=== PATIENT | female | born 1950 | race Caucasian/White ===

== ENCOUNTER → 2016-05-08 | Outpatient (CLI) | payer OTHER ==
--- NOTE | 2016-05-08 14:06 | MA ---
Bilateral Diagnostic Digital Mammogram with iCAD Clinical Indications: Asymmetric densities upper-outer quadrants of both breasts on recent screening mammogram. Technique: Digital bilateral spot compression CC, spot mediolateral oblique and true lateral views. This examination was processed by the iCAD computer-aided detection system. Comparison: Recent mammogram. April 2016. Breast Density: 3, 50-75%. Findings: The upper-outer quadrants of both breasts demonstrate nodular dense parenchymal pattern wit h scattered benign-appearing microcalcifications. Given the nodular dense parenchymal pattern of the upper-outer quadrants of both breasts which persists, additional imaging with ultrasound is recommend ed since there are no old studies prior to April 2016 for comparison. Impression: ACR BI-RADS 0: Needs further imaging. Recommendation: Ultrasound upper-outer quadrants of both breast for dense nodular parenchymal pattern . Please see ultrasound report, which will be subsequently performed. Findings and recommendations have been discussed with the patient who agrees with the plan. The patient's information is entered into a reminder system with a target due date for her next mammo gram.
--- NOTE | 2016-05-08 14:44 | US ---
Ultrasound Bilateral Breasts History: Nodular parenchymal pattern upper-outer quadrant of both breasts. Comparison: Today's and April 2016 mammograms. Technique: Ultrasound imaging of the upper-outer quadrant of the bilateral breasts was performed by manjula gupta corn chip maker and myself. Findings: No ultrasound evidence of dominant solid or cystic lesion in the upper-outer quadrants of b oth breasts. There is a benign lymph node in the right breast 10 o'clock position 12 cm from the nipp le measuring 10 x 9 x 6 mm. Impression: 1. BI-RADS 3: Probably benign finding on mammography. 2. No ultrasound evidence of dominant solid or cystic lesion in the upper-outer quadrants of both suzan asts. Incidental right breast upper-outer quadrant intramedullary benign 10-mm lymph node. 3. Recommend short-term follow up with bilateral diagnostic mammograms in 6 months. Findings and recommendations have been discussed with the patient who agrees with the plan.
== END ==
LOC: CIMAGING 12:26
DX: R92.8 Other abnormal and inconclusive findings on diagnostic imaging of breast (principal)
CPT/HCPCS: 76641; G0204

== ENCOUNTER → 2016-08-02 | Outpatient (CLI) | payer OTHER | LOC: CIMAGING 11:59 | PROVIDERS: ATTEND Internal Medicine Critical Care Medicine | DX: J44.9 Chronic obstructive pulmonary disease, unspecified (principal) | CPT/HCPCS: 71020-PO ==

== ENCOUNTER 2016-10-29 13:13 | Inpatient (IN) | payer OTHER ==
[2016-10-29] MEDS ORDERED: ONDANSETRON 4 MG/2 ML VIAL IVP ONE (13:57)
[2016-10-29] MEDS ORDERED: NS 1,000 ML IV ONE (13:57)
--- NOTE | 2016-10-29 14:01 | EDPHY ---
H & P Stated Complaint: fatugue, cramping, restless, Source: Patient - Personal History Current Tetanus/Diphtheria Vaccine: Yes Current Tetanus Diphtheria and Acellular Pertussis (TDAP): Yes - Medical/Surgical History Hx Asthma: Yes Hx Chronic Respiratory Disease: Yes Hx Diabetes: Yes Hx Cardiac Disease: Yes Hx Renal Disease: Yes Hx Cirrhosis: No Hx Alcoholism: No Hx HIV/AIDS: No Hx Splenectomy or Spleen Trauma: No Other PMH: Diabetic, COPD, spine surgery, knee replacement, c-seation, carpal tunnelx2, kidney issue, appy, anemia - Family History Significant Family History: Hypertension - Social History Smoking Status: Former smoker Alcohol Use: Sober Drug Use: None Time Seen by Provider: 10/29/16 13:40 HPI/ROS: CHIEF COMPLAINT: Failure to thrive HISTORY OF PRESENT ILLNESS: The patient is a 66-year-old female with a history of severe COPD on home oxygen who is here with her complaining of fatigue, the restlessness, hypersomnia, abdominal cramping, mild nausea and weight loss over the last 2 months. She had been trying to lose weight but feels like it is coming off easier than expected. She lost 4 lb this week because she has been nauseous and has not felt like eating. Her states that she cannot walk from room to room and cannot care for herself. They have seen their primary physician who changed some of her medications around. She states that this is not helped. She did have a colonoscopy 1 month ago that she reports was negative. She denies history of cardiac disease. She denies any history of cancer. She has not had a fever. She has not had a headache. She denies shortness of breath currently. She does have a history of mild depression and takes citalopram. Also over the last few weeks she has noticed some lumps near umbilicus and appendectomy scar. REVIEW OF SYSTEMS: Constitutional: denies: chills, fever, recent illness, recent injury EENTM: denies: blurred vision, double vision, nose congestion Respiratory: denies: cough, shortness of breath Cardiac: denies: chest pain, irregular heart rate, lightheadedness, palpitations Gastrointestinal/Abdominal: See HPI Genitourinary: denies: dysuria, frequency, hematuria, pain Musculoskeletal: denies: joint pain, muscle pain Skin: denies: lesions, rash, jaundice, bruising Neurological: denies: headache, numbness, paresthesia, tingling, dizziness, weakness Hematologic/Lymphatic: denies: blood clots, easy bleeding, easy bruising Immunologic/allergic: denies: HIV/AIDS, transplant EXAM: GENERAL: Obese, fatigue HEAD: Atraumatic, normocephalic. EYES: Pupils equal round and reactive to light, extraocular movements intact, sclera anicteric, conjunctiva are normal. ENT: TMs normal, nares patent, oropharynx clear without exudates. Moist mucous membranes. NECK: Normal range of motion, supple without lymphadenopathy or JVD. LUNGS: Breath sounds clear to auscultation bilaterally and equal. No wheezes rales or rhonchi. HEART: Regular rate and rhythm without murmurs, rubs or gallops. ABDOMEN: Soft, nontender, normoactive bowel sounds. No guarding, no rebound. Small palpable hernia in the umbilicus and possibly below appendectomy scar. Nontender. BACK: No CVA tenderness, no spinal tenderness, step-offs or deformities EXTREMITIES: Normal range of motion, no pitting or edema. No clubbing or cyanosis. NEUROLOGICAL: Cranial nerves II through XII grossly intact. Normal speech, normal gait. 5/5 strength, normal movement in all extremities, normal sensation PSYCH: Normal mood, normal affect. SKIN: Warm, dry, normal turgor, no visible rashes or lesions. (Fuentes Wahl) Constitutional: Initial Vital Signs Temperature (C) 36.4 C 10/29/16 13:18 Heart Rate 111 H 10/29/16 13:18 Respiratory Rate 16 10/29/16 13:18 Blood Pressure 125/101 H 10/29/16 13:18 O2 Sat (%) 99 10/29/16 13:18 O2 Delivery Mode Nasal Cannula Allergies/Adverse Reactions: No Known Allergies Allergy (Verified 10/29/16 16:03) Home Medications: Medication Instructions Recorded Albuterol Sulfate [Proair Hfa] 1 - 2 gm IH Q4H PRN 10/29/16 Aspirin EC [Aspirin EC 81 mg (*)] 81 mg PO HS 10/29/16 Cholecalciferol Vit D3 [Vitamin D3 1,000 units PO DAILY 10/29/16 (*)] DULoxetine [Cymbalta 60 MG (*)] 60 mg PO DAILY 10/29/16 Furosemide [Lasix 80 MG (*)] 40 mg PO DAILY@18 PRN 10/29/16 Furosemide [Lasix 80 MG (*)] 80 mg PO BID@08,12 10/29/16 Ipratropium/Albuterol [Duoneb (*)] 3 ml IH QID PRN 10/29/16 Lisinopril [Zestril 2.5 mg (*)] 2.5 mg PO DAILY 10/29/16 Multivitamins [Multivitamin (*)] 1 each PO DAILY 10/29/16 Oxycodone HCl [Dazidox] 10 - 20 mg PO BID PRN 10/29/16 Potassium Cl [Klor-Con 20 meq (*)] 20 meq PO HS 10/29/16 glipiZIDE [Glucotrol] 10 mg PO DAILY@12 10/29/16 metFORMIN HCL [Metformin HCl] 1,000 mg PO BID 10/29/16 traMADol [Ultram 50 mg (*)] 50 mg PO Q4 PRN 10/29/16 Medical Decision Making ED Course/Re-evaluation: 1455: Care of this patient was transferred to sc by Dr. Wahl at change of shift. I consulted with Dr. Zaidi, hospitalist, who will accept admission. ( Rodney Pinzon) 2:55 p.m. care transferred to Dr. Rodney Pinzon. Lab work pending as well as CT scan. (Fuentes Wahl) Differential Diagnosis: Partial list of the Differential diagnosis considered include but were not limited to; failure to thrive, abdominal hernia, cancer and although unlikely based on the history and physical exam, I also considered obstruction, ischemia , the radiculitis. (Fuentes Wahl) Other Provider: Patient signed out to sc by Dr. Wahl at 3pm pending CTAP with plan for medicine admit if negative. Per Dr. Moore, CTAP shows no acute process. Per plan, patient admitted to Dr. Zaidi. (Rodney Pinzon) - Data Points Laboratory Results: Laboratory Results 10/29/16 14:20 10/29/16 14:20 Medications Given: Discontinued Medications Sodium Chloride (Ns) 1,000 mls @ 0 mls/hr IV ONCE ONE; Wide Open PRN Reason: Protocol Stop: 10/29/16 13:58 Last Admin: 10/29/16 14:39 Dose: 1,000 mls Ondansetron HCl (Zofran) 4 mg IVP EDNOW ONE Stop: 10/29/16 13:58 Last Admin: 10/29/16 14:42 Dose: 4 mg Departure - Departure Disposition: [facility] Inpatient Acute Clinical Impression: Failure to thrive Qualifiers: Failure to thrive age range: in adult Qualified Code(s): R62.7 - Adult failure to thrive Condition: Fair
[2016-10-29 14:09] LABS: COLOR PALE YELLOW; LEUKOCYTE ESTERASE,URINE NEGATIVE (NEGATIVE); NITRITE,URINE NEGATIVE (NEGATIVE)
[2016-10-29 14:15] LABS: MUCUS TRACE /lpf (NONE-1+)
[2016-10-29 14:31] LABS: % IMMATURE GRANULYOCYTES 0.5 % (0.0-1.1); ABSOLUTE IMMATURE GRANULOCYTES 0.05 10^3/uL (0.00-0.10); ADD DIFF? NO; ADD MORPH? NO; ADD SCAN? NO; ATYPICAL LYMPHOCYTE FLAG 0 (0-99); FRAGMENT RBC FLAG 0 (0-99); HEMATOCRIT 40.5 % (38.0-47.0); HEMOGLOBIN 13.7 g/dL (12.6-16.3); LEFT SHIFT FLG 0 (0-99); LIPEMIA HEMOLYSIS FLAG 90 (0-99); MEAN CELL HEMOGLOBIN 31.5 pg (27.9-34.1); MEAN CELL HEMOGLOBIN CONCENTR. 33.8 g/dL (32.4-36.7); MEAN CELL VOLUME 93.1 fL (81.5-99.8); MEAN PLATELET VOLUME 11.6 fL (8.7-11.7); PLATELET CLUMPS FLAG 20 (0-99); PLATELET COUNT 260 10^3/uL (150-400); RED BLOOD CELL COUNT 4.35 10^6/uL (4.18-5.33); RED CELL DISTRIBUTION WIDTH 14.1 % (11.5-15.2)
[2016-10-29 14:42] LABS: INR 0.98 (0.83-1.16); PROTIME(PATIENT) 12.9 SEC (12.0-15.0)
[2016-10-29 14:43] LABS: APTT 24.4 SEC (23.0-38.0)
[2016-10-29 14:58] LABS: ALANINE AMINOTRANSFERASE 44 IU/L (9-52); ALBUMIN 4.2 g/dL (3.5-5.0); ALKALINE PHOSPHATASE 109 IU/L (38-126); ANION GAP 16 mEq/L (8-16); ASPARTATE AMINOTRANSFERASE 25 IU/L (14-46); BILIRUBIN,TOTAL 0.5 mg/dL (0.1-1.4); BILIRUBIN-CONJUGATED 0.4 mg/dL (0.0-0.5); BILIRUBIN-UNCONJUGATED 0.1 mg/dL (0.0-1.1); CALCIUM 9.9 mg/dL (8.5-10.4); CARBON DIOXIDE 25 mEq/l (22-31); CHLORIDE 98 mEq/L (97-110); CREATININE 1.1 mg/dL (0.6-1.0); GLOMERULAR FILTRATION RATE 50; GLUCOSE 172 mg/dL (70-100); POTASSIUM 4.4 mEq/L (3.5-5.2); SODIUM 139 mEq/L (134-144); TOTAL PROTEIN 6.7 g/dL (6.3-8.2)
[2016-10-29] MEDS ORDERED: IOPAMIDOL (ISOVUE-300) 100 ML BTL ONE (15:02)
[2016-10-29] MEDS ORDERED: ONDANSETRON 4 MG/2 ML VIAL IVP PRN (16:31)
[2016-10-29] MEDS ORDERED: ACETAMINOPHEN 325 MG TAB PO PRN (16:31)
[2016-10-29] MEDS ORDERED: oxyCODONE IR 5 MG TAB PO PRN (16:31)
[2016-10-29] MEDS ORDERED: IPRATROPIUM/ALBUTEROL 3 ML DEYVIAL IH PRN (16:33)
[2016-10-29] MEDS ORDERED: traMADol 50 MG TAB PO PRN (16:33)
[2016-10-29] MEDS ORDERED: ALBUTEROL INH PREPACK MDI TAKEHOME PRN (16:33)
[2016-10-29] MEDS ORDERED: D50W 25 GM/50 ML SYR IVP PRN (16:34)
[2016-10-29 16:45] LABS: MAGNESIUM 1.7 mg/dL (1.6-2.3)
--- NOTE | 2016-10-29 16:57 | CPEKG ---
Heart Rate: 104 RR Interval: 577 P-R Interval: 168 QRSD Interval: 92 QT Interval: 356 QTC Interval: 469 P [place]: 4 QRS [place]: -52 T Wave [place]: 43 EKG Severity - ABNORMAL ECG - EKG Impression: SINUS TACHYCARDIA EKG Impression: LEFT ANTERIOR FASCICULAR BLOCK Electronically Signed By: Wiliam Solis 29-Oct-2016 20:46:08
[2016-10-29 16:58] LABS: TROPONIN I < 0.012 ng/mL (0-0.034)
--- NOTE | 2016-10-29 17:02 | GHP ---
[f rep st] HISTORY AND PHYSICAL DATE OF ADMISSION: 10/29/2016 CHIEF COMPLAINT: Weakness. HISTORY OF PRESENT ILLNESS: This is a 66-year-old female, brought in by her for weakness. Symptoms started about 3 weeks ago. It seems as though temporally related to a screening colonoscop y which she had. She reports that the colonoscopy was totally negative. After that, she was "very sick" with abdominal pain and some nausea. These symptoms have continued, waxed and waned a little bit for the last 3 weeks. She has had a few episodes of emesis. She has had some diarrhea, though none today. She has some mildly worsening abdominal distention, as well as abdominal pain. Her hus band and she report that she has been falling asleep, feels very restless as well. This is all quit e different for her. She increased her metformin last week, but this had no effect on her symptoms. PAST MEDICAL/SURGICAL HISTORY: 1. Obesity. 2. Diabetes mellitus type 2. 3. Osteoarthritis. 4. COPD/chronic respiratory failure. 5. Hypertension. 6. Lumbar fusion. 7. History of anemia requiring 3 transfusions at [place] for unclear reasons. MEDICATIONS: Please see medication reconciliation. ALLERGIES: No known drug allergies. FAMILY HISTORY: Noncontributory. SOCIAL HISTORY: She is accompanied by her . She does not drink or smoke. REVIEW OF SYSTEMS: A 10-point review of systems is conducted and is negative, except per HPI. This includes no chest pain or worsening shortness of breath. PHYSICAL EXAM: VITAL SIGNS: Blood pressure 125/101, heart rate 111, respiratory rate 16, saturatin g 99% on 2 L nasal cannula, temperature is 36.4. GENERAL: Ms. Spencer is a pleasant female who appear s comfortable, in no acute distress. HEENT: Shows mucous membranes to be moist. CARDIOVASCULAR: Shows regular rate and rhythm. No murmurs, rubs, or gallops. PULMONARY: Lungs clear to auscultati on bilaterally. ABDOMEN: Obese. She is mildly tender to palpation mostly in the right lower quadr ant. SKIN: Shows no rash. : Shows no Lind[place]. NEUROLOGIC: Shows her to be alert and oriented x3 . She is moving all extremities. PSYCHIATRIC: Shows normal mood and affect. LABS: White count is 10.3 with a normal distribution, INR 0.98, creatinine is 1.1. Basic metabolic panel is normal. LFTs are normal. Lipase negative. Urinalysis is normal. DATA: 1. I discussed this with Dr. Pinzon in the ED, will admit to med/surg. 2. I reviewed her CT scan. It shows fat containing periumbilical abdominal wall hernia. No acute findings. IMPRESSION AND PLAN: A 66-year-old female, who presents with nonspecific fatigue/weakness. 1. Fatigue/weakness: Labs are normal. CT scan is normal (associated with some nausea, diarrhea). We will perform basic cardiac workup, including EKG, single troponin. We will round out her metabo lic workout with checking all electrolytes, A1c. We will check a TSH, cortisol. We will check a ch est x-ray given her history of COPD. We will check orthostatic vitals. She is on Lasix. She did r eceive 1 L of fluid in the ED. I note that she was slightly tachycardic on her presentation. She i s not currently tachycardic. We will order PT and OT evals as well. 2. Diabetes: We will hold her glipizide and metformin, standard sliding scale, check A1c. 3. Hypertension: Continue medications. 4. Chronic obstructive pulmonary disease: Continue her inhalers and oxygen support. 5. Code status is full. 6. Venous thromboembolism risk is moderate, though she is admitted to Obs. We will not start any p rophylaxis at this point. /[id number]/MODL
[2016-10-29 17:36] LABS: HEMOGLOBIN A1C 8.2 % (4.0-6.0)
[2016-10-29 17:48] LABS: INR 0.97 (0.83-1.16); PROTIME(PATIENT) 12.8 SEC (12.0-15.0)
[2016-10-29] MEDS ORDERED: FUROSEMIDE 80 MG TAB PO PRN (18:00)
[2016-10-29] MEDS ORDERED: ALBUTEROL 60 PUFFS/8 GM MDI IH PRN (18:02)
[2016-10-29] MEDS ORDERED: ALBUTEROL 200 PUFFS/18 GM MDI IH PRN (18:05)
[2016-10-29] MEDS: INSULIN LISPRO 100 UNIT/ML SC SCH (18:47)
[2016-10-29] MEDS: ONDANSETRON DISINTEGRATING 4 MG TAB PO PRN (19:59)
[2016-10-29] MEDS: ASPIRIN EC 81 MG TAB PO SCH (21:31)
[2016-10-29] MEDS: POTASSIUM CL 20 MEQ TAB PO SCH (21:31)
[2016-10-30 05:08] LABS: % IMMATURE GRANULYOCYTES 0.4 % (0.0-1.1); ABSOLUTE IMMATURE GRANULOCYTES 0.03 10^3/uL (0.00-0.10); ADD DIFF? NO; ADD MORPH? NO; ADD SCAN? NO; ATYPICAL LYMPHOCYTE FLAG 10 (0-99); FRAGMENT RBC FLAG 0 (0-99); HEMATOCRIT 34.2 % (38.0-47.0); HEMOGLOBIN 11.3 g/dL (12.6-16.3); LEFT SHIFT FLG 0 (0-99); LIPEMIA HEMOLYSIS FLAG 80 (0-99); MEAN CELL HEMOGLOBIN 30.7 pg (27.9-34.1); MEAN CELL VOLUME 92.9 fL (81.5-99.8); PLATELET CLUMPS FLAG 0 (0-99); PLATELET COUNT 200 10^3/uL (150-400); RED BLOOD CELL COUNT 3.68 10^6/uL (4.18-5.33); RED CELL DISTRIBUTION WIDTH 14.1 % (11.5-15.2)
[2016-10-30] MEDS: INSULIN LISPRO 100 UNIT/ML SC SCH ×3 (08:42→18:12)
[2016-10-30] MEDS: DULoxetine 60 MG CAP PO SCH (08:42)
[2016-10-30] MEDS: FUROSEMIDE 80 MG TAB PO SCH ×2 (08:42→13:08)
[2016-10-30] MEDS: LISINOPRIL 2.5 MG TAB PO SCH (08:43)
[2016-10-30] MEDS: ONDANSETRON DISINTEGRATING 4 MG TAB PO PRN ×2 (10:21→14:23)
--- NOTE | 2016-10-30 15:17 | HOSPPROG ---
Hospitalist Progress Note Assessment/Plan: 66 yo female with Fatigue, N/V, intermittent diarrhea, and malaise for several week.. W/u has been unremarkable. Morning cortisol low in setting of hyperglycemia. #Dehydration: resolving: I will decrease Lasix #DMII, with elevated A1C and hyperglycemia: start Lantus nightly. Hold Metformin and oral meds #Nausea/Vomiting: unclear etiology. Possibly due to DMII, possibly other. ?IBS. Schedule Zofran #Generalized weakness and deconditioning #Obesity #COPD and chronic resp failure at baseline #Fatigue: unclear chronicity Plan: the etiology remains unclear. I am unclear what to make of the low cortisol level in the setting of uncontrolled DM and signs of dehydration on admission. No signs of Hypotension, has a hx of HTN. Will decrease Lasix. No further IVF. Start long acting insulin. PPI. Avoid centrally acting meds. Schedule antiemetics. Subjective: Still with Nause. No emesis. Hyperglycemia. Objective: Vital Signs Temp Pulse Resp BP Pulse Ox 36.8 C 96 18 107/78 98 10/30/16 11:38 10/30/16 11:38 10/30/16 11:38 10/30/16 11:38 10/30/16 11:38 Laboratory Results 10/30/16 04:01 10/29/16 10/30/16 10/31/16 05:59 05:59 05:59 Intake Total 1350 Balance 1350 PT 12.8 SEC (12.0-15.0) 10/29/16 Unknown INR 0.97 (0.83-1.16) 10/29/16 Unknown - Physical Exam Constitutional: no apparent distress, appears nourished, not in pain Eyes: PERRL, EOMI Ears, Nose, Mouth, Throat: moist mucous membranes Cardiovascular: regular rate and rhythym, No JVD Respiratory: no respiratory distress, reduced air movement Gastrointestinal: normoactive bowel sounds, soft, non-tender abdomen Skin: warm Neurologic: AAOx3 Psychiatric: interacting appropriately, not anxious, not encephalopathic ICD10 Worksheet Patient Problems: Problems Problem Status Onset Failure to thrive Acute Arthritis of right knee Acute
[2016-10-30] MEDS: ONDANSETRON DISINTEGRATING 4 MG TAB PO SCH ×2 (18:12→21:36)
[2016-10-30] MEDS ORDERED: INSULIN GLARGINE 100 UNITS/ML SYRINGE SC SCH (21:00)
[2016-10-30] MEDS: ASPIRIN EC 81 MG TAB PO SCH (21:35)
[2016-10-30] MEDS: POTASSIUM CL 20 MEQ TAB PO SCH (21:36)
[2016-10-31] MEDS: ONDANSETRON DISINTEGRATING 4 MG TAB PO SCH ×6 (01:30→22:14)
[2016-10-31 05:10] LABS: % IMMATURE GRANULYOCYTES 0.4 % (0.0-1.1); ABSOLUTE IMMATURE GRANULOCYTES 0.03 10^3/uL (0.00-0.10); ADD DIFF? NO; ADD MORPH? NO; ADD SCAN? NO; ATYPICAL LYMPHOCYTE FLAG 0 (0-99); FRAGMENT RBC FLAG 0 (0-99); HEMATOCRIT 35.3 % (38.0-47.0); HEMOGLOBIN 11.4 g/dL (12.6-16.3); LEFT SHIFT FLG 0 (0-99); LIPEMIA HEMOLYSIS FLAG 80 (0-99); MEAN CELL HEMOGLOBIN 30.2 pg (27.9-34.1); MEAN CELL HEMOGLOBIN CONCENTR. 32.3 g/dL (32.4-36.7); MEAN CELL VOLUME 93.6 fL (81.5-99.8); MEAN PLATELET VOLUME 11.6 fL (8.7-11.7); PLATELET CLUMPS FLAG 0 (0-99); PLATELET COUNT 188 10^3/uL (150-400); RED BLOOD CELL COUNT 3.77 10^6/uL (4.18-5.33); RED CELL DISTRIBUTION WIDTH 13.7 % (11.5-15.2)
[2016-10-31 05:26] LABS: ANION GAP 9 mEq/L (8-16); CARBON DIOXIDE 28 mEq/l (22-31); CHLORIDE 97 mEq/L (97-110); CREATININE 1.1 mg/dL (0.6-1.0); GLOMERULAR FILTRATION RATE 50; GLUCOSE 167 mg/dL (70-100); POTASSIUM 4.5 mEq/L (3.5-5.2); SODIUM 134 mEq/L (134-144)
[2016-10-31] MEDS: FUROSEMIDE 40 MG TAB PO SCH ×2 (08:29→12:53)
[2016-10-31] MEDS: INSULIN LISPRO 100 UNIT/ML SC SCH ×3 (08:29→17:47)
[2016-10-31] MEDS: LISINOPRIL 2.5 MG TAB PO SCH (08:30)
[2016-10-31] MEDS: DULoxetine 60 MG CAP PO SCH (08:30)
--- NOTE | 2016-10-31 14:03 | HOSPPROG ---
Hospitalist Progress Note Assessment/Plan: 66 yo female with Fatigue, N/V, intermittent diarrhea, and malaise for several weeks #Dehydration: resolving: I will decrease Lasix again today to 40 mg BID #borderline low BP: she is on Lisinopril 2.5 mg. This will be stopped. #DMII, with elevated A1C and hyperglycemia: Lantus started 10/31. Hold Metformin and oral meds #Nausea/Vomiting: unclear etiology. Possibly due to DMII, possibly other. ?IBS. Schedule Zofran #Generalized weakness and deconditioning #Obesity #COPD and chronic resp failure at baseline, no complaints #Fatigue: unclear chronicity Plan: The patient has multiple complaints. Her malaise and fatigue are likely multifactorial including her comorbidities, acute dehydration, borderline bp, and poor nutrition. Today, she will have further decrease of Lasix and stop VALORIE- I. I would expect some improvement with resolution of the dehydration and increase to BP. Her DMII is poorly controlled and she has been started on Insulin. She was previously on it before and had to stop due to it being too expensive. She likely needs additional insulin and our CM is looking to see what insulins are available to her. Metformin was increase w/i the last 2 weeks and this likely also contributed to her nausea. Would avoid Metformin and other oral meds going forward in favor of insulin. She is having good BM's and likely at this point she does not have gastroparesis. She had low cortisol level in the am. While she may have some underlying chronic adrenal insufficiency, we are making several other changes that may be the culprit. would repeat this test if these changes are not successful. Subjective: Still with some nausea, some improvement Objective: Vital Signs Temp Pulse Resp BP Pulse Ox 36.7 C 89 19 102/68 99 10/31/16 11:41 10/31/16 11:41 10/31/16 07:58 10/31/16 11:41 10/31/16 11:41 Laboratory Results 10/31/16 04:13 10/31/16 04:13 10/30/16 10/31/16 11/01/16 05:59 05:59 05:59 Intake Total 1350 1320 Output Total 600 Balance 1350 720 PT 12.8 SEC (12.0-15.0) 10/29/16 Unknown INR 0.97 (0.83-1.16) 10/29/16 Unknown - Time Spent With Patient Time Spent with Patient: greater than 35 minutes Time Spent with Patient: Greater than 35 minutes spent on this patients care, greater than 50% of time spent counseling, educating, and coordinating care regarding the above mentioned plan. - Physical Exam Constitutional: chronically ill appearing Eyes: PERRL, EOMI Ears, Nose, Mouth, Throat: dry mucous membranes Cardiovascular: regular rate and rhythym, No JVD Respiratory: reduced air movement Gastrointestinal: soft, non-tender abdomen Skin: warm Neurologic: AAOx3, sensation intact bilaterally Psychiatric: interacting appropriately, not anxious, not encephalopathic ICD10 Worksheet Patient Problems: Problems Problem Status Onset Failure to thrive Acute Arthritis of right knee Acute
[2016-10-31] MEDS: INSULIN NPH HUMAN 100 UNITS/ML SYRINGE SC SCH (17:47)
[2016-10-31] MEDS: ENOXAPARIN 40 MG/0.4 ML SYR SC SCH (17:48)
[2016-10-31] MEDS: POTASSIUM CL 20 MEQ TAB PO SCH (20:20)
[2016-10-31] MEDS: ASPIRIN EC 81 MG TAB PO SCH (20:20)
[2016-11-01] MEDS: ONDANSETRON DISINTEGRATING 4 MG TAB PO SCH ×4 (04:10→15:54)
[2016-11-01 05:01] LABS: ANION GAP 9 mEq/L (8-16); CALCIUM 8.8 mg/dL (8.5-10.4); CARBON DIOXIDE 29 mEq/l (22-31); CHLORIDE 97 mEq/L (97-110); CREATININE 1.2 mg/dL (0.6-1.0); GLOMERULAR FILTRATION RATE 45; GLUCOSE 139 mg/dL (70-100); POTASSIUM 4.8 mEq/L (3.5-5.2); SODIUM 135 mEq/L (134-144)
[2016-11-01] MEDS: DULoxetine 60 MG CAP PO SCH (08:55)
[2016-11-01] MEDS: FUROSEMIDE 40 MG TAB PO SCH ×2 (08:55→12:13)
[2016-11-01] MEDS: INSULIN LISPRO 100 UNIT/ML SC SCH ×2 (08:56→12:39)
[2016-11-01] MEDS: ENOXAPARIN 40 MG/0.4 ML SYR SC SCH (08:57)
[2016-11-01] MEDS: INSULIN NPH HUMAN 100 UNITS/ML SYRINGE SC SCH (09:00)
[2016-11-01 12:24] VITALS: O2SAT 98
[2016-11-01 16:29] VITALS: BP 116/67; PULSE 79; RESP 18; TEMP 97.8
--- NOTE | 2016-11-01 17:31 | PDDCSUM ---
Discharge Summary Discharge Summary: DISCHARGE DIAGNOSES: -diffuse abdominal pain, uncertain etiology with some right upper quadrant component -nausea vomiting uncertain etiology -cholelithiasis -diabetes mellitus type 2 with mild elevation of sugars and hemoglobin A1c -renal insufficiency PROCEDURES: CT scan of abdomen and pelvis showing evidence of cholelithiasis without other biliary or gallbladder abnormalities HOSPITAL COURSE SUMMARY: This patient came into the hospital complaining of diffuse diffuse abdominal pain on off for 3 weeks with occasional right upper quadrant discomfort. She also had intermittent nausea and vomiting and intermittent diarrhea at home. There were no fevers and no signs of bleeding. She had just completed a colonoscopy which was normal screening test prior to the onset of these symptoms. Her examination was unremarkable. Blood tests did not show any abnormalities to suggest a particular etiology. Stool samples were sent for pathogen panel and there were no infectious agents identified. The patient was treated here with hydration and with scheduled doses Zofran. This controlled her nausea well enough to the point where she could eat regular meals though she still is having some nausea and pain. She is comfortable dealing with the pain without analgesics. As there were no other signs of complications and the patient is now eating and hydrating well it was felt she was stable for discharge to home. However as there are gallstones present and we have no other specific etiology for her pains identified we did arrange for an outpatient HIDA scan. This will be done next week with results to go to Dr. Melissa Hudson her primary care physician. In addition to the above the patient is noted to have mildly to moderately elevated blood sugars and hemoglobin A1c of 8. She is taking 2 oral medications. At this point is recommended that she keep close track of pre meal and bedtime blood sugars and take a list of 2 weeks with sugars to see Dr. Hudson the plan on the best approach for getting her back to better sugar control. In addition the patient did have a mildly elevated creatinine at 1.1 and 1.2 here. It is felt that since this was stable here during her hospital stay she continue her Lasix and Abner inhibitors long his her creatinine is staying stable and her blood pressures remained in good range. Arrange for her to see Dr. Hudson in the next week or 2 to recheck her creatinine and she will check blood sugars at home. PENDING TEST RESULTS: HIDA scan will be done as an outpatient with results to Dr. Melissa Hudson MEDICATION CHANGES: Zofran is ordered for 4 mg every 4 hours as needed FOLLOW-UP PLAN: She has an appointment for follow-up with Dr. Melissa Hudson in addition. Greater than 35 minutes bedside and care coordination time today
== END 2016-11-01 17:50 | disposition home or self-care (01) | DRG 392 ==
LOC: F2W 17:43 → OBSVTOIN 10-31 14:04
PROVIDERS: ADMIT Student in an Organized Health Care Education/Training Program; ATTEND Student in an Organized Health Care Education/Training Program
DX: R10.11 Right upper quadrant pain (principal); R11.2 Nausea with vomiting, unspecified; E11.65 Type 2 diabetes mellitus with hyperglycemia; E86.0 Dehydration; J44.9 Chronic obstructive pulmonary disease, unspecified; J96.10 Chronic respiratory failure, unspecified whether with hypoxia or hypercapnia; K80.20 Calculus of gallbladder without cholecystitis without obstruction; I10 Essential (primary) hypertension; E66.9 Obesity, unspecified; Z68.41 Body mass index [BMI] 40.0-44.9, adult; Z96.659 Presence of unspecified artificial knee joint; Z87.891 Personal history of nicotine dependence; Z99.81 Dependence on supplemental oxygen; Z98.1 Arthrodesis status; Z79.4 Long term (current) use of insulin
CPT/HCPCS: 96374; 97116-GP; 97161-GP; 97165-GO; 97530-GP; G0378; G8978-GP-CJ; G8979-GP-CI; G8980-GP-CI; G8987-GO-CI; G8988-GO-CI; G8989-GO-CI; J1650; J1815; J2405; Q9967

== ENCOUNTER → 2017-03-21 | Outpatient (CLI) | payer OTHER | LOC: BRMIMAGING 08:34 | PROVIDERS: ATTEND Family Medicine | DX: R92.8 Other abnormal and inconclusive findings on diagnostic imaging of breast (principal) | CPT/HCPCS: G0204 ==

== ENCOUNTER 2017-03-30 15:21 | Emergency (ER) | payer OTHER ==
[2017-03-30 15:31] VITALS: RESP 14
[2017-03-30] MEDS ORDERED: OXYCODONE/APAP 5/325 TAB PO ONE (15:51)
--- NOTE | 2017-03-30 16:00 | EDPHY ---
H & P Stated Complaint: Foot Pain Time Seen by Provider: 03/30/17 15:42 HPI/ROS: CHIEF COMPLAINT: Left foot pain HISTORY OF PRESENT ILLNESS: Ms. Spencer is a 67 year old female with history of type 2 diabetes, COPD with oxygen dependence, adrenal insufficiency presents with atraumatic with foot pain. She awoke with this pain this morning. She has taken tramadol 150 mg and 1 diclofenac without relief. The pain is located along the lateral aspect of her foot. She believes that there is a bump that she can feel in this area. She describes this area as exquisitely tender palpation. It is painful, in this area, for her to move her ankle or foot. Weight bearing is painful. She has not been aware of warmth or redness. She denies fever. She usually ambulates independently, sometimes uses a cane or walker when she is on an uneven surface. REVIEW OF SYSTEMS: A ten point review of systems was performed and is negative with the exception of the items mentioned in the HPI. Past medical history: 1. Type 2 diabetes 2. COPD 3. Renal insufficiency 4. Sepsis secondary to urinary tract infection Past surgical history: 1. Right knee arthroplasty 2. Carpal tunnel x2 3. Appendectomy 4. section 5. Lumbar surgery Social history: She lives with her . She quit smoking 7 years ago. General Appearance: Alert. Vital signs reviewed. Blood pressure 95/70. Neck: No lymphadenopathy, supple. Respiratory: Lungs are distant and clear to auscultation; no wheezes, rales, or rhonchi. Cardiovascular: Regular rate and rhythm; no murmur, rub, or gallop. Gastrointestinal: Abdomen is obese, soft and nontender, no masses or organomegaly, bowel sounds normal. Skin: Warm and dry, no rashes on exposed skin, normal color. Bruising at base of right toes 3 and 4. Pulses: 1+ bilateral dorsalis pedis pulses. Extremities: Tenderness along the lateral aspect of her left foot in the region where the cuboid intersects with the 5th metatarsal proximally. This area might be minimally swollen. No other tenderness with palpation of the foot and the left lower leg. No lower extremity edema, no calf tenderness or swelling. Neurological: Alert and oriented. Moving all four extremities easily and equally. Sensation intact to light touch over both lower extremities. Sensation is intact to light touch over both lower extremities. Psychiatric: Normal affect. - Personal History Current Tetanus Diphtheria and Acellular Pertussis (TDAP): Unsure - Medical/Surgical History Hx Asthma: Yes Hx Chronic Respiratory Disease: Yes Hx Diabetes: Yes Hx Cardiac Disease: Yes Hx Renal Disease: Yes Hx Cirrhosis: No Hx Alcoholism: No Hx HIV/AIDS: No Hx Splenectomy or Spleen Trauma: No Other PMH: Diabetic, COPD, spine surgery, knee replacement, c-seation, carpal tunnelx2, kidney issue, appy, anemia - Social History Smoking Status: Former smoker Constitutional: Initial Vital Signs Temperature (C) 36.6 C 03/30/17 15:27 Heart Rate 93 03/30/17 15:27 Respiratory Rate 14 03/30/17 15:27 Blood Pressure 95/70 L 03/30/17 15:27 O2 Sat (%) 98 03/30/17 15:27 Allergies/Adverse Reactions: No Known Allergies Allergy (Verified 10/29/16 16:03) Home Medications: Medication Instructions Recorded Albuterol Sulfate [Proair Hfa] 1 - 2 gm IH Q4H PRN 10/29/16 Aspirin EC [Aspirin EC 81 mg (*)] 81 mg PO HS 10/29/16 Cholecalciferol Vit D3 [Vitamin D3 1,000 units PO DAILY 10/29/16 (*)] DULoxetine [Cymbalta 60 MG (*)] 60 mg PO DAILY 10/29/16 Furosemide [Lasix 80 MG (*)] 80 mg PO BID@08,12 10/29/16 Ipratropium/Albuterol [Duoneb (*)] 3 ml IH QID PRN 10/29/16 Lisinopril [Zestril 2.5 mg (*)] 2.5 mg PO DAILY 10/29/16 Multivitamins [Multivitamin (*)] 1 each PO DAILY 10/29/16 Oxycodone HCl [Dazidox] 10 - 20 mg PO BID PRN 10/29/16 Potassium Cl [Klor-Con 20 meq (*)] 20 meq PO HS 10/29/16 glipiZIDE [Glucotrol] 10 mg PO DAILY@12 10/29/16 metFORMIN HCL [Metformin HCl] 1,000 mg PO BID 10/29/16 traMADol [Ultram 50 mg (*)] 50 mg PO Q4 PRN 10/29/16 Ondansetron Odt [Zofran Odt 4 mg 4 mg SL Q4HRS PRN #60 tab 11/01/16 (*)] Lidocaine 5% [Lidoderm 5% Patch 1 ea TD DAILY #4 patch 03/30/17 (*)] oxyCODONE/APAP 5/325 [Percocet 1 - 2 tab PO Q4H PRN #10 tab 03/30/17 5/325 (RX)] Medical Decision Making - Diagnostics Imaging Results: Imaging Impressions Foot X-Ray 03/30/17 15:51 Impression: Negative except for osteoarthritis. ED Course/Re-evaluation: I reviewed the patient's x-ray. No fracture or dislocation. No bony abnormality aside from osteoarthritis. Nothing to suggest infection. Neurovascularly intact. There is no redness or warmth on exam. There is an area that is exquisitely tender to palpation on the lateral aspect of her foot along the cuboid and proximal fifth metatarsal. The nature of her pain is suggestive of gout but this would be an unusual location, although not impossible. She has a history of renal insufficiency and should not take anti-inflammatory medication. I note that she last had her creatinine checked in November, at which time it was normal at 1.0. Will try some measures for pain relief such as lidocaine patch. She had her foot wrapped when she arrived in so that the support made feels somewhat better so we will reapply an Abner wrap. Post op shoe placed. Will try crutch walking, as weight-bearing is difficult for her. I am going to prescribe a small quantity of Percocet for her to use for pain. I reviewed the use of tramadol with her. I am referring her to a enginehouse brakeman for further evaluation as needed. - Data Points Medications Given: Discontinued Medications Lidocaine (Lidoderm 5%) 1 ea TD EDNOW ONE Stop: 03/30/17 16:47 Last Admin: 03/30/17 16:48 Dose: 1 ea Oxycodone/Acetaminophen (Percocet 5/325) 1 tab PO EDNOW ONE Stop: 03/30/17 15:52 Last Admin: 03/30/17 15:55 Dose: 1 tab Departure - Departure Disposition: Home, Routine, Self-Care Clinical Impression: Foot pain, left Condition: Good Instructions: Arthralgia (ED) Additional Instructions: You can take Tramadol 50-100 mg every 6 hours. Do not take more than 400 mg in a 24 hour time period. Because of your kidney function you should avoid anti-inflammatory medications, such as Motrin, Advil, Aleve, Diclofenac. Use the Percocet, which contains tylenol, as prescribed. This medication will make you drowsy. It can also suppress your drive to breathe. Be very careful taking it. It contains oxycodone, which is an opiate pain medication and can be addictive. I am referring you to Dr. Meléndez, enginehouse brakeman, for further evaluation of your pain. As you know, it is not clear what is causing this pain. Referrals: Melissa Hudson MD [Primary Care Provider] - As per Instructions Kenya Meléndez DPM [Doctor of Podiatric Medicine] - As per Instructions Prescriptions: Lidocaine 5% [Lidoderm 5% Patch (*)] 1 ea TD DAILY #4 patch oxyCODONE/APAP 5/325 [Percocet 5/325 (RX)] 1 - 2 tab PO Q4H PRN #10 tab PRN Reason: Pain, Severe
[2017-03-30] MEDS ORDERED: LIDOCAINE 5% 1 EA PATCH TD ONE ×2 (16:46→16:47)
[2017-03-30 17:11] VITALS: BP 100/72; PULSE 88; TEMP 97.5; O2SAT 93
[2017-03-30] MEDS ORDERED: PATCH REMOVAL 1 EA PATCH TD SCH (21:00)
== END 2017-03-30 17:10 | disposition home or self-care (01) ==
LOC: CED 15:21
DX: M79.672 Pain in left foot (principal); E11.9 Type 2 diabetes mellitus without complications; J44.9 Chronic obstructive pulmonary disease, unspecified; Z87.891 Personal history of nicotine dependence; Z79.82 Long term (current) use of aspirin; Z79.84 Long term (current) use of oral hypoglycemic drugs
CPT/HCPCS: 73630-PO

== ENCOUNTER 2017-05-13 07:15 | Observation (INO) | payer OTHER ==
--- NOTE | 2017-05-02 08:01 | GHP ---
[f rep st] HISTORY AND PHYSICAL Amended report MITALI COMPLAINT: Left knee pain. HISTORY OF PRESENT ILLNESS: The patient is a 67-year-old female with a long history of left knee pain worsening with use and with time despite multiple conservative measures. X-ray exam has revealed [id number] osteoarthritic changes. She wishes to have surgery in order to resolve the problem. ALLERGIES: She lists no drug allergies. CURRENT MEDICATIONS: Include Advair, amitriptyline, citalopram, clobetasol, duloxetine, furosemide, glipizide, ipratropium, Lantus, lisinopril, metformin, _ , ProAir. PAST MEDICAL HISTORY: Prior medical problems include arthritis, asthma, diabetes, heart murmur, kidney disease, COPD. PAST SURGICAL HISTORY: Prior surgeries include a right total knee arthroplasty , carpal tunnel x2, spinal fusion, section, and a hernia repair. SOCIAL HISTORY: She is a former smoker and a social drinker. PHYSICAL EXAM: EXTREMITIES: Patient has mild varus deformity through the left knee. She has crepitus noted to the medial compartment as well as spurring. HEENT: Her pupils are equal, round, and reactive to light. CHEST: Clear to auscultation. HEART: Regular rate and rhythm. ABDOMEN: Soft and nontender. X-ray exam reveals [id number] osteoarthritic changes, particularly medial compartment of the left knee. PLAN: The plan is to take her to the operating room where she is to undergo a left total knee arthroplasty. /[id number]/MODL Add acc#, 05/02/17, moy SINGH
[~2017-05-13 07:15] MED LIST: ACETAMINOPHEN 500 MG TAB PO ONE; PREGABALIN 150 MG CAP PO ONE; ROPIVACAINE 0.2% 80 MG, EPINEPHrine 0.2 MG, KETOROLAC TROMETHAMINE 30 MG, morphINE 10 M... IU ONE; TRANEXAMIC ACID 3,000 MG in NS 50 ML IRR ONE; ceFAZolin 2 GM/SWFI 2 GM/20 ML SYR IVP ONE
[2017-05-13] MEDS ORDERED: LIDOCAINE 1% 2 ML INJ ID PRN (08:22)
[2017-05-13] MEDS ORDERED: LR 1,000 ML IV ONE (08:22)
[2017-05-13] MEDS ORDERED: THROMBIN (BOVINE) 5,000 UNIT VIAL TP ONE (09:11)
[2017-05-13] MEDS ORDERED: BUPIVACAINE 0.25% 30 ML SDV ONE (09:11)
[2017-05-13] MEDS ORDERED: CALCIUM CHLORIDE 1 GM/10 ML INJ ONE (09:11)
[2017-05-13] MEDS ORDERED: POLYMYXIN B SULFATE 500,000 UNIT/10 ML SYR IRR ONE (09:12)
[2017-05-13] MEDS ORDERED: BACITRACIN 50,000 UNITS/10 ML SYR IRR ONE (09:12)
[2017-05-13] MEDS ORDERED: TRANEXAMIC ACID 3,000 MG/50 ML BAG IRR ONE (09:16)
[2017-05-13] MEDS ORDERED: ACETAMINOPHEN 500 MG TAB ONE (09:23)
[2017-05-13] MEDS ORDERED: PREGABALIN 150 MG CAP ONE (09:23)
[2017-05-13] MEDS ORDERED: ceFAZolin 2 GM/SWFI 20 ML SYR IVP ONE (09:23)
--- NOTE | 2017-05-13 09:43 | PDHPUP ---
History & Physical Update H&P update statement: This history and physical update is based on an assessment of the patient which was completed after admission or registration (within 24 hours), but prior to the surgery/procedure. H&P update: H&P reviewed & patient examined, no change in patient's condition since H&P completed
[2017-05-13] MEDS ORDERED: MIDAZOLAM 2 MG/2 ML VIAL IVP ONE (10:01)
--- NOTE | 2017-05-13 10:06 | PDANEPAE ---
ANE History of Present Illness left knee oa ANE Past Medical History - Cardiovascular History Hx Hypertension: No Hx Arrhythmias: No Hx Chest Pain: No Hx Coronary Artery / Peripheral Vascular Disease: No Hx CHF / Valvular Disease: Yes Hx Palpitations: No Cardiovascular History Comment: on lisinopril for kidneys; on Lasix for ankle swelling;. anemia-3 transfusions. - Pulmonary History Hx COPD: Yes Hx Asthma/Reactive Airway Disease: Yes Hx Recent Upper Respiratory Infection: No Hx Oxygen in Use at Home: Yes O2 in Use at Home (L/minute): 3L NC Hx Sleep Apnea: No Sleep Apnea Screening Result - Last Documented: Negative Pulmonary History Comment: COPD,asthma; pneumonia 2013; on 2-4L O2 w/NC. Summer: in pool/shopping without O2. Winter: uses 3L NC. - Neurologic History Hx Cerebrovascular Accident: No Hx Seizures: No Hx Dementia: No - Endocrine History Hx Diabetes: Yes Endocrine History Comment: IDDM. On Levimir x 6 mos. - Renal History Hx Renal Disorders: Yes Renal History Comment: insufficiency-on Lisinopril - Liver History Hx Hepatic Disorders: Yes Hepatic History Comment: liver problems - Neurological & Psychiatric Hx Hx Neurological and Psychiatric Disorders: Yes Neurological / Psychiatric History Comment: back pain;radiates down sciatic nerve and moreso R leg/less down L leg at night. - Cancer History Hx Cancer: No - Congenital Disorder History Hx Congenital Disorders: No - GI History Hx Gastrointestinal Disorders: No Gastrointestinal History Comment: cholelithiasis/N andV 6-17;. abd hernia. - Other Health History Other Health History: bruises easily. L bilat knee pain - Chronic Pain History Chronic Pain: Yes (L knee, back pain) - Surgical History Prior Surgeries: R total knee 9-16. 2 major back sugeries, R knee scope, bilat carpal tunnels, C section. ANE Review of Systems Review of Systems: - Exercise capacity METS (RN): 3 METS ANE Patient History - Allergies Allergies/Adverse Reactions: No Known Allergies Allergy (Verified 04/22/17 10:24) - Home Medications Home Medications: Albuterol Sulfate [Proair Hfa] 1 - 2 gm IH Q4H PRN 10/29/16 [Last Taken 05/13/17 ] Aspirin EC [Aspirin EC 81 mg (*)] 81 mg PO HS 10/29/16 [Last Taken 05/06/17] Cholecalciferol Vit D3 [Vitamin D3 (*)] 1,000 units PO DAILY 10/29/16 [Last Taken 05/06/17] DULoxetine [Cymbalta 60 MG (*)] 60 mg PO DAILY 10/29/16 [Last Taken 05/13/17 06: 30] Furosemide [Lasix 80 MG (*)] 80 mg PO BID@08,12 10/29/16 [Last Taken 05/12/17] Ipratropium/Albuterol [Duoneb (*)] 3 ml IH QID PRN 10/29/16 [Last Taken 05/09/17 ] Lisinopril [Zestril 2.5 mg (*)] 2.5 mg PO DAILY 10/29/16 [Last Taken 05/13/17 06 :30] Multivitamins [Multivitamin (*)] 1 each PO DAILY 10/29/16 [Last Taken 05/06/17] Oxycodone HCl [Dazidox] 10 - 20 mg PO BID PRN 10/29/16 [Last Taken 2 Weeks Ago ~ 04/29/17] Potassium Cl [Klor-Con 20 meq (*)] 20 meq PO HS 10/29/16 [Last Taken 05/12/17] glipiZIDE [Glucotrol] 10 mg PO DAILY@12 10/29/16 [Last Taken 05/12/17] metFORMIN HCL [Metformin HCl] 1,000 mg PO BID 10/29/16 [Last Taken 05/12/17] Melatonin 05/13/17 [Last Taken 05/11/17] traMADol [Ultram 50 mg (*)] 100 mg PRN 05/13/17 [Last Taken 05/12/17] - NPO status NPO Status: no food or drink >8 hours NPO Since - Liquids (Date): 05/13/17 NPO Since - Liquids (Time): 06:30 NPO Since - Solids (Date): 05/12/17 NPO Since - Solids (Time): 19:00 - Smoking Hx Smoking Status: Former smoker ANE Labs/Vital Signs - Vital Signs Vital Signs: reviewed preoperatively; see RN documention for details Blood Pressure: 139/80 Heart Rate: 100 Respiratory Rate: 16 O2 Sat (%): 100 Height: 147.32 cm Weight: 87.997 kg ANE Physical Exam - Airway Neck exam: FROM Mallampati Score: Class 3 Mouth exam: normal dental/mouth exam - Pulmonary Pulmonary: no respiratory distress - Cardiovascular Cardiovascular: regular rate and rhythym - ASA Status ASA Status: III ANE Anesthesia Plan Anesthesia Plan: general endotracheal anesthesia, spinal Regional Anesthesia: adductor canal FNB
[2017-05-13] MEDS ORDERED: MIDAZOLAM 2 MG/2 ML VIAL ONE (10:08)
[2017-05-13] MEDS ORDERED: PROPOFOL/EMULSION 500 MG/50 ML BOTTLE IV ONE (10:14)
[2017-05-13] MEDS ORDERED: fentaNYL 100 MCG/2 ML INJ ONE (10:14)
[2017-05-13] MEDS ORDERED: DEXAMETHASONE 4 MG/ML VIAL ONE (11:12)
[2017-05-13] MEDS ORDERED: PHENYLEPHRINE HCL 100 MCG/ML SYR ONE (11:12)
[2017-05-13] MEDS ORDERED: ONDANSETRON 4 MG/2 ML VIAL ONE (11:12)
[2017-05-13] MEDS ORDERED: ROPIVACAINE HCL 150 MG/30 ML INJ ONE (11:12)
[2017-05-13] MEDS ORDERED: NALOXONE HCL 0.4 MG/ML INJ IVP PRN (11:25)
[2017-05-13] MEDS ORDERED: PROMETHAZINE HCL 25 MG/ML INJ IVP PRN ×2 (11:25→12:20)
[2017-05-13] MEDS ORDERED: PHENYLEPHRINE HCL 100 MCG/ML SYR IVP PRN (11:25)
[2017-05-13] MEDS ORDERED: OXYCODONE/APAP 5/325 TAB PO PRN (11:25)
[2017-05-13] MEDS ORDERED: fentaNYL 100 MCG/2 ML INJ IVP PRN (11:25)
[2017-05-13] MEDS ORDERED: HYDROmorphONE/DILAUDID 1 MG/ML INJ IVP PRN (11:25)
[2017-05-13] MEDS ORDERED: ONDANSETRON 4 MG/2 ML VIAL IVP PRN ×2 (11:25→12:20)
[2017-05-13] MEDS ORDERED: diphenhydrAMINE 25 MG CAP PO PRN (12:20)
[2017-05-13] MEDS ORDERED: TAPENTADOL HCL 50 MG TAB PO PRN (12:20)
[2017-05-13] MEDS ORDERED: MAGNESIUM HYDROXIDE 30 ML UDCUP PO PRN (12:20)
[2017-05-13] MEDS ORDERED: ONDANSETRON DISINTEGRATING 4 MG TAB PO PRN (12:20)
[2017-05-13] MEDS ORDERED: TEMAZEPAM 15 MG CAP PO PRN (12:20)
[2017-05-13] MEDS ORDERED: BISACODYL 10 MG SUPP PR PRN (12:20)
[2017-05-13] MEDS ORDERED: PROMETHAZINE HCL 25 MG SUPPR PR PRN (12:20)
[2017-05-13] MEDS ORDERED: CYCLOBENZAPRINE 10 MG TAB PO PRN (12:20)
[2017-05-13] MEDS ORDERED: DIPHENOXYLATE/ATROPINE LOMOTIL 1 TAB PO PRN (12:20)
[2017-05-13] MEDS ORDERED: METOCLOPRAMIDE 10 MG/2 ML VIAL IVP PRN (12:20)
[2017-05-13] MEDS ORDERED: LACTULOSE 20 GM/30 ML UDCUP PO PRN (12:20)
[2017-05-13] MEDS ORDERED: POLYETHYLENE GLYCOL 3350 17 GM PKT PO PRN (12:20)
--- NOTE | 2017-05-13 12:20 | POSTOPPROG ---
Post Op Note Date of Operation: 05/13/17 Surgeon: Becca Mclaughlin Machine Tool Electrician: coltrain Anesthesia: Epidural Pre-op Diagnosis: l knee oa Procedure: l tkr Inf/Abcess present in the surg proc area at time of surgery?: No Depth: Deep Incisional (Fascial) EBL: 100-500
[2017-05-13] MEDS ORDERED: LR 1,000 ML IV SCH (12:30)
--- NOTE | 2017-05-13 12:30 | POSTANESTH ---
Post Anesthetic Evaluation Cardiovascular Status: Normal, Stable Respiratory Status: Normal, Stable Level of Consciousness/Mental Status: Can Participate in Eval Pain Control: Adequate, Prn Tx Ordered Nausea/Vomiting Control: Adequate, Prn Tx Ordered Complications Possibly Related to Anesthesia: None Noted
--- NOTE | 2017-05-13 13:56 | GOP ---
[f rep st] OPERATIVE REPORT DATE OF OPERATION: 05/13/2017 SURGEON: Becca Mclaughlin MD FLAT POLISHER: Loen Batista, Certified SA, whose presence was medically necessary. ANESTHESIA: By epidural nerve block with adductor nerve block per surgeon's request. PREOPERATIVE DIAGNOSIS: Left knee osteoarthritis. POSTOPERATIVE DIAGNOSIS: Left knee osteoarthritis. PROCEDURE PERFORMED: Left total knee arthroplasty. FINDINGS: INDICATIONS: This is a 67-year-old female, who had previously undergone a right total knee arthropla sty and had developed increasing pain into her left knee. X-ray exam reveals [id number] osteoarthr itic changes. She has tried multiple conservative measures, without effect. She wishes to have the surgery in order to resolve the problem. DESCRIPTION OF PROCEDURE: The patient was brought to the operating room after the left side had been identified as the correct side by the patient, nurse, and physician. Once in the operating room, doretha willis was given an epidural nerve block and then placed supine on the operating room table with a tourniq uet placed around the upper portion of the left thigh. The left lower extremity was then sterilely p repped and draped in the usual fashion using GSI solution. Once prepped and draped, limb was exsangu inated and tourniquet inflated to 250 mmHg. Incision was made on the anterior portion of the knee 1 handbreadth above and below the patella, with sharp dissection carried down through the subcutaneous layers, with bleeding controlled using electrocautery. A medial parapatellar incision was made throu gh the extensor mechanism, with the patella brought to the side but not everted. She was noted to dye ve [id number] osteoarthritic changes to the medial compartment, and grade 3 chondral changes to the patellofemoral and lateral compartments. The ACL as well as the medial and lateral meniscus were re moved. Osteophytes were removed from the femur. A drill hole was made 1 cm anterior to the intercon dylar notch, with an intramedullary guide placed within the femur. A cutting guide was set at 5 degr ees of valgus and set to remove 10 mm of bone. It was pinned into place. An oscillating saw was use d to remove the distal portion of the femur. Once completed, the cutting block was removed as well a s its pins. The knee was brought to maximal flexion. Any remaining cartilage was removed from the p osterior condyles of the femur. A sizing guide was pinned into place on the cut surface of the femur , and noted a size 4 seemed to fit best. Therefore, guide pins were removed as well as the guide, an d a size 4, 4-in-1 cutting block was put into place. An oscillating saw was used to cut the anterior , posterior, and chamfer cuts. A size 4 trial was put into place and noted to fit securely. Lug hol es were drilled for the size 4 component. The leg was able to achieve full extension with the femora l component in place. The trial was removed and the knee brought to maximal flexion. Tibia was subl uxed anteriorly, and an external tibial guide was set into place. It had a slight posterior slope as well as neutral varus/valgus. Once pinned into place, it was set to remove 2 mm of bone from the lo w side of the tibia, which was the medial side. Once pinned into place, a drop markell was used to ensur e proper positioning of the cutting guide. Oscillating saw was used to the proximal porti on of the tibia. A femoral trial and tibial trial with a trial liner were placed in the knee, and th e knee was able to achieve full extension, suggesting an adequate amount of bone had been removed fro m the tibia. All trials were then removed, the knee brought back to maximal flexion, and tibia sublu xed anteriorly. Multiple sizes were placed on the cut surface of the tibia, noting a size 3 seemed t o fit best. It was therefore placed on the tibia, set in slight external rotation, and pinned into p lace. Guide was locked into the trial, keel punch passed through the guide, removed, as well as the trial, and then a press-fit guide put into place and drill holes made for the press-fit component. O nce finished, the knee was brought to full extension. The patella was then everted. Soft tissue was dissected from around the patella itself. It was measured to be 20 mm in thickness. Oscillating sa w was used to remove the posterior portion of the patella, leaving 14 mm of bone. Multiple sizes wer e trialed on the cut surface, noting a 29 mm button seemed to fit best. Therefore, lug holes were dr renita for a 29 mm button. Once completed, the wound was irrigated with an antibiotic solution, at wh ich point a Triathlon cruciate-retaining size 4 left component from [employer] was put into place and no kristyn to fit securely. A size 3 Triathlon Trit[employer] tibial component was put into place and noted to f it securely. Trial liner was placed in the tibial tray and knee brought to full extension in order t o pressurize the press-fit components, and a 29 mm asymmetric Tritanium Triathlon press-fit patella f rom Waldo put into place. Once in proper position, the joint cocktail was injected into the delinquency prevention social worker ior capsule as well as the medial and lateral gutters along the periosteum of the femur and tibia. M ultiple sizes were trialed into the tibial tray, and noted a 13 mm liner gave full extension and good stability. Therefore, a 13 mm size 3 polyethylene insert was put into place and noted to fit secure ly. Tranexamic acid was placed within the knee, and the tourniquet was deflated at 40 minutes. The wound was then closed in layers to include 0 Vicryl suture in a szggkw-lp-jkeeu type stitch for the e xtensor mechanism, with plasma gel placed intra-articularly. 0 Vicryl and 2-0 Vicryl suture were use d to close the subcutaneous layers, with plasma gel placed external to the extensor mechanism, and th en a 3-0 V-Loc suture in a running subcuticular stitch was used to close the skin. 30 cc of Marcaine was infused around the actual incision itself. The wound was then dressed with Steri-Strips, Xerofo rm, 4 x 4's, and wrapped in Kerlix. Leg was completely undraped in the operating room, tourniquet re moved from the thigh, and an Abner wrap placed around the knee. The patient was then transferred onto a stretcher, and sent to recovery room in good condition. Once in the recovery room, she received an adductor nerve block. TOURNIQUET TIME: 40 minutes. /[id number]/MODL
[2017-05-13] MEDS ORDERED: ceFAZolin 2 GM/DEXTROSE 100 ML IV SCH (14:00)
[2017-05-13] MEDS: traMADol 50 MG TAB PO SCH ×2 (17:13→23:56)
[2017-05-13] MEDS: ACETAMINOPHEN 325 MG TAB PO SCH ×2 (17:13→23:55)
[2017-05-13] MEDS: KETOROLAC 30 MG/1 ML SDV IVP SCH ×2 (17:14→23:56)
[2017-05-13] MEDS: ceFAZolin 2 GM/DEXTROSE 100 ML IV SCH (17:14)
[2017-05-13] MEDS: SENNOSIDES/DOCUSATE SODIUM TAB PO SCH (20:41)
[2017-05-13] MEDS: oxyCODONE IR 5 MG TAB PO PRN (20:41)
[2017-05-13] MEDS: FAMOTIDINE 20 MG TAB PO SCH (20:41)
[2017-05-14] MEDS ORDERED: INSULIN LISPRO 100 UNIT/ML SC ONE (00:29)
[2017-05-14] MEDS ORDERED: D50W 25 GM/50 ML SYR IVP PRN (00:43)
[2017-05-14] MEDS ORDERED: D50W 25 GM/50 ML VIAL IVP PRN (01:00)
[2017-05-14] MEDS: INSULIN GLARGINE 100 UNITS/ML SYRINGE SC SCH ×2 (01:10→21:03)
[2017-05-14] MEDS: oxyCODONE IR 5 MG TAB PO PRN ×4 (01:14→21:05)
[2017-05-14] MEDS: ceFAZolin 2 GM/DEXTROSE 100 ML IV SCH (01:20)
--- NOTE | 2017-05-14 02:39 | PDHOSCONS ---
Hospitalist Consult Hospitalist Consult: Reason for consult: Hyperglycemia HPI: Patient is a 67 yo F w/ IDDM, COPD, CKD, and morbid obesity who was admitted by the orthopedic service for L TKA on 05/13/16. Throughout the day the patient's blood glucose van steadily until this evening when testing revealed a value >400. She usually manages her DM with insulin detemir 30 units qHS in addition to metformin 500 mg PO BID and glipizide 10 mg qD. She has not received her oral medications today and she took a reduced dose of basal insulin (22 units) on the night prior to admission. At the time of my evaluation patient is alert, fully oriented, and asymptomatic aside from discomfort at the site of her recent surgery. She is concerned about her elevated blood glucose. Medical Hx: - IDDM, last A1c 6.5% - CKD, Cr baseline 1.0-1.2 - COPD - Uses 2 L/min chronically - Morbid obesity - BMI 41 Surgical Hx: - Carpal tunnel release - Spinal surgery - R TKA - - Hernia repair Home Medications: Albuterol Sulfate [Proair Hfa] 1 - 2 gm IH Q4H PRN 10/29/16 [Last Taken 05/13/17 ] Aspirin EC [Aspirin EC 81 mg (*)] 81 mg PO HS 10/29/16 [Last Taken 05/06/17] Cholecalciferol Vit D3 [Vitamin D3 (*)] 1,000 units PO DAILY 10/29/16 [Last Taken 05/06/17] DULoxetine [Cymbalta 60 MG (*)] 60 mg PO DAILY 10/29/16 [Last Taken 05/13/17 06: 30] Furosemide [Lasix 80 MG (*)] 80 mg PO BID@,12 10/29/16 [Last Taken 05/12/17] Ipratropium/Albuterol [Duoneb (*)] 3 ml IH QID PRN 10/29/16 [Last Taken 05/09/17 ] Lisinopril [Zestril 2.5 mg (*)] 2.5 mg PO DAILY 10/29/16 [Last Taken 05/13/17 06 :30] Multivitamins [Multivitamin (*)] 1 each PO DAILY 10/29/16 [Last Taken 05/06/17] Oxycodone HCl [Dazidox] 10 - 20 mg PO BID PRN 10/29/16 [Last Taken 2 Weeks Ago ~ 04/29/17] Potassium Cl [Klor-Con 20 meq (*)] 20 meq PO HS 10/29/16 [Last Taken 05/12/17] glipiZIDE [Glucotrol] 10 mg PO DAILY@12 10/29/16 [Last Taken 05/12/17] metFORMIN HCL [Metformin HCl] 500 mg PO BID 10/29/16 [Last Taken 05/12/17] Insulin Detemir [Levemir Flextouch] 30 - 32 unit SQ HS 05/13/17 [Last Taken 12/20 22 UNITS] Melatonin [Melatonin 3 MG (*)] 3 mg PO HS PRN 05/13/17 [Last Taken 05/10/17] traMADol [Ultram 50 mg (*)] 100 mg PO DAILY PRN 05/13/17 [Last Taken 05/12/17] Temp Pulse Resp BP Pulse Ox 36.8 C 97 16 113/65 93 05/13/17 23:01 05/13/17 23:01 05/13/17 23:01 05/13/17 23:01 05/13/17 23:01 O2 (L/minute) 2 PE: GEN: NAD, obese HEENT: PERRLA, EOMI CV: RRR, no m/r/g RESP: CTAB, no w/r/r ABD: NTND, BS WNL MSK: L knee s/p surgery w/ bandage c/d/i NEURO: A&Ox3, CN II-XII intact PSYCH: Normal mood and affect Laboratory Results 05/13/17 22:00 05/13/17 05/13/17 05/13/17 22:00 21:10 21:04 Glucose 478 mg/dL H mg/dL (70-100) POC Glucose > 350 mg/dL H mg/dL > 350 mg/dL H mg/dL (70-100) (70-100) 05/13/17 16:11 Glucose POC Glucose 204 mg/dL H mg/dL (70-100) A/P: Patient is a 67 yo F w/ IDDM, COPD, CKD, and morbid obesity who was admitted by the orthopedic service for L TKA on 05/13/16 now with severe hyperglycemia. 1. IDDM c/b post-operative hyperglycemia - BG elevated as a result of holding medications and physiologic stress after surgery. She usually manages her DM with insulin detemir 30 units qHS in addition to metformin 500 mg PO BID and glipizide 10 mg qD. She has not received her oral medications today and she took a reduced dose of basal insulin (22 units) on the night prior to admission. Her last A1c in April was 6.5%, denoting good control. - Continue to hold oral medications in setting of recent surgery and known CKD; will add BMP to AM labs - Insulin lispro 10 u as well as insulin glargine 30 units now; continue this qHS - Insulin lispro TID sliding scale ordered, standard protocol - All orders placed 2. CKD - Creatinine baseline 1-1.2, will add BMP to AM labs. Would hold metformin for 48 hours after surgery and assure stable renal function prior to restarting. 3. COPD, CHRF - Uses 2 L/min O2 chronically as well as Duonebs PRN. No signs of exacerbation currently. 4. Morbid obesity - BMI 41 Thank you for this consult, the hospital medicine service will follow along with you.
[2017-05-14] MEDS: ACETAMINOPHEN 325 MG TAB PO SCH ×4 (05:18→23:12)
[2017-05-14] MEDS: traMADol 50 MG TAB PO SCH ×4 (05:18→23:11)
[2017-05-14] MEDS: KETOROLAC 30 MG/1 ML SDV IVP SCH ×2 (05:18→11:36)
[2017-05-14] MEDS ORDERED: INSULIN LISPRO 100 UNIT/ML SC SCH (08:00)
[2017-05-14] MEDS: FAMOTIDINE 20 MG TAB PO SCH (08:06)
[2017-05-14] MEDS: FERROUS SULFATE 140 MG TAB.ER PO SCH (08:06)
[2017-05-14] MEDS: SENNOSIDES/DOCUSATE SODIUM TAB PO SCH ×2 (08:06→21:04)
[2017-05-14] MEDS: RIVAROXABAN 10 MG TAB PO SCH (08:06)
[2017-05-14] MEDS ORDERED: MELATONIN 3 MG TAB PO PRN (08:43)
[2017-05-14] MEDS ORDERED: IPRATROPIUM/ALBUTEROL 3 ML DEYVIAL IH PRN (08:43)
[2017-05-14] MEDS: DULoxetine 60 MG CAP PO SCH (10:46)
[2017-05-14] MEDS: CHOLECALCIFEROL VIT D3 1,000 UNITS TAB PO SCH (10:46)
[2017-05-14] MEDS: LISINOPRIL 2.5 MG TAB PO SCH (10:46)
--- NOTE | 2017-05-14 11:36 | SOAPPROG ---
XIANG Progress Note Assessment/Plan: Assessment: Plan: Possibly discharge tomorrow w/ home PT 05/14/17 11:35 Subjective: Doing well, no issues Objective: Vital Signs Temp Pulse Resp BP Pulse Ox 36.8 C 85 14 124/64 H 99 05/14/17 07:55 05/14/17 07:55 05/14/17 07:55 05/14/17 10:46 05/14/17 07:55 Laboratory Results 05/14/17 05:00 05/14/17 05:00 05/13/17 05/14/17 05/15/17 05:59 05:59 05:59 Intake Total 2462 Output Total 1050 Balance 1412 Dressing CDI, calf NT, NVI - Time Spent With Patient Time Spent With Patient: 15 - Pending Discharge Pending Discharge Within 24 Hours: No Pending Discharge Within 48 Hours: Yes Pending Discharge Date: 05/16/17 Pending Discharge Time: 11:00 ICD10 Worksheet Patient Problems: Problems Problem Status Onset Arthritis of right knee Acute Failure to thrive Acute
[2017-05-14] MEDS ORDERED: FUROSEMIDE 80 MG TAB PO SCH ×2 (11:45→12:00)
[2017-05-14] MEDS ORDERED: FUROSEMIDE 40 MG TAB PO SCH (11:45)
[2017-05-14] MEDS ORDERED: glipiZIDE 10 MG TAB PO SCH (12:00)
[2017-05-14] MEDS: INSULIN LISPRO 100 UNIT/ML SC SCH ×2 (12:55→18:32)
[2017-05-14] MEDS ORDERED: FUROSEMIDE 80 MG TAB PO ONE (15:37)
--- NOTE | 2017-05-14 15:40 | ASMTCMCOM ---
CM Note CM Note Notes: OT rec home vs HHC, PT rec HHC. Pt agreeable to HHC, chooses [facility] who can accept pt. Likely d/c tomorrow Date Signed: 05/14/2017 03:39 PM Electronically Signed By:LOBITO Wilkins
[2017-05-14] MEDS ORDERED: ASPIRIN EC 81 MG TAB PO SCH (21:00)
[2017-05-15] MEDS: oxyCODONE IR 5 MG TAB PO PRN ×4 (00:14→15:17)
[2017-05-15] MEDS: ACETAMINOPHEN 325 MG TAB PO SCH ×2 (05:00→12:10)
[2017-05-15] MEDS: traMADol 50 MG TAB PO SCH ×2 (05:03→12:10)
[2017-05-15 07:44] VITALS: PULSE 92; RESP 14; TEMP 97.8; O2SAT 100
[2017-05-15] MEDS ORDERED: FAMOTIDINE 20 MG TAB PO SCH (09:00)
[2017-05-15] MEDS ORDERED: FUROSEMIDE 80 MG TAB PO SCH (09:00)
[2017-05-15] MEDS: DULoxetine 60 MG CAP PO SCH (09:51)
[2017-05-15] MEDS: SENNOSIDES/DOCUSATE SODIUM TAB PO SCH (09:51)
[2017-05-15] MEDS: INSULIN LISPRO 100 UNIT/ML SC SCH ×2 (09:52→12:25)
[2017-05-15] MEDS: FERROUS SULFATE 140 MG TAB.ER PO SCH (09:52)
[2017-05-15] MEDS: RIVAROXABAN 10 MG TAB PO SCH (09:52)
[2017-05-15] MEDS: CHOLECALCIFEROL VIT D3 1,000 UNITS TAB PO SCH (09:52)
[2017-05-15] MEDS: LISINOPRIL 2.5 MG TAB PO SCH (09:54)
[2017-05-15 09:55] VITALS: BP 123/66
--- NOTE | 2017-05-15 12:32 | SOAPPROG ---
XIANG Progress Note Assessment/Plan: Assessment: Plan: d/c home 05/14/17 11:35 05/15/17 12:32 Subjective: ready to go home Objective: Vital Signs Temp Pulse Resp BP Pulse Ox 36.6 C 92 14 123/66 H 100 05/15/17 07:42 05/15/17 07:42 05/15/17 07:42 05/15/17 09:54 05/15/17 07:42 Laboratory Results 05/15/17 05:24 05/14/17 16:35 05/14/17 05/15/17 05/16/17 05:59 05:59 05:59 Intake Total 2462 Output Total 1050 Balance 1412 cdi, nvi, neg hommans - Time Spent With Patient Time Spent With Patient: 15 - Pending Discharge Pending Discharge Within 24 Hours: Yes Pending Discharge Within 48 Hours: No Pending Discharge Date: 05/16/17 Pending Discharge Time: 11:00 ICD10 Worksheet Patient Problems: Problems Problem Status Onset Arthritis of right knee Acute Failure to thrive Acute
--- NOTE | 2017-05-15 12:36 | PDIAF ---
- Diagnosis Code Status: Full Code - Medication Management Discharge Medications: Medications to Continue on Transfer Albuterol Sulfate [Proair Hfa] 1 - 2 gm IH Q4H PRN 10/29/16 [Last Taken 05/13/17 ] Aspirin EC [Aspirin EC 81 mg (*)] 81 mg PO HS 10/29/16 [Last Taken 05/06/17] Cholecalciferol Vit D3 [Vitamin D3 (*)] 1,000 units PO DAILY 10/29/16 [Last Taken 05/06/17] DULoxetine [Cymbalta 60 MG (*)] 60 mg PO DAILY 10/29/16 [Last Taken 05/13/17 06: 30] Furosemide [Lasix 80 MG (*)] 80 mg PO BID@10/29/16 [Last Taken 05/12/17] Ipratropium/Albuterol [Duoneb (*)] 3 ml IH QID PRN 10/29/16 [Last Taken 05/09/17 ] Lisinopril [Zestril 2.5 mg (*)] 2.5 mg PO DAILY 10/29/16 [Last Taken 05/13/17 06 :30] Multivitamins [Multivitamin (*)] 1 each PO DAILY 10/29/16 [Last Taken 05/06/17] Oxycodone HCl [Dazidox] 10 - 20 mg PO BID PRN 10/29/16 [Last Taken 2 Weeks Ago ~ 04/29/17] Potassium Cl [Klor-Con 20 meq (*)] 20 meq PO HS 10/29/16 [Last Taken 05/12/17] glipiZIDE [Glucotrol] 10 mg PO DAILY@10/29/16 [Last Taken 05/12/17] metFORMIN HCL [Metformin HCl] 500 mg PO BID 10/29/16 [Last Taken 05/12/17] Insulin Detemir [Levemir Flextouch] 30 - 32 unit SQ HS 05/13/17 [Last Taken 12/20 22 UNITS] Melatonin [Melatonin 3 MG (*)] 3 mg PO HS PRN 05/13/17 [Last Taken 05/10/17] traMADol [Ultram 50 mg (*)] 100 mg PO DAILY PRN 05/13/17 [Last Taken 05/12/17] Acetaminophen [Tylenol 325mg (*)] 650 mg PO Q6HRS tab 05/15/17 [Last Taken Unknown] Furosemide [Lasix 80 MG (*)] 80 mg PO BID@0900,1500 tab 05/15/17 [Last Taken Unknown] Rivaroxaban [Xarelto 10mg (*)] 10 mg PO DAILY tab 05/15/17 [Last Taken Unknown] oxyCODONE IR [Oxycodone Ir (*)] 5 - 10 mg PO Q3HRS PRN tab 05/15/17 [Last Taken Unknown] traMADol [Ultram 50 mg (*)] 50 mg PO Q6HRS tab 05/15/17 [Last Taken Unknown] Discharge Medications: Refer to the Discharge Home Medication list for PRN reason. PICC Care - Routine: N/A - Orders Services needed: Physical Therapy, Occupational Therapy Diet Recommendation: no restrictions on diet Diet Texture: Regular Texture Diet Lindquist: Not applicable Wound Care Instructions: keep dressing on, may shower over dressing, will remove in office. Follow up as scheduled with Dr. Mclaughlin Sutures/Luigi Site: l knee - Follow Up Care Current Providers and Referrals: Melissa Hudson MD [Primary Care Provider] - Becca Mclaughlin MD [Medical Doctor] -
--- NOTE | 2017-05-15 14:37 | ASMTCMCOM ---
CM Note CM Note Notes: Pt medically stable for d/c with [facility] PT/OT and family support. Orders sent in [employer]. Date Signed: 05/15/2017 02:36 PM Electronically Signed By:LOBITO Wilkins
--- NOTE | 2017-05-15 16:46 | ASDISCHSUM ---
Discharge Information Plan Status:Home with Home Health Medically Cleared to Leave: Discharge Date:05/15/2017 03:22 PM CM D/C Disposition:Home Health Service ADT D/C Disposition:Home, Routine, Self-Care Projected Discharge Date:05/15/2017 11:00 AM Transportation at D/C:Family Discharge Delay Reason: Follow-Up Date:05/15/2017 11:00 AM Discharge Slot: Final Diagnosis: Placement Information Referral Type:*Home Health Care Services Referral ID:[id number] Provider Name:[facility] ([facility]) Address 1:[address] [address] Address 2: City:[place] Selection Factors: State:[place] Patient Contact Information Contact Name:PITO Relationship: Address:[address] City:[facility] Alternate Phone: State/Zip Code:[place] [address] Email: Financial Information Financial Class:Medicare [employer] Primary Plan Desc:[facility] [place] Primary Plan Number:[id number] Secondary Plan Desc: Secondary Plan Number: Assessment Information [facility] CM Progress Note CM Note CM Note Notes: OT rec home vs [facility], PT rec [facility]. Pt agreeable to [facility], chooses [facility] who can accept pt. Likely d/c tomorrow Date Signed: 05/14/2017 03:39 PM Electronically Signed By:LOBITO Wilkins [facility] CM Progress Note CM Note CM Note Notes: Pt medically stable for d/c with [facility] PT/OT and family support. Orders sent in [employer]. Date Signed: 05/15/2017 02:36 PM Electronically Signed By:LOBITO Wilkins Intervention Information Intervention Type:*Incorrect Registration Date of Service:05/13/2017 12:49 PM Patient Type:Inpatient Staff Member:CONNER Boyce, Carlene Hours: Discipline: Severity: Comment:
== END 2017-05-15 15:22 | disposition home or self-care (01) ==
LOC: INTOOBSV 07:52 → F3N 07:52
PROVIDERS: ADMIT Orthopaedic Surgery; ATTEND Orthopaedic Surgery
PROC: 0SRD0JZ Replacement of Left Knee Joint with Synthetic Substitute, Open Approach (ICD-10-PCS; principal; 2017-05-13 09:45)
DX: M17.12 Unilateral primary osteoarthritis, left knee (principal); R73.9 Hyperglycemia, unspecified; E66.01 Morbid (severe) obesity due to excess calories; Z68.41 Body mass index [BMI] 40.0-44.9, adult
CPT/HCPCS: 27447; 73560; 88311; 97110; 97116; 97161; 97165; 97530; C1776; G0378; G8978; G8979; G8980; G8987; G8988; G8989; J0171; J0690; J1100; J1815; J1885; J2250; J2370; J2405; J2704; J2795; J3010; 82947-QW

== ENCOUNTER 2017-05-16 15:54 | Inpatient (IN) | payer OTHER ==
[2017-05-16 16:44] LABS: PLATELET COUNT 144 10^3/uL (150-400)
[2017-05-16] MEDS ORDERED: NS 1,000 ML IV ONE (16:46)
[2017-05-16] MEDS ORDERED: ONDANSETRON 4 MG/2 ML VIAL IVP ONE (16:46)
--- NOTE | 2017-05-16 16:48 | EDPHY ---
H & P Time Seen by Provider: 05/16/17 16:11 HPI/ROS: Chief complaint. Vomiting HPI. Patient is a 67-year-old female with left knee replacement on May 14. She was discharged yesterday. About 1 hr after she got home she being began vomiting. Emesis is dark. No diarrhea. Mild periumbilical discomfort. Some left knee pain. Slight shortness of breath. No chest discomfort. No fever. Decreased oral intake. She is diabetic and checked her blood sugar today and it is 147. ROS Constitutional. no fever/chills, no weakness Eyes. no problems with vision ENT. no sore throat, no nasal drainage Cardiovascular. no chest pain Respiratory. Slight shortness of breath Abdominal. Mild abdominal pain with vomiting . no problems urinating MS. Left knee pain post surgery Skin. no rash Lymph. no swollen glands Neuro. no headache, no dizziness, no difficulty walking or with speech Past Medical/Surgical History: Past medical history is significant for diabetes, COPD, spine surgery, knee replacement, appendectomy Social History: , nonsmoker, no alcohol Smoking Status: Former smoker Physical Exam: General Appearance: Alert well-developed female moderate distress vital signs significant for heart rate 100 Eyes: Pupils equal and round no pallor or injection. ENT, Mouth: Mucous membranes are moist. Respiratory: There are no retractions, lungs are clear to auscultation. Cardiovascular: Regular rate and rhythm. Gastrointestinal: Abdomen is soft and nontender, no masses, bowel sounds normal. Neurological: Awake and alert, sensory and motor exams grossly normal. Skin: Warm and dry, no rashes. Musculoskeletal: Neck is supple nontender. Extremities symmetrical, full range of motion. Psychiatric: Patient is oriented X 3, there is no agitation. Constitutional: Initial Vital Signs Temperature (C) 37.0 C 05/16/17 15:59 Heart Rate 100 05/16/17 15:59 Respiratory Rate 18 05/16/17 15:59 Blood Pressure 100/52 L 05/16/17 15:59 O2 Sat (%) 96 05/16/17 15:59 O2 Delivery Mode Nasal Cannula O2 (L/minute) 2 Allergies/Adverse Reactions: No Known Allergies Allergy (Verified 04/22/17 10:24) Home Medications: Medication Instructions Recorded Albuterol Sulfate [Proair Hfa] 1 - 2 gm IH Q4H PRN 10/29/16 Aspirin EC [Aspirin EC 81 mg (*)] 81 mg PO HS 10/29/16 Cholecalciferol Vit D3 [Vitamin D3 1,000 units PO DAILY 10/29/16 (*)] DULoxetine [Cymbalta 60 MG (*)] 60 mg PO DAILY 10/29/16 Furosemide [Lasix 80 MG (*)] 80 mg PO BID@08,12 10/29/16 Ipratropium/Albuterol [Duoneb (*)] 3 ml IH QID PRN 10/29/16 Lisinopril [Zestril 2.5 mg (*)] 2.5 mg PO DAILY 10/29/16 Multivitamins [Multivitamin (*)] 1 each PO DAILY 10/29/16 Oxycodone HCl [Dazidox] 10 - 20 mg PO BID PRN 10/29/16 Potassium Cl [Klor-Con 20 meq (*)] 20 meq PO HS 10/29/16 glipiZIDE [Glucotrol] 10 mg PO DAILY@12 10/29/16 metFORMIN HCL [Metformin HCl] 500 mg PO BID 10/29/16 Insulin Detemir [Levemir Flextouch] 30 - 32 unit SQ HS 05/13/17 Melatonin [Melatonin 3 MG (*)] 3 mg PO HS PRN 05/13/17 traMADol [Ultram 50 mg (*)] 100 mg PO DAILY PRN 05/13/17 Acetaminophen [Tylenol 325mg (*)] 650 mg PO Q6HRS tab 05/15/17 Furosemide [Lasix 80 MG (*)] 80 mg PO BID@0900,1500 tab 05/15/17 Rivaroxaban [Xarelto 10mg (*)] 10 mg PO DAILY tab 05/15/17 oxyCODONE IR [Oxycodone Ir (*)] 5 - 10 mg PO Q3HRS PRN tab 05/15/17 traMADol [Ultram 50 mg (*)] 50 mg PO Q6HRS tab 05/15/17 Medical Decision Making - Diagnostics Imaging Results: Imaging Impressions Chest X-Ray 05/16/17 16:47 Impression: Bronchitis. No pneumonia or effusion. Chest x-ray reviewed by me consistent with bronchitis but no pneumonia Procedures: IV normal saline. IV Protonix ED Course/Re-evaluation: Her vomitus is positive for blood. Her hematocrit has dropped. Patient and I discussed treatment plan including recommendation for admission. They expressed understanding and agreement I consulted and discussed the case with Dr. qi ritchie who agrees to the admission Differential Diagnosis: I considered GI bleed, pneumonia. - Data Points Laboratory Results: Laboratory Results 05/16/17 16:39 05/16/17 16:39 05/16/17 05/16/17 05/16/17 16:40 16:39 16:39 WBC 10.26 10^3/uL H 10^3/uL (3.80-9.50) RBC 2.72 10^6/uL L 10^6/uL (4.18-5.33) Hgb 8.7 g/dL L g/dL (12.6-16.3) Hct 25.8 % L % (38.0-47.0) MCV 94.9 fL fL (81.5-99.8) MCH 32.0 pg pg (27.9-34.1) MCHC 33.7 g/dL g/dL (32.4-36.7) RDW 13.4 % % (11.5-15.2) Plt Count 144 10^3/uL L 10^3/uL (150-400) MPV 11.0 fL fL (8.7-11.7) Neut % (Auto) 73.0 % % (39.3-74.2) Lymph % (Auto) 15.3 % % (15.0-45.0) Gates % (Auto) 7.8 % % (4.5-13.0) Eos % (Auto) 2.9 % % (0.6-7.6) Baso % (Auto) 0.4 % % (0.3-1.7) Nucleat RBC Rel Count 0.0 % % (0.0-0.2) Absolute Neuts (auto) 7.49 10^3/uL H 10^3/uL (1.70-6.50) Absolute Lymphs (auto) 1.57 10^3/uL 10^3/uL (1.00-3.00) Absolute Monos (auto) 0.80 10^3/uL 10^3/uL (0.30-0.80) Absolute Eos (auto) 0.30 10^3/uL 10^3/uL (0.03-0.40) Absolute Basos (auto) 0.04 10^3/uL 10^3/uL (0.02-0.10) Absolute Nucleated RBC 0.00 10^3/uL 10^3/uL (0-0.01) Immature Gran % 0.6 % % (0.0-1.1) Immature Gran # 0.06 10^3/uL 10^3/uL (0.00-0.10) Sodium 137 mEq/L mEq/L (135-145) Potassium 4.3 mEq/L mEq/L (3.5-5.2) Chloride 97 mEq/L mEq/L (97-110) Carbon Dioxide 34 mEq/l H mEq/l (22-31) Anion Gap 6 mEq/L L mEq/L (8-16) BUN 33 mg/dL H mg/dL (7-23) Creatinine 1.2 mg/dL H mg/dL (0.6-1.0) Estimated GFR 45 Glucose 161 mg/dL H mg/dL (70-100) Calcium 8.7 mg/dL mg/dL (8.5-10.4) Total Bilirubin 0.3 mg/dL mg/dL (0.1-1.4) AST 21 IU/L IU/L (14-46) ALT 26 IU/L IU/L (9-52) Alkaline Phosphatase 63 IU/L IU/L (38-126) Total Protein 5.0 g/dL L g/dL (6.3-8.2) Albumin 3.1 g/dL L g/dL (3.5-5.0) Lipase Stool Occult Bld Scrn POSITIVE H (NEGATIVE) 05/16/17 16:34 WBC RBC Hgb Hct MCV MCH MCHC RDW Plt Count MPV Neut % (Auto) Lymph % (Auto) Gates % (Auto) Eos % (Auto) Baso % (Auto) Nucleat RBC Rel Count Absolute Neuts (auto) Absolute Lymphs (auto) Absolute Monos (auto) Absolute Eos (auto) Absolute Basos (auto) Absolute Nucleated RBC Immature Gran % Immature Gran # Sodium Potassium Chloride Carbon Dioxide Anion Gap BUN Creatinine Estimated GFR Glucose Calcium Total Bilirubin AST ALT Alkaline Phosphatase Total Protein Albumin Lipase 116 IU/L IU/L (23-300) Stool Occult Bld Scrn Medications Given: Discontinued Medications Sodium Chloride (Ns) 1,000 mls @ 0 mls/hr IV EDNOW ONE; Wide Open PRN Reason: Protocol Stop: 05/16/17 16:47 Last Admin: 05/16/17 16:55 Dose: 1,000 mls Ondansetron HCl (Zofran) 4 mg IVP EDNOW ONE Stop: 05/16/17 16:47 Last Admin: 05/16/17 16:55 Dose: 4 mg Departure - Departure Disposition: [facility] Inpatient Acute Clinical Impression: Upper GI bleeding Condition: Fair Referrals: Marion Juarez [Primary Care Provider] - As per Instructions
[2017-05-16] MEDS ORDERED: PANTOPRAZOLE SODIUM 80 MG in NS 100 ML IV ONE (18:04)
[2017-05-16] MEDS ORDERED: PANTOPRAZOLE SODIUM 40 MG VIAL ONE (18:18)
[2017-05-16] MEDS ORDERED: MELATONIN 3 MG TAB PO PRN (19:09)
[2017-05-16] MEDS ORDERED: D50W 25 GM/50 ML SYR IVP PRN (19:14)
[2017-05-16] MEDS ORDERED: ONDANSETRON 4 MG/2 ML VIAL IVP PRN (19:46)
[2017-05-16] MEDS ORDERED: ACETAMINOPHEN 325 MG TAB PO PRN (19:46)
--- NOTE | 2017-05-16 19:57 | PDGENHP ---
History and Physical - Chief Complaint weakness, dark emesis - History of Present Illness This is a 67 yo female with recent left knee replacement who was discharged yesterday. She was started on Xarelto post operatively. She started feeling nauseous yesterday and began having emesis which has turned dark. Upon testing, there is blood in it. She feels weak. Her BP is in the 90's and they report she typically runs around 120 systolic. She is not tachycardic. She is not on a BB. She does have mild abd pain. She denies melena. She denies diarrhea. She has no hx of GI bleed. She denies CP. She does have a hx of asthma and copd and feels her lungs are tight. She is on 2 LO2 which is her baseline. She does not have increased resp rate. she has been afebrile. She has not been taking her home aspirin as it was stopped preoperatively She has a hx of diuretic dependance and has been taking them as ordered. She denies hx of CHF but becomes swollen if she does not take the diuretics. She was started on IV protonix in the E.D. as well as given IVF. GI consultation has not been obtained. PMHx: DM, COPD, IDDM, pedal edema, diuretic dependence PSHx: left knee replacement, spinal surgery SocHx: , denies ETOH, denies Tobacco FmHx: NC all: NKDA meds: see med rec History Information - Allergies/Home Medication List Allergies/Adverse Reactions: No Known Allergies Allergy (Verified 04/22/17 10:24) Home Medications: Albuterol Sulfate [Proair Hfa] 1 - 2 gm IH Q4H PRN 10/29/16 [Last Taken 05/13/17 ] Aspirin EC [Aspirin EC 81 mg (*)] 81 mg PO HS 10/29/16 [Last Taken 05/06/17] Cholecalciferol Vit D3 [Vitamin D3 (*)] 1,000 units PO DAILY 10/29/16 [Last Taken 05/06/17] DULoxetine [Cymbalta 60 MG (*)] 60 mg PO DAILY 10/29/16 [Last Taken 05/13/17 06: 30] Ipratropium/Albuterol [Duoneb (*)] 3 ml IH QID PRN 10/29/16 [Last Taken 05/09/17 ] Lisinopril [Zestril 2.5 mg (*)] 2.5 mg PO DAILY 10/29/16 [Last Taken 05/13/17 06 :30] Multivitamins [Multivitamin (*)] 1 each PO DAILY 10/29/16 [Last Taken 05/06/17] Oxycodone HCl [Dazidox] 10 - 20 mg PO BID PRN 10/29/16 [Last Taken 2 Weeks Ago ~ 04/29/17] Potassium Cl [Klor-Con 20 meq (*)] 20 meq PO HS 10/29/16 [Last Taken 05/12/17] glipiZIDE [Glucotrol] 10 mg PO DAILY@12 10/29/16 [Last Taken 05/12/17] metFORMIN HCL [Metformin HCl] 500 mg PO BID 10/29/16 [Last Taken 05/12/17] Insulin Detemir [Levemir Flextouch] 30 - 32 unit SQ HS 05/13/17 [Last Taken 12/20 22 UNITS] Melatonin [Melatonin 3 MG (*)] 3 mg PO HS PRN 05/13/17 [Last Taken 05/10/17] I have personally reviewed and updated: medical history, social history - Social History Smoking Status: Former smoker Review of Systems Review of Systems: ROS: 10pt was reviewed & negative except for what was stated in HPI & below Physical Exam Physical Exam: Temp Pulse Resp BP Pulse Ox 37.0 C 80 14 110/60 98 05/16/17 15:59 05/16/17 19:34 05/16/17 19:34 05/16/17 19:34 05/16/17 19:34 O2 (L/minute) 2 Constitutional: no apparent distress, other (pale) Eyes: PERRL, EOMI Ears, Nose, Mouth, Throat: moist mucous membranes, hearing normal Cardiovascular: regular rate and rhythym (2+ LE edema), edema Respiratory: no respiratory distress, expiratory wheeze Gastrointestinal: normoactive bowel sounds, soft, non-tender abdomen, No rebound , No distension Genitourinary: no bladder fullness Skin: warm Neurologic: AAOx3 Psychiatric: interacting appropriately, not anxious, not encephalopathic, thought process linear Lymph, Heme, Immunologic: No petechiae Lab Data & Imaging Review 05/16/17 20:15 05/16/17 16:39 WBC 10.26 10^3/uL (3.80-9.50) H 05/16/17 16:39 RBC 2.72 10^6/uL (4.18-5.33) L 05/16/17 16:39 Hgb 8.7 g/dL (12.6-16.3) L 05/16/17 16:39 Hct 25.8 % (38.0-47.0) L 05/16/17 16:39 MCV 94.9 fL (81.5-99.8) 05/16/17 16:39 MCH 32.0 pg (27.9-34.1) 05/16/17 16:39 MCHC 33.7 g/dL (32.4-36.7) 05/16/17 16:39 RDW 13.4 % (11.5-15.2) 05/16/17 16:39 Plt Count 144 10^3/uL (150-400) L 05/16/17 16:39 MPV 11.0 fL (8.7-11.7) 05/16/17 16:39 Neut % (Auto) 73.0 % (39.3-74.2) 05/16/17 16:39 Lymph % (Auto) 15.3 % (15.0-45.0) 05/16/17 16:39 Villalba % (Auto) 7.8 % (4.5-13.0) 05/16/17 16:39 Eos % (Auto) 2.9 % (0.6-7.6) 05/16/17 16:39 Baso % (Auto) 0.4 % (0.3-1.7) 05/16/17 16:39 Nucleat RBC Rel Count 0.0 % (0.0-0.2) 05/16/17 16:39 Absolute Neuts (auto) 7.49 10^3/uL (1.70-6.50) H 05/16/17 16:39 Absolute Lymphs (auto) 1.57 10^3/uL (1.00-3.00) 05/16/17 16:39 Absolute Monos (auto) 0.80 10^3/uL (0.30-0.80) 05/16/17 16:39 Absolute Eos (auto) 0.30 10^3/uL (0.03-0.40) 05/16/17 16:39 Absolute Basos (auto) 0.04 10^3/uL (0.02-0.10) 05/16/17 16:39 Absolute Nucleated RBC 0.00 10^3/uL (0-0.01) 05/16/17 16:39 Immature Gran % 0.6 % (0.0-1.1) 05/16/17 16:39 Immature Gran # 0.06 10^3/uL (0.00-0.10) 05/16/17 16:39 Sodium 137 mEq/L (135-145) 05/16/17 16:39 Potassium 4.3 mEq/L (3.5-5.2) 05/16/17 16:39 Chloride 97 mEq/L (97-110) 05/16/17 16:39 Carbon Dioxide 34 mEq/l (22-31) H 05/16/17 16:39 Anion Gap 6 mEq/L (8-16) L 05/16/17 16:39 BUN 33 mg/dL (7-23) H 05/16/17 16:39 Creatinine 1.2 mg/dL (0.6-1.0) H 05/16/17 16:39 Estimated GFR 45 05/16/17 16:39 Glucose 161 mg/dL (70-100) H 05/16/17 16:39 Calcium 8.7 mg/dL (8.5-10.4) 05/16/17 16:39 Total Bilirubin 0.3 mg/dL (0.1-1.4) 05/16/17 16:39 AST 21 IU/L (14-46) 05/16/17 16:39 ALT 26 IU/L (9-52) 05/16/17 16:39 Alkaline Phosphatase 63 IU/L (38-126) 05/16/17 16:39 Total Protein 5.0 g/dL (6.3-8.2) L 05/16/17 16:39 Albumin 3.1 g/dL (3.5-5.0) L 05/16/17 16:39 Lipase 116 IU/L (23-300) 05/16/17 16:34 Stool Occult Bld Scrn POSITIVE (NEGATIVE) H 05/16/17 16:40 Assessment & Plan Assessment: #Acute UGIB #Acute blood loss Anemia #Hypotension #Pedal Edema #Recent left knee surgical repair #COPD #IDDM #chronic renal insufficiency, at baseline Plan: -I recheck H/H and it has dropped, will transfuse one unit stat. May need additional units pending clinical course -pending H/H or if BP does not improve will transfuse 1 unit -Cont IVF, will need to run gently as may become fluid overload -consult GI, they will plan for endoscopy in a.m. -Protonix drip -antiemetics -NPO -hold xarelto -Ortho will need to be notified tomorrow -Inhalers/Nebs. currently at baseline, but she feels tight -Insulin, will decrease daily dose given NPO -Hold aspirin, hold home diuretics -PT -SCD's -Full code total critical care time is 80 minutes
[2017-05-16] MEDS: D5W NS 1,000 ML IV SCH (20:34)
[2017-05-16] MEDS: PANTOPRAZOLE SODIUM 80 MG in NS 100 ML IV SCH (20:34)
[2017-05-16 20:44] LABS: INR 1.14 (0.83-1.16); PROTIME(PATIENT) 14.8 SEC (12.0-15.0)
[2017-05-16] MEDS: INSULIN GLARGINE 100 UNITS/ML UNIT SC SCH (20:45)
[2017-05-16] MEDS: IPRATROPIUM/ALBUTEROL 3 ML DEYVIAL IH PRN (21:08)
[2017-05-17] MEDS: ACETAMINOPHEN 325 MG TAB PO SCH ×4 (00:47→18:15)
[2017-05-17] MEDS: traMADol 50 MG TAB PO SCH ×4 (00:47→18:14)
[2017-05-17] MEDS: IPRATROPIUM/ALBUTEROL 3 ML DEYVIAL IH PRN (03:08)
[2017-05-17] MEDS: PANTOPRAZOLE SODIUM 80 MG in NS 100 ML IV SCH ×3 (05:53→22:32)
[2017-05-17] MEDS ORDERED: PROPOFOL/EMULSION 500 MG/50 ML BOTTLE IV ONE (09:17)
--- NOTE | 2017-05-17 09:25 | PDANEPAE ---
ANE History of Present Illness 67 year old female w/ COPD and DM, recent orthopaedic surgery presents with acute GI bleed. ANE Past Medical History - Cardiovascular History Hx Hypertension: No Hx Arrhythmias: No Hx Chest Pain: No Hx Coronary Artery / Peripheral Vascular Disease: No Hx CHF / Valvular Disease: Yes Hx Palpitations: No Cardiovascular History Comment: on lisinopril for kidneys; on Lasix for ankle swelling;. '14 anemia-3 transfusions. - Pulmonary History Hx COPD: Yes Hx Asthma/Reactive Airway Disease: Yes Hx Recent Upper Respiratory Infection: No Hx Oxygen in Use at Home: Yes O2 in Use at Home (L/minute): 2 Hx Sleep Apnea: No Sleep Apnea Screening Result - Last Documented: Negative Pulmonary History Comment: COPD,asthma; pneumonia 2013; on 2-4L O2 w/NC. Summer: in pool/shopping without O2. Winter: uses 3L NC. - Neurologic History Hx Cerebrovascular Accident: No Hx Seizures: No Hx Dementia: No - Endocrine History Hx Diabetes: Yes Endocrine History Comment: IDDM. On Levimir x 6 mos. - Renal History Hx Renal Disorders: Yes Renal History Comment: insufficiency-on Lisinopril - Liver History Hx Hepatic Disorders: Yes Hepatic History Comment: liver problems - Neurological & Psychiatric Hx Hx Neurological and Psychiatric Disorders: Yes Neurological / Psychiatric History Comment: back pain;radiates down sciatic nerve and moreso R leg/less down L leg at night. - Cancer History Hx Cancer: No - Congenital Disorder History Hx Congenital Disorders: No - GI History Hx Gastrointestinal Disorders: No Gastrointestinal History Comment: cholelithiasis/N andV 6-17;. abd hernia. - Other Health History Other Health History: bruises easily. L bilat knee pain - Chronic Pain History Chronic Pain: Yes (L knee, back pain) - Surgical History Prior Surgeries: R total knee 9-16. 2 major back sugeries, R knee scope, bilat carpal tunnels, C section. ANE Review of Systems Review of Systems: - Exercise capacity Exercise capacity: <4 METS ANE Patient History - Allergies Allergies/Adverse Reactions: No Known Allergies Allergy (Verified 04/22/17 10:24) - Home Medications Home Medications: Albuterol Sulfate [Proair Hfa] 1 - 2 gm IH Q4H PRN 10/29/16 [Last Taken 05/13/17 ] Aspirin EC [Aspirin EC 81 mg (*)] 81 mg PO HS 10/29/16 [Last Taken 05/06/17] Cholecalciferol Vit D3 [Vitamin D3 (*)] 1,000 units PO DAILY 10/29/16 [Last Taken 05/06/17] DULoxetine [Cymbalta 60 MG (*)] 60 mg PO DAILY 10/29/16 [Last Taken 05/13/17 06: 30] Ipratropium/Albuterol [Duoneb (*)] 3 ml IH QID PRN 10/29/16 [Last Taken 05/09/17 ] Lisinopril [Zestril 2.5 mg (*)] 2.5 mg PO DAILY 10/29/16 [Last Taken 05/13/17 06 :30] Multivitamins [Multivitamin (*)] 1 each PO DAILY 10/29/16 [Last Taken 05/06/17] Oxycodone HCl [Dazidox] 10 - 20 mg PO BID PRN 10/29/16 [Last Taken 2 Weeks Ago ~ 04/29/17] Potassium Cl [Klor-Con 20 meq (*)] 20 meq PO HS 10/29/16 [Last Taken 05/12/17] glipiZIDE [Glucotrol] 10 mg PO DAILY@12 10/29/16 [Last Taken 05/12/17] metFORMIN HCL [Metformin HCl] 500 mg PO BID 10/29/16 [Last Taken 05/12/17] Insulin Detemir [Levemir Flextouch] 30 - 32 unit SQ HS 05/13/17 [Last Taken 12/20 22 UNITS] Melatonin [Melatonin 3 MG (*)] 3 mg PO HS PRN 05/13/17 [Last Taken 05/10/17] - NPO status NPO Status: no food or drink >8 hours NPO Since - Liquids (Date): 05/16/17 NPO Since - Liquids (Time): 20:00 NPO Since - Solids (Date): 05/16/17 NPO Since - Solids (Time): 20:00 - Smoking Hx Smoking Status: Former smoker ANE Labs/Vital Signs - Labs Result Diagrams: 05/17/17 07:09 05/16/17 16:39 - Vital Signs Blood Pressure: 98/60 Heart Rate: 87 Respiratory Rate: 16 O2 Sat (%): 95 Height: 162.56 cm Weight: 90.718 kg ANE Physical Exam - Airway Neck exam: FROM Mallampati Score: Class 2 Mouth exam: normal dental/mouth exam - Pulmonary Pulmonary: no respiratory distress - Cardiovascular Cardiovascular: regular rate and rhythym - ASA Status ASA Status: III ANE Anesthesia Plan Anesthesia Plan: GA with mask Total IV Anesthesia: Yes
[2017-05-17] MEDS ORDERED: LR 500 ML IV PRN (09:33)
[2017-05-17] MEDS ORDERED: NALOXONE HCL 0.4 MG/ML INJ IVP PRN (09:33)
[2017-05-17] MEDS ORDERED: fentaNYL 100 MCG/2 ML INJ IVP PRN (09:33)
[2017-05-17] MEDS ORDERED: PHENYLEPHRINE HCL 100 MCG/ML SYR IVP PRN (09:33)
[2017-05-17] MEDS ORDERED: ONDANSETRON 4 MG/2 ML VIAL IVP PRN (09:33)
--- NOTE | 2017-05-17 09:49 | GIREPORT ---
Formerly [facility] Surgical Services - Endoscopy Department Patient Name: Rosalio Spencer Procedure Date: 05/17/2017 9:16 AM Patient Type: Inpatient Attending MD/ ER Physician: Monica Lyn MD Procedure: Upper GI endoscopy Indications: Coffee-ground emesis Providers: Monica Lyn MD Medicines: Monitored Anesthesia Care Complications: No immediate complications. Description of Procedure: After obtaining informed consent, the endoscope was passed under direct vision. Throughout the procedure, the patient's blood pressure, pulse, and oxygen saturations were monitored continuously. The Endoscope was intro duced through the mouth, and advanced to the second part of duodenum. The [facility] er GI endoscopy was accomplished without difficulty. The patient tolerated th e procedure well. Findings: The esophagus was normal. One non-bleeding linear gastric ulcer with pigmented material was found in the gastric antrum. The lesion was 15 mm in largest dimension. Biopsies were taken with a cold forceps for Helicobacter pylori testing using CLOtest . Estimated blood loss was minimal. The examined duodenum was normal. Estimated Blood Loss: Estimated blood loss was minimal. Post Op Diagnosis: - Normal esophagus. - Non-bleeding gastric ulcer with pigmented material. Biopsied. No acti ve bleeding no visible vessels seen or discrete lesion to treat endoscopic ally. - Normal examined duodenum. Recommendation: - Await pathology results. - Clear liquid diet. - Continue PPI IV today. - Monitor H+H today. - If no e/o rebleeding then change to PO PPI BID tomorrow. - Restart anticoagulation if needed if no e/o rebleeding next 24 hours. Suggest no NSAIDS and hold ASA if no h/o CAD. - Repeat upper endoscopy in 3 months to check healing. - [facility]. - Thank you for allowing me to participate in the care of your patient. Attending Participation: I personally performed the entire procedure. Monica Lyn MD Monica Lyn MD 05/17/2017 9:49:12 AM This report has been signed electronicallyMonica yLn MD Number of Addenda: 0 Note Initiated On: 05/17/2017 9:16 AM [email or web address]
--- NOTE | 2017-05-17 09:59 | POSTANESTH ---
Post Anesthetic Evaluation Cardiovascular Status: Normal, Stable, Similar to Pre-Op Cond Respiratory Status: Normal, Stable, Similar to Pre-op Cond. Level of Consciousness/Mental Status: Can Participate in Eval, Alert and Oriented Pain Control: Adequate, Prn Tx Ordered Nausea/Vomiting Control: Adequate, Prn Tx Ordered Complications Possibly Related to Anesthesia: None Noted
--- NOTE | 2017-05-17 10:12 | GCON ---
[f rep st] CONSULTATION DATE OF CONSULTATION: 05/17/2017 CHIEF COMPLAINT: Hematemesis. HPI: I was asked to see the patient in consultation by Dr. Thornton for chief complaint of hematemesis. She is a pleasant 67-year-old, who underwent a left knee replacement this week, was placed on Xarelto, and then had an episode of dark hematemesis. Present to the emergency room, was found to have decreased hematocrit. She felt some weakness. She has had no further vomiting since yesterday. No prior history of GI bleeding. She gets occasional GERD symptoms. No dysphagia. There has been no diarrhea. Some constipation. No clear melena, but states her stools have been darker. No significant abdominal pain. ALLERGIES: The patient reports no drug allergies. CURRENT MEDICATIONS: Include insulin, oxycodone, she takes a baby aspirin daily , albuterol, glipizide, lisinopril, tramadol, metformin, and was recently placed on Xarelto. PAST MEDICAL HISTORY: Recent knee replacement, diabetes, COPD. SOCIAL HISTORY: She denies alcohol use. FAMILY HISTORY: No family history for peptic ulcer disease. REVIEW OF SYSTEMS: I performed a complete review of systems, which is negative except for the pertinent negatives and positives noted above in HPI. PHYSICAL EXAM: GENERAL: She is alert and oriented. VITAL SIGNS: Afebrile, BP is 87/60, heart rate is 87. EYES: No scleral icterus. HEENT: No oral lesions. CARDIOVASCULAR: Regular rate and rhythm. CHEST: Clear to auscultation. ABDOMEN: Positive bowel sounds, soft. NEUROLOGIC: Grossly nonfocal. SKIN: No rashes. She has had a recent left knee surgery. LABORATORY DATA: Hematocrit on presentation was 25.8, it dropped to a hemoglobin of 7.5 and 23.8, and after transfusion now hemoglobin 9.4 with hematocrit 28.8. Coags, pro-time was normal on admission of 14.8 with an INR 1.14. Chemistry is notable for high glucose at 161, BUN elevated at 33 with a creatinine of 1.2, albumin low at 3.1. ASSESSMENT: Hematemesis with decline in hematocrit in a patient anticoagulated with Xarelto, which now has been held. No further hematemesis. Differential diagnosis would include Sharon-Castrejon tear, esophagitis, gastric ulcer, gastritis, arteriovenous malformation, etc. I do recommend upper endoscopy for evaluation to identify the cause of bleeding, as the patient will likely require anticoagulation. The patient overall would be high risk for endoscopy given her anticoagulation and multiple medical problems, including COPD and diabetes, and recent surgery, and therefore will proceed with the assistance of Anesthesia. PLAN: Upper endoscopy with anesthesia for evaluation of upper GI bleeding. Agree with proton pump inhibitor and monitor H and H. Further recommendations to follow. Thanks for the consult. /[id number]/MODL MTDD
[2017-05-17] MEDS: CHOLECALCIFEROL VIT D3 1,000 UNITS TAB PO SCH (10:37)
[2017-05-17] MEDS: DULoxetine 60 MG CAP PO SCH (10:38)
[2017-05-17] MEDS: INSULIN LISPRO 100 UNIT/ML SC SCH ×3 (10:43→18:14)
--- NOTE | 2017-05-17 12:45 | HOSPPROG ---
Hospitalist Progress Note Assessment/Plan: 67 yo female admitted with GI bleeding, found to have a duodenal ulcer by endoscopy, required PRBCx1, Hgb now seems stable. She has some nausea without hematemesis on PPI meds. recent Left knee replacement on Xarelto, now stopped. Patient new to me today -acute GI bleeding: duodenal ulcer, stable now on PPI meds -Asthma: stable, no wheezing -DM on glipizide, glucose ok -perpheral edema by history requires Lasix 80mg tid; no h/o CHF per patient. Revuew if [place] records shows no h/o CHF yet on lasix Plan: continue IVF, check orthostatic bp and pulse, recheck Hgb in AM, stop Xarelto,use SCD's ambulation, PT/OT for left knee Subjective: Reports pain in left knee. no ch/o chest pain, sob: + abdominal pain without vomiting or BRBPR Objective: Vital Signs Temp Pulse Resp BP Pulse Ox 37.3 C 90 18 116/63 98 05/17/17 11:42 05/17/17 11:42 05/17/17 11:42 05/17/17 11:42 05/17/17 11:42 Laboratory Results 05/17/17 07:09 05/16/17 05/17/17 05/18/17 05:59 05:59 05:59 Intake Total 1285 200 Balance 1285 200 PT 14.8 SEC (12.0-15.0) 05/16/17 20:15 INR 1.14 (0.83-1.16) 05/16/17 20:15 Laboratory Tests 04/30/17 05/14/17 05/16/17 11:06 05:00 16:39 Hgb 10.8 L 9.0 L 8.7 L POC Glucose 05/16/17 05/16/17 05/17/17 20:15 20:50 07:09 Hgb 7.5 L 9.4 L POC Glucose 168 H 05/17/17 05/17/17 07:15 11:30 Hgb POC Glucose 180 H 183 H Laboratory Tests 05/16/17 05/16/17 05/17/17 16:39 20:15 07:09 Hgb 8.7 L 7.5 L 9.4 L - Time Spent With Patient Time Spent with Patient: greater than 35 minutes Time Spent with Patient: Greater than 35 minutes spent on this patients care, greater than 50% of time spent counseling, educating, and coordinating care regarding the above mentioned plan. - Pending Discharge Pending Discharge Within 24 Hours: No Pending Discharge Within 48 Hours: Yes Pending Discharge Date: 05/19/17 Pending Discharge Time: 11:00 - Physical Exam Constitutional: no apparent distress Eyes: PERRL, anicteric sclera Ears, Nose, Mouth, Throat: moist mucous membranes, hearing normal Cardiovascular: regular rate and rhythym, no murmur, rub, or gallop Respiratory: no respiratory distress, no rales or rhonchi, clear to auscultation Gastrointestinal: normoactive bowel sounds, no palpable masses, tenderness, distension Genitourinary: no bladder fullness Skin: warm Musculoskeletal: full muscle strength, other (left knee tender with signs of DVT ) Neurologic: AAOx3, CN II-XII Intact Psychiatric: interacting appropriately ICD10 Worksheet Patient Problems: Problems Problem Status Onset Upper GI bleeding Acute Arthritis of right knee Acute Failure to thrive Acute
[2017-05-17] MEDS: D5W NS 1,000 ML IV SCH (16:11)
[2017-05-17] MEDS: oxyCODONE IR 5 MG TAB PO PRN ×2 (16:17→21:12)
--- NOTE | 2017-05-17 17:07 | PDMN ---
Medical Necessity Medical necessity: C/M review: Pateint meets INPT criteria mat DAIGLE M-180 Gastrointestinal Bleeding, Upper: Acute upper GI bleed, Hgb 8.7, 7.5, Hct 25.8 , 23.8, post transfusion of 1 unit PRBCs - Hgb 9.4, Hct 28.8 requiring 2017 EGD which showed duodenal ulcer, stop Xarelto, ongoing IV Pantoprazole infusion, IV fluids, acute inpt PT/OT, comorbid asthma, diabetes, peripheral edema, history of left total knee replacement on Xarelto, now stopped. anticipates > 2 MN LOS for ongoing med nec for eval and TX of above. Patient is Medicare advantage which follows guidelines CMS puts forth.
--- NOTE | 2017-05-17 17:59 | ASMTCMCOM ---
CM Note CM Note Notes: Pt admitted with acute GI bleed r/t duodenal ulcer. Pt was discharged from [facility] on 05/[facility]/16 with [facility] PT/OT s/p L TKA. PT ordered; eval pending. OT recommending home no needs. CM will follow. Date Signed: 05/17/2017 05:58 PM Electronically Signed By:Sharla Fink RN
[2017-05-17] MEDS: INSULIN GLARGINE 100 UNITS/ML UNIT SC SCH (21:12)
[2017-05-18] MEDS: traMADol 50 MG TAB PO SCH ×4 (00:13→17:58)
[2017-05-18] MEDS: ACETAMINOPHEN 325 MG TAB PO SCH ×4 (00:14→17:59)
[2017-05-18] MEDS: PANTOPRAZOLE SODIUM 80 MG in NS 100 ML IV SCH (01:44)
[2017-05-18 05:04] LABS: PLATELET COUNT 130 10^3/uL (150-400)
[2017-05-18] MEDS: D5W NS 1,000 ML IV SCH (05:33)
[2017-05-18] MEDS: INSULIN LISPRO 100 UNIT/ML SC SCH ×3 (07:50→17:58)
[2017-05-18] MEDS: oxyCODONE IR 5 MG TAB PO PRN ×2 (07:57→17:03)
[2017-05-18] MEDS: CHOLECALCIFEROL VIT D3 1,000 UNITS TAB PO SCH (07:58)
[2017-05-18] MEDS: DULoxetine 60 MG CAP PO SCH (07:58)
[2017-05-18] MEDS ORDERED: PANTOPRAZOLE SODIUM 80 MG in NS 100 ML IV SCH (08:00)
--- NOTE | 2017-05-18 10:59 | HOSPPROG ---
Hospitalist Progress Note Assessment/Plan: 67 yo female admitted with GI bleeding, found to have a duodenal ulcer by endoscopy, required PRBCx1, Hgb now seems stable, today at 8.8. She has some nausea without hematemesis on PPI meds. s/p left knee arthroplasty 05/13; Xarelto post and subsequent GI bleeding. Now off anticoag therapy. She has h/ o LE edema of unclear etiology and normally on Lasix 80mg TID; no h/o CHF. today feeling slightly better, no melena, hematemesis, +sl nausea but eating. -New problem: left leg redness on inner thigh: obtain ultrasound, r/ DVT -acute GI bleeding: duodenal ulcer, stable now on PPI meds; Difficult to obtain blood draws as no veins. do H/H with finger stick. -Asthma: stable, no wheezing -DM on glipizide, glucose ok; HgbA1c pending -perpheral edema by history requires Lasix 80mg tid; no h/o CHF per patient. Review of [facility] records does not show reason for the use of Lasix and there is no history of CHF. Plan: -ultrasound rule out DVT -draw a hemoglobin and hematocrit by fingerstick: Informed lab to obtain fingerstick -call Dr. Mclaughlin in a.m. and discuss anticoagulation with possibly using Lovenox at DVT doses. There may be a problem here with pharmaceutical reimbursement by the patient. They have a planned appointment with Dr. Mclaughlin on May 23. He may want to see sooner and recheck the left leg for a DVT by ultrasound. -disposition: Probable discharge on May 19. Time: 50 min; patient was seen and examined 3 different times during the course of the day. Findings and problems were all discussed with the patient and her and all questions were answered Subjective: Reports a slight feeling of nausea without vomiting. She did have Abner dark stool. No abdominal pain or hematemesis. Objective: Vital Signs Temp Pulse Resp BP Pulse Ox 36.4 C 86 16 108/75 96 05/18/17 07:47 05/18/17 07:47 05/18/17 07:47 05/18/17 07:47 05/18/17 07:47 Laboratory Results 05/18/17 04:50 05/18/17 04:50 05/17/17 05/18/17 05/19/17 05:59 05:59 05:59 Intake Total 735 1010 Output Total 450 200 Balance 285 810 PT 14.8 SEC (12.0-15.0) 05/16/17 20:15 INR 1.14 (0.83-1.16) 05/16/17 20:15 Laboratory Tests 05/16/17 05/16/17 05/16/17 16:39 16:40 20:15 WBC 10.26 H Hgb 8.7 L 7.5 L Plt Count 144 L Stool Occult Bld Scrn POSITIVE H 05/17/17 05/18/17 07:09 04:50 WBC 7.55 Hgb 9.4 L 8.8 L Plt Count 130 L Stool Occult Bld Scrn - Time Spent With Patient Time Spent with Patient: greater than 35 minutes Time Spent with Patient: Greater than 35 minutes spent on this patients care, greater than 50% of time spent counseling, educating, and coordinating care regarding the above mentioned plan. - Pending Discharge Pending Discharge Within 24 Hours: Yes Pending Discharge Date: 05/19/17 Pending Discharge Time: 11:00 - Physical Exam Constitutional: no apparent distress Eyes: PERRL, anicteric sclera Ears, Nose, Mouth, Throat: moist mucous membranes, hearing normal Cardiovascular: regular rate and rhythym, no murmur, rub, or gallop Respiratory: no respiratory distress, no rales or rhonchi, clear to auscultation Gastrointestinal: normoactive bowel sounds, soft, non-tender abdomen, no palpable masses, other Genitourinary: no bladder fullness Skin: warm Musculoskeletal: other (An area of redness is noted on the left inner thigh with a slight feeling of erythema without a palpable cord or tenderness. The left knee show signs of a recent surgical scar consistent with a left knee arthroplasty. There is 1+ peripheral edema noted.) Neurologic: AAOx3, CN II-XII Intact Psychiatric: interacting appropriately ICD10 Worksheet Patient Problems: Problems Problem Status Onset Arthritis of right knee Acute Failure to thrive Acute Upper GI bleeding Acute
--- NOTE | 2017-05-18 12:09 | SOAPPROG ---
SOAP Progress Note Assessment/Plan: Assessment: UGIB from no active bleeding on EGD. No e/o rebleeding. Plan:OK to change to PO PPI Advance diet as tolerate Avoid NSAIDS Await path OK to d/c hmoe from GI standpoint once H+H stable Repeat EGD in 3 months to check healing Will sign off for now 05/18/17 12:07 Subjective: CC UGIB Last bm last night firm black stool n n/v Objective: Vital Signs Temp Pulse Resp BP Pulse Ox 36.4 C 86 16 108/75 96 05/18/17 07:47 05/18/17 07:47 05/18/17 07:47 05/18/17 07:47 05/18/17 07:47 Laboratory Results 05/18/17 04:50 05/18/17 04:50 05/17/17 05/18/17 05/19/17 05:59 05:59 05:59 Intake Total 735 1010 Output Total 450 200 Balance 285 810 PT 14.8 SEC (12.0-15.0) 05/16/17 20:15 INR 1.14 (0.83-1.16) 05/16/17 20:15 Physical Exam - Physical Exam General Appearance: alert Respiratory: lungs clear Cardiac/Chest: regular rate, rhythm Abdomen: non-tender ICD10 Worksheet Patient Problems: Problems Problem Status Onset Arthritis of right knee Acute Failure to thrive Acute Upper GI bleeding Acute
[2017-05-18] MEDS: POTASSIUM CL 20 MEQ TAB PO SCH ×2 (12:26→21:32)
[2017-05-18] MEDS: ENOXAPARIN 40 MG/0.4 ML SYR SC SCH (12:26)
[2017-05-18] MEDS: PANTOPRAZOLE SODIUM 40 MG TAB PO SCH (12:30)
--- NOTE | 2017-05-18 15:55 | ASMTCMCOM ---
CM Note CM Note Notes: Patient may discharge Friday. Will need HC: PT, RN. [facility] contracts with her insurance and was lined up for her last admit. Date Signed: 05/18/2017 03:55 PM Electronically Signed By:Yamini Choe LCSW
[2017-05-18] MEDS: FUROSEMIDE 80 MG TAB PO SCH ×2 (17:03→21:43)
[2017-05-18] MEDS: INSULIN GLARGINE 100 UNITS/ML UNIT SC SCH (21:32)
[2017-05-18] MEDS: IPRATROPIUM/ALBUTEROL 3 ML DEYVIAL IH PRN (22:41)
[2017-05-19] MEDS: ACETAMINOPHEN 325 MG TAB PO SCH ×5 (01:39→23:42)
[2017-05-19] MEDS: traMADol 50 MG TAB PO SCH ×5 (01:39→23:43)
[2017-05-19] MEDS: oxyCODONE IR 5 MG TAB PO PRN ×3 (04:05→16:08)
[2017-05-19] MEDS: POTASSIUM CL 20 MEQ TAB PO SCH ×2 (08:51→21:52)
[2017-05-19] MEDS: CHOLECALCIFEROL VIT D3 1,000 UNITS TAB PO SCH (08:51)
[2017-05-19] MEDS: ENOXAPARIN 40 MG/0.4 ML SYR SC SCH (08:51)
[2017-05-19] MEDS: PANTOPRAZOLE SODIUM 40 MG TAB PO SCH (08:51)
[2017-05-19] MEDS: FUROSEMIDE 80 MG TAB PO SCH ×3 (08:51→21:52)
[2017-05-19] MEDS: DULoxetine 60 MG CAP PO SCH (08:51)
[2017-05-19] MEDS: INSULIN LISPRO 100 UNIT/ML SC SCH ×3 (09:26→18:28)
[2017-05-19] MEDS: IPRATROPIUM/ALBUTEROL 3 ML DEYVIAL IH PRN (12:31)
[2017-05-19] MEDS: glipiZIDE 10 MG TAB PO SCH (12:31)
--- NOTE | 2017-05-19 16:18 | ASMTCMCOM ---
CM Note CM Note Notes: Today pt indicated she may want to consider SNF, requests referral to [facility] (referral sent in [employer]). Unknown if [facility] will need [employer] authorization and/or if SNF would be authorized since therapy notes rec C at this time. If pt d/c home, she will require 7 days of Lovenox, the [facility] ran pt insurance and the cost to her would be $42, updated pt. D/c plan of care: Home w [facility] vs [facility] Date Signed: 05/19/2017 04:17 PM Electronically Signed By:LOBITO Wilkins
[2017-05-19] MEDS: ONDANSETRON DISINTEGRATING 4 MG TAB PO PRN (17:22)
--- NOTE | 2017-05-19 18:48 | HOSPPROG ---
Hospitalist Progress Note Assessment/Plan: * UGIB due to -PPI -H pylori negative -DC Xarelto -repeat EGD 3 months * Acute blood loss anemia -s/p transfusion * Recent TKA -change DVT prophylaxis to SQ lovenox 40mg * Chronic edema - now uncontrolled s/p IVF and holding of diuretics -resume PO lasix 80mg TID * DM II - lantus, metformin * Obesity BMI 34 Subjective: Feeling weak and not ready for discharge. Not walking well. Very swollen, all the way up to her abd wall Objective: Vital Signs Temp Pulse Resp BP Pulse Ox 37.1 C 90 17 105/58 L 97 05/19/17 17:24 05/19/17 17:24 05/19/17 17:24 05/19/17 17:24 05/19/17 17:24 Laboratory Results 05/19/17 07:10 05/18/17 04:50 05/18/17 05/19/17 05/20/17 05:59 05:59 05:59 Intake Total 735 1430 500 Output Total 450 1625 1100 Balance 285 -195 -600 PT 14.8 SEC (12.0-15.0) 05/16/17 20:15 INR 1.14 (0.83-1.16) 05/16/17 20:15 US negative for DVT CXR viewed, my personal interpretation is - negative - Physical Exam Constitutional: no apparent distress, appears nourished, not in pain Cardiovascular: regular rate and rhythym, no murmur, rub, or gallop Respiratory: no respiratory distress, no rales or rhonchi, clear to auscultation Gastrointestinal: normoactive bowel sounds, soft, non-tender abdomen, no palpable masses Skin: no rashes or abrasions, no fluctuance, no induration Neurologic: AAOx3, sensation intact bilaterally Psychiatric: interacting appropriately, not anxious, not encephalopathic, thought process linear ICD10 Worksheet Patient Problems: Problems Problem Status Onset Upper GI bleeding Acute Arthritis of right knee Acute Failure to thrive Acute
[2017-05-19] MEDS: INSULIN GLARGINE 100 UNITS/ML UNIT SC SCH (21:52)
[2017-05-19] MEDS: metFORMIN HCL 500 MG TAB PO SCH (21:53)
[2017-05-20] MEDS: oxyCODONE IR 5 MG TAB PO PRN ×3 (03:10→15:19)
[2017-05-20] MEDS: traMADol 50 MG TAB PO SCH ×4 (05:44→23:55)
[2017-05-20] MEDS: ACETAMINOPHEN 325 MG TAB PO SCH ×4 (05:44→23:54)
[2017-05-20 08:35] LABS: PLATELET COUNT 150 10^3/uL (150-400)
[2017-05-20] MEDS ORDERED: LISINOPRIL 2.5 MG TAB PO SCH (09:00)
[2017-05-20] MEDS: metFORMIN HCL 500 MG TAB PO SCH ×2 (09:29→20:32)
[2017-05-20] MEDS: DULoxetine 60 MG CAP PO SCH (09:29)
[2017-05-20] MEDS: CHOLECALCIFEROL VIT D3 1,000 UNITS TAB PO SCH (09:30)
[2017-05-20] MEDS: PANTOPRAZOLE SODIUM 40 MG TAB PO SCH (09:31)
[2017-05-20] MEDS: FUROSEMIDE 40 MG TAB PO SCH (09:31)
[2017-05-20] MEDS: ENOXAPARIN 40 MG/0.4 ML SYR SC SCH (09:36)
[2017-05-20] MEDS: INSULIN LISPRO 100 UNIT/ML SC SCH ×3 (09:44→18:38)
[2017-05-20] MEDS: LISINOPRIL 5 MG TAB PO SCH (10:39)
[2017-05-20] MEDS: FUROSEMIDE 80 MG TAB PO SCH (12:04)
[2017-05-20] MEDS: glipiZIDE 10 MG TAB PO SCH (12:30)
[2017-05-20] MEDS ORDERED: FUROSEMIDE 100 MG/10 ML VIAL IVP SCH (15:00)
[2017-05-20] MEDS: FUROSEMIDE 40 MG/4 ML VIAL IVP SCH (15:06)
--- NOTE | 2017-05-20 15:39 | ASMTCMCOM ---
CM Note CM Note Notes: Chart reviewed. Discussed with MD. Patient is currently fluid overloaded and will be diuresed Spent about 30 minutes talking with her and her . They have re-thought SNF and the plan will be to return home with [facility] services. She has her daughter, twin 7 year old grandsons and her as support at home. Will send referral to current [facility] service. CM to follow. Date Signed: 05/20/2017 03:38 PM Electronically Signed By:Moriah Mancini RN
[2017-05-20] MEDS ORDERED: FUROSEMIDE 80 MG TAB PO SCH (16:00)
[2017-05-20] MEDS: IPRATROPIUM/ALBUTEROL 3 ML DEYVIAL IH PRN (16:31)
--- NOTE | 2017-05-20 16:59 | HOSPPROG ---
Hospitalist Progress Note Assessment/Plan: * UGIB due to -PPI -H pylori negative -DC Xarelto -repeat EGD 3 months * Acute blood loss anemia -s/p transfusion * Recent TKA -change DVT prophylaxis to SQ lovenox 40mg * Chronic edema - now uncontrolled s/p IVF and holding of diuretics -very volume overloaded - IV Lasix * DM II - lantus, metformin * Obesity BMI 34 Subjective: Very swollen. feels like she would come right back to ER if discharged Objective: Vital Signs Temp Pulse Resp BP Pulse Ox 36.5 C 80 18 110/52 L 94 05/20/17 16:00 05/20/17 16:30 05/20/17 16:30 05/20/17 16:00 05/20/17 16:30 Laboratory Results 05/20/17 08:30 05/20/17 05:34 05/19/17 05/20/17 05/21/17 05:59 05:59 05:59 Intake Total 1430 750 Output Total 1625 1550 Balance -195 -800 PT 14.8 SEC (12.0-15.0) 05/16/17 20:15 INR 1.14 (0.83-1.16) 05/16/17 20:15 - Physical Exam Constitutional: no apparent distress, appears nourished, not in pain Cardiovascular: regular rate and rhythym, no murmur, rub, or gallop, edema (3+) Respiratory: no respiratory distress, no rales or rhonchi, clear to auscultation Gastrointestinal: normoactive bowel sounds, soft, non-tender abdomen, no palpable masses Skin: no rashes or abrasions, no fluctuance, no induration Neurologic: AAOx3, sensation intact bilaterally Psychiatric: interacting appropriately, not anxious, not encephalopathic, thought process linear ICD10 Worksheet Patient Problems: Problems Problem Status Onset Upper GI bleeding Acute Arthritis of right knee Acute Failure to thrive Acute
[2017-05-20] MEDS: ONDANSETRON DISINTEGRATING 4 MG TAB PO PRN (19:16)
[2017-05-20] MEDS: POTASSIUM CL 20 MEQ TAB PO SCH (20:32)
[2017-05-20] MEDS: INSULIN GLARGINE 100 UNITS/ML UNIT SC SCH (20:32)
[2017-05-21] MEDS: ACETAMINOPHEN 325 MG TAB PO SCH ×4 (05:40→23:29)
[2017-05-21] MEDS: traMADol 50 MG TAB PO SCH ×4 (05:41→23:29)
--- NOTE | 2017-05-21 09:01 | SOAPPROG ---
SOTOÑITO Progress Note Assessment/Plan: Assessment: Plan: - can d/c from ortho perspective 05/21/17 09:00 Subjective: Improved overall, pain mild, feels better movement today Objective: Vital Signs Temp Pulse Resp BP Pulse Ox 36.8 C 96 18 114/82 H 100 05/21/17 07:15 05/21/17 07:15 05/21/17 07:15 05/21/17 07:15 05/21/17 07:15 Laboratory Results 05/20/17 08:30 05/21/17 06:00 05/20/17 05/21/17 05/22/17 05:59 05:59 05:59 Intake Total 750 1000 Output Total 1550 2250 Balance -800 -1250 PT 14.8 SEC (12.0-15.0) 05/16/17 20:15 INR 1.14 (0.83-1.16) 05/16/17 20:15 Dressing cdi, calf nt, compartments soft, nvi - Time Spent With Patient Time Spent With Patient: 15 - Pending Discharge Pending Discharge Within 24 Hours: Yes Pending Discharge Within 48 Hours: No Pending Discharge Date: 05/22/17 Pending Discharge Time: 11:00 ICD10 Worksheet Patient Problems: Problems Problem Status Onset Upper GI bleeding Acute Arthritis of right knee Acute Failure to thrive Acute
[2017-05-21] MEDS: LISINOPRIL 5 MG TAB PO SCH (10:13)
[2017-05-21] MEDS: metFORMIN HCL 500 MG TAB PO SCH ×2 (10:14→20:40)
[2017-05-21] MEDS: CHOLECALCIFEROL VIT D3 1,000 UNITS TAB PO SCH (10:14)
[2017-05-21] MEDS: DULoxetine 60 MG CAP PO SCH (10:14)
[2017-05-21] MEDS: PANTOPRAZOLE SODIUM 40 MG TAB PO SCH (10:15)
[2017-05-21] MEDS: FUROSEMIDE 40 MG/4 ML VIAL IVP SCH ×2 (10:16→17:13)
[2017-05-21] MEDS: ENOXAPARIN 40 MG/0.4 ML SYR SC SCH (10:22)
[2017-05-21] MEDS: INSULIN LISPRO 100 UNIT/ML SC SCH ×3 (10:25→18:02)
[2017-05-21] MEDS: glipiZIDE 10 MG TAB PO SCH (12:07)
--- NOTE | 2017-05-21 19:47 | HOSPPROG ---
Hospitalist Progress Note Assessment/Plan: * UGIB due to -PPI -H pylori negative -DC Xarelto -repeat EGD 3 months * Acute blood loss anemia -s/p transfusion * Recent TKA -change DVT prophylaxis to SQ lovenox 40mg * Chronic edema - now uncontrolled s/p IVF and holding of diuretics -very volume overloaded - IV Lasix * DM II - lantus, metformin * Obesity BMI 34 Subjective: Still vomitted multiple times in last 24 hours. No blood. She thinks its from abominal swelling. Legs still very swollen Objective: Vital Signs Temp Pulse Resp BP Pulse Ox 36.6 C 70 20 97/60 L 94 05/21/17 15:18 05/21/17 15:18 05/21/17 15:18 05/21/17 15:18 05/21/17 15:18 Laboratory Results 05/20/17 08:30 05/21/17 06:00 05/20/17 05/21/17 05/22/17 05:59 05:59 05:59 Intake Total 750 1000 800 Output Total 1550 2250 1525 Balance -800 -1250 -725 PT 14.8 SEC (12.0-15.0) 05/16/17 20:15 INR 1.14 (0.83-1.16) 05/16/17 20:15 ICD10 Worksheet Patient Problems: Problems Problem Status Onset Upper GI bleeding Acute Arthritis of right knee Acute Failure to thrive Acute
[2017-05-21] MEDS: oxyCODONE IR 5 MG TAB PO PRN (20:41)
[2017-05-21] MEDS: INSULIN GLARGINE 100 UNITS/ML UNIT SC SCH (20:41)
[2017-05-21] MEDS: POTASSIUM CL 20 MEQ TAB PO SCH (20:41)
[2017-05-22] MEDS: traMADol 50 MG TAB PO SCH ×4 (05:14→23:56)
[2017-05-22] MEDS: ACETAMINOPHEN 325 MG TAB PO SCH ×4 (05:14→23:55)
[2017-05-22] MEDS: INSULIN LISPRO 100 UNIT/ML SC SCH ×3 (07:42→18:05)
[2017-05-22] MEDS: ENOXAPARIN 40 MG/0.4 ML SYR SC SCH (09:13)
[2017-05-22] MEDS: PANTOPRAZOLE SODIUM 40 MG TAB PO SCH (09:14)
[2017-05-22] MEDS: DULoxetine 60 MG CAP PO SCH (09:14)
[2017-05-22] MEDS: metFORMIN HCL 500 MG TAB PO SCH (09:14)
[2017-05-22] MEDS: CHOLECALCIFEROL VIT D3 1,000 UNITS TAB PO SCH (09:15)
[2017-05-22] MEDS ORDERED: acetaZOLAMIDE 250 MG in SYRINGE 0 ML IVP ONE (09:17)
[2017-05-22] MEDS: FUROSEMIDE 40 MG/4 ML VIAL IVP SCH (09:42)
[2017-05-22] MEDS: LISINOPRIL 5 MG TAB PO SCH (10:18)
[2017-05-22] MEDS: glipiZIDE 10 MG TAB PO SCH (12:00)
[2017-05-22] MEDS: ALBUMIN 25% 100 ML IV SCH ×4 (12:01→23:55)
--- NOTE | 2017-05-22 15:44 | ASMTCMCOM ---
CM Note CM Note Notes: Dc date unclear, pt will dc home w/homecare, pt is current with [facility]. DC Plan: Home Care/ RN/ PT Date Signed: 05/22/2017 03:43 PM Electronically Signed By:Sharla Fink RN
--- NOTE | 2017-05-22 15:47 | ECHO ---
[email or web address] [address] Main: [phone] Fax: Transthoracic Echocardiogram Name: YOLA CHRISTIAN MR#: [id number] Study Date: 05/22/2017 Study Time: 11:23 AM Date of : 1950 Age: 67 year(s) Height: 147.3 cm (58 in.) Weight: 96.16 kg (212 lb.) BSA: 1.87 m2 Gender: Female Examination: Echo Indication: Edema Image Quality: Contrast: Requested by: Verenice Gonzalez BP: 118 mmHg/58 mmHg Heart Rate: Rhythm: Indication: Edema Procedure Staff Software Test Manager: Sandy Gaitan Reading Physician: Kunal Guerra Requesting Provider: Conclusions: Normal global systolic LV function. The ejection fraction is estimated to be 60-65 %. The mitral valve is normal in appearance. Aortic valve is not well visualized. Technically difficult study.. Measurements: Chambers Valvular Assessment AV/MV Valvular Assessment TV/PV Normal Normal Normal Name Value Range Name Value Range Name Value Range Ao Greta (2D): 2.9 cm (1.4 cm-2.6 AV meanP mmHg ( - ) cm) MV E Vmax: 0.86 m/s ( - ) LVDd (2D): 4.7 cm (3.9 cm-5.3 MV A Vmax: 0.72 m/s ( - ) cm) MV E/A: 1.19 ( - ) EF Range: 60-65 % Continued Measurements: Valvular Assessment AV/MV Name Value MV E' Septal: 0.10 m/s MV E/E' Septal: 8.40 MV E/E' Lateral: 10.80 Findings: Left Ventricle: Normal size left ventricle. Normal global systolic LV function. The ejection fraction is estimated to be 60-65 %. Patient: YOLA CHRISTIAN Study Date: 05/22/2017 Page 1 of 2 11:23 AM Right Ventricle: Normal size right ventricle. Left Atrium: The left atrium is normal in size. Right Atrium: The right atrium is normal in size. Mitral Valve: The mitral valve is normal in appearance. Aortic Valve: Aortic valve is not well visualized. Tricuspid Valve: Tricuspid valve not well visualized. Pulmonic Valve: Pulmonary valve not well visualized. Pericardium: There is pericardial fat. Exam Comments: Technically difficult study.. (No Signature Object) Patient: YOLA CHRISTIAN Study Date: 05/22/2017 Page 2 of 2 11:23 AM [id number]
[2017-05-22] MEDS: oxyCODONE IR 5 MG TAB PO PRN ×3 (16:14→23:57)
[2017-05-22] MEDS: IPRATROPIUM/ALBUTEROL 3 ML DEYVIAL IH PRN (16:27)
--- NOTE | 2017-05-22 17:27 | HOSPPROG ---
Hospitalist Progress Note Assessment/Plan: * UGIB due to -PPI -H pylori negative -DC Xarelto -repeat EGD 3 months * Acute blood loss anemia -s/p transfusion * Recent TKA -change DVT prophylaxis to SQ lovenox 40mg * Acute on Chronic edema -very volume overloaded - not really responding to IV lasix -now creatinine rising and contraction alkalosis -IV diamox, hold IV lasix -IV albumin -compression and elevation * DM II - lantus, metformin * Obesity BMI 34 Subjective: Still very swollen, weight went up, frustrated that fluid not coming off. Objective: Vital Signs Temp Pulse Resp BP Pulse Ox 36.6 C 78 18 119/72 100 05/22/17 16:00 05/22/17 16:27 05/22/17 16:00 05/22/17 16:00 05/22/17 16:27 Laboratory Results 05/20/17 08:30 05/22/17 05:32 05/21/17 05/22/17 05/23/17 05:59 05:59 05:59 Intake Total 1000 1200 Output Total 2250 2400 Balance -1250 -1200 PT 14.8 SEC (12.0-15.0) 05/16/17 20:15 INR 1.14 (0.83-1.16) 05/16/17 20:15 - Physical Exam Constitutional: no apparent distress, appears nourished, not in pain Cardiovascular: regular rate and rhythym, no murmur, rub, or gallop, edema (3+) Respiratory: no respiratory distress, no rales or rhonchi, clear to auscultation Gastrointestinal: normoactive bowel sounds, soft, non-tender abdomen, no palpable masses Skin: no rashes or abrasions, no fluctuance, no induration Neurologic: AAOx3, sensation intact bilaterally Psychiatric: interacting appropriately, not anxious, not encephalopathic, thought process linear ICD10 Worksheet Patient Problems: Problems Problem Status Onset Upper GI bleeding Acute Arthritis of right knee Acute Failure to thrive Acute
[2017-05-22] MEDS: POTASSIUM CL 20 MEQ TAB PO SCH (21:05)
[2017-05-22] MEDS: INSULIN GLARGINE 100 UNITS/ML UNIT SC SCH (21:06)
[2017-05-22] MEDS: FUROSEMIDE 40 MG TAB PO SCH (21:07)
[2017-05-23 05:03] VITALS: O2SAT 96
[2017-05-23 05:32] LABS: PLATELET COUNT 201 10^3/uL (150-400)
[2017-05-23] MEDS: ACETAMINOPHEN 325 MG TAB PO SCH (05:44)
[2017-05-23] MEDS: traMADol 50 MG TAB PO SCH (05:44)
[2017-05-23] MEDS: ALBUMIN 25% 100 ML IV SCH (05:45)
[2017-05-23 07:19] VITALS: BP 100/60; TEMP 97.5
[2017-05-23] MEDS: INSULIN LISPRO 100 UNIT/ML SC SCH (07:31)
[2017-05-23] MEDS: oxyCODONE IR 5 MG TAB PO PRN ×2 (07:31→12:25)
[2017-05-23] MEDS: FUROSEMIDE 40 MG TAB PO SCH (08:35)
[2017-05-23] MEDS: CHOLECALCIFEROL VIT D3 1,000 UNITS TAB PO SCH (08:35)
[2017-05-23] MEDS: ENOXAPARIN 40 MG/0.4 ML SYR SC SCH (08:35)
[2017-05-23] MEDS: DULoxetine 60 MG CAP PO SCH (08:35)
[2017-05-23] MEDS: PANTOPRAZOLE SODIUM 40 MG TAB PO SCH (08:35)
[2017-05-23] MEDS: IPRATROPIUM/ALBUTEROL 3 ML DEYVIAL IH PRN (10:30)
[2017-05-23 10:47] VITALS: PULSE 97; RESP 15
--- NOTE | 2017-05-23 11:26 | PDIAF ---
- Diagnosis Diagnosis: UGIB, CHF exacerbation Code Status: Full Code - Medication Management Discharge Medications: Medications to Continue on Transfer Albuterol Sulfate [Proair Hfa] 1 - 2 gm IH Q4H PRN 10/29/16 [Last Taken 05/13/17 ] Cholecalciferol Vit D3 [Vitamin D3 (*)] 1,000 units PO DAILY 10/29/16 [Last Taken 05/06/17] DULoxetine [Cymbalta 60 MG (*)] 60 mg PO DAILY 10/29/16 [Last Taken 05/13/17 06: 30] Ipratropium/Albuterol [Duoneb (*)] 3 ml IH QID PRN 10/29/16 [Last Taken 05/09/17 ] Lisinopril [Zestril 2.5 mg (*)] 2.5 mg PO DAILY 10/29/16 [Last Taken 05/13/17 06 :30] Multivitamins [Multivitamin (*)] 1 each PO DAILY 10/29/16 [Last Taken 05/06/17] Oxycodone HCl [Dazidox] 10 - 20 mg PO BID PRN 10/29/16 [Last Taken 2 Weeks Ago ~ 04/29/17] Potassium Cl [Klor-Con 20 meq (*)] 20 meq PO HS 10/29/16 [Last Taken 05/12/17] glipiZIDE [Glucotrol] 10 mg PO DAILY@12 10/29/16 [Last Taken 05/12/17] metFORMIN HCL [Metformin HCl] 500 mg PO BID 10/29/16 [Last Taken 05/12/17] Insulin Detemir [Levemir Flextouch] 30 - 32 unit SQ HS 05/13/17 [Last Taken 12/20 22 UNITS] Melatonin [Melatonin 3 MG (*)] 3 mg PO HS PRN 05/13/17 [Last Taken 05/10/17] Acetaminophen [Tylenol 325mg (*)] 650 mg PO Q6HRS tab 05/15/17 [Last Taken Unknown] oxyCODONE IR [Oxycodone Ir (*)] 5 - 10 mg PO Q3HRS PRN tab 05/15/17 [Last Taken Unknown] traMADol [Ultram 50 mg (*)] 50 mg PO Q6HRS tab 05/15/17 [Last Taken Unknown] Furosemide [Lasix 80 MG (*)] 80 mg PO TID 05/18/17 [Last Taken Unknown] Enoxaparin [Lovenox 40 MG (*)] 40 mg SC DAILY #4 syr 05/23/17 [Last Taken Unknown] Pantoprazole Sodium [Protonix 40mg (*)] 40 mg PO DAILY #30 tab 05/23/17 [Last Taken Unknown] Discharge Medications: Refer to the Discharge Home Medication list for PRN reason. - Orders Services needed: Registered Nurse, Physical Therapy, Occupational Therapy Diet Recommendation: sodium restricted Weigh Patient: daily Additional: Hold lisinopril and metformin until BMP Friday 05/26 reviewed - Labs/Radiology BMP Date: 05/26/17 - Follow Up Care Current Providers and Referrals: Monica Lyn MD [Medical Doctor] - (Repeat EGD 3 months) Marion Juarez [Primary Care Provider] - As per Instructions
--- NOTE | 2017-05-23 11:51 | ASMTCMCOM ---
CM Note CM Note Notes: Patient medically cleared for discharge. Final orders via allscripts to [facility] services for resumption of care. CM available should other needs arise. Date Signed: 05/23/2017 11:50 AM Electronically Signed By:Moriah Mancini RN
--- NOTE | 2017-05-23 17:33 | GDS ---
[f rep st] DISCHARGE SUMMARY DISCHARGE DIAGNOSIS: 1. Upper gastrointestinal bleed due to gastric ulcer. 2. Acute blood loss anemia. 3. Recent total knee arthroplasty. 4. Ogooc-rf-irjujge diastolic congestive heart failure. 5. Diabetes type 2. 6. Obesity. Body mass index 34. HISTORY: The patient is a 67-year-old female who recently had a total knee arthroplasty and was plac ed on Xarelto postoperatively for DVT prophylaxis. She subsequently developed an upper GI bleed and underwent EGD was found to have a gastric ulcer. Her H pylori antibody was negative. Xarelto was di scontinued. She will discharge on a proton pump inhibitor and needs a repeat EGD in 3 months. She was volume resuscitated with her GI bleed and subsequently became massively volume overloaded. S he has chronic diastolic congestive heart failure and takes Lasix 80 mg p.o. t.i.d. She was very dif ficult to diurese and was quite resistant to IV Lasix which prolonged her hospitalization. Eventuall y, on the day of discharge the Lasix is effective and she is urinating nicely and having decreasing w eights. I think at this point, is okay to go home on her usual Lasix regimen to slowly resolve back to her baseline weight. Her DVT prophylaxis was changed from Xarelto to subcu Lovenox 40 mg p.o. daily and she is tolerating this without difficulties. DISCHARGE MEDICATIONS: Please see computerized record for full detailed list. New medications: 1. Lovenox 40 mg subcu daily for 4 more doses. 2. Protonix 40 mg p.o. daily. ADDITIONAL DISCHARGE INSTRUCTIONS: 1. Repeat EGD in 3 months to ensure gastric ulcer healing. 2. Repeat basic metabolic panel via home health on Friday, May 26, as she did have some creati nine elevation. 3. Hold lisinopril and metformin until after blood work is reviewed on that date. Greater than 30 minutes time was spent arranging this discharge. Patient was seen and examined by me on the day of discharge. /[id number]/MODL
== END 2017-05-23 12:34 | disposition home health service (06) | DRG 377 ==
LOC: INTOOBSV 18:11 → F3N 19:46 → OBSVTOIN 05-17 16:51 → F3E 05-19 16:56
PROVIDERS: ADMIT Family Medicine; ATTEND Internal Medicine
PROC: 30233N1 Transfusion of Nonautologous Red Blood Cells into Peripheral Vein, Percutaneous Approach (ICD-10-PCS; 2017-05-16)
PROC: 0DB78ZX Excision of Stomach, Pylorus, Via Natural or Artificial Opening Endoscopic, Diagnostic (ICD-10-PCS; principal; 2017-05-17 09:15)
DX: K25.4 Chronic or unspecified gastric ulcer with hemorrhage (principal); I50.33 Acute on chronic diastolic (congestive) heart failure; D62 Acute posthemorrhagic anemia; E11.9 Type 2 diabetes mellitus without complications; J44.9 Chronic obstructive pulmonary disease, unspecified; N18.9 Chronic kidney disease, unspecified; R60.9 Edema, unspecified; E66.9 Obesity, unspecified; Z68.34 Body mass index [BMI] 34.0-34.9, adult; Z79.51 Long term (current) use of inhaled steroids; Z79.01 Long term (current) use of anticoagulants; Z79.4 Long term (current) use of insulin; Z87.891 Personal history of nicotine dependence; Z96.652 Presence of left artificial knee joint
CPT/HCPCS: 96365; 97116-GP; 97161-GP; 97165-GO; 97530-GO; 97530-GP; 97535-GO; G0378; G8978-GP-CJ; G8979-GP-CI; G8980-GP-CI; G8987-GO-CK; G8988-GO-CI; G8989-GO-CI; J0171; J1120; J1650; J1815; J1940; J2370; J2405; J2704; P9016; P9047

== ENCOUNTER 2017-05-26 14:51 | Inpatient (IN) | payer OTHER ==
[2017-05-26] MEDS ORDERED: HYDROmorphONE/DILAUDID 1 MG/ML INJ IVP ONE (15:36)
--- NOTE | 2017-05-26 15:36 | EDPHY ---
H & P Stated Complaint: L FOOT PAIN RECENT L KNEE REPLACEMENT Time Seen by Provider: 05/26/17 15:20 HPI/ROS: CHIEF COMPLAINT: Left foot pain and swelling HISTORY OF PRESENT ILLNESS: The patient is a 67-year-old female who had her left knee replaced by Dr. Becca Mclaughlin 11 days ago. She has a history of COPD on 3 L at baseline as well as diabetes but denies heart disease. She did need to be readmitted after surgery for a GI bleed and is currently on Lovenox once daily. Over the last 36 hr she has developed some swelling in her left ankle and foot and severe pain as well as very mild erythema at the bridge of her foot and anterior vega. She had to call the fire department to help her get into the SUV to come to Dr. Mclaughlin is office today. She was seen by the PA who was concerned for DVT versus cellulitis and recommended she come to the ER and likely for admission. Her daughter states that she had a fever of 100 degrees at home. The patient denies cough shortness of breath. She denies chest pain. She does admit to having significant edema during her hospitalization and being up 17 lb. They started her on Lasix 250 mg a day in the hospital and performed an echo that did not reveal any signs of congestive heart failure. She is still taking Lasix now. REVIEW OF SYSTEMS: Constitutional: denies: chills, fever, recent illness, recent injury EENTM: denies: blurred vision, double vision, nose congestion Respiratory: denies: cough, shortness of breath Cardiac: denies: chest pain, irregular heart rate, lightheadedness, palpitations Gastrointestinal/Abdominal: denies: abdominal pain, diarrhea, nausea, vomiting, blood streaked stools Genitourinary: denies: dysuria, frequency, hematuria, pain Musculoskeletal: See HPI Skin: denies: lesions, rash, jaundice, bruising Neurological: denies: headache, numbness, paresthesia, tingling, dizziness, weakness Hematologic/Lymphatic: denies: blood clots, easy bleeding, easy bruising Immunologic/allergic: denies: HIV/AIDS, transplant EXAM: GENERAL: Well-appearing, well-nourished and in no acute distress. HEAD: Atraumatic, normocephalic. EYES: Pupils equal round and reactive to light, extraocular movements intact, sclera anicteric, conjunctiva are normal. ENT: TMs normal, nares patent, oropharynx clear without exudates. Moist mucous membranes. NECK: Normal range of motion, supple without lymphadenopathy or JVD. LUNGS: Breath sounds clear to auscultation bilaterally and equal. No wheezes rales or rhonchi. HEART: Regular rate and rhythm without murmurs, rubs or gallops. ABDOMEN: Soft, nontender, normoactive bowel sounds. No guarding, no rebound. No masses appreciated. BACK: No CVA tenderness, no spinal tenderness, step-offs or deformities EXTREMITIES: Left leg pain from the mid should down. 2+ pitting edema, very slight erythema to the bridge of the foot and anterior vega. Slightly warm to palpation. NEUROLOGICAL: Cranial nerves II through XII grossly intact. Normal speech, normal gait. 5/5 strength, normal movement in all extremities, normal sensation PSYCH: Normal mood, normal affect. SKIN: Warm, dry, normal turgor, no visible rashes or lesions. Source: Patient Exam Limitations: No limitations - Personal History Current Tetanus Diphtheria and Acellular Pertussis (TDAP): Yes - Medical/Surgical History Hx Asthma: Yes Hx Chronic Respiratory Disease: Yes Hx Diabetes: Yes Hx Cardiac Disease: Yes Hx Renal Disease: Yes Hx Cirrhosis: No Hx Alcoholism: No Hx HIV/AIDS: No Hx Splenectomy or Spleen Trauma: No Other PMH: Diabetic, COPD, spine surgery, knee replacement KRYSTAL, c-seation, carpal tunnelx2, kidney issue, appy, UMBILICAL HERNIA, MULTIPLE BLOOD TRANSFUSION, SEPSIS, SPINAL FUSION. - Family History Significant Family History: No pertinent family hx - Social History Smoking Status: Former smoker Alcohol Use: Sober Drug Use: None Constitutional: Initial Vital Signs Heart Rate 109 H 05/26/17 15:25 Respiratory Rate 22 H 05/26/17 15:25 Blood Pressure 99/77 L 05/26/17 15:25 O2 Sat (%) 90 L 05/26/17 15:25 O2 Delivery Mode Nasal Cannula O2 (L/minute) 3 Allergies/Adverse Reactions: No Known Allergies Allergy (Verified 04/22/17 10:24) Home Medications: Medication Instructions Recorded Albuterol Sulfate [Proair Hfa] 1 - 2 gm IH Q4H PRN 10/29/16 Cholecalciferol Vit D3 [Vitamin D3 1,000 units PO DAILY 10/29/16 (*)] DULoxetine [Cymbalta 60 MG (*)] 60 mg PO DAILY 10/29/16 Ipratropium/Albuterol [Duoneb (*)] 3 ml IH QID PRN 10/29/16 Lisinopril [Zestril 2.5 mg (*)] 2.5 mg PO DAILY 10/29/16 Multivitamins [Multivitamin (*)] 1 each PO DAILY 10/29/16 Oxycodone HCl [Dazidox] 10 - 20 mg PO BID PRN 10/29/16 Potassium Cl [Klor-Con 20 meq (*)] 20 meq PO HS 10/29/16 glipiZIDE [Glucotrol] 10 mg PO DAILY@12 10/29/16 metFORMIN HCL [Metformin HCl] 500 mg PO BID 10/29/16 Insulin Detemir [Levemir Flextouch] 30 - 32 unit SQ HS 05/13/17 Melatonin [Melatonin 3 MG (*)] 3 mg PO HS PRN 05/13/17 Acetaminophen [Tylenol 325mg (*)] 650 mg PO Q6HRS tab 05/15/17 oxyCODONE IR [Oxycodone Ir (*)] 5 - 10 mg PO Q3HRS PRN tab 05/15/17 traMADol [Ultram 50 mg (*)] 50 mg PO Q6HRS tab 05/15/17 Furosemide [Lasix 80 MG (*)] 80 mg PO TID 05/18/17 Enoxaparin [Lovenox 40 MG (*)] 40 mg SC DAILY #4 syr 05/23/17 Pantoprazole Sodium [Protonix 40mg 40 mg PO DAILY #30 tab 05/23/17 (*)] Medical Decision Making - Diagnostics Imaging Results: Imaging Impressions Extremity Venous Study 05/26/17 15:32 Impression: No evidence of deep vein thrombosis. Findings discussed with LANDEN RAY 05/26/2017 at 16:26. Imaging: Discussed imaging studies w/ housecalls nurse Radiologist ED Course/Re-evaluation: I spoke with him the PA from Dr. Mclaughlin is office. He states that the anticoagulants were held for few days when she was readmitted for her upper GI bleed. They did not find anything when they scoped her. They then restarted the Lovenox. He is concerned that maybe DVT developed in that time. She has been back on Lovenox for about 5 or 6 days. She will require admission based on her pain level and immobility. 5:00 p.m. I discussed the case with Dr. Zaidi who agrees with admission and plan. They will obtain type and screen when she arrives there. The patient's initial readings were hypotensive however after taking her sweater off and placed the cuff over her biceps instead of her forearm her systolic is 120. Differential Diagnosis: Partial list of the Differential diagnosis considered include but were not limited to; cellulitis, DVT, sepsis and although unlikely based on the history and physical exam, I also considered fasciitis, osteomyelitis, CHF, renal disease. Critical Care Time: I spent a total of 45 minutes of critical care time in obtaining history, performing a physical exam, bedside monitoring of interventions, collecting and interpreting tests and discussion with consultants but not including time spent performing procedures. - Data Points Laboratory Results: Laboratory Results 05/26/17 16:20 05/26/17 16:20 05/26/17 05/26/17 05/26/17 16:55 16:20 16:20 WBC RBC Hgb Hct MCV MCH MCHC RDW Plt Count MPV Neut % (Auto) Lymph % (Auto) Irwin % (Auto) Eos % (Auto) Baso % (Auto) Nucleat RBC Rel Count Absolute Neuts (auto) Absolute Lymphs (auto) Absolute Monos (auto) Absolute Eos (auto) Absolute Basos (auto) Absolute Nucleated RBC Immature Gran % Immature Gran # PT 15.4 SEC H SEC (12.0-15.0) INR 1.24 H (0.83-1.16) APTT 41.6 SEC H SEC (23.0-38.0) VBG Lactic Acid 2.2 mmol/L H mmol/L (0.7-2.1) Sodium Potassium Chloride Carbon Dioxide Anion Gap BUN Creatinine Estimated GFR Glucose Calcium Total Bilirubin Patient ABO/Rh B POSITIVE Antibody Screen NEGATIVE 05/26/17 05/26/17 16:20 16:20 WBC 11.00 10^3/uL H 10^3/uL (3.80-9.50) RBC 2.77 10^6/uL L 10^6/uL (4.18-5.33) Hgb 8.3 g/dL L g/dL (12.6-16.3) Hct 25.7 % L % (38.0-47.0) MCV 92.8 fL fL (81.5-99.8) MCH 30.0 pg pg (27.9-34.1) MCHC 32.3 g/dL L g/dL (32.4-36.7) RDW 13.3 % % (11.5-15.2) Plt Count 273 10^3/uL 10^3/uL (150-400) MPV 9.7 fL fL (8.7-11.7) Neut % (Auto) 78.8 % H % (39.3-74.2) Lymph % (Auto) 9.6 % L % (15.0-45.0) Irwin % (Auto) 10.2 % % (4.5-13.0) Eos % (Auto) 0.8 % % (0.6-7.6) Baso % (Auto) 0.2 % L % (0.3-1.7) Nucleat RBC Rel Count 0.0 % % (0.0-0.2) Absolute Neuts (auto) 8.67 10^3/uL H 10^3/uL (1.70-6.50) Absolute Lymphs (auto) 1.06 10^3/uL 10^3/uL (1.00-3.00) Absolute Monos (auto) 1.12 10^3/uL H 10^3/uL (0.30-0.80) Absolute Eos (auto) 0.09 10^3/uL 10^3/uL (0.03-0.40) Absolute Basos (auto) 0.02 10^3/uL 10^3/uL (0.02-0.10) Absolute Nucleated RBC 0.00 10^3/uL 10^3/uL (0-0.01) Immature Gran % 0.4 % % (0.0-1.1) Immature Gran # 0.04 10^3/uL 10^3/uL (0.00-0.10) PT INR APTT VBG Lactic Acid Sodium 138 mEq/L mEq/L (135-145) Potassium 3.8 mEq/L mEq/L (3.5-5.2) Chloride 91 mEq/L L mEq/L (97-110) Carbon Dioxide 31 mEq/l mEq/l (22-31) Anion Gap 16 mEq/L mEq/L (8-16) BUN 22 mg/dL mg/dL (7-23) Creatinine 1.3 mg/dL H mg/dL (0.6-1.0) Estimated GFR 41 Glucose 211 mg/dL H mg/dL (70-100) Calcium 8.9 mg/dL mg/dL (8.5-10.4) Total Bilirubin 0.4 mg/dL mg/dL (0.1-1.4) Patient ABO/Rh Antibody Screen Medications Given: Discontinued Medications Acetaminophen (Tylenol) 1,000 mg PO EDNOW ONE Stop: 05/26/17 16:58 Last Admin: 05/26/17 16:58 Dose: 1,000 mg Hydromorphone HCl (Dilaudid) 0.5 mg IVP EDNOW ONE Stop: 05/26/17 15:37 Last Admin: 05/26/17 16:34 Dose: 0.5 mg Ceftriaxone Sodium 1 gm/ (Sterile Water) 10 mls @ 150 mls/hr IV EDNOW ONE PRN Reason: Protocol Stop: 05/26/17 16:43 Last Admin: 05/26/17 16:56 Dose: 10 mls Sodium Chloride (Ns) 2,900 mls @ 5,800 mls/hr 30 ml/kg infuse over 30 min ( 2900 ml) IV EDNOW ONE PRN Reason: Protocol Stop: 05/26/17 17:09 Last Admin: 05/26/17 16:56 Dose: 2,900 mls Vancomycin HCl 1 gm/ Sodium (Chloride) 250 mls @ 250 mls/hr IV EDNOW ONE PRN Reason: Protocol Stop: 05/26/17 17:40 Last Admin: 05/26/17 17:19 Dose: 250 mls Departure - Departure Disposition: [facility] Inpatient Acute Clinical Impression: Cellulitis of left leg Sepsis Qualifiers: Sepsis type: sepsis due to unspecified organism Qualified Code(s): A41.9 - Sepsis, unspecified organism Anemia Qualifiers: Anemia type: unspecified type Qualified Code(s): D64.9 - Anemia, unspecified Condition: Critical
[2017-05-26 16:36] LABS: PLATELET COUNT 273 10^3/uL (150-400)
[2017-05-26] MEDS ORDERED: cefTRIAXone 1 GM in STERILE WATER INJ 10 ML IV ONE (16:40)
[2017-05-26] MEDS ORDERED: NS 2,900 ML IV ONE (16:40)
[2017-05-26] MEDS ORDERED: VANCOMYCIN 1 GM in NS 250 ML IV ONE (16:41)
[2017-05-26] MEDS ORDERED: ACETAMINOPHEN 500 MG TAB ONE (16:45)
[2017-05-26] MEDS ORDERED: cefTRIAXone 1 GM VIAL ONE (16:45)
[2017-05-26 16:46] LABS: INR 1.24 (0.83-1.16); PROTIME(PATIENT) 15.4 SEC (12.0-15.0)
[2017-05-26] MEDS ORDERED: ACETAMINOPHEN 500 MG TAB PO ONE (16:57)
[2017-05-26] MEDS ORDERED: ONDANSETRON DISINTEGRATING 4 MG TAB PO PRN (21:25)
[2017-05-26] MEDS ORDERED: ONDANSETRON 4 MG/2 ML VIAL IVP PRN (21:25)
[2017-05-26] MEDS ORDERED: D50W 25 GM/50 ML SYR IVP PRN (21:35)
[2017-05-26] MEDS: oxyCODONE IR 5 MG TAB PO PRN (22:04)
--- NOTE | 2017-05-26 22:04 | GHP ---
[f rep st] HISTORY AND PHYSICAL DATE OF ADMISSION: 05/26/2017 CHIEF COMPLAINT: Left foot pain. HISTORY OF PRESENT ILLNESS: This is a 67-year-old female with COPD and diabetes, whose recent histor y is notable for a left TKA performed on May 13, discharged May 15. She was readmitted 2 days later with an upper GI bleed due to a gastric ulcer. On that hospitalization, she was started on Pr otonix. She had been placed on Lovenox for additional 4 doses for DVT prophylaxis in the setting of her recent TKA. She had previously been on Xarelto. She re-presented today with severe pain in the left foot. She saw Dr. Mclaughlin' PA who was concerned about a DVT and sent to the emergency department f or further work. She said the pain started suddenly over the last day or so. She is currently unabl e to walk on her foot. It is severe. Her foot is swollen and warm. PAST MEDICAL/SURGICAL HISTORY: 1. Diabetes. 2. Chronic obstructive pulmonary disease on 3 L. 3. Left-sided TKA by Dr. Mclaughlin. 4. Recent upper GI bleed. 5. Edema on diuretics. MEDICATIONS: Please see medication reconciliation. ALLERGIES: No known drug allergies. SOCIAL HISTORY: She is . She does not drink or smoke. FAMILY HISTORY: Reviewed and noncontributory. REVIEW OF SYSTEMS: A 10-point review of systems is conducted and is negative except per HPI. PHYSICAL EXAM: VITAL SIGNS: Blood pressure 105/59, heart rate 108, respiration rate 17, saturating 90% on room air. T-max has been 38.8. GENERAL: The patient is a pleasant female who is resting com fortably, in no acute distress. EXTREMITIES: Shows her left lower extremity to have recent surgical incisions. Gauze is clean dry and intact. Well below this, not close to the surgical incisions is an area of erythema on her vega with significant erythema on her foot. I feel an area of fluctuance on the dorsum of her foot. It is all very tender to palpation, red and warm. HEENT: Shows to be no rmocephalic, atraumatic. CARDIOVASCULAR: Regular rate and rhythm. No murmurs, rubs, or gallops. P ULMONARY: Lungs clear to auscultation bilaterally. ABDOMEN: Soft, nontender, nondistended. SKIN: No rash. : No Lindquist. NEUROLOGIC: Shows her to be alert and oriented x3. PSYCHIATRIC: Shows n ormal mood and affect. LABS: White count is 11, hemoglobin is 8.3, INR is 1.2. Initial lactate was 2.2, down to 0.9. Crea tinine is 1.3. DATA: 1. I discussed this with Dr. Wahl. 2. I reviewed her extremity venous study. This was negative for DVT. 3. I reviewed her chart. IMPRESSION/PLAN: 1. Sepsis: Likely due to lower extremity cellulitis. She was initially mildly hypotensive which re solved with fluids. There was some question that her cuff had been positioned incorrectly giving pot entially falsely low readings. Currently normotensive and mildly tachycardic. She has gotten broad- spectrum antibiotics, appropriate fluid bolus. Her elevated lactate resolved with IV fluids. We jarohco l watch her very closely. She is mentating well. 2. Cellulitis: This seems to be from the mid vega down to the dorsum of her foot. I am concerned t hat I feel an area of fluctuance on the dorsum of her foot. I have ordered an ultrasound to further evaluate. She has a borderline creatinine with diabetes, I am concerned about IV contrast in the CT scan. She is very scared of MRIs and would prefer not to do this. Based on findings of the ultrasou nd may need more advanced imaging. For now, I think Rocephin and vancomycin are appropriate choices given her diabetes and recent hospitalization. I have marked the area of erythema. 3. Diabetes mellitus: We will hold her metformin for now. We will continue her home insulin when t his is reconciled. I will write for her to get a sliding scale and follow her glucoses for now. 4. Recent total knee arthroplasty: She was sent in by Dr. Mclaughlin' PA. He should be aware of her hosp italization. 5. Recent upper gastrointestinal bleed: Hemoglobin is stable. We will recheck this again tomorrow. 6. Code status is full. 7. Venous thromboembolism risk is moderate, I have placed her on Lovenox low dose which she has been tolerating at home. /[id number]/MODL
[2017-05-26] MEDS: HYDROmorphONE/DILAUDID 1 MG/ML INJ IVP PRN (22:36)
[2017-05-26] MEDS ORDERED: MELATONIN 3 MG TAB PO PRN (22:55)
[2017-05-26] MEDS ORDERED: IPRATROPIUM/ALBUTEROL 3 ML DEYVIAL IH PRN (22:55)
[2017-05-27] MEDS ORDERED: INSULIN LISPRO 100 UNIT/ML SC ONE (00:33)
[2017-05-27] MEDS: traMADol 50 MG TAB PO SCH ×4 (00:53→17:48)
[2017-05-27] MEDS: INSULIN GLARGINE 100 UNITS/ML UNIT SC SCH ×2 (00:55→22:07)
[2017-05-27] MEDS: ALBUTEROL 60 PUFFS/8 GM MDI IH PRN (02:12)
[2017-05-27] MEDS: ACETAMINOPHEN 325 MG TAB PO PRN ×2 (05:15→19:56)
[2017-05-27 06:11] LABS: PLATELET COUNT 244 10^3/uL (150-400)
--- NOTE | 2017-05-27 06:24 | PDMN ---
Medical Necessity Medical necessity: Pt meets INPT criteria per MD and [facility] M-70 Cellulitis ( sepsis with hypotension, tachycardia, fever, elevated lactate; LLE cellulitis, recent L TKA, recent UGI bleed, DM, COPD).
[2017-05-27] MEDS ORDERED: PANTOPRAZOLE SODIUM 40 MG TAB PO SCH (09:00)
[2017-05-27] MEDS: INSULIN LISPRO 100 UNIT/ML SC SCH ×3 (09:15→17:57)
[2017-05-27] MEDS: DULoxetine 60 MG CAP PO SCH (10:20)
[2017-05-27] MEDS: ENOXAPARIN 40 MG/0.4 ML SYR SC SCH (10:20)
[2017-05-27] MEDS: cefTRIAXone 1 GM in STERILE WATER INJ 10 ML IV SCH (10:20)
[2017-05-27] MEDS: oxyCODONE IR 5 MG TAB PO PRN ×4 (10:23→22:08)
--- NOTE | 2017-05-27 12:53 | ASMTCASEMG ---
Living Arrangements What is your living Answers: With Spouse arrangement? Who do you live with? Type Of Residence What kind of residence do Answers: House you live in? Discharge Plan Comments Coordination Status Comments Notes: Patient is a 67yo female with COPD and diabetes who was admitted for sepsis, cellulitis, recent total knee arthroplasty and recent upper gastrointestinal bleed. She lives with her in [place], [place]. PT/OT/Cardiac rehab have been ordered. Awaiting therapies to determine d/c plan. CM will follow. Date Signed: 05/27/2017 12:52 PM Electronically Signed By:Shirlene Duckworth LCSW
--- NOTE | 2017-05-27 16:10 | HOSPPROG ---
Hospitalist Progress Note Assessment/Plan: Sepsis 2/2 cellulitis - (tachycardia, tachypnea, LE cellulitis). Sepsis physiology resolved. U/S neg for DVT, no e/o abscess. Xray without e/o osteo., -cont Ceftriaxone, Vanc -BCx's pending -MRI in am to r/o osteo -ID consult requested for am H/O recent UGIB 2/2 gastric ulcer seen on EGD 05/17 - pt describes ongoing melena , but RN witnessed BM today and described as brown, normal -hgb dropped to 7.2, could be diluted from fluid boluses on admission -repeat h&h now. -difficult stick, lab unable to draw, PICC ordered -requested an istat to recheck h&h but not clinically bleeding so unlikely to need transfusion DM type 2 - outpt basal / bolus insulin S/P TKA 05/13 - not bearing weight, need to clarify this with ortho, unclear why she is NWB COPD - on home / baseline O2 3 LPM. No e/o exacerbation. -cont nebs, O2, home meds Full code Dispo - cont inpt Subjective: Pt reports ongoing melanotic stools, today and a couple days ago. She can't stand on her left leg and is reportedly non-weightbearing, unclear why. Subjective fevers, she considers 98 a fever since she is usually 97. No CP or SOB. Wheezing and coughing a bit more than normal, but no sputum production. She uses 3 LPM O2 at home for her COPD. Objective: Vital Signs Temp Pulse Resp BP Pulse Ox 37.2 C 93 20 139/84 H 98 05/27/17 15:55 05/27/17 15:55 05/27/17 15:55 05/27/17 15:55 05/27/17 15:55 Laboratory Results 05/27/17 05:58 05/27/17 05:58 05/26/17 05/27/17 05/28/17 05:59 05:59 05:59 Intake Total 2825 Balance 2825 PT 15.4 SEC (12.0-15.0) H 05/26/17 16:20 INR 1.24 (0.83-1.16) H 05/26/17 16:20 - Physical Exam Constitutional: no apparent distress Eyes: PERRL Ears, Nose, Mouth, Throat: moist mucous membranes Cardiovascular: regular rate and rhythym Respiratory: no respiratory distress, reduced air movement Gastrointestinal: normoactive bowel sounds, soft, non-tender abdomen Skin: warm Musculoskeletal: other (LLE knee dressing c/d/i, foot and anterior tibial erythema has receded from prior outline) Neurologic: AAOx3 Psychiatric: interacting appropriately ICD10 Worksheet Patient Problems: Problems Problem Status Onset Anemia Acute Cellulitis of left leg Acute Sepsis Acute Arthritis of right knee Acute Failure to thrive Acute Upper GI bleeding Acute
[2017-05-27] MEDS ORDERED: VANCOMYCIN 1.5 GM in D5W 250 ML IV SCH (17:00)
[2017-05-27] MEDS ORDERED: VANCOMYCIN HCL/NORMAL SALINE 250 ML IV SCH (17:00)
[2017-05-27] MEDS ORDERED: ALTEPLASE 2 MG VIAL IVP PRN (18:16)
[2017-05-27] MEDS: IPRATROPIUM/ALBUTEROL 3 ML DEYVIAL IH SCH (20:33)
[2017-05-27] MEDS ORDERED: INSULIN GLARGINE 100 UNITS/ML UNIT SC SCH (21:00)
[2017-05-27] MEDS: POTASSIUM CL 20 MEQ TAB PO SCH (22:06)
[2017-05-27] MEDS: FUROSEMIDE 80 MG TAB PO SCH (22:07)
[2017-05-27] MEDS: PANTOPRAZOLE SODIUM 40 MG TAB PO SCH (22:07)
[2017-05-28] MEDS: ALBUTEROL 60 PUFFS/8 GM MDI IH PRN (00:05)
[2017-05-28] MEDS: NS 1,000 ML IV SCH ×2 (00:51→21:13)
[2017-05-28] MEDS: traMADol 50 MG TAB PO SCH ×4 (02:35→17:26)
[2017-05-28 05:59] LABS: PLATELET COUNT 243 10^3/uL (150-400)
[2017-05-28] MEDS: IPRATROPIUM/ALBUTEROL 3 ML DEYVIAL IH SCH ×4 (06:04→21:43)
[2017-05-28] MEDS: LISINOPRIL 2.5 MG TAB PO SCH (09:51)
[2017-05-28] MEDS: DULoxetine 60 MG CAP PO SCH (09:51)
[2017-05-28] MEDS: INSULIN LISPRO 100 UNIT/ML SC SCH ×3 (09:52→17:26)
[2017-05-28] MEDS: PANTOPRAZOLE SODIUM 40 MG TAB PO SCH ×2 (09:52→21:14)
[2017-05-28] MEDS: cefTRIAXone 1 GM in STERILE WATER INJ 10 ML IV SCH (09:52)
[2017-05-28] MEDS: ENOXAPARIN 40 MG/0.4 ML SYR SC SCH (09:52)
[2017-05-28] MEDS: FUROSEMIDE 80 MG TAB PO SCH ×3 (09:52→21:14)
[2017-05-28] MEDS: oxyCODONE IR 5 MG TAB PO PRN ×2 (14:11→21:14)
[2017-05-28] MEDS: LORazepam 2 MG/ML INJ IVP PRN ×2 (14:29→14:48)
--- NOTE | 2017-05-28 16:42 | HOSPPROG ---
Hospitalist Progress Note Assessment/Plan: The patient is a a 67-year-old female with PMH obesity, left total knee arthroplasty about 2 weeks ago who was admitted for cellulitis and pain in left foot. ASSESSMENT/PLAN: Left foot infection-cellulitis improving Sepsis-resolved -ID consulted, recs appreciated. Continue on vancomycin. -patient was unable to tolerate MRI today to evaluate for osteomyelitis. Discussed case with Infectious Disease. Patient not likely tab osteomyelitis, as she does not have any wounds on her feet. -U.S. foot rules out abscess. X-ray foot crush no osteo. -prelim blood cultures negative. Left total knee arthroplasty, recent -patient has too much pain and foot to bear weight. -ortho recs appreciated-patient being followed by her surgeon Dr. Mclaughlin Morbid obesity DM type 2 -insulin Peripheral edema -U.S. Venous-negative for DVT COPD, on 3 L home O2 Chronic respiratory failure -continue oxygen, nebulizers, other home meds Recent upper GI bleed secondary to gastric ulcer Chronic anemia -hemoglobin was low initially this a.m., but recheck was 7.1 -continue to monitor and transfuse if HGB less than 7 -difficult to draw blood, PICC line to help VTE prophylaxis: Lovenox Code Status: Full code Status: Inpatient for greater than 2 midnight stay. Disposition: Med surg This patient is new to me. Reviewed patient's chart/records for this visit. I have discussed the case with the patient, her , RN, and infectious disease specialist. ____ SUBJECTIVE: Today patient complains of pain in her left foot. She feels unable to stand on it. She also complains of pain in her left knee OBJECTIVE: Physical Exam: General: The patient is a morbidly obese female who is alert and in no acute distress. HEENT: normocephalic, extraocular movements intact, conjunctivae clear. Mucous membranes moist. Neck: trachea midline, no visible masses. CV: +S1/S2, RRR, no MRG. Resp: unlabored, CTAB no RRW. Abd: soft and nondistended. Bowel sounds present. Musculoskeletal: Normal muscle tone/bulk. + vertical incision noted over left knee with Steri-Strips, healing. left knee with reduced passive ROM Neuro: cranial nerves II XII grossly intact. Intact gross motor and sensory function. Psych: Appropriate mood and appropriate affect. Skin: +mild pallor. No petechiae. +mild erythema (not clearly demarcated) L foot/ankle. No fluctuance noted. Heme/lymph: +2 peripheral edema at LLE. Labs/Imaging/Other Tests: Personally reviewed/interpreted. Objective: Vital Signs Temp Pulse Resp BP Pulse Ox 36.9 C 106 H 17 98/62 L 93 05/28/17 15:35 05/28/17 15:35 05/28/17 15:35 05/28/17 15:35 05/28/17 15:35 Laboratory Results 05/28/17 09:50 05/28/17 05:45 05/27/17 05/28/17 05/29/17 05:59 05:59 05:59 Intake Total 2825 1950 Output Total 500 400 Balance 2825 1450 -400 PT 15.4 SEC (12.0-15.0) H 05/26/17 16:20 INR 1.24 (0.83-1.16) H 05/26/17 16:20 ICD10 Worksheet Patient Problems: Problems Problem Status Onset Anemia Acute Cellulitis of left leg Acute Sepsis Acute Arthritis of right knee Acute Failure to thrive Acute Upper GI bleeding Acute
--- NOTE | 2017-05-28 16:50 | ASMTCMCOM ---
CM Note CM Note Notes: Spoke w/pt and briefly regarding PT/OT recommendation of SNF. asked CM to come back in an hour as pt was still feeling effects medications. CM returned and pt was sleeping but able to speak with , he feels SNF may be a good idea but thinks his will refuse. CM will check in tomorrow, if still refuses SNF, pt would likely go home with home care. states they have used [facility]. DC Plan: SNF vs HC Date Signed: 05/28/2017 04:49 PM Electronically Signed By:Sharla Fink RN
[2017-05-28] MEDS: POTASSIUM CL 20 MEQ TAB PO SCH (21:14)
[2017-05-28] MEDS ORDERED: ceFAZolin 2 GM/DEXTROSE 100 ML IV SCH (22:00)
--- NOTE | 2017-05-28 22:45 | GCON ---
[f rep st] CONSULTATION DATE OF CONSULTATION: 05/28/2017 REFERRING PHYSICIAN: Reina Beth MD REASON FOR CONSULTATION: Left foot cellulitis. HISTORY OF PRESENT ILLNESS: A 67-year-old woman with COPD and diabetes, whose recent medical problem s are pertinent for a left total knee arthroplasty 05/13/2017, course complicated by a GI bleed on due to a gastric ulcer. Subsequently, patient developed severe left foot pain on May 24 , and was unable to walk due to the foot pain. Patient was seen in urgent care and subsequently francis sferred to the hospital for admission after she was found to have left foot cellulitis. Ultrasound o f the foot was performed that showed no abscess and no DVT. PICC line was placed due to difficulty w ith access. Patient was noted to have a mild leukocytosis and was febrile and hypotensive and tachyc ardic on admission, consistent with sepsis. Patient was empirically started on ceftriaxone and IV va ncomycin. There has been small incremental improvement in her left foot today, but has still been sl ow to resolve. Therefore, ID was consulted for further management. PAST MEDICAL/SURGICAL HISTORY: 1. Diabetes. 2. Chronic obstructive pulmonary disease on chronic 3 L. 3. She has had bilateral total knee arthroplasty, most recent her left side on 05/13/2017, by Dr. Ravin merrill. 4. Gastric ulcer with GI bleed, while on postoperative anticoagulation. 5. Chronic lower extremity edema, on diuretics. 6. Carpal tunnel, , spinal surgery, umbilical hernia surgery, multiple blood transfusions, sepsis in the past, and spinal fusion. 7. Renal insufficiency. FAMILY HISTORY: Positive for connective tissue disease, type 2 diabetes, and heart disease. VACCINATION HISTORY: She received a Prevnar in 01/2016 and Pneumovax in 01/2015. SOCIAL HISTORY: Former alcohol. Every day caffeine. No illicit substances. No marijuana. She is . She has smoked previously. ALLERGIES: NKDA. MEDICATIONS: Ceftriaxone 1 g IV daily, vancomycin 1.5 g IV q.24, Protonix 40 mg twice daily, oxycodo ne as needed, Zofran for nausea, melatonin 3 mg q.h.s. p.r.n., Ativan 1-2 IV p.r.n., Humalog lispro, , Dilaudid, Lasix 80 mg 3 times daily, Lovenox 40 subcu daily, Cymbalta 60 mg daily, and al buterol nebulizers, and Tylenol as needed. REVIEW OF SYSTEMS: Patient with confusion at the time of my exam. History obtained from her . Point by point 10-point review of systems with his assistance was negative. PHYSICAL EXAMINATION: VITAL SIGNS: Admission vital signs: BP 81/52, heart rate 105, respiratory ra te 20, temperature 38.8. Current vital signs: Blood pressure is 125/67, heart rate 98, respiratory rate 15, saturation 100% on 2 L, temperature 36.9. GENERAL: This is a confused, obese woman, sittin g in a chair, no distress. HEENT: Dry mucous membranes. No oral ulcerations or exudate. NECK: Torres pple. CARDIOVASCULAR: Borderline tachycardia. Regular rate. CHEST: Clear to auscultation bilater ally. ABDOMEN: Soft. EXTREMITIES: She had an incision over her left anterior knee that was healin g well without erythema. Steri-Strips were in place, some partially falling off. Her left foot had erythema and mild warmth on the dorsum and lateral aspects of her foot and the anterior ankle. No fl uctuance was present. Also associated swelling. Mild tenderness was also present. Pulses were diff icult to palpate, but patient had normal capillary refill. LABORATORY DATA: White count on admission was 11, today, 7.2. Hematocrit 20, platelets of 243. Cre atinine is 1.0, on admission 1.1. ALT 35, AST 11, albumin 3.1. Blood cultures from 05/26/2017, are no growth to date. IMAGING: As per HPI. ASSESSMENT AND PLAN: This is a 67-year-old woman who recently underwent a left total knee arthroplas ty on 05/13/2017, whose surgical site appears to be healing well. Distal to this wound she developed a cellulitis of her foot. Exam today shows no ankle involvement, no crepitus, and fairly faint eryt altaf, with mild tenderness to palpation. No drainage is noted, therefore, consistent with non-purule nt cellulitis. Would recommend, adjust antibiotics with a discontinuation of vancomycin and ceftriaxone. No clear c oncern for underlying abscess at this time. I would start patient on high-dose Ancef due to her weig ht at 2 g IV q.8. Aggressively, would continue elevation of this foot. If continued slow resolution , could consider MRI, but at this time I do not have concern for osteomyelitis, necrotizing fasciitis , or abscess. Thank you for this consultation. We will continue to follow on a daily basis. /[id number]/MODL
[2017-05-28] MEDS: INSULIN GLARGINE 100 UNITS/ML UNIT SC SCH (23:18)
[2017-05-28] MEDS: HYDROmorphONE/DILAUDID 1 MG/ML INJ IVP PRN (23:33)
[2017-05-28] MEDS: ceFAZolin 2 GM/SWFI 2 GM/20 ML SYR IVP SCH (23:33)
[2017-05-29] MEDS: traMADol 50 MG TAB PO SCH ×3 (00:10→05:32)
[2017-05-29] MEDS: oxyCODONE IR 5 MG TAB PO PRN ×6 (01:25→22:31)
[2017-05-29] MEDS: IPRATROPIUM/ALBUTEROL 3 ML DEYVIAL IH SCH ×4 (05:22→20:45)
[2017-05-29] MEDS: ceFAZolin 2 GM/SWFI 2 GM/20 ML SYR IVP SCH ×3 (05:32→22:01)
[2017-05-29 06:30] LABS: PLATELET COUNT 336 10^3/uL (150-400)
[2017-05-29] MEDS: ENOXAPARIN 40 MG/0.4 ML SYR SC SCH (08:21)
[2017-05-29] MEDS: LISINOPRIL 2.5 MG TAB PO SCH (08:21)
[2017-05-29] MEDS: FUROSEMIDE 80 MG TAB PO SCH (08:22)
[2017-05-29] MEDS: PANTOPRAZOLE SODIUM 40 MG TAB PO SCH ×2 (08:22→22:00)
[2017-05-29] MEDS: DULoxetine 60 MG CAP PO SCH (08:22)
[2017-05-29] MEDS: INSULIN LISPRO 100 UNIT/ML SC SCH ×3 (08:38→18:24)
--- NOTE | 2017-05-29 09:54 | SOAPPROG ---
SOAP Progress Note Assessment/Plan: Assessment: Plan: - she can be WBAT, but with the foot swelling I doubt she can place much pressure on that leg - u/s for DVT was negative - sepsis vs cellulitis vs osteomyelitis of L foot - I had a long discussion w her today about the importance of obtaining an MRI. She says that she will allow the test to be done to help us r/o osteo. - ortho will continue to monitor, Dr. Mclaughlin has been made aware 05/29/17 09:52 Subjective: This a note from yesterday 05-28-17 when pt was evaluated. Josette continues to have severe foot swelling and pain. She reports no improvement in her sx since admission. Objective: Vital Signs Temp Pulse Resp BP Pulse Ox 36.6 C 93 16 105/68 93 05/29/17 07:26 05/29/17 07:26 05/29/17 07:26 05/29/17 07:26 05/29/17 07:26 Laboratory Results 05/29/17 05:20 05/29/17 05:20 05/28/17 05/29/17 05/30/17 05:59 05:59 05:59 Intake Total 1950 3718 Output Total 500 1200 Balance 1450 2518 PT 15.4 SEC (12.0-15.0) H 05/26/17 16:20 INR 1.24 (0.83-1.16) H 05/26/17 16:20 Severe swelling and erythema of L foot no apparent puncture wound. Swelling extends to ankle but does not extend any more proximally. There does not appear to be involvement near the knee. Knee incision is healing well, she has 10 extension to 90 flexion. Calf is non-tender. - Time Spent With Patient Time Spent With Patient: 30 min - Pending Discharge Pending Discharge Within 24 Hours: No Pending Discharge Within 48 Hours: No ICD10 Worksheet Patient Problems: Problems Problem Status Onset Anemia Acute Cellulitis of left leg Acute Sepsis Acute Arthritis of right knee Acute Failure to thrive Acute Upper GI bleeding Acute
[2017-05-29] MEDS ORDERED: MAGNESIUM HYDROXIDE 30 ML UDCUP PO PRN (11:33)
[2017-05-29] MEDS ORDERED: LACTULOSE 20 GM/30 ML UDCUP PO PRN (11:33)
[2017-05-29] MEDS ORDERED: BISACODYL 10 MG SUPP PR PRN (11:33)
[2017-05-29] MEDS ORDERED: POLYETHYLENE GLYCOL 3350 17 GM PKT PO PRN (11:33)
[2017-05-29] MEDS ORDERED: FUROSEMIDE 100 MG/10 ML VIAL IVP SCH (14:00)
[2017-05-29] MEDS: FUROSEMIDE 40 MG/4 ML VIAL IVP SCH ×2 (14:16→22:01)
--- NOTE | 2017-05-29 16:49 | PCMIDPN ---
Assessment/Plan: Assessment: Left foot cellulitis-clinically this looks improved. The intensity of the redness is not very great. She does have some swelling although this may be in part attributed to recent left total knee arthroplasty. The plan apparently is for imaging of the left lower extremity to rule out deep site infection. I do not think that this is present given that there is no chronic wound or ulceration. Meanwhile continue on cefazolin. Plan: 1. Continue cefazolin IV push. 2. Follow up on imaging. 05/29/17 17:53 05/29/17 17:54 Subjective: Patient is resting in her hospital bed. She states it is still painful to put her foot on the floor. She is unable to do physical rehab for her knee has a result. She has no fevers or chills. Objective: Cefazolin # 3 Vital Signs Temp Pulse Resp BP Pulse Ox 36.9 C 92 12 92/53 L 100 05/29/17 15:38 05/29/17 15:38 05/29/17 15:45 05/29/17 15:38 05/29/17 15:45 Laboratory Results 05/29/17 05:20 05/29/17 05:20 05/28/17 05/29/17 05/30/17 05:59 05:59 05:59 Intake Total 1950 3718 Output Total 500 1200 Balance 1450 2518 - Physical Exam General Appearance: WD/WN, alert, obese, non-toxic Respiratory: lungs clear, normal breath sounds, No respiratory distress Cardiac/Chest: regular rate, rhythm, No tachycardia Extremities: No non-tender, No normal inspection (Left lower extremity with below the knee edema. Mild erythema foot and ankle.) ICD10 Worksheet Patient Problems: Problems Problem Status Onset Anemia Acute Cellulitis of left leg Acute Sepsis Acute Arthritis of right knee Acute Failure to thrive Acute Upper GI bleeding Acute
--- NOTE | 2017-05-29 17:58 | HOSPPROG ---
Hospitalist Progress Note Assessment/Plan: Assessment: 67 yo F p/w sepsis and cellulitis Plan: # Sepsis POA in setting of cellulitis, evidenced by autonomic dysregulation in setting of infxn w/ clinical markers including tachycardia, tachypnea, LE cellulitis, meeting all ICDS-2 criteria - resolved # Cellulitis POA. LLE, improving on IV Ancef + elevation - counseled patient and that the erythema has receded from the margins, faded, is clinically improving, and does not warrant advanced imaging - cont IV ancef - LE edema is pre-disposing factor, US neg for DVT, will get more aggressive w/ diuresis today and increase lasix to 80mg tid IV, gauge effect # Recent UGIB 2/2 gastric ulcer seen on EGD 05/17, with acute blood loss anemia. No ongoing melena, Hgb continues to drift downward - monitor Hgb closely - hold on transfusion today at 6.9, but will repeat in AM and transfuse if remains < 7 # DM type 2. Cont outpt basal / bolus insulin # COPD w/ chronic hypoxic respiratory failure. Cont home supp o2, no e/o exacerbation # Morbid obesity. BMI 44+, increases risk of worsening mobility, morbidity Diet. Regular PPx. High risk, holding pharm given recent GIB, SCDs Code. Full Dispo. ADD uncertain, pending stabilization of infxn above. Subjective: ongoing discomfort w/ weight bearing in LLE Objective: Vital Signs Temp Pulse Resp BP Pulse Ox 36.9 C 92 12 92/53 L 100 05/29/17 15:38 05/29/17 15:38 05/29/17 15:45 05/29/17 15:38 05/29/17 15:45 Laboratory Results 05/29/17 05:20 05/29/17 05:20 05/28/17 05/29/17 05/30/17 05:59 05:59 05:59 Intake Total 1950 3718 Output Total 500 1200 Balance 1450 2518 PT 15.4 SEC (12.0-15.0) H 05/26/17 16:20 INR 1.24 (0.83-1.16) H 05/26/17 16:20 - Physical Exam Constitutional: no apparent distress, obese, uncomfortable Cardiovascular: regular rate and rhythym, no murmur, rub, or gallop, edema (1+ LLE), No irregularly irregular Respiratory: no respiratory distress, no rales or rhonchi, clear to auscultation Gastrointestinal: normoactive bowel sounds, No tenderness, No distension Skin: other (no erythema, soft tissue edema) Musculoskeletal: other (limited ROM L ankle) Neurologic: AAOx3, sensation intact bilaterally Psychiatric: not encephalopathic, thought process linear, anxious, No agitated ICD10 Worksheet Patient Problems: Problems Problem Status Onset Arthritis of right knee Acute Failure to thrive Acute Upper GI bleeding Acute Cellulitis of left leg Acute Sepsis Acute Anemia Acute
[2017-05-29] MEDS: HYDROmorphONE/DILAUDID 1 MG/ML INJ IVP PRN (20:36)
[2017-05-29] MEDS: INSULIN GLARGINE 100 UNITS/ML UNIT SC SCH (21:59)
[2017-05-29] MEDS: SENNOSIDES/DOCUSATE SODIUM TAB PO SCH (22:00)
[2017-05-29] MEDS: POTASSIUM CL 20 MEQ TAB PO SCH (22:01)
[2017-05-29] MEDS: diphenhydrAMINE 25 MG CAP PO PRN ×2 (22:31→23:50)
[2017-05-30] MEDS: IPRATROPIUM/ALBUTEROL 3 ML DEYVIAL IH SCH ×5 (01:02→23:56)
[2017-05-30] MEDS ORDERED: ALBUTEROL 3 ML DEYVIAL IH PRN (01:06)
[2017-05-30 05:44] LABS: PLATELET COUNT 340 10^3/uL (150-400)
[2017-05-30] MEDS: ceFAZolin 2 GM/SWFI 2 GM/20 ML SYR IVP SCH ×2 (06:26→18:26)
[2017-05-30] MEDS: FUROSEMIDE 40 MG/4 ML VIAL IVP SCH (06:28)
[2017-05-30] MEDS: INSULIN LISPRO 100 UNIT/ML SC SCH ×3 (08:40→18:54)
[2017-05-30] MEDS: DULoxetine 60 MG CAP PO SCH (09:02)
[2017-05-30] MEDS: SENNOSIDES/DOCUSATE SODIUM TAB PO SCH ×2 (09:02→22:19)
[2017-05-30] MEDS: diphenhydrAMINE 25 MG CAP PO PRN (09:03)
[2017-05-30] MEDS: oxyCODONE IR 5 MG TAB PO PRN (09:04)
[2017-05-30] MEDS: PANTOPRAZOLE SODIUM 40 MG TAB PO SCH ×2 (09:04→22:20)
--- NOTE | 2017-05-30 09:30 | SOAPPROG ---
SOAP Progress Note Assessment/Plan: Assessment: Plan: - will continue to monitor, likely will need to stay over the weekend for IV abx and monitoring, - infection seems to be improving 05/29/17 09:52 05/30/17 09:29 Subjective: This note is from 05/29 visit Pt reports improvement in foot pain. Was able to walk a few steps today. Objective: Vital Signs Temp Pulse Resp BP Pulse Ox 37.1 C 97 18 113/53 L 94 05/30/17 07:27 05/30/17 07:27 05/30/17 07:27 05/30/17 07:27 05/30/17 07:27 Laboratory Results 05/30/17 05:33 05/30/17 05:33 05/29/17 05/30/17 05/31/17 05:59 05:59 05:59 Intake Total 3718 1200 Output Total 1200 370 250 Balance 2518 830 -250 PT 15.4 SEC (12.0-15.0) H 05/26/17 16:20 INR 1.24 (0.83-1.16) H 05/26/17 16:20 Erythema of foot improved, swelling improved, no evidence of DVT. Knee incision is healing well, no drainage no erythema near knee. - Time Spent With Patient Time Spent With Patient: 15 - Pending Discharge Pending Discharge Within 24 Hours: No Pending Discharge Within 48 Hours: No ICD10 Worksheet Patient Problems: Problems Problem Status Onset Anemia Acute Cellulitis of left leg Acute Sepsis Acute Arthritis of right knee Acute Failure to thrive Acute Upper GI bleeding Acute
--- NOTE | 2017-05-30 12:30 | PCMIDPN ---
Assessment/Plan: # Left foot and anterior vega cellulitis, 50% improvement compared to my exam a day and a half ago. Less pain as well. Still significant edema but suspect this is related to left TKA. Based on appearance suspect mediated by streptococcus. --continue cefazolin and elevation # ARF on CRI: CrCl no 45 --decreased dose of cefazolin to 2gm IV q12h # L TKA: incision healing well without significant abn. med, Abx #4 cefazolin 2gm IV q8h#2 micro 05/26 blood cx (2) neg Subjective: patient feels like her foot is better still has doubts about improvement of foot no diarrhea getting blood transfusion Objective: Vital Signs Temp Pulse Resp BP Pulse Ox 37.1 C 97 18 113/53 L 94 05/30/17 07:27 05/30/17 07:27 05/30/17 07:27 05/30/17 07:27 05/30/17 07:27 Laboratory Results 05/30/17 05:33 05/30/17 05:33 05/29/17 05/30/17 05/31/17 05:59 05:59 05:59 Intake Total 3718 1200 Output Total 1200 370 250 Balance 2518 830 -250 - Physical Exam General Appearance: alert, no apparent distress, obese EENT: No thrush Respiratory: wheezing (right side), No accessory muscle use Neck: supple Cardiac/Chest: regular rate, rhythm Extremities: swelling (LLE to mid thigh, non pitting), erythema (faint erythema along edges of foot, bit more prominent medial side. mild warmth, mild faint erythema over anterior ankle), other (L knee incision without drainage or erythema) Abdomen: non-tender, soft Skin: No rash Neuro/Psych: alert, normal mood/affect, oriented x 3 - Line/s RUE PICC Lines: No drainage, No erythema - Time Spent With Patient Time Spent with Patient: greater than 25 minutes Time Spent with Patient: Greater than 25 minutes spent on this patients care, greater than 50% of time spent counseling, educating, and coordinating care regarding the above mentioned plan. ICD10 Worksheet Patient Problems: Problems Problem Status Onset Anemia Acute Cellulitis of left leg Acute Sepsis Acute Arthritis of right knee Acute Failure to thrive Acute Upper GI bleeding Acute
[2017-05-30] MEDS ORDERED: FUROSEMIDE 100 MG/10 ML VIAL IVP ONE (14:00)
[2017-05-30] MEDS: HEPARIN 5,000 UNIT/0.5 ML SYR SC SCH ×2 (15:02→22:21)
[2017-05-30] MEDS ORDERED: ALBUTEROL 60 PUFFS/8 GM MDI IH PRN (15:41)
--- NOTE | 2017-05-30 16:50 | SOAPPROG ---
XIANG Progress Note Assessment/Plan: Assessment: Plan: - will continue to monitor 05/29/17 09:52 05/30/17 09:29 05/30/17 16:50 Subjective: Pt feeling overall improved. Objective: Vital Signs Temp Pulse Resp BP Pulse Ox 37.1 C 91 18 94/56 L 92 05/30/17 07:27 05/30/17 15:29 05/30/17 15:29 05/30/17 15:29 05/30/17 15:29 Laboratory Results 05/30/17 05:33 05/30/17 05:33 05/29/17 05/30/17 05/31/17 05:59 05:59 05:59 Intake Total 3718 1200 Output Total 0605 708 7379 Balance 2518 830 -1000 PT 15.4 SEC (12.0-15.0) H 05/26/17 16:20 INR 1.24 (0.83-1.16) H 05/26/17 16:20 Erythema improved from yesterday, still swelling but improved, NVI, L knee incision healing well. - Time Spent With Patient Time Spent With Patient: 10 - Pending Discharge Pending Discharge Within 24 Hours: No Pending Discharge Within 48 Hours: No ICD10 Worksheet Patient Problems: Problems Problem Status Onset Anemia Acute Cellulitis of left leg Acute Sepsis Acute Arthritis of right knee Acute Failure to thrive Acute Upper GI bleeding Acute
--- NOTE | 2017-05-30 19:39 | HOSPPROG ---
Hospitalist Progress Note Assessment/Plan: Assessment: 67 yo F p/w sepsis and cellulitis Plan: # Sepsis POA in setting of cellulitis, evidenced by autonomic dysregulation in setting of infxn w/ clinical markers including tachycardia, tachypnea, LE cellulitis, meeting all ICDS-2 criteria - resolved # Cellulitis POA. LLE, improving on IV Ancef + elevation - d/w Dr. Bradley, we both agree that it's improving and does not warrant advanced imaging - cont IV ancef renally dosed - LE edema is pre-disposing factor, US neg for DVT, counseled patient / that she remains at risk for recurrence w/ her edema # Recent UGIB 2/2 gastric ulcer seen on EGD 05/17, with acute blood loss anemia. No ongoing melena, Hgb continues to drift downward - monitor Hgb closely - transfuse 1u PRBC today w/ lasix to follow, repeat Hgb in AM # DM type 2. Cont outpt basal / bolus insulin # COPD w/ chronic hypoxic respiratory failure. Cont home supp o2, no e/o exacerbation # Morbid obesity. BMI 44+, increases risk of worsening mobility, morbidity # JENNA on CKD stage III. 2/2 overdiuresis and renal hypoperfusion, remains total body hypervolemic but likely intravascularly dry - giving blood 1 u, followed by lasix - hold scheduled lasix, stop ACEi - monitor I/O/weights - repeat Cr in AM - reviewed outside records, baseline Cr 1.1-1.4 - counseled patient and extensively regarding the above assessment/ strategy Diet. Regular PPx. High risk, hep SC Code. Full Dispo. ADD uncertain, pending stabilization of infxn above. Subjective: patient w/ ongoing pain in L ankle w/ ambulation Objective: Vital Signs Temp Pulse Resp BP Pulse Ox 37.1 C 91 18 94/56 L 92 05/30/17 07:27 05/30/17 15:29 05/30/17 15:29 05/30/17 15:29 05/30/17 15:29 Laboratory Results 05/30/17 05:33 05/30/17 05:33 05/29/17 05/30/17 05/31/17 05:59 05:59 05:59 Intake Total 3718 1200 Output Total 3517 936 8163 Balance 2518 830 -1600 PT 15.4 SEC (12.0-15.0) H 05/26/17 16:20 INR 1.24 (0.83-1.16) H 05/26/17 16:20 - Time Spent With Patient Time Spent with Patient: greater than 35 minutes Time Spent with Patient: Greater than 35 minutes spent on this patients care, greater than 50% of time spent counseling, educating, and coordinating care regarding the above mentioned plan. - Physical Exam Constitutional: no apparent distress, not in pain, chronically ill appearing, obese, uncomfortable Cardiovascular: regular rate and rhythym, no murmur, rub, or gallop, edema (1+ bilat LE, L>R) Respiratory: no respiratory distress, no rales or rhonchi, clear to auscultation Gastrointestinal: normoactive bowel sounds, soft, non-tender abdomen, no palpable masses Skin: other (no erythema over L dorsal foot, edematous) Musculoskeletal: other (painful dorsiflexion) Neurologic: AAOx3, sensation intact bilaterally Psychiatric: interacting appropriately, not anxious, not encephalopathic, thought process linear ICD10 Worksheet Patient Problems: Problems Problem Status Onset Arthritis of right knee Acute Failure to thrive Acute Upper GI bleeding Acute Cellulitis of left leg Acute Sepsis Acute Anemia Acute
[2017-05-30] MEDS: INSULIN GLARGINE 100 UNITS/ML UNIT SC SCH (22:20)
[2017-05-30] MEDS: POTASSIUM CL 20 MEQ TAB PO SCH (22:20)
[2017-05-31] MEDS: traMADol 50 MG TAB PO PRN ×4 (01:18→21:59)
[2017-05-31] MEDS: HYDROmorphONE/DILAUDID 1 MG/ML INJ IVP PRN ×3 (01:19→18:27)
[2017-05-31] MEDS: ceFAZolin 2 GM/SWFI 2 GM/20 ML SYR IVP SCH ×2 (05:28→18:17)
[2017-05-31] MEDS: HEPARIN 5,000 UNIT/0.5 ML SYR SC SCH ×3 (05:28→21:58)
[2017-05-31] MEDS: IPRATROPIUM/ALBUTEROL 3 ML DEYVIAL IH SCH ×4 (05:34→21:50)
[2017-05-31 05:42] LABS: PLATELET COUNT 367 10^3/uL (150-400)
[2017-05-31] MEDS: DULoxetine 60 MG CAP PO SCH (09:35)
[2017-05-31] MEDS: PANTOPRAZOLE SODIUM 40 MG TAB PO SCH ×2 (09:35→22:00)
[2017-05-31] MEDS: SENNOSIDES/DOCUSATE SODIUM TAB PO SCH ×2 (09:35→21:59)
[2017-05-31] MEDS: INSULIN LISPRO 100 UNIT/ML SC SCH ×3 (09:55→18:42)
[2017-05-31] MEDS ORDERED: FUROSEMIDE 100 MG/10 ML VIAL IVP ONE (14:00)
--- NOTE | 2017-05-31 16:19 | ASMTCMCOM ---
CM Note CM Note Notes: PT cleared pt to DC home with HC when ready. Pt current with [facility]. Faxed referral. CM will continue to follow. Date Signed: 05/31/2017 04:19 PM Electronically Signed By:Rafaela Wynne LCSW
--- NOTE | 2017-05-31 16:33 | HOSPPROG ---
Hospitalist Progress Note Assessment/Plan: Assessment: 67 yo F p/w sepsis and cellulitis Plan: # Sepsis POA in setting of cellulitis, evidenced by autonomic dysregulation in setting of infxn w/ clinical markers including tachycardia, tachypnea, LE cellulitis, meeting all ICDS-2 criteria - resolved # Cellulitis POA. LLE, improving on IV Ancef + elevation - d/w Dr. Phillips, we both agree that it's improving and does not warrant advanced imaging - cont IV ancef renally dosed today, adjust to PO keflex tomorrow AM and gauge response for 24hrs prior to discharge # Recent UGIB 2/2 gastric ulcer seen on EGD 05/17, with acute blood loss anemia. No ongoing melena, Hgb continues to drift downward - monitor Hgb closely - transfuse 2nd u PRBC today w/ lasix to follow, repeat Hgb in AM # DM type 2. Cont outpt basal / bolus insulin, restart glipized, holding metformin given fluctuating Cr # COPD w/ chronic hypoxic respiratory failure. Cont home supp o2, no e/o exacerbation # Morbid obesity. BMI 44+, increases risk of worsening mobility, morbidity # JENNA on CKD stage III. 2/2 overdiuresis and renal hypoperfusion, remains total body hypervolemic, US w/o DVT - giving blood 1 u, followed by lasix - hold scheduled lasix, stopped ACEi - monitor I/O/weights - repeat Cr in AM - reviewed outside records, baseline Cr 1.1-1.4 Diet. Regular PPx. High risk, hep SC Code. Full Dispo. ADD uncertain, pending stabilization of renal fxn above. High level of medical complexity, high risk of worsening morbidity (renal fxn) given issues above. Subjective: patient /w less pain L ankle, ongoing edema Objective: Vital Signs Temp Pulse Resp BP Pulse Ox 36.6 C 104 H 18 137/63 H 97 05/31/17 11:56 05/31/17 11:56 05/31/17 11:56 05/31/17 11:56 05/31/17 11:56 Laboratory Results 05/31/17 05:30 05/31/17 05:30 05/30/17 05/31/17 06/01/17 05:59 05:59 05:59 Intake Total 1200 Output Total 370 0 350 Balance 830 -2050 -350 PT 15.4 SEC (12.0-15.0) H 05/26/17 16:20 INR 1.24 (0.83-1.16) H 05/26/17 16:20 - Physical Exam Constitutional: no apparent distress, not in pain, chronically ill appearing, obese, No uncomfortable Cardiovascular: regular rate and rhythym, no murmur, rub, or gallop, edema (1+ LLE, trace RLE), No irregularly irregular, No tachycardia Respiratory: reduced air movement (bilat bases), No expiratory wheeze, No inspiratory crackles, No bronchial breath sounds Gastrointestinal: normoactive bowel sounds, soft, non-tender abdomen, no palpable masses, No distension Skin: other (no erythema, warmth in LLE, no induration, soft tissue edema) Musculoskeletal: other (ROM limited on dorsiflexion LLE 2/2 edema, mild tenderness bilat malleoli LLE, flexion in L knee w/ pain) Neurologic: AAOx3, sensation intact bilaterally, No weakness Psychiatric: interacting appropriately, not anxious, not encephalopathic, thought process linear ICD10 Worksheet Patient Problems: Problems Problem Status Onset Arthritis of right knee Acute Failure to thrive Acute Upper GI bleeding Acute Cellulitis of left leg Acute Sepsis Acute Anemia Acute
--- NOTE | 2017-05-31 17:06 | PCMIDPN ---
Assessment/Plan: Assessment: Left foot cellulitis-clinically this looks resolved. The intensity of the redness is not very great. I think the significant portion of her symptoms is secondary to postoperative swelling of the distal left lower extremity. We will continue the IV cefazolin through today. Switch over to oral Keflex tomorrow. Plan to discharge after cover creaser to oral meds. Plan: 1. Continue cefazolin IV push. 2. Follow up on imaging. Subjective: Patient is doing somewhat better. Still complains of swelling of the left lower extremity. Still is very focused on her ability to place weight on the left foot without significant discomfort. No fevers or chills. Objective: Cefazolin # 5 Vital Signs Temp Pulse Resp BP Pulse Ox 36.6 C 102 H 18 137/63 H 95 05/31/17 11:56 05/31/17 17:00 05/31/17 17:00 05/31/17 11:56 05/31/17 17:00 Laboratory Results 05/31/17 05:30 05/31/17 05:30 05/30/17 05/31/17 06/01/17 05:59 05:59 05:59 Intake Total 1200 Output Total 370 0 350 Balance 830 -2050 -350 - Physical Exam General Appearance: WD/WN, alert, no apparent distress, non-toxic Cardiac/Chest: regular rate, rhythm, No tachycardia Extremities: No non-tender, No normal inspection (Edema left lower extremity) ICD10 Worksheet Patient Problems: Problems Problem Status Onset Anemia Acute Cellulitis of left leg Acute Sepsis Acute Arthritis of right knee Acute Failure to thrive Acute Upper GI bleeding Acute
[2017-05-31] MEDS: POTASSIUM CL 20 MEQ TAB PO SCH (21:59)
[2017-05-31] MEDS: PREGABALIN 50 MG CAP PO SCH (21:59)
[2017-05-31] MEDS: INSULIN GLARGINE 100 UNITS/ML UNIT SC SCH (22:28)
[2017-06-01 04:00] LABS: PLATELET COUNT 382 10^3/uL (150-400)
[2017-06-01] MEDS: traMADol 50 MG TAB PO PRN ×3 (04:19→16:38)
[2017-06-01] MEDS: ceFAZolin 2 GM/SWFI 2 GM/20 ML SYR IVP SCH (05:33)
[2017-06-01] MEDS: IPRATROPIUM/ALBUTEROL 3 ML DEYVIAL IH SCH ×4 (05:37→20:31)
[2017-06-01] MEDS: ENOXAPARIN 40 MG/0.4 ML SYR SC SCH (10:39)
[2017-06-01] MEDS: DULoxetine 60 MG CAP PO SCH (10:39)
[2017-06-01] MEDS: FUROSEMIDE 80 MG TAB PO SCH ×4 (10:39→20:20)
[2017-06-01] MEDS: PANTOPRAZOLE SODIUM 40 MG TAB PO SCH ×2 (10:39→20:20)
[2017-06-01] MEDS: INSULIN LISPRO 100 UNIT/ML SC SCH ×3 (11:20→20:22)
[2017-06-01] MEDS: SENNOSIDES/DOCUSATE SODIUM TAB PO SCH ×2 (11:21→20:31)
[2017-06-01] MEDS: glipiZIDE 10 MG TAB PO SCH (13:11)
[2017-06-01] MEDS: CEPHALEXIN 500 MG CAP PO SCH ×2 (13:11→20:30)
--- NOTE | 2017-06-01 15:06 | ASMTCMCOM ---
CM Note CM Note Notes: Met with pt to discuss DC plans. Pt had previously refused SNF but is reconsidering. She would consider [facility]. If not She would like a referral to Cait[facility]ccoll[facility] LM for Center and also faxed referral. CM to follow. Date Signed: 06/01/2017 03:06 PM Electronically Signed By:Rafaela Wynne LCSW
--- NOTE | 2017-06-01 19:06 | HOSPPROG ---
Hospitalist Progress Note Assessment/Plan: Assessment: 67 yo F p/w sepsis and cellulitis Plan: # Sepsis POA in setting of cellulitis, resolved # Cellulitis POA. LLE, improved on IV Ancef + elevation, transitioned to Keflex 06/01, monitoring for additional 24hrs on PO Abx to ensure stability prior to DC - appreciate ongoing ID consultation, rec discussing in AM duration of therapy # Lower extremity edema. Likely 2/2 recent L TKR + morbid obesity + immobility + CKD, US w/o DVT - restarted home lasix 80 tid today, monitor Cr (had JENNA when placed on IV diuretics) - rec ongoing diuretic titration w/ outpt nephrology consultation - suspect that the majority of her LLE pain is 2/2 edema and NOT cellulitis, as it has been ongoing despite resolution of the cellulitis - given that this is likely a neuropathic component, started lyrica 50 HS (per pt request), and continued tramadol (stopped oxy IR) # Recent UGIB 2/2 gastric ulcer seen on EGD 05/17, with acute blood loss anemia, s/p 2u PRBC - repeat Hgb in AM # DM type 2. Cont outpt basal / bolus insulin, restarted glipized 06/01, restarting metformin 06/02 # COPD w/ chronic hypoxic respiratory failure. Cont home supp o2, no e/o exacerbation # Morbid obesity. BMI 44+, increases risk of worsening mobility, morbidity for edema # JENNA on CKD stage III. 2/2 overdiuresis and renal hypoperfusion, remains total body hypervolemic - restarted home dose lasix - monitor I/O/weights - repeat Cr in AM - reviewed outside records, baseline Cr 1.1-1.4 - does not have outpt bss solution architect, her edema and CKD mgmt are an ongoing complication risk and recommend outpt nephrology f/u Diet. Regular PPx. High risk, lovenox 40 Code. Full Dispo. ADD 06/02 to SNF, pending stabilization of renal fxn above. Subjective: mild pain on dorsiflexion L ankle, increased pain when leg was down Objective: Vital Signs Temp Pulse Resp BP Pulse Ox 36.6 C 92 16 112/71 97 06/01/17 17:12 06/01/17 17:12 06/01/17 17:12 06/01/17 17:12 06/01/17 17:12 Laboratory Results 06/01/17 03:45 06/01/17 03:45 05/31/17 06/01/17 06/02/17 05:59 05:59 05:59 Intake Total 2099 Output Total 2049 850 Balance -2049 1250 PT 15.4 SEC (12.0-15.0) H 05/26/17 16:20 INR 1.24 (0.83-1.16) H 05/26/17 16:20 - Physical Exam Constitutional: no apparent distress, not in pain, chronically ill appearing, obese, No uncomfortable Cardiovascular: regular rate and rhythym, no murmur, rub, or gallop, edema (1+ LLE, trace RLE) Respiratory: no respiratory distress, no rales or rhonchi, clear to auscultation Gastrointestinal: normoactive bowel sounds, soft, non-tender abdomen, no palpable masses, No distension Skin: normal color, No abrasion, No erythema, No induration, No rash Musculoskeletal: other (pain w/ dorsiflexion LLE, mild bimalleolar tenderness L) Neurologic: AAOx3, sensation intact bilaterally Psychiatric: interacting appropriately, not anxious, not encephalopathic, thought process linear ICD10 Worksheet Patient Problems: Problems Problem Status Onset Arthritis of right knee Acute Failure to thrive Acute Upper GI bleeding Acute Cellulitis of left leg Acute Sepsis Acute Anemia Acute
[2017-06-01] MEDS: POTASSIUM CL 20 MEQ TAB PO SCH (20:18)
[2017-06-01] MEDS: INSULIN GLARGINE 100 UNITS/ML UNIT SC SCH (20:18)
[2017-06-01] MEDS: PREGABALIN 50 MG CAP PO SCH (20:19)
[2017-06-01] MEDS: ACETAMINOPHEN 325 MG TAB PO PRN (20:21)
[2017-06-02] MEDS: CEPHALEXIN 500 MG CAP PO SCH ×5 (00:08→23:28)
[2017-06-02] MEDS: traMADol 50 MG TAB PO PRN ×4 (00:09→20:11)
[2017-06-02] MEDS: IPRATROPIUM/ALBUTEROL 3 ML DEYVIAL IH SCH ×4 (05:53→20:38)
[2017-06-02 06:18] LABS: PLATELET COUNT 376 10^3/uL (150-400)
[2017-06-02] MEDS: DULoxetine 60 MG CAP PO SCH (09:13)
[2017-06-02] MEDS: FUROSEMIDE 80 MG TAB PO SCH (09:13)
[2017-06-02] MEDS: CHOLECALCIFEROL VIT D3 1,000 UNITS TAB PO SCH (09:13)
[2017-06-02] MEDS: MULTIVITAMINS 1 EACH TAB PO SCH (09:13)
[2017-06-02] MEDS: metFORMIN HCL 500 MG TAB PO SCH ×2 (09:13→17:32)
[2017-06-02] MEDS: ENOXAPARIN 40 MG/0.4 ML SYR SC SCH (09:14)
[2017-06-02] MEDS: PANTOPRAZOLE SODIUM 40 MG TAB PO SCH ×2 (09:14→20:09)
[2017-06-02] MEDS: SENNOSIDES/DOCUSATE SODIUM TAB PO SCH ×2 (09:18→20:12)
[2017-06-02] MEDS: INSULIN LISPRO 100 UNIT/ML SC SCH ×3 (09:19→18:49)
[2017-06-02] MEDS: glipiZIDE 10 MG TAB PO SCH (12:28)
[2017-06-02] MEDS ORDERED: FUROSEMIDE 100 MG/10 ML VIAL IVP SCH (14:00)
--- NOTE | 2017-06-02 14:08 | HOSPPROG ---
Hospitalist Progress Note Assessment/Plan: 67 yo F p/w sepsis and cellulitis Plan: Sepsis POA in setting of cellulitis, resolved # Cellulitis POA. LLE, improved on IV Ancef + elevation, transitioned to Keflex 06/01, 14 day course given recent TKA Lower extremity edema. Likely 2/2 recent L TKR + morbid obesity + immobility + CKD, US w/o DVT still w sig edema 24-48 hours of IV diuretics to try and reduce LLE edema echo in 05/22 w normal R sided pressures Recent UGIB 2/2 gastric ulcer seen on EGD 05/17, with acute blood loss anemia, s/ p 2u PRBC repeat Hgb in AM this is a contraindication to NSAIDS DM type 2. Cont outpt basal / bolus insulin, restarted glipized 06/01, restarting metformin 06/02 COPD w/ chronic hypoxic respiratory failure. Cont home supp o2, no e/o exacerbation Morbid obesity. BMI 44+, increases risk of worsening mobility, morbidity for edema JENNA on CKD stage III. cr 0.9 diuresis as above proph: LMWH Subjective: 35 minutes spent at bedside discussing plan of care Objective: Vital Signs Temp Pulse Resp BP Pulse Ox 36.3 C 99 19 151/75 H 97 06/02/17 11:19 06/02/17 11:19 06/02/17 11:19 06/02/17 11:19 06/02/17 11:19 Laboratory Results 06/02/17 06:00 06/02/17 06:00 06/01/17 06/02/17 06/03/17 05:59 05:59 05:59 Intake Total 2100 500 Output Total 850 1700 800 Balance 1250 -1200 -800 PT 15.4 SEC (12.0-15.0) H 05/26/17 16:20 INR 1.24 (0.83-1.16) H 05/26/17 16:20 - Physical Exam Constitutional: no apparent distress, appears nourished Eyes: PERRL, anicteric sclera Ears, Nose, Mouth, Throat: moist mucous membranes, hearing normal Cardiovascular: regular rate and rhythym, no murmur, rub, or gallop Respiratory: no respiratory distress, no rales or rhonchi Gastrointestinal: normoactive bowel sounds, soft, non-tender abdomen Genitourinary: no bladder fullness, No valdez in urethra Skin: warm, normal color Musculoskeletal: other (2+ RLE and 4+ LLE edema. L w pinkness but not hot) Neurologic: AAOx3 Psychiatric: interacting appropriately, not anxious ICD10 Worksheet Patient Problems: Problems Problem Status Onset Anemia Acute Cellulitis of left leg Acute Sepsis Acute Arthritis of right knee Acute Failure to thrive Acute Upper GI bleeding Acute
--- NOTE | 2017-06-02 14:25 | ASMTCMCOM ---
CM Note CM Note Notes: Spoke with MD; anticipate dc within the next couple of days if pt is medically stable. Met with pt & her to discuss dc poc; pt agreeable to discharging to [facility]. Spoke with Marcelina, at [facility]; willing to accept pt. Alerted Marcelina pt is current with [facility] & would like to resume services once discharged from SNF; Marcelina to alert [facility] SW. CM will continue to follow. DC plan-SNF Date Signed: 06/02/2017 02:24 PM Electronically Signed By:Ebony Mclain RN
[2017-06-02] MEDS: HYDROmorphONE/DILAUDID 4 MG TAB PO PRN ×2 (15:16→22:42)
[2017-06-02] MEDS: FUROSEMIDE 40 MG/4 ML VIAL IVP SCH ×2 (15:38→22:26)
[2017-06-02] MEDS: POTASSIUM CL 20 MEQ TAB PO SCH (20:10)
[2017-06-02] MEDS: PREGABALIN 50 MG CAP PO SCH (20:12)
[2017-06-02] MEDS: INSULIN GLARGINE 100 UNITS/ML UNIT SC SCH (20:13)
[2017-06-03] MEDS: FUROSEMIDE 40 MG/4 ML VIAL IVP SCH ×2 (05:19→14:47)
[2017-06-03] MEDS: traMADol 50 MG TAB PO PRN ×2 (05:22→11:25)
[2017-06-03] MEDS: CEPHALEXIN 500 MG CAP PO SCH ×2 (05:23→11:26)
[2017-06-03] MEDS: IPRATROPIUM/ALBUTEROL 3 ML DEYVIAL IH SCH ×2 (05:59→10:54)
[2017-06-03] MEDS: HYDROmorphONE/DILAUDID 4 MG TAB PO PRN ×2 (07:50→14:43)
[2017-06-03] MEDS: ENOXAPARIN 40 MG/0.4 ML SYR SC SCH (08:29)
[2017-06-03] MEDS: PANTOPRAZOLE SODIUM 40 MG TAB PO SCH (08:30)
[2017-06-03] MEDS: MULTIVITAMINS 1 EACH TAB PO SCH (08:30)
[2017-06-03] MEDS: CHOLECALCIFEROL VIT D3 1,000 UNITS TAB PO SCH (08:30)
[2017-06-03] MEDS: DULoxetine 60 MG CAP PO SCH (08:31)
[2017-06-03] MEDS: metFORMIN HCL 500 MG TAB PO SCH (08:31)
[2017-06-03] MEDS: SENNOSIDES/DOCUSATE SODIUM TAB PO SCH (08:32)
[2017-06-03] MEDS: INSULIN LISPRO 100 UNIT/ML SC SCH ×2 (09:05→12:21)
[2017-06-03 09:43] VITALS: RESP 18
--- NOTE | 2017-06-03 11:28 | HOSPPROG ---
Hospitalist Progress Note Assessment/Plan: 67 yo F p/w sepsis and cellulitis Plan: Sepsis POA in setting of cellulitis, resolved # Cellulitis POA. LLE, improved on IV Ancef + elevation, transitioned to Keflex 06/01, 14 day course given recent TKA Lower extremity edema. Likely 2/2 recent L TKR + morbid obesity + immobility + CKD, US w/o DVT still w sig edema 24-48 hours of IV diuretics to try and reduce LLE edema echo in 05/22 w normal R sided pressures Recent UGIB 2/2 gastric ulcer seen on EGD 05/17, with acute blood loss anemia, s/ p 2u PRBC repeat Hgb in AM this is a contraindication to NSAIDS DM type 2. Cont outpt basal / bolus insulin, restarted glipized 06/01, restarting metformin 06/02 COPD w/ chronic hypoxic respiratory failure. Cont home supp o2, no e/o exacerbation Morbid obesity. BMI 44+, increases risk of worsening mobility, morbidity for edema JENNA on CKD stage III. cr 0.9 diuresis as above proph: LMWH to snf today >30 minutes on dc Subjective: diuresed well. amenable to dc Objective: Vital Signs Temp Pulse Resp BP Pulse Ox 36.8 C 85 18 123/64 H 97 06/03/17 08:30 06/03/17 08:30 06/03/17 08:30 06/03/17 08:30 06/03/17 08:30 Laboratory Results 06/03/17 05:16 06/03/17 05:16 06/02/17 06/03/17 06/04/17 05:59 05:59 05:59 Intake Total 500 450 350 Output Total 1700 1450 800 Balance -1200 -1000 -450 PT 15.4 SEC (12.0-15.0) H 05/26/17 16:20 INR 1.24 (0.83-1.16) H 05/26/17 16:20 ICD10 Worksheet Patient Problems: Problems Problem Status Onset Anemia Acute Cellulitis of left leg Acute Sepsis Acute Arthritis of right knee Acute Failure to thrive Acute Upper GI bleeding Acute
--- NOTE | 2017-06-03 11:32 | PDIAF ---
- Diagnosis Diagnosis: cellulitis Code Status: Full Code - Medication Management Discharge Medications: Medications to Continue on Transfer Albuterol Sulfate [Proair Hfa] 1 - 2 gm IH Q4H PRN 10/29/16 [Last Taken 05/13/17 ] Cholecalciferol Vit D3 [Vitamin D3 (*)] 1,000 units PO DAILY 10/29/16 [Last Taken 05/26/17] DULoxetine [Cymbalta 60 MG (*)] 60 mg PO DAILY 10/29/16 [Last Taken 05/26/17] Ipratropium/Albuterol [Duoneb (*)] 3 ml IH QID PRN 10/29/16 [Last Taken 05/09/17 ] Lisinopril [Zestril 2.5 mg (*)] 2.5 mg PO DAILY 10/29/16 [Last Taken 05/26/17] Multivitamins [Multivitamin (*)] 1 each PO DAILY 10/29/16 [Last Taken 05/26/17] Potassium Cl [Klor-Con 20 meq (*)] 20 meq PO HS 10/29/16 [Last Taken 05/25/17] glipiZIDE [Glucotrol] 10 mg PO DAILY@12 10/29/16 [Last Taken 05/26/17] metFORMIN HCL [Metformin HCl] 500 mg PO BIDMEAL 10/29/16 [Last Taken 05/26/17] Insulin Detemir [Levemir Flextouch] 30 - 32 unit SQ HS 05/13/17 [Last Taken ] Melatonin [Melatonin 3 MG (*)] 3 mg PO HS PRN 05/13/17 [Last Taken 05/26/17] oxyCODONE IR [Oxycodone Ir (*)] 5 - 10 mg PO Q3HRS PRN tab 05/15/17 [Last Taken 05/26/17 13:00 10MG] traMADol [Ultram 50 mg (*)] 50 mg PO Q6HRS tab 05/15/17 [Last Taken 05/26/17 15 :00] Furosemide [Lasix 80 MG (*)] 80 mg PO TID 05/18/17 [Last Taken 05/26/17 14:00] Pantoprazole Sodium [Protonix 40mg (*)] 40 mg PO DAILY #30 tab 05/23/17 [Last Taken 05/26/17] Acetaminophen [Tylenol ES 500 mg (*)] 500 - 1,000 mg PO Q6 PRN MDD TAKES WITH TRAMADOL AND OXY 05/26/17 [Last Taken 05/26/17 13:00 500MG] Cephalexin [Keflex (*)] 500 mg PO Q6HRS cap 06/03/17 [Last Taken Unknown] Enoxaparin [Lovenox 40 MG (*)] 40 mg SC DAILY #4 syr 06/03/17 [Last Taken ] HYDROmorphone HCL [Dilaudid 4 mg (*)] 4 mg PO Q4HRS PRN tab 06/03/17 [Last Taken Unknown] Polyethylene Glycol 3350 [Miralax 17 gm (*)] 17 gm PO DAILY PRN pkt 06/03/17 [ Last Taken Unknown] Discharge Medications: Refer to the Discharge Home Medication list for PRN reason. - Orders Services needed: Registered Nurse, Certified Supervisor Blasting, Physical Therapy, Occupational Therapy - Follow Up Care Current Providers and Referrals: Melissa Hudson MD [Primary Care Provider] - As per Instructions
[2017-06-03] MEDS: glipiZIDE 10 MG TAB PO SCH (12:20)
[2017-06-03 14:44] VITALS: BP 115/67; PULSE 95; TEMP 97.9; O2SAT 92
[2017-06-03] MEDS ORDERED: FUROSEMIDE 80 MG TAB PO SCH (15:00)
--- NOTE | 2017-06-03 15:48 | ASDISCHSUM ---
Discharge Information Plan Status:SNF Medically Cleared to Leave: Discharge Date:06/03/2017 03:18 PM CM D/C Disposition:[facility] Facility ADT D/C Disposition:Senior Care Facility Projected Discharge Date:06/02/2017 11:00 AM Transportation at D/C:Wheelchair Van Discharge Delay Reason: Follow-Up Date:06/02/2017 11:00 AM Discharge Slot: Final Diagnosis: Placement Information Referral Type:*Home Health Care Services [facility] ID:[id number] Provider Name: Address 1: Phone Number: Address 2: Fax Number: City: Selection Factors: State: Referral Type:*Custodial/SNF Referral ID:[id number] Provider Name:[facility] Address 1:[address] [facility] Address 2: City:[place] Selection Factors: State:[place] Patient Contact Information Contact Name:PITO Relationship: Address:[address] City:[facility] Alternate Phone: State/Zip Code:[place] [address] Email: Financial Information Financial Class:Medicare Advantage Plans Primary Plan Desc:Dine perfect [facility] Money Mover Primary Plan Number:[id number] Secondary Plan Desc: Secondary Plan Number: Assessment Information [facility] Initial CM Assessment Living Arrangements What is your living Answers: With Spouse arrangement? Who do you live with? Type Of Residence What kind of residence do Answers: House you live in? Discharge Plan Comments Coordination Status Comments Notes: Patient is a 67yo female with COPD and diabetes who was admitted for sepsis, cellulitis, recent total knee arthroplasty and recent upper gastrointestinal bleed. She lives with her in [place], [place]. PT/OT/Cardiac rehab have been ordered. Awaiting therapies to determine d/c plan. CM will follow. Date Signed: 05/27/2017 12:52 PM Electronically Signed By:Shirlene Duckworth LCSW [facility] CM Progress Note CM Note CM Note Notes: Spoke w/pt and briefly regarding PT/OT recommendation of SNF. asked CM to come back in an hour as pt was still feeling effects medications. CM returned and pt was sleeping but able to speak with , he feels SNF may be a good idea but thinks his will refuse. CM will check in tomorrow, if still refuses SNF, pt would likely go home with home care. states they have used [facility] . DC Plan: SNF vs HC Date Signed: 05/28/2017 04:49 PM Electronically Signed By:Sharla Fink RN [facility] CM Progress Note CM Note CM Note Notes: PT cleared pt to DC home with HC when ready. Pt current with [facility]. Faxed referral. CM will continue to follow. Date Signed: 05/31/2017 04:19 PM Electronically Signed By:Rafaela Wynne LCSW [facility] CM Progress Note CM Note CM Note Notes: Met with pt to discuss DC plans. Pt had previously refused SNF but is reconsidering. She would consider [facility]. If not She would like a referral to Caitlin Mccoll[facility] LM for Center and also faxed referral. CM to follow. Date Signed: 06/01/2017 03:06 PM Electronically Signed By:Rafaela Wynne LCSW [facility] Progress Note CM Note CM Note Notes: Spoke with MD; anticipate dc within the next couple of days if pt is medically stable. Met with pt & her to discuss dc poc; pt agreeable to discharging to [facility]. Spoke with Marcelina, at [facility]; willing to accept pt. Alerted Marcelina pt is current with [facility] & would like to resume services once discharged from SNF; Marcelina to alert [facility] SW. CM will continue to follow. DC plan-SNF Date Signed: 06/02/2017 02:24 PM Electronically Signed By:Ebony Mclain RN Case Management Discharge Plan Note Case Management Discharge Discharge Order Complete? Answers: Yes Patient to Obtain Answers: Other Notes: SNF Medications Transportation Arranged Answers: Other Notes: by [facility] Transport will Pick (Date 06/03/2017 03:00 PM & Time) Faxed Final Orders Answers: Yes Family Notified Answers: Yes Discharge Comments Notes: Patient discharged to [facility]. Transport arranged by Anu at facility. Paperwork faxed; CONNER Abad to call report. Date Signed: 06/03/2017 11:42 AM Electronically Signed By:Tracey Rocha RN Intervention Information Intervention Type:*IM-Signed Date of Service:06/03/2017 01:36 PM Patient Type:Inpatient Staff Member:Christen Oglesby Hours: Discipline: Severity: Comment:
== END 2017-06-03 15:18 | DRG 872 ==
LOC: CED 14:51 → CEDHOLD 16:59 → F1N 19:22
PROVIDERS: ADMIT Student in an Organized Health Care Education/Training Program; ATTEND Student in an Organized Health Care Education/Training Program
PROC: 02HV33Z Insertion of Infusion Device into Superior Vena Cava, Percutaneous Approach (ICD-10-PCS; principal; 2017-05-27)
PROC: 30233N1 Transfusion of Nonautologous Red Blood Cells into Peripheral Vein, Percutaneous Approach (ICD-10-PCS; 2017-05-30)
DX: A41.9 Sepsis, unspecified organism (principal); L03.116 Cellulitis of left lower limb; J96.11 Chronic respiratory failure with hypoxia; Z68.41 Body mass index [BMI] 40.0-44.9, adult; N17.9 Acute kidney failure, unspecified; E11.9 Type 2 diabetes mellitus without complications; J44.9 Chronic obstructive pulmonary disease, unspecified; E66.01 Morbid (severe) obesity due to excess calories; D53.9 Nutritional anemia, unspecified; N18.3 Chronic kidney disease, stage 3 (moderate); Z79.4 Long term (current) use of insulin; Z96.652 Presence of left artificial knee joint
CPT/HCPCS: 80048-PO; 82247-PO; 83605-PO; 85025-PO; 85610-PO; 85730-PO; 93971-PO; 96365; 97110-GP; 97116-GP; 97162-GP; 97165-GO; 97530-GP; 97535-GO; C1751; G8987-GO-CK; G8988-GO-CI; J0690; J0696; J1170; J1650; J1815; J1940; J2060; J3370; J7613; P9016

== ENCOUNTER 2017-11-01 15:17 | Inpatient (IN) | payer OTHER ==
--- NOTE | 2017-11-01 15:24 | EDPHY ---
H & P Stated Complaint: right ankle pain yesterday, worse today Time Seen by Provider: 11/01/17 15:24 - Medical/Surgical History Hx Asthma: Yes Hx Chronic Respiratory Disease: Yes Hx Diabetes: Yes Hx Cardiac Disease: Yes Hx Renal Disease: Yes Hx Cirrhosis: No Hx Alcoholism: No Hx HIV/AIDS: No Hx Splenectomy or Spleen Trauma: No Other PMH: Diabetic, COPD, spine surgery, knee replacement KRYSTAL, c-seation, carpal tunnelx2, kidney issue, appy, UMBILICAL HERNIA, MULTIPLE BLOOD TRANSFUSION, SEPSIS, SPINAL FUSION. - Social History Smoking Status: Former smoker Constitutional: Initial Vital Signs Temperature (C) 36.7 C 11/01/17 15:20 Heart Rate 92 11/01/17 15:20 Respiratory Rate 20 11/01/17 15:20 Blood Pressure 126/72 H 11/01/17 15:20 O2 Sat (%) 96 11/01/17 15:20 O2 Delivery Mode Nasal Cannula O2 (L/minute) 3 Allergies/Adverse Reactions: No Known Allergies Allergy (Verified 11/01/17 15:19) Home Medications: Medication Instructions Recorded Albuterol Sulfate [Proair Hfa] 1 - 2 gm IH Q4H PRN 10/29/16 Cholecalciferol Vit D3 [Vitamin D3 1,000 units PO DAILY 10/29/16 (*)] DULoxetine [Cymbalta 60 MG (*)] 60 mg PO DAILY 10/29/16 Ipratropium/Albuterol [Duoneb (*)] 3 ml IH QID PRN 10/29/16 Lisinopril [Zestril 2.5 mg (*)] 2.5 mg PO DAILY 10/29/16 Multivitamins [Multivitamin (*)] 1 each PO DAILY 10/29/16 Potassium Cl [Klor-Con 20 meq (*)] 20 meq PO HS 10/29/16 glipiZIDE [Glucotrol] 10 mg PO DAILY@12 10/29/16 metFORMIN HCL [Metformin HCl] 500 mg PO BIDMEAL 10/29/16 Insulin Detemir [Levemir Flextouch] 30 - 32 unit SQ HS 05/13/17 Melatonin [Melatonin 3 MG (*)] 3 mg PO HS PRN 05/13/17 oxyCODONE IR [Oxycodone Ir (*)] 5 - 10 mg PO Q3HRS PRN tab 05/15/17 traMADol [Ultram 50 mg (*)] 50 mg PO Q6HRS tab 05/15/17 Furosemide [Lasix 80 MG (*)] 80 mg PO TID 05/18/17 Pantoprazole Sodium [Protonix 40mg 40 mg PO DAILY #30 tab 05/23/17 (*)] Acetaminophen [Tylenol ES 500 mg 500 - 1,000 mg PO Q6 PRN MDD TAKES 05/26/17 (*)] WITH TRAMADOL AND OXY Cephalexin [Keflex (*)] 500 mg PO Q6HRS cap 06/03/17 Enoxaparin [Lovenox 40 MG (*)] 40 mg SC DAILY #4 syr 06/03/17 HYDROmorphone HCL [Dilaudid 4 mg 4 mg PO Q4HRS PRN tab 06/03/17 (*)] Polyethylene Glycol 3350 [Miralax 17 gm PO DAILY PRN pkt 06/03/17 17 gm (*)] Medical Decision Making ED Course/Re-evaluation: CHIEF COMPLAINT: Right ankle pain and swelling HISTORY OF PRESENT ILLNESS: The patient is a diabetic 67 y/o female with a history of sepsis, bilateral knee replacement, and COPD complaining of right ankle pain and swelling, onset yesterday. She denies injury or trauma precipitating the pain. She went to Dr. Mclaughlin, orthopedist, yesterday and had x- rays. Dr. Mclaughlin denies fracture or other bone abnormality. Today, the pain was worse, prompting her visit. She is unable to weight bear. She reports associated fever last night. She denies any other associated symptoms. She reports that in May, after a surgery, she had the same pain, swelling, and redness in the left ankle, for which she was admitted to the hospital for IV antibiotics. She denies any fluid from the left ankle being tested at that time and refused an MRI. Diagnosis for left ankle pain was never confirmed. REVIEW OF SYSTEMS: A 10 point review of systems was performed and is negative with the exception of the elements mentioned in the history of present illness. PHYSICAL EXAM: HR, BP, O2 Sat, RR. Temp noted General Appearance: Alert, well hydrated, appropriate. Appears in pain. Using at home oxygen. Head: Atraumatic without scalp tenderness or obvious injury Eyes: Pupils equal, round, reactive to light and accommodation, EOMI, no trauma , no injection. Nose: Atraumatic, no rhinorrhea, clear. Respiratory: No retractions, no distress, no wheezes, and no accessory muscle use. Cardiovascular: Regular rate and rhythm, no murmurs, rubs, or gallops. Bilateral carotid, radial, dorsalis pedis, and posterior tibial pulses intact. Good capillary refill all extremities. Musculoskeletal: Normal active ROM of all extremities, atraumatic. Neurological: Alert, appropriate, and interactive. Skin: No rashes, good turgor, no nodules on palpation. Extremities: Erythema, edema, and tenderness to palpation over the entire lateral aspect of the right ankle. Some edema and erythema to the rest of the ankle. The ankle is warm to the touch. Unable to test range of motion of right ankle secondary to pain. Other extremities normal to appearance with normal range of motion. Past medical history: Diabetes, COPD, multiple blood transfusions, cellulitis, sepsis, renal disease, bleeding ulcer Past surgical history: Bilateral knee replacement, bilateral carpal tunnel, appendectomy, spinal fusion Family history: Non-contributory Social history: at bedside, retired, lives in [place] DIAGNOSTICS/PROCEDURES/CRITICAL CARE TIME: Bedside ultrasound Procedure: A bedside ultrasound of the right ankle with intention to perform an arthrocentesis The indication for the study was pain, swelling, and redness of the right ankle , possible septic joint or gout. On the examination I found that there was not a discrete fluid pocket in the joint. Arthrocentesis was not performed. Significant edema of surrounding tissues was identified. Results of the exam: No discrete fluid pocket. DIFFERENTIAL DIAGNOSIS: The differential diagnosis for this patient's right ankle pain included but was not limited to septic joint, gout, arthritic inflammation, infectious process, and musculoskeletal injury. MEDICAL DECISION MAKING: The patient presents with pain and swelling of the right ankle. The pain is primarily over the lateral aspect. The edema and erythema extends from the lateral aspect around the posterior to the medial aspect. The entire ankle is warm to the touch. X-ray's were performed and interpreted by Dr. Mclaughlin yesterday and were not indicative of a fracture. Her presentation is concerning for a septic joint (complicated by other joint replacements) or gout. She reports that this has happened previously to her left ankle and required admission. Plan for arthrocentesis with evaluation of synovial fluid for infection or gout. The arthrocentesis was not performed as bedside ultrasound could not identify a discrete fluid pocket. Despite a low blood pressure, she does not meet any other sepsis criteria as of 4:30 PM. She will be admitted to Dr. Llanos for further care. Symptoms are likely due to a recurrence of cellulitis. She will be started on IV antibiotics in the ED. - Data Points Laboratory Results: Laboratory Results 11/01/17 15:45 11/01/17 15:45 11/01/1718 11/01/17 15:45 15:45 15:45 WBC 12.73 10^3/uL H 10^3/uL (3.80-9.50) RBC 3.06 10^6/uL L 10^6/uL (4.18-5.33) Hgb 9.6 g/dL L g/dL (12.6-16.3) Hct 29.4 % L % (38.0-47.0) MCV 96.1 fL fL (81.5-99.8) MCH 31.4 pg pg (27.9-34.1) MCHC 32.7 g/dL g/dL (32.4-36.7) RDW 12.5 % % (11.5-15.2) Plt Count 190 10^3/uL 10^3/uL (150-400) MPV 11.1 fL fL (8.7-11.7) Neut % (Auto) 73.8 % % (39.3-74.2) Lymph % (Auto) 14.7 % L % (15.0-45.0) [place] % (Auto) 10.3 % % (4.5-13.0) Eos % (Auto) 0.6 % % (0.6-7.6) Baso % (Auto) 0.3 % % (0.3-1.7) Nucleat RBC Rel Count 0.0 % % (0.0-0.2) Absolute Neuts (auto) 9.39 10^3/uL H 10^3/uL (1.70-6.50) Absolute Lymphs (auto) 1.87 10^3/uL 10^3/uL (1.00-3.00) Absolute Monos (auto) 1.31 10^3/uL H 10^3/uL (0.30-0.80) Absolute Eos (auto) 0.08 10^3/uL 10^3/uL (0.03-0.40) Absolute Basos (auto) 0.04 10^3/uL 10^3/uL (0.02-0.10) Absolute Nucleated RBC 0.00 10^3/uL 10^3/uL (0-0.01) Immature Gran % 0.3 % % (0.0-1.1) Immature Gran # 0.04 10^3/uL 10^3/uL (0.00-0.10) PT 15.0 SEC SEC (12.0-15.0) INR 1.16 (0.83-1.16) APTT 31.7 SEC SEC (23.0-38.0) VBG Lactic Acid Sodium 131 mEq/L L mEq/L (135-145) Potassium 4.0 mEq/L mEq/L (3.3-5.0) Chloride 94 mEq/L L mEq/L (97-110) Carbon Dioxide 28 mEq/l mEq/l (22-31) Anion Gap 9 mEq/L mEq/L (8-16) BUN 25 mg/dL H mg/dL (7-23) Creatinine 1.2 mg/dL H mg/dL (0.6-1.0) Estimated GFR 45 Glucose 124 mg/dL H mg/dL (70-100) Calcium 9.0 mg/dL mg/dL (8.5-10.4) Total Bilirubin 0.5 mg/dL mg/dL (0.1-1.4) 11/01/17 15:45 WBC RBC Hgb Hct MCV MCH MCHC RDW Plt Count MPV Neut % (Auto) Lymph % (Auto) [place] % (Auto) Eos % (Auto) Baso % (Auto) Nucleat RBC Rel Count Absolute Neuts (auto) Absolute Lymphs (auto) Absolute Monos (auto) Absolute Eos (auto) Absolute Basos (auto) Absolute Nucleated RBC Immature Gran % Immature Gran # PT INR APTT VBG Lactic Acid 2.1 mmol/L mmol/L (0.7-2.1) Sodium Potassium Chloride Carbon Dioxide Anion Gap BUN Creatinine Estimated GFR Glucose Calcium Total Bilirubin Medications Given: Discontinued Medications Hydromorphone HCl (Dilaudid) 1 mg IVP EDNOW ONE Stop: 11/01/17 15:56 Last Admin: 11/01/17 15:59 Dose: 1 mg Vancomycin/Sodium Chloride (Vancomycin 1 Gm (Premix)) 250 mls @ 250 mls/hr IV EDNOW ONE PRN Reason: Protocol Stop: 11/01/17 17:04 Last Admin: 11/01/17 16:20 Dose: 250 mls Departure - Departure Disposition: [facility] In[facility] Acute Clinical Impression: Cellulitis Qualifiers: Site of cellulitis: extremity Site of cellulitis of extremity: lower extremity Laterality: right Qualified Code(s): L03.115 - Cellulitis of right lower limb Condition: Fair Report Scribed for: Wiliam Solis Report Scribed by: Idalia eRid Date of Report: 11/01/17 Time of Report: 17:24
[2017-11-01] MEDS ORDERED: HYDROmorphONE/DILAUDID 2 MG/ML INJ IVP ONE (15:55)
[2017-11-01 15:56] LABS: PLATELET COUNT 190 10^3/uL (150-400)
[2017-11-01] MEDS ORDERED: HYDROmorphONE/DILAUDID 1 MG/ML INJ ONE (15:56)
[2017-11-01 16:04] LABS: INR 1.16 (0.83-1.16)
[2017-11-01] MEDS ORDERED: VANCOMYCIN HCL/NORMAL SALINE 250 ML IV ONE (16:05)
[2017-11-01] MEDS ORDERED: ACETAMINOPHEN 325 MG TAB PO PRN (16:51)
[2017-11-01] MEDS ORDERED: HYDROmorphONE/DILAUDID 1 MG/ML INJ IVP PRN (16:51)
[2017-11-01] MEDS ORDERED: ONDANSETRON DISINTEGRATING 4 MG TAB PO PRN (16:51)
[2017-11-01] MEDS ORDERED: ONDANSETRON 4 MG/2 ML VIAL IVP PRN (16:51)
[2017-11-01] MEDS ORDERED: NS 1,000 ML IV SCH (17:00)
[2017-11-01] MEDS ORDERED: predniSONE 20 MG TAB PO ONE (17:23)
--- NOTE | 2017-11-01 17:29 | PDGENHP ---
History and Physical - Chief Complaint Acute joint pain - History of Present Illness Primary care provider: Dr. Lynch Primary manager retail: Dr. Martini Primary orthopedist: Dr. Becca Mclaughlin HPI: 67-year-old female presents with acute joint pain located in her right ankle, lateral aspect, with associated swelling, subjective fever with onset of symptoms approximately 36 hr prior, and duration persistent thereafter the patient was walking around at approximately 3:00 a.m. On 10/31, looking for her bichon, and she did not experience any trauma. After she went back to bed, she began experiencing some pain located in the affected area, and the pain progressively worsened thereafter. She went to see Dr. Becca Mclaughlin on 10/31 during the day, and x-rays were taken, she was told that the area was a possible tendon strain. The pain continued to escalate, she continued to attempt to medicate with oxycodone at home, and on the day of this presentation , the pain is so severe that she is unable to ambulate. It is severely exacerbated by any movement in her right ankle as well as even light palpation. It is not particularly erythematous. Dr. Solis attempted to aspirate in the emergency department, but he was unable to appreciate a drainable fluid collection with ultrasound at bedside. History Information - Allergies/Home Medication List Allergies/Adverse Reactions: No Known Allergies Allergy (Verified 11/01/17 15:19) Home Medications: Albuterol Sulfate [Proair Hfa] 1 - 2 gm IH Q4H PRN 10/29/16 [Last Taken 05/13/17 ] Cholecalciferol Vit D3 [Vitamin D3 (*)] 1,000 units PO DAILY 10/29/16 [Last Taken 05/26/17] DULoxetine [Cymbalta 60 MG (*)] 60 mg PO DAILY 10/29/16 [Last Taken 05/26/17] Ipratropium/Albuterol [Duoneb (*)] 3 ml IH QID PRN 10/29/16 [Last Taken 05/09/17 ] Lisinopril [Zestril 2.5 mg (*)] 2.5 mg PO DAILY 10/29/16 [Last Taken 05/26/17] Multivitamins [Multivitamin (*)] 1 each PO DAILY 10/29/16 [Last Taken 05/26/17] Potassium Cl [Klor-Con 20 meq (*)] 20 meq PO HS 10/29/16 [Last Taken 05/25/17] glipiZIDE [Glucotrol] 10 mg PO DAILY@12 10/29/16 [Last Taken 05/26/17] metFORMIN HCL [Metformin HCl] 500 mg PO BIDMEAL 10/29/16 [Last Taken 05/26/17] Insulin Detemir [Levemir Flextouch] 30 - 32 unit SQ HS 05/13/17 [Last Taken ] Melatonin [Melatonin 3 MG (*)] 3 mg PO HS PRN 05/13/17 [Last Taken 05/26/17] Furosemide [Lasix 80 MG (*)] 80 mg PO TID 05/18/17 [Last Taken 05/26/17 14:00] Acetaminophen [Tylenol ES 500 mg (*)] 500 - 1,000 mg PO Q6 PRN MDD TAKES WITH TRAMADOL AND OXY 05/26/17 [Last Taken 05/26/17 13:00 500MG] I have personally reviewed and updated: family history, medical history, social history, surgical history - Past Medical History COPD (With chronic hypoxic respiratory failure on 3 L nasal cannula at baseline) , diabetes type 2 Additional medical history: Upper GI bleed. Chronic lower extremity edema chronically on Lasix, recently reduced to 40 mg 3 times daily. Chronic pain with continuous opiate dependency. History of obesity, actively losing weight, reports she has lost 30 lb this year intentional. Cellulitis of left ankle in May of 2017. Chronic kidney disease stage 3 with baseline creatinine 1.1- 1.4 - Surgical History Additional surgical history: Bilateral knee surgery - Family History Additional family history: Mother with end-stage renal disease - Social History Smoking Status: Former smoker Alcohol Use: None Drug Use: None Additional social history: Patient is independent in her ADLs, she is actively working to lose weight Review of Systems Review of Systems: ROS: 10pt was reviewed & negative except for what was stated in HPI & below Constitutional: Reports: fever (Subjective), weight loss (Intentional) Muscolosketal: Reports: joint pain (Right ankle lateral aspect), joint swelling (Right ankle lateral aspect) Physical Exam Physical Exam: Temp Pulse Resp BP Pulse Ox 37 C 95 16 100/82 H 100 11/01/17 16:22 11/01/17 16:22 11/01/17 16:22 11/01/17 16:36 11/01/17 16:22 Constitutional: no apparent distress, appears nourished, uncomfortable, No not in pain (Moderate intermittent) Eyes: PERRL, anicteric sclera, No EOMI (Mild dysconjugate gaze, baseline) Ears, Nose, Mouth, Throat: moist mucous membranes, hearing normal, ears appear normal, no oral mucosal ulcers Cardiovascular: regular rate and rhythym, no murmur, rub, or gallop, No edema Respiratory: no respiratory distress, no rales or rhonchi, clear to auscultation Gastrointestinal: normoactive bowel sounds, soft, non-tender abdomen, other ( Umbilical hernia), No guarding Skin: warm (Right ankle), other (No significant erythema or induration over the lateral malleoli) Musculoskeletal: other (Swelling over right lateral malleoli, tenderness to very minimal palpation, pain with plantar and dorsiflexion) Neurologic: AAOx3, sensation intact bilaterally, No facial droop Psychiatric: interacting appropriately, not anxious, not encephalopathic, thought process linear Lab Data & Imaging Review 11/01/17 15:45 11/01/17 15:45 WBC 12.73 10^3/uL (3.80-9.50) H 11/01/17 15:45 RBC 3.06 10^6/uL (4.18-5.33) L 11/01/17 15:45 Hgb 9.6 g/dL (12.6-16.3) L 11/01/17 15:45 Hct 29.4 % (38.0-47.0) L 11/01/17 15:45 MCV 96.1 fL (81.5-99.8) 11/01/17 15:45 MCH 31.4 pg (27.9-34.1) 11/01/17 15:45 MCHC 32.7 g/dL (32.4-36.7) 11/01/17 15:45 RDW 12.5 % (11.5-15.2) 11/01/17 15:45 Plt Count 190 10^3/uL (150-400) 11/01/17 15:45 MPV 11.1 fL (8.7-11.7) 11/01/17 15:45 Neut % (Auto) 73.8 % (39.3-74.2) 11/01/17 15:45 Lymph % (Auto) 14.7 % (15.0-45.0) L 11/01/17 15:45 [place] % (Auto) 10.3 % (4.5-13.0) 11/01/17 15:45 Eos % (Auto) 0.6 % (0.6-7.6) 11/01/17 15:45 Baso % (Auto) 0.3 % (0.3-1.7) 11/01/17 15:45 Nucleat RBC Rel Count 0.0 % (0.0-0.2) 11/01/17 15:45 Absolute Neuts (auto) 9.39 10^3/uL (1.70-6.50) H 11/01/17 15:45 Absolute Lymphs (auto) 1.87 10^3/uL (1.00-3.00) 11/01/17 15:45 Absolute Monos (auto) 1.31 10^3/uL (0.30-0.80) H 11/01/17 15:45 Absolute Eos (auto) 0.08 10^3/uL (0.03-0.40) 11/01/17 15:45 Absolute Basos (auto) 0.04 10^3/uL (0.02-0.10) 11/01/17 15:45 Absolute Nucleated RBC 0.00 10^3/uL (0-0.01) 11/01/17 15:45 Immature Gran % 0.3 % (0.0-1.1) 11/01/17 15:45 Immature Gran # 0.04 10^3/uL (0.00-0.10) 11/01/17 15:45 PT 15.0 SEC (12.0-15.0) 11/01/17 15:45 INR 1.16 (0.83-1.16) 11/01/17 15:45 APTT 31.7 SEC (23.0-38.0) 11/01/17 15:45 VBG Lactic Acid 2.1 mmol/L (0.7-2.1) 11/01/17 15:45 Sodium 131 mEq/L (135-145) L 11/01/17 15:45 Potassium 4.0 mEq/L (3.3-5.0) 11/01/17 15:45 Chloride 94 mEq/L (97-110) L 11/01/17 15:45 Carbon Dioxide 28 mEq/l (22-31) 11/01/17 15:45 Anion Gap 9 mEq/L (8-16) 11/01/17 15:45 BUN 25 mg/dL (7-23) H 11/01/17 15:45 Creatinine 1.2 mg/dL (0.6-1.0) H 11/01/17 15:45 Estimated GFR 45 11/01/17 15:45 Glucose 124 mg/dL (70-100) H 11/01/17 15:45 Calcium 9.0 mg/dL (8.5-10.4) 11/01/17 15:45 Total Bilirubin 0.5 mg/dL (0.1-1.4) 11/01/17 15:45 Assessment & Plan Assessment: 67-year-old female presents with acute right ankle pain, concerning for either acute gout flare or cellulitis Plan: 1. Acute ankle pain. New problem this provider, further workup indicated. Right lateral malleoli with associated local swelling, reduced range of motion, tenderness, highly subside suspicious for gout flare in the setting of undertreated chronic kidney disease stage 3 -reviewed outside records including 06/03/[address] Anthony Mlcain, discussed patient's most recent hospitalization for left lower extremity cellulitis with resultant sepsis, treated with IV antibiotics, discharged with PICC line to detention facility, patient does endorse that her condition at that time was very similar to what she is experiencing now , lb it she does not have overwhelming evidence of localized cellulitis and does not have any other clinical reason to be experiencing septic arthritis in that ankle -will empirically continue IV vancomycin 1.25 g Q 12, with blood cultures currently pending -will empirically treat possible gout with prednisone 20 mg in colchicine 0.6 twice daily, gauge effect -if patient does not experience substantial improvement in her range of motion, swelling, tenderness, then is less likely to be gout and could possibly be more like a septic arthritis, in which case I would recommend we get ultrasound- guided joint aspiration tomorrow -empirically treat pain with IV and oral Dilaudid, Zyrtec as needed for itching , bowel regimen -physical therapy eval, patient currently unable to ambulate, may require detention facility if her situation does not substantially clinically improved -I have messaged Dr. Becca Mclaughlin regarding patient's presentation 2. Chronic pain with continuous opiate dependency. Continue patient's home medications but utilize Dilaudid in lieu of oxycodone, given its superior affect in the emergency department 3. Chronic kidney disease stage 3. Baseline creatinine is 1.1-1.4, I recommended during patient's last hospitalization that she follow up with outpatient [facility] and she has yet to do so -her diuretics are currently under the management of her primary care provider, she has reduced her Lasix from 80 mg 3 times daily to 40 mg 3 times daily -she currently does not have substantial evidence of lower extremity edema, and I will continue Lasix at 40 mg 3 times daily, monitor creatinine level closely -given her risk of gout, would recommend she have a uric acid level checked as an outpatient, get a nephrology referral, consider allopurinol 4. Chronic hypoxic respiratory failure. Secondary COPD, continue home medications, Dr. Martini is her primary manager retail 5. Diabetes mellitus type 2. Continue home medications 6. Hyponatremia. Suspect chronic, most likely secondary to ongoing use of diuretics, continue monitor Diet. Regular Prophylaxis. Moderate risk patient, SCDs, hold pharmacologic in case patient requires aspiration tomorrow Code. Full, is MD [facility] Disposition. Anticipated discharge 11/02, pending clinical resolution of the above. Discussed patient's presentation with Dr. Wiliam Solis emergency department, he and I both agree the patient is unable to ambulate at this time requires additional workup and management of her infection versus gout.
[2017-11-01] MEDS ORDERED: ALBUTEROL INH PREPACK MDI TAKEHOME PRN (17:45)
[2017-11-01] MEDS ORDERED: PANTOPRAZOLE SODIUM 40 MG TAB PO PRN (17:45)
[2017-11-01] MEDS ORDERED: BISACODYL 10 MG SUPP PR PRN (17:45)
[2017-11-01] MEDS ORDERED: POLYETHYLENE GLYCOL 3350 17 GM PKT PO PRN (17:45)
[2017-11-01] MEDS ORDERED: MELATONIN 3 MG TAB PO PRN (17:45)
[2017-11-01] MEDS ORDERED: traMADol 50 MG TAB PO PRN (17:45)
[2017-11-01] MEDS ORDERED: LACTULOSE 20 GM/30 ML UDCUP PO PRN (17:45)
[2017-11-01] MEDS ORDERED: IPRATROPIUM/ALBUTEROL 3 ML DEYVIAL IH PRN (17:45)
[2017-11-01] MEDS ORDERED: ALBUTEROL 60 PUFFS/8 GM MDI IH PRN (17:57)
[2017-11-01] MEDS: metFORMIN HCL 500 MG TAB PO SCH (18:28)
[2017-11-01] MEDS: FUROSEMIDE 40 MG TAB PO SCH (18:28)
[2017-11-01] MEDS: HYDROmorphONE/DILAUDID 2 MG TAB PO PRN (18:28)
[2017-11-01] MEDS: POTASSIUM CL 10 MEQ TAB PO SCH (22:33)
[2017-11-01] MEDS: SENNOSIDES/DOCUSATE SODIUM TAB PO SCH (22:33)
[2017-11-01] MEDS: COLCHICINE 0.6 MG CAP/TAB PO SCH (22:38)
[2017-11-02] MEDS: VANCOMYCIN 1.25 GM in NS 250 ML IV SCH ×2 (05:40→18:36)
[2017-11-02 05:47] LABS: PLATELET COUNT 154 10^3/uL (150-400)
[2017-11-02] MEDS: FUROSEMIDE 40 MG TAB PO SCH ×3 (08:32→18:36)
[2017-11-02] MEDS: CETIRIZINE 10 MG TAB PO SCH (08:32)
[2017-11-02] MEDS: SENNOSIDES/DOCUSATE SODIUM TAB PO SCH ×2 (08:32→22:04)
[2017-11-02] MEDS: COLCHICINE 0.6 MG CAP/TAB PO SCH ×2 (08:32→22:04)
[2017-11-02] MEDS: MULTIVITAMINS 1 EACH TAB PO SCH (08:32)
[2017-11-02] MEDS: DULoxetine 60 MG CAP PO SCH (08:33)
[2017-11-02] MEDS: LISINOPRIL 5 MG TAB PO SCH (08:33)
[2017-11-02] MEDS: predniSONE 20 MG TAB PO SCH (08:33)
[2017-11-02] MEDS: HYDROmorphONE/DILAUDID 2 MG TAB PO PRN (08:33)
[2017-11-02] MEDS: metFORMIN HCL 500 MG TAB PO SCH ×2 (08:33→18:36)
[2017-11-02] MEDS: CHOLECALCIFEROL VIT D3 1,000 UNITS TAB PO SCH (08:33)
[2017-11-02] MEDS ORDERED: LORazepam 2 MG/ML INJ IVP ONE (12:13)
--- NOTE | 2017-11-02 12:15 | HOSPPROG ---
Hospitalist Progress Note Assessment/Plan: DIAGNOSES: * DIABETIC FOOT INFECTION VS GOUT OF R ANKLE * HYPOTENSION / SIRS * TYPE 2 DM * NEW ONSET NORMOCYTIC ANEMIA * worse today * ACUTE RENAL FAILURE, HEMODYNAMIC ETIOLOGY * worse today * CHRONIC HYPOXEMIC RESP FAILURE, STABLE * CHRONIC PAIN SYNDROME WITH PRESCRIBED NARCOTIC USE AT LOW DOSE, STABLE PLANS: * MRI of foot and ankle to assess for any evidence of deep tissue infection, osteo, or joint effusion * With possibility of diabetic foot infection will add antibiotic coverage for g negatives * Continue elevation of foot * Follow sugars closely and adjust treatment as needed, goal less than 180 without low sugars while in the hospital SUBJECTIVE: No change in the pain at her foot and ankle which have had increasing pain now for approximately 3 days to 4 days OBJECTIVE Vitals reviewed: No fevers here so far, blood pressure is slightly low but stable overall, normal pulse another 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 There is too much edema to be able to tell if there is a ankle effusion or not. She does move the ankle with less range of motion than the left ankle but more easily than I would expect if there were a joint space infection. The most tender area is on the plantar aspect of her foot diffusely with no visible abnormality there are no definite palpable abnormality. She is also tender throughout the ankle and foot area as perhaps more tender at the lateral malleolus area that elsewhere. I see no open skin lesions. iv site ok Laboratory data: Sodium slightly improved to 132, renal function slightly better with creatinine 1.0, morning sugar 191 today White count better 8000, but hemoglobin decreased to 8.3 with MCV still in the mid 90s She tells me that she did have a foot x-ray with Dr. Mclaughlin a few days ago. He told her it looked unremarkable without fractures or other changes in the bones Objective: Vital Signs Temp Pulse Resp BP Pulse Ox 36.6 C 90 18 95/54 L 98 11/02/17 11:56 11/02/17 11:56 11/02/17 11:56 11/02/17 11:56 11/02/17 11:56 Laboratory Results 11/02/17 05:05 11/02/17 05:05 11/01/17 11/02/17 11/03/17 06:59 06:59 06:59 Intake Total 400 Output Total 1500 Balance -1100 PT 15.0 SEC (12.0-15.0) 11/01/17 15:45 INR 1.16 (0.83-1.16) 11/01/17 15:45 - Time Spent With Patient Time Spent with Patient: greater than 35 minutes Time Spent with Patient: Greater than 35 minutes spent on this patients care, greater than 50% of time spent counseling, educating, and coordinating care regarding the above mentioned plan. ICD10 Worksheet Patient Problems: Problems Problem Status Onset Cellulitis Acute Anemia Acute Arthritis of right knee Acute Cellulitis of left leg Acute Failure to thrive Acute Sepsis Acute Upper GI bleeding Acute
[2017-11-02] MEDS ORDERED: GADOBUTROL 10 ML VIAL IVP ONE (14:28)
[2017-11-02] MEDS: glipiZIDE 10 MG TAB PO SCH (15:07)
[2017-11-02] MEDS: PIPERACILLIN/TAZO 3.375 GM/DEX 50 ML IV SCH ×2 (15:08→18:36)
--- NOTE | 2017-11-02 15:36 | ASMTCMCOM ---
CM Note CM Note Notes: 67yr old female admitted for DM foot infection vs Gout, Hypotension/SIRS, DM-2, Anemia, Acute renal failure. She has a Hx of Chronic hypoxic respiratory failure, Chronic pain-narc use, Stage 3 kidney dis, GIB, Obesity-actively losing wt., Cellulitis L ankle, Former smoker. Lives with her . Therapies to eval. CM to follow for discharge needs. Date Signed: 11/02/2017 03:36 PM Electronically Signed By:Yamini Choe LCSW
[2017-11-02] MEDS: POTASSIUM CL 10 MEQ TAB PO SCH (22:04)
[2017-11-03] MEDS: PIPERACILLIN/TAZO 3.375 GM/DEX 50 ML IV SCH ×4 (00:25→18:14)
[2017-11-03] MEDS: HYDROmorphONE/DILAUDID 2 MG TAB PO PRN ×2 (00:27→09:42)
[2017-11-03] MEDS: LISINOPRIL 5 MG TAB PO SCH (08:58)
[2017-11-03] MEDS: CETIRIZINE 10 MG TAB PO SCH (08:58)
[2017-11-03] MEDS: predniSONE 20 MG TAB PO SCH (08:59)
[2017-11-03] MEDS: MULTIVITAMINS 1 EACH TAB PO SCH (08:59)
[2017-11-03] MEDS: FUROSEMIDE 40 MG TAB PO SCH ×3 (08:59→18:07)
[2017-11-03] MEDS: COLCHICINE 0.6 MG CAP/TAB PO SCH ×2 (08:59→20:36)
[2017-11-03] MEDS: DULoxetine 60 MG CAP PO SCH (08:59)
[2017-11-03] MEDS: CHOLECALCIFEROL VIT D3 1,000 UNITS TAB PO SCH (08:59)
--- NOTE | 2017-11-03 09:08 | PDMN ---
Medical Necessity Medical necessity: Pt meets inpt criteria per MD order and MCG M-70, Cellulitis. Pt with R foot diabetic foot infection, SIRS, severe pain requiring IV pain med management, IV ABX's, MRI pending, may require surg intervention, also treating ARF, anemia, hypotension. Status change obs to inpt 11/02/17, @1854.
[2017-11-03] MEDS: metFORMIN HCL 500 MG TAB PO SCH ×2 (09:34→18:07)
[2017-11-03] MEDS: SENNOSIDES/DOCUSATE SODIUM TAB PO SCH ×2 (09:36→20:38)
[2017-11-03] MEDS: VANCOMYCIN 1.25 GM in NS 250 ML IV SCH ×2 (10:56→11:42)
--- NOTE | 2017-11-03 11:15 | HOSPPROG ---
Hospitalist Progress Note Assessment/Plan: DIAGNOSES: * DIABETIC FOOT INFECTION consisting of primarily cellulitis of the foot and ankle * With no effusion doubt that this is gout * Edema is probably hampering recovery * HYPOTENSION / SIRS * Resolved * TYPE 2 DM * NEW ONSET NORMOCYTIC ANEMIA * Likely combination of infection/inflammation and possibly renal function * ACUTE RENAL FAILURE, HEMODYNAMIC ETIOLOGY * Improved so far * CHRONIC HYPOXEMIC RESP FAILURE, STABLE * CHRONIC PAIN SYNDROME WITH PRESCRIBED NARCOTIC USE AT LOW DOSE, STABLE PLANS: * Continue empiric coverage for diabetic foot infection at this time * Continue elevation of foot and will use Abner wrap and diuretic at this time to try and improve the edema for better circulation * Follow sugars closely and adjust treatment as needed, goal less than 180 without low sugars while in the hospital * For now follow loose stools, consider testing as she has pain or fever or if they get worse or do not resolve * Vancomycin dosing adjusted to once daily and will recheck level tomorrow; I reviewed in detail with pharmacist today SUBJECTIVE: Still no change in pain or swelling at her foot No chills or sweats Some loose stools Appetite okay eating OBJECTIVE Vitals reviewed: No fevers here so far, blood pressure is better in normal range, normal 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 3rd dose was withheld from twice daily dosing and recheck today level is 9.9. I reviewed images of MRI of the foot and ankle with Dr. Muhammad. There is no abscess or osteomyelitis, no joint effusions, but there is diffuse cellulitis of the foot and ankle. Objective: Vital Signs Temp Pulse Resp BP Pulse Ox 36.6 C 91 18 109/56 L 99 11/03/17 08:00 11/03/17 08:00 11/03/17 08:00 11/03/17 08:00 11/03/17 08:00 11/02/17 11/03/17 11/04/17 06:59 06:59 06:59 Intake Total 350 Output Total 1999 Balance -1650 PT 15.0 SEC (12.0-15.0) 11/01/17 15:45 INR 1.16 (0.83-1.16) 11/01/17 15:45 ICD10 Worksheet Patient Problems: Problems Problem Status Onset Cellulitis Acute Anemia Acute Arthritis of right knee Acute Cellulitis of left leg Acute Failure to thrive Acute Sepsis Acute Upper GI bleeding Acute
[2017-11-03] MEDS: glipiZIDE 10 MG TAB PO SCH (11:41)
--- NOTE | 2017-11-03 15:21 | ASMTCMCOM ---
CM Note CM Note Notes: Chart reviewed. Patient has cellulitis in right foot and is unable to bear weight, She refuses to entertain SNF as an option as she previously discharge to ? [facility]. She will likely need HHC. May need Home Infusion as well, CM to follow. Plan: TBD Date Signed: 11/03/2017 03:08 PM Electronically Signed By:Moriah Mancini RN
[2017-11-03] MEDS ORDERED: D50W 25 GM/50 ML VIAL IVP PRN (18:32)
[2017-11-03] MEDS: POTASSIUM CL 10 MEQ TAB PO SCH (20:37)
[2017-11-03] MEDS: INSULIN REGULAR HUMAN 100 UNIT/ML UNIT SC SCH (22:27)
[2017-11-04] MEDS: PIPERACILLIN/TAZO 3.375 GM/DEX 50 ML IV SCH ×5 (00:27→23:38)
[2017-11-04] MEDS: HYDROmorphONE/DILAUDID 2 MG TAB PO PRN ×2 (08:00→20:20)
[2017-11-04] MEDS: metFORMIN HCL 500 MG TAB PO SCH ×2 (08:10→18:01)
[2017-11-04] MEDS: COLCHICINE 0.6 MG CAP/TAB PO SCH ×2 (08:11→20:20)
[2017-11-04] MEDS: DULoxetine 60 MG CAP PO SCH (08:11)
[2017-11-04] MEDS: MULTIVITAMINS 1 EACH TAB PO SCH (08:11)
[2017-11-04] MEDS: CHOLECALCIFEROL VIT D3 1,000 UNITS TAB PO SCH (08:11)
[2017-11-04] MEDS: CETIRIZINE 10 MG TAB PO SCH (08:12)
[2017-11-04] MEDS: predniSONE 20 MG TAB PO SCH (08:13)
[2017-11-04] MEDS: FUROSEMIDE 40 MG TAB PO SCH ×3 (08:13→18:01)
[2017-11-04] MEDS: INSULIN REGULAR HUMAN 100 UNIT/ML UNIT SC SCH ×2 (08:36→12:37)
[2017-11-04] MEDS: SENNOSIDES/DOCUSATE SODIUM TAB PO SCH ×2 (09:18→20:28)
[2017-11-04] MEDS: glipiZIDE 10 MG TAB PO SCH (11:57)
[2017-11-04] MEDS: VANCOMYCIN 1.25 GM in NS 250 ML IV SCH (12:38)
[2017-11-04] MEDS: LISINOPRIL 5 MG TAB PO SCH (12:43)
--- NOTE | 2017-11-04 14:35 | HOSPPROG ---
Hospitalist Progress Note Assessment/Plan: DIAGNOSES: * DIABETIC FOOT INFECTION consisting of primarily cellulitis of the foot and ankle * With no effusion doubt that this is gout * Edema is probably hampering recovery * Some good progress today with decrease swelling pain and tenderness, better ability to stand on foot and walk; white blood cell count is normalized * HYPOTENSION / SIRS * Resolved overall though still some what lower blood pressures than usual; do not think she has sepsis per se at present * TYPE 2 DM * Some postprandial high sugars; fasting sugars notably better * She is on her usual metformin and Glucotrol * NEW ONSET NORMOCYTIC ANEMIA * Likely combination of infection/inflammation and possibly renal function causing this * Notably she did have a bleeding ulcer in May so had upper endoscopy then and had a normal colonoscopy in March. Also notable is that despite her being more anemic now than a few weeks ago she has a higher MCV than she did at that time indicating less likelihood of an iron deficiency cause of anemia at this time * ACUTE RENAL FAILURE, HEMODYNAMIC ETIOLOGY * Improved so far * CHRONIC HYPOXEMIC RESP FAILURE, STABLE * CHRONIC PAIN SYNDROME WITH PRESCRIBED NARCOTIC USE AT LOW DOSE, STABLE PLANS: * Continue empiric coverage for diabetic foot infection at this time; if continues to improve could probably change to oral antibiotics within a day or 2 and discharge home * Continue elevation of foot and will use Abner wrap and diuretic at this time to try and improve the edema for better circulation * At this time will add some scheduled Humalog before meals and stop the sliding scale. Follow sugars closely and adjust treatment as needed, goal less than 180 without low sugars while in the hospital * Vancomycin dosing adjusted to once daily and will recheck level when that is back * Awaiting reticulocyte count and iron studies as well as B12 studies looking at her iron; however I expect actually her are anemia will probably improve with treatment of her infection baseline hemoglobin 10-11 Reviewed all the above with the patient and at the bedside today, many questions they had were discussed in detail. 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 But postprandial sugars have been a bit higher Creatinine stable at 1.0 I reviewed images of MRI of the foot and ankle with Dr. Muhammad. There is no abscess or osteomyelitis, no joint effusions, but there is diffuse cellulitis of the foot and ankle. Objective: Vital Signs Temp Pulse Resp BP Pulse Ox 36.6 C 77 16 101/60 99 11/04/17 08:04 11/04/17 08:04 11/04/17 08:04 11/04/17 08:04 11/04/17 08:04 Laboratory Results 11/04/17 05:13 11/04/17 05:13 11/03/17 11/04/17 11/05/17 06:59 06:59 06:59 Intake Total 350 980 360 Output Total 2000 1450 300 Balance -1650 -470 60 PT 15.0 SEC (12.0-15.0) 11/01/17 15:45 INR 1.16 (0.83-1.16) 11/01/17 15:45 - Time Spent With Patient Time Spent with Patient: greater than 35 minutes Time Spent with Patient: Greater than 35 minutes spent on this patients care, greater than 50% of time spent counseling, educating, and coordinating care regarding the above mentioned plan. ICD10 Worksheet Patient Problems: Problems Problem Status Onset Cellulitis Acute Anemia Acute Arthritis of right knee Acute Cellulitis of left leg Acute Failure to thrive Acute Sepsis Acute Upper GI bleeding Acute
--- NOTE | 2017-11-04 15:56 | ASMTCMCOM ---
CM Note CM Note Notes: Chart reviewed. Patient improving and able to bear weight. Referrals placed for HHC in allscripts. CM to follow. Plan: Home with HHC. Date Signed: 11/04/2017 03:56 PM Electronically Signed By:Moriah Mancini RN
--- NOTE | 2017-11-04 16:42 | PDCONSULT ---
Corporation Officer Note: Rosalio is a pleasant 67 year old female who presented to the ER with right ankle and foot pain and swelling on 11/01/17. She had seen Dr. Mclaughlin the previous day, had radiographs which showed no fracture, and was placed in a long boot. She had increased pain and swelling and was admitted for IV antibiotic management. She has been on Vanco and Zosyn. Pain and swelling have improved since the . PE: Mild erythema. No open wound. Mild swelling overlying the lateral ankle with mild TTP. TTP along the peroneals. No pain with gentle ankle ROM. Pain with active eversion as well as passive inversion. Pt able to weight bear. NV intact 2+ DP, PT pulses. Brisk cap refill MRI shows cellulitis without sign of abscess or joint effusion. Peroneus brevis and longus tenosynovitis Plan: We will have her continue antibiotics per infectious disease. She may weight bear as tolerated in the boot. She will follow up out patient in our office.
[2017-11-04] MEDS: INSULIN LISPRO 100 UNIT/ML SC SCH (18:00)
[2017-11-04] MEDS: POTASSIUM CL 10 MEQ TAB PO SCH (20:20)
[2017-11-05] MEDS: PIPERACILLIN/TAZO 3.375 GM/DEX 50 ML IV SCH ×2 (06:03→13:15)
[2017-11-05] MEDS: metFORMIN HCL 500 MG TAB PO SCH ×2 (08:18→18:43)
[2017-11-05] MEDS: FUROSEMIDE 40 MG TAB PO SCH ×3 (08:18→18:43)
[2017-11-05] MEDS: predniSONE 20 MG TAB PO SCH (08:18)
[2017-11-05] MEDS: LISINOPRIL 5 MG TAB PO SCH (08:18)
[2017-11-05] MEDS: DULoxetine 60 MG CAP PO SCH (08:18)
[2017-11-05] MEDS: MULTIVITAMINS 1 EACH TAB PO SCH (08:20)
[2017-11-05] MEDS: COLCHICINE 0.6 MG CAP/TAB PO SCH (08:20)
[2017-11-05] MEDS: CHOLECALCIFEROL VIT D3 1,000 UNITS TAB PO SCH (08:20)
[2017-11-05] MEDS: CETIRIZINE 10 MG TAB PO SCH (08:20)
[2017-11-05] MEDS: SENNOSIDES/DOCUSATE SODIUM TAB PO SCH ×2 (08:24→20:15)
[2017-11-05] MEDS: HYDROmorphONE/DILAUDID 2 MG TAB PO PRN (09:08)
[2017-11-05] MEDS: INSULIN LISPRO 100 UNIT/ML SC SCH ×3 (09:09→18:43)
--- NOTE | 2017-11-05 10:38 | HOSPPROG ---
Hospitalist Progress Note Assessment/Plan: #Cellulitis of R foot - No longer apparent on PE, pain improving significantly -Switch to PO Augmentin (x6 day) to complete treatment of cellulitis -monitor for 12-24 hours on PO Abx #Possible gout -no evidence of gout on Hospital Day 3 - discontinue colchicine and prednisone #T2DM -continue home DM medications -continue to monitor BG with goal of <180 while in hospital -counseled on benefit of vp site for maintenance care #Normocytic Anemia -continue on home vitamins (multivitamin, Vit C, Vit D) -follow up with PCP #Concern for renal failure -Cr stable at 1.0 -continue lisinopril -follow up with PCP Anticipate discharge tomorrow Brandi Villatoro MS3 Pt was seen and evaluated with medical student, agree with documentation. 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 Gout and cellulitis were considered, and she has received prednisone and IV pip/tazo and vacomycin since admission. Vancomycin trough levels have stayed in the therapeutic range of 10-15 per ID. Over the last 24 hours, she has had no problems. Her vital signs have been stable on 1L of O2. Her anemia and kidney function labs have been stable. Her pain has greatly improved. She is able to bare weight and is successfully accomplishing activities of daily living. Objective: Vital Signs Temp Pulse Resp BP Pulse Ox 98.4 F 76 16 112/74 91 L 11/05/17 07:35 11/05/17 07:35 11/05/17 07:35 11/05/17 08:18 11/05/17 07:35 Physical Exam: General: Well Appearing, alert and oriented CV: RRR, 1+ bilateral edema to mid-vega Pulm: Lungs clear to auscultation bilaterally Laboratory Results 11/05/17 06:32 11/04/17 05:13 11/03/17 11/04/17 11/05/17 11:59 11:59 11:59 Intake Total 350 1340 2720 Output Total 2000 1750 650 Balance -1650 -410 2070 PT 15.0 SEC (12.0-15.0) 11/01/17 15:45 INR 1.16 (0.83-1.16) 11/01/17 15:45 - Time Spent With Patient Time Spent with Patient: greater than 25 minutes Time Spent with Patient: Greater than 25 minutes spent on this patients care, greater than 50% of time spent counseling, educating, and coordinating care regarding the above mentioned plan. - Pending Discharge Pending Discharge Within 24 Hours: Yes Pending Discharge Date: 11/27/17 Pending Discharge Time: 11:00 - Physical Exam Constitutional: no apparent distress Eyes: anicteric sclera Ears, Nose, Mouth, Throat: moist mucous membranes, hearing normal Cardiovascular: regular rate and rhythym, no murmur, rub, or gallop, edema (1+ to mid-shins bilaterally) Respiratory: no respiratory distress, no rales or rhonchi, clear to auscultation (quiet breath sounds) Skin: warm, normal color (LE: Right LE: some puffiness on dorsal aspect of foot , no erythema, no point tenderness, some indentations from VALORIE bandage), abrasion (bruising secondary to IV placement) Neurologic: sensation intact bilaterally Psychiatric: interacting appropriately, not anxious, not encephalopathic, thought process linear ICD10 Worksheet Patient Problems: Problems Problem Status Onset Anemia Acute Arthritis of right knee Acute Cellulitis Acute Cellulitis of left leg Acute Failure to thrive Acute Sepsis Acute Upper GI bleeding Acute
[2017-11-05] MEDS: glipiZIDE 10 MG TAB PO SCH (13:11)
[2017-11-05] MEDS: VANCOMYCIN 1.25 GM in NS 250 ML IV SCH (14:17)
[2017-11-05] MEDS: AMOXICILLIN/CLAVULANATE POT 875/125 MG TAB PO SCH (20:14)
[2017-11-05] MEDS: POTASSIUM CL 10 MEQ TAB PO SCH (20:14)
[2017-11-06] MEDS: HYDROmorphONE/DILAUDID 2 MG TAB PO PRN (01:57)
[2017-11-06] MEDS: AMOXICILLIN/CLAVULANATE POT 875/125 MG TAB PO SCH (08:53)
[2017-11-06] MEDS: CETIRIZINE 10 MG TAB PO SCH (08:53)
[2017-11-06] MEDS: DULoxetine 60 MG CAP PO SCH (08:53)
[2017-11-06] MEDS: CHOLECALCIFEROL VIT D3 1,000 UNITS TAB PO SCH (08:53)
[2017-11-06] MEDS: FUROSEMIDE 40 MG TAB PO SCH (08:53)
[2017-11-06] MEDS: LISINOPRIL 5 MG TAB PO SCH (08:53)
[2017-11-06] MEDS: INSULIN LISPRO 100 UNIT/ML SC SCH (08:54)
[2017-11-06] MEDS: metFORMIN HCL 500 MG TAB PO SCH (08:54)
[2017-11-06 08:58] VITALS: BP 123/70
[2017-11-06] MEDS: SENNOSIDES/DOCUSATE SODIUM TAB PO SCH (08:59)
--- NOTE | 2017-11-06 10:51 | ASMTCMCOM ---
CM Note CM Note Notes: Spoke w/pt, she no longer feels the need for home care. Pt states her is home all day and she has an adult dtr living with them right now, feels she has good support. CM available for any changes. DC Plan: Independent Date Signed: 11/06/2017 10:50 AM Electronically Signed By:Sharla Fink RN
[2017-11-06] MEDS: MULTIVITAMINS 1 EACH TAB PO SCH (12:30)
--- NOTE | 2017-11-06 17:25 | ASDISCHSUM ---
Discharge Information Plan Status:Home with No Needs Medically Cleared to Leave: Discharge Date:11/06/2017 01:50 PM CM D/C Disposition:Home, Routine, Self-Care ADT D/C Disposition:Home, Routine, Self-Care Projected Discharge Date:11/05/2017 11:00 AM Transportation at D/C:Family Discharge Delay Reason: Follow-Up Date:11/05/2017 11:00 AM Discharge Slot: Final Diagnosis:DM foot infection vs Gout, Hypotension/SIRS, DM-2, Anemia Placement Information Referral Type:*Home Health Care Services Referral ID:[id number] Provider Name: Address 1: Phone Number: Address 2: Fax Number: City: Selection Factors: State: Patient Contact Information Contact Name:PITO Relationship: Address:[address] City:[facility] Alternate Phone: State/Zip Code:[place] [address] Email: Financial Information Financial Class:Medicare Advantage Plans Primary Plan Desc:[employer] [facility] [employer] Primary Plan Number:[id number] Secondary Plan Desc: Secondary Plan Number: Assessment Information [facility] CM Progress Note CM Note CM Note Notes: 67yr old female admitted for DM foot infection vs Gout, Hypotension/SIRS, DM-2, Anemia, Acute renal failure. She has a Hx of Chronic hypoxic respiratory failure, Chronic pain-narc use, Stage 3 kidney dis, GIB, Obesity-actively losing wt., Cellulitis L ankle, Former smoker. Lives with her . Therapies to eval. CM to follow for discharge needs. Date Signed: 11/02/2017 03:36 PM Electronically Signed By:Yamini Choe LCSW [facility] CM Progress Note CM Note CM Note Notes: Chart reviewed. Patient has cellulitis in right foot and is unable to bear weight, She refuses to entertain SNF as an option as she previously discharge to ? [facility]. She will likely need HHC. May need Home Infusion as well, CM to follow. Plan: TBD Date Signed: 11/03/2017 03:08 PM Electronically Signed By:Moriah Mancini RN [facility] CM Progress Note CM Note CM Note Notes: Chart reviewed. Patient improving and able to bear weight. Referrals placed for HHC in allscripts. CM to follow. Plan: Home with HHC. Date Signed: 11/04/2017 03:56 PM Electronically Signed By:Moriah Mancini RN [facility] CM Progress Note CM Note CM Note Notes: Spoke w/pt, she no longer feels the need for home care. Pt states her is home all day and she has an adult dtr living with them right now, feels she has good support. CM available for any changes. DC Plan: Independent Date Signed: 11/06/2017 10:50 AM Electronically Signed By:Sharla Fink RN Intervention Information Intervention Type:*IM-Signed Date of Service:11/06/2017 12:24 PM Patient Type:Inpatient Staff Member:Christen Oglesby Hours: Discipline: Severity: Comment:
--- NOTE | 2017-11-27 12:02 | GDS ---
[f rep st] DISCHARGE SUMMARY SERVICE: [facility] Hospitalist. CONSULTATIONS: Orthopedics. PROCEDURE: Lower extremity MRI-cellulitis of the right foot and ankle- No abscess or osteomyelitis. HISTORY OF PRESENT ILLNESS: Please see previously dictated note by Dr. Llanos. ADMISSION DIAGNOSES: 1. Acute ankle pain, concerning for gout flare versus cellulitis, chronic pain with continuous opioid dependency. 2. Chronic kidney disease stage 3. 3. Chronic hypoxic respiratory failure. 4. Type 2 diabetes. 5. Hyponatremia. 6. Anemia. DISCHARGE DIAGNOSES: 1. Acute ankle pain, resolving. 2. Chronic kidney disease stage 3, stable 3. Chronic hypoxic respiratory failure. 4. Type 2 diabetes. 5. Hyponatremia, resolved. 6. Anemia, close followup as an outpatient. HOSPITAL COURSE: Mrs. Spencer was admitted to the hospital because of acute right ankle pain, subjective fevers which was concerning for cellulitis in the setting of type 2 diabetes. She was started on IV vancomycin along with oral prednisone and colchicine for possible gout flare. She was noted to have slight hyponatremia at admission with a sodium of 131. She was given gentle IV hydration during her stay, and her sodium on the day prior to discharge was normal at 140. Blood sugars were monitored closely throughout her stay and were stable. She did have anemia at admission, hemoglobin of 9.6, which was also monitored for stability during her stay, discharge hemoglobin is 8.6. Iron studies were done, which showed a low iron of 58 and a B12 of low normal at 289. Further evaluation workup is deferred to her primary care provider. She worked with PT and OT throughout her stay. Her pain gradually improved and the day prior to discharge, she was changed to oral Augmentin. She tolerated this medication well with ongoing improvement in cellulitis and pain, so she will be discharged on oral Augmentin. She chronically wears 2 L of oxygen and her O2 need did vary between 1-3 L during her stay, which was considered baseline for her. She was noted to have several lower blood pressures in the 90s over 50 range but on the day of discharge, it was back into the 120s over 70s. Recommend watching blood pressure closely as an outpatient to ensure no hypotension symptoms (which she denied during her stay). DISCHARGE MEDICATIONS: Augmentin 875 mg twice a day #5 given which would finish off her course of antibiotics, multivitamin daily, Cymbalta 60 mg daily, Vitamin D 1000 mg daily, potassium chloride 10 mEq daily, Glucotrol 10 mg daily , lisinopril 2.5 mg daily, DuoNeb as needed, albuterol as needed, oxycodone 5- 10 mg every 3 hours as needed, Tylenol as needed, metformin 1000 mg twice a day , tramadol 50-100 mg as needed, Protonix as needed, Lasix 40 mg three times daily. DISCHARGE INSTRUCTIONS: She was instructed to follow up with her primary care provider, Dr. Lynch, within 3-5 days. If at any time, she had worsening ankle pain, worsening redness, fever, or any other acute concerns she could also return to the emergency department for re-evaluation. /[id number]/MODL MTDD
== END 2017-11-06 13:50 | disposition home or self-care (01) | DRG 638 ==
LOC: F3E 17:39 → OBSVTOIN 11-02 18:54
PROVIDERS: ADMIT Internal Medicine; ATTEND Internal Medicine
DX: E11.628 Type 2 diabetes mellitus with other skin complications (principal); L03.115 Cellulitis of right lower limb; J96.11 Chronic respiratory failure with hypoxia; F11.20 Opioid dependence, uncomplicated; E87.1 Hypo-osmolality and hyponatremia; J44.9 Chronic obstructive pulmonary disease, unspecified; G89.4 Chronic pain syndrome; N18.3 Chronic kidney disease, stage 3 (moderate); Z87.891 Personal history of nicotine dependence; Z96.653 Presence of artificial knee joint, bilateral; N17.9 Acute kidney failure, unspecified; D64.9 Anemia, unspecified
CPT/HCPCS: 82607-90; 96365; 97116-GP; 97161-GP; 97166-GO; 97530-GO; 97530-GP; 97535-GO; A9585; G0378; G8978-GP-CJ; G8979-GP-CI; G8980-GP-CI; G8987-GO-CI; G8987-GO-CK; G8988-GO-CI; G8989-GO-CI; J1170; J1815; J2543; J3370; J7512

== ENCOUNTER 2018-01-06 12:07 | Day surgery (SDC) | payer OTHER ==
--- NOTE | 2018-01-04 13:57 | GHP ---
CURRENT COMPLAINTS: Right thumb pain. HISTORY OF PRESENT ILLNESS: The patient is a 67-year-old female with a several year history of right thumb pain worsening with the use of her thumb. Despite multiple conservative measures, she wishes to have surgery now to resolve the problem. ALLERGIES: She has no drug allergies. CURRENT MEDICATION: Include Advair, amitriptyline, Anoro Ellipta, baclofen, citalopram, clobetasol. Clotrimazole, duloxetine, enoxaparin, furosemide, glipizide, ipratropium with albuterol, Lantus, lisinopril, meclizine, metformin , metolazone, misoprostol, pantoprazole, ProAir, promethazine, tramadol. PAST MEDICAL HISTORY: Prior medical problems include arthritis, asthma, diabetes, heart murmur, kidney disease, COPD. PAST SURGICAL HISTORY: Prior surgery includes total knee replacements x2, spinal fusion, section, carpal tunnel x2 and a hernia repair. SOCIAL HISTORY: She is a former smoker. Does not drink alcohol. PHYSICAL EXAMINATION: HEENT: The patient's pupils are equal, round, and reactive to light. CHEST: Clear to auscultation. HEART: Regular rate and rhythm. ABDOMEN: Soft and nontender. EXTREMITIES: She is tender at the right thumb CMC joint with a positive grind and shuck test. X-ray exam reveals osteoarthritic changes. She wishes to have surgery in order to resolve the problem. ASSESSMENT AND PLAN: Patient is status post right thumb carpometacarpal joint osteoarthritis. PLAN: To take her to the operating room to undergo a right thumb LRTI. /[id number]/MODL MTDD
[2018-01-06] MEDS ORDERED: ACETAMINOPHEN 500 MG TAB PO ONE (12:22)
[2018-01-06] MEDS ORDERED: LR 1,000 ML IV SCH (12:22)
[2018-01-06] MEDS ORDERED: ceFAZolin 2 GM/DEXTROSE 100 ML IV ONE (12:22)
[2018-01-06] MEDS ORDERED: LR 1,000 ML IV ONE (12:44)
[2018-01-06] MEDS ORDERED: LIDOCAINE 1% 2 ML INJ ID PRN (12:44)
[2018-01-06] MEDS ORDERED: BUPIVACAINE/EPI 0.5% 30 ML SDV ONE (13:36)
[2018-01-06] MEDS ORDERED: LIDOCAINE 2% 100 MG/5 ML SYR ONE (13:37)
[2018-01-06] MEDS ORDERED: PROPOFOL/EMULSION 500 MG/50 ML BOTTLE IV ONE (13:38)
[2018-01-06] MEDS ORDERED: fentaNYL 100 MCG/2 ML INJ ONE ×3 (13:38→16:10)
[2018-01-06] MEDS ORDERED: MIDAZOLAM 2 MG/2 ML VIAL ONE (13:38)
[2018-01-06] MEDS ORDERED: MIDAZOLAM 2 MG/2 ML VIAL IVP ONE (13:41)
--- NOTE | 2018-01-06 13:44 | PDANEPAE ---
ANE Past Medical History - Cardiovascular History Hx Hypertension: No Hx Arrhythmias: No Hx Chest Pain: No Hx Coronary Artery / Peripheral Vascular Disease: No Hx CHF / Valvular Disease: No Hx Palpitations: No Cardiovascular History Comment: on lisinopril for kidneys; - Pulmonary History Hx COPD: Yes Hx Asthma/Reactive Airway Disease: Yes Hx Recent Upper Respiratory Infection: No Hx Oxygen in Use at Home: Yes O2 in Use at Home (L/minute): 2-4 Hx Sleep Apnea: No Sleep Apnea Screening Result - Last Documented: Negative Pulmonary History Comment: COPD. asthma. pneumonia 2013 - Neurologic History Hx Cerebrovascular Accident: No Hx Seizures: No Hx Dementia: No - Endocrine History Hx Diabetes: Yes Endocrine History Comment: NIDDM - Renal History Hx Renal Disorders: Yes Renal History Comment: insufficiency. DR MEJIA [phone] - Liver History Hx Hepatic Disorders: No Hepatic History Comment: liver problems - Neurological & Psychiatric Hx Hx Neurological and Psychiatric Disorders: Yes Neurological / Psychiatric History Comment: back pain;radiates down sciatic nerve R leg/less down L leg at night. - Cancer History Hx Cancer: No - Congenital Disorder History Hx Congenital Disorders: No - GI History Hx Gastrointestinal Disorders: Yes Gastrointestinal History Comment: HX OF BLEEDING ULCER. cholelithiasis/N andV 6-17;. abd hernia. - Other Health History Other Health History: CHRONIC ANEMIA. RT FOOT CELLULITIS 11/02/17. RECENTLY OUT OF WALKING BOOT. LOWER EXT EDEMA. bruises easily. - Chronic Pain History Chronic Pain: Yes (KRYSTAL LEGS,SCIATICA) - Surgical History Prior Surgeries: KRYSTAL TOTAL KNEE. LUMBAR FUSION. LUMBAR LAMINECTOMY. R knee scope,. bilat carpal tunnels ANE Review of Systems Review of Systems: - Exercise capacity METS (RN): 3 METS ANE Patient History - Allergies Allergies/Adverse Reactions: No Known Allergies Allergy (Verified 11/01/17 15:19) - Home Medications Home medications: home medication list seen and reviewed Home Medications: Albuterol Sulfate [Proair Hfa] 1 - 2 gm IH Q4H PRN 10/29/16 [Last Taken 12:30] Cholecalciferol Vit D3 [Vitamin D3 (*)] 1,000 units PO DAILY 10/29/16 [Last Taken 01/05/18 12:00] DULoxetine [Cymbalta 60 MG (*)] 60 mg PO DAILY 10/29/16 [Last Taken 01/06/18 10: 00] Ipratropium/Albuterol [Duoneb (*)] 3 ml IH QID PRN 10/29/16 [Last Taken 01/04/18 ] Lisinopril [Zestril 2.5 mg (*)] 2.5 mg PO DAILY 10/29/16 [Last Taken 01/06/18 10 :00] Multivitamins [Multivitamin (*)] 1 each PO DAILY 10/29/16 [Last Taken 01/05/18 12:00] Potassium Cl [Klor-Con 20 meq (*)] 10 meq PO HS 10/29/16 [Last Taken 01/05/18 11 :59] glipiZIDE [Glucotrol] 10 mg PO DAILY@12 10/29/16 [Last Taken 01/05/18 12:00] Melatonin [Melatonin 3 MG (*)] 3 mg PO HS PRN 05/13/17 [Last Taken 12/17/17] Acetaminophen [Tylenol ES 500 mg (*)] 500 - 1,000 mg PO Q6 PRN MDD TAKES WITH TRAMADOL AND OXY 05/26/17 [Last Taken 1 Week Ago ~12/30/17] Cetirizine [ZyrTEC 10 mg (*)] 10 mg PO DAILY 11/01/17 [Last Taken 01/06/18 10:00 ] Furosemide [Lasix 40 MG (*)] 40 mg PO TIDMEAL 11/01/17 [Last Taken 01/06/18 12: 00] Metformin HCl [Metformin 1000 mg] 1,000 mg PO BIDMEAL 11/01/17 [Last Taken 01/05 23:00] traMADol [Ultram 50 mg (*)] 50 - 100 mg PO Q6HRS PRN 11/01/17 [Last Taken 23:00] - NPO status NPO Status: no food or drink >8 hours NPO Since - Liquids (Date): 01/06/18 NPO Since - Liquids (Time): 10:30 NPO Since - Solids (Date): 01/05/18 NPO Since - Solids (Time): 19:00 - Anes Hx Anes Hx: no prior problems - Smoking Hx Smoking Status: Former smoker ANE Labs/Vital Signs - Vital Signs Blood Pressure: 138/82 Heart Rate: 98 Respiratory Rate: 18 O2 Sat (%): 99 Height: 147.32 cm Weight: 82.554 kg ANE Physical Exam - Airway Mallampati Score: Class 2 Mouth exam: normal dental/mouth exam - Pulmonary Pulmonary: no respiratory distress, reduced air movement - Cardiovascular Cardiovascular: regular rate and rhythym, no murmur, rub, or gallop - ASA Status ASA Status: III ANE Anesthesia Plan Anesthesia Plan: MAC (With Axillary nerve block; GA also discussed and consented.)
[2018-01-06] MEDS ORDERED: LIDOCAINE 2% 2 ML INJ ONE (13:47)
[2018-01-06] MEDS ORDERED: POLYMYXIN B SULFATE 500,000 UNIT/10 ML SYR IRR ONE (13:51)
[2018-01-06] MEDS ORDERED: BACITRACIN 50,000 UNITS/10 ML SYR IRR ONE (13:51)
[2018-01-06] MEDS ORDERED: ONDANSETRON 4 MG/2 ML VIAL IVP PRN (14:59)
[2018-01-06] MEDS ORDERED: PROMETHAZINE HCL 25 MG/ML INJ IVP PRN (14:59)
[2018-01-06] MEDS ORDERED: LR 500 ML IV PRN (14:59)
[2018-01-06] MEDS ORDERED: oxyCODONE IR 5 MG TAB PO PRN (14:59)
[2018-01-06] MEDS ORDERED: HYDROCODONE/APAP 5/325 TAB PO PRN (14:59)
[2018-01-06] MEDS ORDERED: NALOXONE HCL 0.4 MG/ML INJ IVP PRN (14:59)
[2018-01-06] MEDS ORDERED: ACETAMINOPHEN 500 MG TAB PO PRN (14:59)
[2018-01-06] MEDS: BUPIVACAINE 0.5% 30 ML SDV ONE ×2 (15:08→16:04)
[2018-01-06] MEDS ORDERED: KETOROLAC 15 MG/1 ML SDV IVP ONE (15:56)
--- NOTE | 2018-01-06 15:56 | POSTOPPROG ---
Post Op Note Date of Operation: 01/06/18 Surgeon: Becca Mclaughlin Anesthesia: LMA, Other (Specify) Pre-op Diagnosis: r thumb oa Procedure: r thumb LRTI Inf/Abcess present in the surg proc area at time of surgery?: No Depth: Deep Incisional (Fascial) EBL: 50-100
--- NOTE | 2018-01-06 16:06 | POSTANESTH ---
Post Anesthetic Evaluation Cardiovascular Status: Normal, Stable, Similar to Pre-Op Cond Respiratory Status: Similar to Pre-op Cond. Level of Consciousness/Mental Status: Can Participate in Eval, Moderately Sleepy Pain Control: Adequate, Prn Tx Ordered Nausea/Vomiting Control: Adequate, Prn Tx Ordered Complications Possibly Related to Anesthesia: None Noted
[2018-01-06] MEDS ORDERED: KETOROLAC 15 MG/1 ML SDV ONE (16:10)
[2018-01-06] MEDS: fentaNYL 100 MCG/2 ML INJ IVP PRN ×3 (16:13→16:50)
[2018-01-06] MEDS ORDERED: oxyCODONE IR 5 MG TAB ONE (17:16)
[2018-01-06 18:21] VITALS: BP 88/47
--- NOTE | 2018-01-06 19:45 | GOP ---
DATE OF OPERATION: 01/06/2018 SURGEON: Becca Mclaughlin MD ANESTHESIA: Axillary nerve block plus LMA. PREOPERATIVE DIAGNOSIS: Right thumb carpometacarpal osteoarthritis with cystic formation. POSTOPERATIVE DIAGNOSIS: Right thumb carpometacarpal osteoarthritis with cystic formation. PROCEDURE PERFORMED: Right carpometacarpal arthroplasty using tendon interposition graft. FINDINGS: INDICATIONS: This is a 67-year-old female with a several year history of right hand and thumb pain w orsening with use and with time. X-ray exam has revealed [id number] osteoarthritic changes to the CMC joint. She is tender at the CMC joint. She would like surgery in order to resolve the problem. DESCRIPTION OF PROCEDURE: The patient brought to the operating room after the right side had been id entified as the correct side by the patient, nurse and physician. Once in the operating room she was given an axillary nerve block. She was then placed under general anesthesia using an LMA. She had a tourniquet placed around the upper portion of the right forearm, with the right upper extremity then sterilely prepped and draped in usual fashion using GSI solution. Once prepped and draped, the limb was exsanguinated, tourniquet inflated to 250 mmHg. A curvilinear incision was carried along the th umb metacarpal just dorsal to the thenar musculature with sharp dissection carried down through the s kin and subcutaneous layers. Bleeding controlled using electrocautery. The fascia overlying the then ar eminence was incised with the muscle peeled off the metacarpal gaining exposure to the CMC joint. Oscillating saw was used to cut perpendicular to the shaft of the metacarpal and remove approximatel y 4 mm of bone removing much of the osteophytic spurring associated with the metacarpal. This will g ain further access to the trapezium which was able to be removed in its entirety using combination of rongeur and [place] elevator. Once completed, attention was turned to the flexor carpi radialis. Thr ee small incisions were made along the course of the flexor carpi radialis into the forearm with sandra p dissection carried down through skin, blunt dissection to the subcutaneous layers, identifying the tendinous portion of the FCR below. The FCR was released proximally and then pulled through each of the successive other 2 incisions, and then finally pulled into the hand at the base of the index fing er metacarpal. A drill hole was made perpendicular to the fingernail at the dorsal portion of the abdirashid mb metacarpal with the FCR tendon brought through the medullary canal exiting the dorsal portion of t he thumb. It was then curled back onto itself. #2 FiberWire was used to sew the tendon to itself cre ating a tendon sling holding the thumb in place. The remainder of the tendon was then woven into an "anchovy" that was placed within the empty space created by the trapezium and sutured in placed in th e basal capsule of the empty space. This was then sewn over the top of the anchovy to hold it into p lace and a capsular reconstruction was done in order to hold the graft in place. Once completed, the fascial layers were closed using 0 Vicryl suture with 2-0 Vicryl suture used for the subcutaneous la yers and a 3-0 Prolene suture used in a running subcuticular stitch for the skin. All wounds were th en dressed with Steri-Strips, Xeroform, 4 x 4's, and wrapped in Webril. Tourniquet was released at 7 0 minutes. The arm was completely undraped in the operating room, tourniquet removed from the arm an d a thumb spica splint was put into place and then wrapped in an Abner wrap. She was then woken up, ex tubated, transferred onto a stretcher, and sent to recovery room in good condition. TOURNIQUET TIME: 70 minutes. /[id number]/MODL
== END 2018-01-06 18:19 | disposition home or self-care (01) ==
LOC: FSGY 12:07
PROVIDERS: ATTEND Orthopaedic Surgery
PROC: 0LX50ZZ Transfer Right Lower Arm and Wrist Tendon, Open Approach (ICD-10-PCS; principal; 2018-01-06 14:00)
PROC: 0RQS0ZZ Repair Right Carpometacarpal Joint, Open Approach (ICD-10-PCS; principal; 2018-01-06 14:00)
DX: M19.041 Primary osteoarthritis, right hand (principal); D64.9 Anemia, unspecified; J44.9 Chronic obstructive pulmonary disease, unspecified; E11.9 Type 2 diabetes mellitus without complications; I10 Essential (primary) hypertension; K43.9 Ventral hernia without obstruction or gangrene; Z91.81 History of falling; Z96.653 Presence of artificial knee joint, bilateral; Z87.891 Personal history of nicotine dependence; Z99.81 Dependence on supplemental oxygen
CPT/HCPCS: J0690; J1885; J2001; J2250; J2270; J2704; J3010

== ENCOUNTER 2018-01-11 18:55 | Emergency (ER) | payer OTHER ==
[2018-01-11 19:21] VITALS: BP 142/80
--- NOTE | 2018-01-11 19:21 | EDPHY ---
H & P Time Seen by Provider: 01/11/18 19:07 HPI/ROS: 67-year-old female presents complaining of"she got her cast wet". Patient had removal of a cyst from her wrist last week, she has a splint on her arm and is due to have a more permanent cast placed later this week. She was advised to not get this wet but accidentally took a shower today. Review of systems As per HPI General no fever no chills no weakness HEENT no eye pain no eye discharge. No eye redness, no sore throat Respiratory no cough, no shortness of breath Cardiac no chest pain, no peripheral edema GI no abdominal pain, no diarrhea, no constipation, no nausea, no vomiting no flank pain, no hematuria, no dysuria Musculoskeletal no myalgias, no joint pain Heme no easy bruising, no easy bleeding Endo no polyuria, no polydipsia Skin no rashes, no pruritus Neuro no syncope, no dizziness, no headaches Psych is no suicidal ideation, no homicidal ideation Past Medical/Surgical History: COPD Depression Arthritis Hypertension Social History: Non contributory Smoking Status: Former smoker Physical Exam: 67-year-old female alert and oriented no acute distress nontoxic appearance afebrile Atraumatic normocephalic No respiratory distress Gait intact Right forearm with splint, slightly damp Fingers with good capillary refill Constitutional: Initial Vital Signs Temperature (C) 36.6 C 01/11/18 19:13 Heart Rate 92 01/11/18 19:13 Respiratory Rate 20 01/11/18 19:13 Blood Pressure 142/80 H 01/11/18 19:13 O2 Sat (%) 96 01/11/18 19:13 O2 Delivery Mode Nasal Cannula O2 (L/minute) 4 Allergies/Adverse Reactions: No Known Allergies Allergy (Verified 01/11/18 19:09) Home Medications: Medication Instructions Recorded Albuterol Sulfate [Proair Hfa] 1 - 2 gm IH Q4H PRN 10/29/16 Cholecalciferol Vit D3 [Vitamin D3 1,000 units PO DAILY 10/29/16 (*)] DULoxetine [Cymbalta 60 MG (*)] 60 mg PO DAILY 10/29/16 Ipratropium/Albuterol [Duoneb (*)] 3 ml IH QID PRN 10/29/16 Lisinopril [Zestril 2.5 mg (*)] 2.5 mg PO DAILY 10/29/16 Multivitamins [Multivitamin (*)] 1 each PO DAILY 10/29/16 Potassium Cl [Klor-Con 20 meq (*)] 10 meq PO HS 10/29/16 glipiZIDE [Glucotrol] 10 mg PO DAILY@12 10/29/16 Melatonin [Melatonin 3 MG (*)] 3 mg PO HS PRN 05/13/17 oxyCODONE IR [Oxycodone Ir (*)] 5 - 10 mg PO Q3HRS PRN tab 05/15/17 Acetaminophen [Tylenol ES 500 mg 500 - 1,000 mg PO Q6 PRN MDD TAKES 05/26/17 (*)] WITH TRAMADOL AND OXY Cetirizine [ZyrTEC 10 mg (*)] 10 mg PO DAILY 11/01/17 Furosemide [Lasix 40 MG (*)] 40 mg PO TIDMEAL 11/01/17 Metformin HCl [Metformin 1000 mg] 1,000 mg PO BIDMEAL 11/01/17 traMADol [Ultram 50 mg (*)] 50 - 100 mg PO Q6HRS PRN 11/01/17 Medical Decision Making ED Course/Re-evaluation: Patient here for wet cast/splint Splint removed and replaced Patient discharged Differential Diagnosis: Differential diagnosis considered but not limited to Wet splint Departure - Departure Disposition: Home, Routine, Self-Care Clinical Impression: Cast removal Condition: Good Instructions: Cast Care (ED) Referrals: Julius Lynch DO [Primary Care Provider] - As per Instructions
== END 2018-01-11 19:40 | disposition home or self-care (01) ==
LOC: CED 18:55
PROC: 2W3CX1Z Immobilization of Right Lower Arm using Splint (ICD-10-PCS; principal; 2018-01-11)
DX: Z46.89 Encounter for fitting and adjustment of other specified devices (principal); Z87.891 Personal history of nicotine dependence

== ENCOUNTER 2018-03-09 10:53 | Emergency (ER) | payer OTHER ==
[2018-03-09] MEDS ORDERED: LET GEL TOPICAL 1 EA SYR TP ONE (11:08)
--- NOTE | 2018-03-09 11:15 | EDPHY ---
H & P Time Seen by Provider: 03/09/18 11:00 HPI/ROS: A 30 this morning, 90 min prior to arrival this patient had a mechanical fall when she tripped with her walker boot on a rug in her home and struck her head against a wooden cabinet furniture. She was dazed from the incident but had no LOC. She had a mild headache associated with this after the head injury and took Tylenol for with resolution of her headache prior to arrival. She sustained a laceration from the incident with bleeding that stopped with direct pressure prior to arrival. Her daughter brought her in by private vehicle for evaluation. She denies any other injuries from the incident. ROS: Constitutional: She felt in her usual state of health prior to the fall. Neuro: Again no headache at this time. No focal numbness tingling weakness. No visual changes. No confusion. No amnesia HEENT: No nasal injury or mouth injury or other complaints Musculoskeletal: No midline neck or back pain. No extremity injuries from the fall. Pulmonary: No chest wall pain or shortness of breath Cardiovascular: No chest pain or heart palpitations. GI: No nausea or vomiting 7 point review of symptoms is performed and otherwise negative with exception of pertinent positives and negatives listed in HPI and ROS Past Medical/Surgical History: COPD on home O2 Smoking Status: Former smoker Physical Exam: Physical exam: Vital signs are normal General: Patient is in no acute distress. HEENT: The patient has a 3 cm full-thickness laceration to the left forehead with mild bleeding. The frontalis muscles also lacerated exposing bone. No foreign bodies are appreciated on direct examination of the wound. There is mild active bleeding. There is ecchymosis inferior to this the supraorbital region without bony step-off or crepitance. Nose atraumatic. Ears: Clear bilaterally with no hemotympanum. Oropharynx: No dental trauma or malocclusion. No intraoral lacerations. Eyes: Pupils are equal and reactive to light. Extraocular motions are intact. Optic fundi: Clear with no papilledema or hemorrhage. Neck: Trachea is midline with no stridor. The patient has no midline neck tenderness and retains a full range of motion without increase in pain. Lungs: Clear to auscultation bilaterally Cardiac: Regular rate and rhythm no murmur gallop or rub. Chest: Nontender. Abdomen: Soft nontender no organomegaly Back: Nontender Extremities: Atraumatic Neuro: GCS of 15. Cranial nerves II through XII intact. 3 out of 3 five- minute memory is intact. Cerebellar exam is normal as judged by symmetric rapid hand movements bilaterally. No pronator drift. No sensory or motor deficits are appreciated. Initial differential diagnosis: Concussion with laceration, doubt subdural hemorrhage or other intracranial injury. Constitutional: Initial Vital Signs Temperature (C) 36.7 C 03/09/18 11:01 Heart Rate 103 H 03/09/18 11:01 Respiratory Rate 22 H 03/09/18 11:01 Blood Pressure 134/87 H 03/09/18 11:01 O2 Sat (%) 98 03/09/18 11:01 O2 Delivery Mode Nasal Cannula O2 (L/minute) 3 Allergies/Adverse Reactions: No Known Allergies Allergy (Verified 03/09/18 11:01) Home Medications: Medication Instructions Recorded Albuterol Sulfate [Proair Hfa] 1 - 2 gm IH Q4H PRN 10/29/16 Cholecalciferol Vit D3 [Vitamin D3 1,000 units PO DAILY 10/29/16 (*)] DULoxetine [Cymbalta 60 MG (*)] 60 mg PO DAILY 10/29/16 Ipratropium/Albuterol [Duoneb (*)] 3 ml IH QID PRN 10/29/16 Lisinopril [Zestril 2.5 mg (*)] 2.5 mg PO DAILY 10/29/16 Multivitamins [Multivitamin (*)] 1 each PO DAILY 10/29/16 Potassium Cl [Klor-Con 20 meq (*)] 10 meq PO HS 10/29/16 glipiZIDE [Glucotrol] 10 mg PO DAILY@12 10/29/16 Melatonin [Melatonin 3 MG (*)] 3 mg PO HS PRN 05/13/17 oxyCODONE IR [Oxycodone Ir (*)] 5 - 10 mg PO Q3HRS PRN tab 05/15/17 Acetaminophen [Tylenol ES 500 mg 500 - 1,000 mg PO Q6 PRN MDD TAKES 05/26/17 (*)] WITH TRAMADOL AND OXY Cetirizine [ZyrTEC 10 mg (*)] 10 mg PO DAILY 11/01/17 Furosemide [Lasix 40 MG (*)] 40 mg PO TIDMEAL 11/01/17 Metformin HCl [Metformin 1000 mg] 1,000 mg PO BIDMEAL 11/01/17 traMADol [Ultram 50 mg (*)] 50 - 100 mg PO Q6HRS PRN 11/01/17 MDM/Departure - MDM Procedures: The wound is 3 cm linear full-thickness through the frontalis muscle to the bone. The wound was copiously irrigated with saline. The wound was explored for foreign bodies and none were found. The wound was prepped and draped in the normal sterile fashion. The wound was anesthetized using 1% plain lidocaine mixed 50 50 with 0.5% Marcaine, 8 mL using 27 gauge needle with good effect. A placed 2 deep sutures using 4 0 Vicryl to approximate the frontalis muscle. The skin edges were reapproximated using 5 0 Prolene -12 running sutures with good hemostasis and cosmesis. The patient tolerated the procedure well. There were no complications. Dressing was then placed by our tech. We counseled regarding wound care. Medications Given: Discontinued Medications Tetracaine/Epinephrine/Lidocaine (Let Gel Topical) 1 ea TP EDNOW ONE Stop: 03/09/18 11:09 Last Admin: 03/09/18 11:13 Dose: 1 ea ED Course/Re-evaluation: Discussion: Patient with mechanical fall and concussion without LOC without red flag findings that would suggest intracranial bleed, bony fracture or other red flag findings. She has no headache here after Tylenol at home and reassuring neuro exam. Explain to the daughter and the patient there is no current indications for CT imaging based on history and exam. However the understand the need to return emergency department should she develop unbearable headache, confusion, vomiting more than once or other concerns. - Depart Disposition: Home, Routine, Self-Care Clinical Impression: Concussion Qualifiers: Encounter type: initial encounter Loss of consciousness presence/duration: without LOC Qualified Code(s): S06.0X0A - Concussion without loss of consciousness, initial encounter Forehead laceration Qualifiers: Encounter type: initial encounter Qualified Code(s): S01.81XA - Laceration without foreign body of other part of head, initial encounter Condition: Good Instructions: Concussion (ED), Facial Laceration (ED) Additional Instructions: Diagnosis: Concussion without LOC 2. Forehead laceration Plan: Tylenol for headaches if needed Keep the wound clean and dry for the next 2 days then clean daily with warm soapy water Return for suture removal in 5-7 days. Return sooner for redness, discharge or any other concerns for infection Avoid activities but she risk for another head injury until 7 days after your current symptoms resolved. Also return emergency department if he developed unbearable headache despite Tylenol, onset of confusion, vomiting more than once or other concerns. Referrals: Julius Lynch, [Primary Care Provider] - As per Instructions
[2018-03-09 12:32] VITALS: BP 114/69
== END 2018-03-09 12:44 | disposition home or self-care (01) ==
LOC: CED 10:53
PROC: 0JQ03ZZ Repair Scalp Subcutaneous Tissue and Fascia, Percutaneous Approach (ICD-10-PCS; principal; 2018-03-09)
DX: S01.81XA Laceration without foreign body of other part of head, initial encounter (principal); S06.0X0A Concussion without loss of consciousness, initial encounter; J44.9 Chronic obstructive pulmonary disease, unspecified; Z99.81 Dependence on supplemental oxygen; W01.0XXA Fall on same level from slipping, tripping and stumbling without subsequent striking against object, initial encounter; Y92.009 Unspecified place in unspecified non-institutional (private) residence as the place of occurrence of the external cause; Z87.891 Personal history of nicotine dependence

== ENCOUNTER → 2018-03-16 | Outpatient (CLI) | payer OTHER | LOC: CIMAGING 13:30 | PROVIDERS: ATTEND Family Medicine | DX: S01.90XA Unspecified open wound of unspecified part of head, initial encounter (principal); R41.0 Disorientation, unspecified; R44.3 Hallucinations, unspecified; W19.XXXA Unspecified fall, initial encounter | CPT/HCPCS: 70450-PO ==

== ENCOUNTER → 2018-07-28 | Outpatient (CLI) | payer OTHER | LOC: FIMAGING 09:56 | PROVIDERS: ATTEND Orthopaedic Surgery | DX: M67.431 Ganglion, right wrist (principal) ==

== ENCOUNTER 2018-08-06 08:22 | Inpatient (IN) | payer OTHER ==
[2018-08-06] MEDS ORDERED: IPRATROPIUM/ALBUTEROL 3 ML DEYVIAL ONE (08:29)
[2018-08-06] MEDS ORDERED: ALBUTEROL 3 ML DEYVIAL ONE ×2 (08:29→08:36)
[2018-08-06] MEDS ORDERED: ALBUTEROL 3 ML DEYVIAL IH ONE ×3 (08:35→11:25)
[2018-08-06] MEDS ORDERED: IPRATROPIUM/ALBUTEROL 3 ML DEYVIAL IH PRN (08:35)
[2018-08-06] MEDS ORDERED: methylPREDNISolone SOD SUCC 125 MG/2 ML VIAL IVP ONE (08:52)
[2018-08-06] MEDS ORDERED: NS 500 ML IV ONE (08:52)
[2018-08-06] MEDS ORDERED: NS 2,700 ML IV ONE (08:58)
--- NOTE | 2018-08-06 09:00 | EDPHY ---
H & P Stated Complaint: resp distress today feeling bad since Friday with breathing .W[facility]SON Time Seen by Provider: 08/06/18 08:36 HPI/ROS: CHIEF COMPLAINT: Severe shortness of breath HISTORY OF PRESENT ILLNESS: 68-year-old female with history of COPD, and diabetes presents reporting worsening dyspnea for the last 4 days with significant shortness of breath starting yesterday. Patient describes being unable to walk across her house from room to room without severe shortness of breath. She is O2 dependent at 2-3 L and has been so since 2013. Reports low- grade fevers with a temperature max of 100.8. Describes significant cough with colored sputum on occasion. Further history limited secondary to patient's clinical condition. Denies any chest pain. Denies vomiting or diarrhea. Denies urinary complaints , headache, or lightheadedness. Reports she had taken an influenza vaccination this season but developed what she thought was the flu despite immunization. Denies history of DVTs or PEs. REVIEW OF SYSTEMS: A comprehensive 10 system review of systems was reviewed and is otherwise negative aside from elements mentioned in the history of present illness and medical decision making. PAST MEDICAL HISTORY: COPD, diabetes, questionable history of "excessive fluid ". Patient does take Lasix 80 mg twice daily. She tells me she has not been diagnosed with congestive heart failure. Echocardiogram from 2018 demonstrates an ejection fraction of 65%. SOCIAL HISTORY: Here with her . Former smoker, quit 10 years ago. No recent travel. VITAL SIGNS Reviewed by me. O2 sat 100% on 4 L. Visibly tachypneic. Audible wheezing. Afebrile. Heart rate 92. GENERAL: Well-developed, well-nourished, 4-5 word sentences. Receiving a neb treatment immediately on arrival. HEENT: Atraumatic. Eyes: No icterus, no injection. Mouth: moist mucous membranes. No erythema or lesions. Neck: supple with no adenopathy. LUNGS: Prolonged expiratory phase, diffuse wheezes, diffuse rhonchi. CARDIAC: Regular rate and rhythm. No rubs murmurs or gallops auscultated, difficult to auscultate over the pulmonary wheezing. ABDOMEN: Somewhat obese, nontender, nondistended. BACK: No CVA tenderness. EXTREMITIES: No trauma. No edema. Range of motion is normal throughout. NEURO: Alert and oriented, grossly nonfocal. SKIN: Warm and dry, no rash. PSYCHIATRIC: Normal mentation, no agitation. - Personal History Tetanus Vaccine Date: WITHIN 10 YEARS - Medical/Surgical History Hx Asthma: Yes Hx Chronic Respiratory Disease: Yes Hx Diabetes: Yes Hx Cardiac Disease: Yes Hx Renal Disease: Yes Hx Cirrhosis: No Hx Alcoholism: No Hx HIV/AIDS: No Hx Splenectomy or Spleen Trauma: No Other PMH: DM2, COPD, asthma, spine surgery, knee replacement KRYSTAL, c-seation, carpal tunnelx2, kidney issue, appy, UMBILICAL HERNIA, MULTIPLE BLOOD TRANSFUSION, SEPSIS (staph), SPINAL FUSION. - Social History Smoking Status: Former smoker Constitutional: Initial Vital Signs Temperature (C) 37.5 C 08/06/18 08:25 Heart Rate 92 08/06/18 08:25 Respiratory Rate 20 08/06/18 08:25 Blood Pressure 123/74 H 08/06/18 08:25 O2 Sat (%) 100 08/06/18 08:25 O2 Delivery Mode Nasal Cannula O2 (L/minute) 3 Allergies/Adverse Reactions: No Known Allergies Allergy (Verified 08/06/18 08:31) Home Medications: Medication Instructions Recorded Albuterol Sulfate [Proair Hfa] 1 - 2 gm IH Q4H PRN 10/29/16 Cholecalciferol Vit D3 [Vitamin D3 1,000 units PO DAILY 10/29/16 (*)] DULoxetine [Cymbalta 60 MG (*)] 60 mg PO DAILY 10/29/16 Ipratropium/Albuterol [Duoneb (*)] 3 ml IH QID PRN 10/29/16 Lisinopril [Zestril 2.5 mg (*)] 2.5 mg PO DAILY 10/29/16 Multivitamins [Multivitamin (*)] 1 each PO DAILY 10/29/16 Potassium Cl [Klor-Con 20 meq (*)] 10 meq PO HS 10/29/16 glipiZIDE [Glucotrol] 10 mg PO DAILY@12 10/29/16 Melatonin [Melatonin 3 MG (*)] 3 mg PO HS PRN 05/13/17 oxyCODONE IR [Oxycodone Ir (*)] 5 - 10 mg PO Q3HRS PRN tab 05/15/17 Acetaminophen [Tylenol ES 500 mg 500 - 1,000 mg PO Q6 PRN MDD TAKES 05/26/17 (*)] WITH TRAMADOL AND OXY Cetirizine [ZyrTEC 10 mg (*)] 10 mg PO DAILY 11/01/17 Furosemide [Lasix 40 MG (*)] 40 mg PO TIDMEAL 11/01/17 Metformin HCl [Metformin 1000 mg] 1,000 mg PO BIDMEAL 11/01/17 traMADol [Ultram 50 mg (*)] 50 - 100 mg PO Q6HRS PRN 11/01/17 Medical Decision Making - Diagnostics EKG Interpretation: 12-LEAD EKG: Please see the full report in [facility]. My interpretation: Sinus rhythm no ischemic changes noted Imaging Results: Imaging Impressions Chest X-Ray 08/06/18 08:51 Impression: Cardiomegaly with chronic congestive heart failure. Xray: Chest x-ray was obtained. I viewed the images myself on the PACS system. My interpretation of the images is: Cardiomegaly, no infiltrate. The radiology interpretation is: Pending at this time. I discussed the results with the patient. Imaging: I viewed and interpreted images myself ED Course/Re-evaluation: DuoNeb and albuterol neb administered immediately on arrival. Solu-Medrol 125 mg given. Initial labs demonstrate a lactic acid of 2.5. Discussed with the patient the questionable history of congestive heart failure. She tells me that 1 physician told she had fluid in her lungs and was placed on Lasix. Dr. Martini has told her that she does not have congestive heart failure. Echocardiogram as mentioned previously demonstrates injection fraction of 65%. At this time will provide 30 cc/kilos normal saline over 6 hr as opposed to a bolus. Troponin 0.01 Severe Sepsis/Septic Shock Care Note The patient presents to the ED with pneumonia identified as an acute infection. The patient did have evidence of end-organ dysfunction and met criteria for severe sepsis. This condition was identified by myself at 9:00 a.m.. The patients vital signs are 123/74, 92, 24, 100% on 4 L, 37.5. The patient has a the venous lactic acid performed within 3 hours of the identification of severe sepsis which was found to be 2.5. The patient has blood cultures drawn and received levofloxacin IV, per the severe sepsis treatment protocol. The initial lactate was elevated and rechecked within 6 hours of the identification time of severe sepsis and found to be: 3.5 after 900 cc of fluid. Chest x-ray: No infiltrate, cardiomegaly with signs of chronic congestive heart failure. 9:40 a.m.: Patient is resting more comfortably following her neb treatment, but still has audible wheezes and appears tachypneic. At this point respiratory pathogen panel, and BNP are pending. They both will need to be resulted at [facility]. Believe patient will need to be admitted to the hospital for treatment of her shortness of breath. Course discussed with the hospitalist service. Per the sepsis protocol, the patient should receive a significant amount of IV fluid. However, given her chest x-ray and history possible congestive heart failure/takes Lasix on a daily basis, fluids have been capped at 450 cc/hour, for a bolus over 6 hr. Will stop the IV fluids if patient has further confirmatory evidence for congestive heart failure. 11:15 a.m.: Patient is BNP results at 848. Patient has received about 800 cc of normal saline. Repeat lactic acid was ordered and is 3.5. Discussed with Dr. Thornton, the admitting physician. Patient has just left to be transferred to [facility] via EMS. Differential Diagnosis: Differential diagnosis for the patient's shortness of breath was considered including but not limited to pulmonary infectious processes, COPD exacerbation, pulmonary emboli, pulmonary edema, congestive heart failure, and cardiac causes. Consult/Admit Bed Type: Dr. Thornton, U - Data Points Laboratory Results: 08/06/18 08/06/18 08/06/18 08:52 08:51 08:51 PT INR APTT POC Sodium 143 mEq/L mEq/L (135-145) POC Potassium 4.0 mEq/L mEq/L (3.3-5.0) POC Chloride 102.0 mEq/L mEq/L (97-110) POC Total CO2 28 mEq/L mEq/L (22-31) POC BUN 17 mg/dL mg/dL (7-23) POC Creatinine 0.8 mg/dL mg/dL (0.6-1.0) POC Glucose 196 mg/dL H mg/dL (70-100) POC Lactic Acid Eugenio 2.5 mmol/L H mmol/L (0.7-2.1) POC Calcium 8.9 mg/dL mg/dL (8.5-10.4) Total Bilirubin Conjugated Bilirubin Unconjugated Bilirubin AST ALT Alkaline Phosphatase POC Troponin I 0.01 ng/mL ng/mL (0.00-0.08) NT-Pro-B Natriuret Pep Total Protein Albumin 08/06/18 08/06/18 08/06/18 08:40 08:40 08:40 PT 12.1 SEC SEC (12.0-15.0) INR 0.93 (0.83-1.16) APTT 28.7 SEC SEC (23.0-38.0) POC Sodium POC Potassium POC Chloride POC Total CO2 POC BUN POC Creatinine POC Glucose POC Lactic Acid Eugenio POC Calcium Total Bilirubin 0.3 mg/dL mg/dL (0.1-1.4) Conjugated Bilirubin 0.3 mg/dL mg/dL (0.0-0.5) Unconjugated Bilirubin 0.0 mg/dL mg/dL (0.0-1.1) AST 21 IU/L IU/L (14-46) ALT 27 IU/L IU/L (9-52) Alkaline Phosphatase 85 IU/L IU/L (38-126) POC Troponin I NT-Pro-B Natriuret Pep 818 pg/mL H pg/mL (0-125) Total Protein 6.3 g/dL g/dL (6.3-8.2) Albumin 3.7 g/dL g/dL (3.5-5.0) Microbiology Results: MICROBIOLOGY 08/06/18 08:40 Nasal, Sinus - [facility] Viral Transport Respiratory Panel ( PCR) - Final Human Metapneumovirus Detected Medications Given: Sodium Chloride (Ns) 2,700 mls @ 450 mls/hr 30 ml/kg infuse over 6 hr (2700 ml ) IV EDNOW ONE PRN Reason: Protocol Stop: 08/06/18 14:57 Last Admin: 08/06/18 09:09 Dose: 2,700 mls Discontinued Medications Albuterol (Proventil Neb) 3 ml IH ONCE ONE Stop: 08/06/18 10:12 Last Admin: 08/06/18 10:15 Dose: 3 ml Albuterol (Proventil Neb) 3 ml IH ONCE ONE Stop: 08/06/18 08:36 Last Admin: 08/06/18 11:30 Dose: 3 ml Albuterol (Proventil Neb) 3 ml IH EDNOW ONE Stop: 08/06/18 11:26 Last Admin: 08/06/18 08:35 Dose: 3 ml Sodium Chloride (Ns) 500 mls @ 1,000 mls/hr IV EDNOW ONE PRN Reason: Protocol Stop: 08/06/18 09:21 Last Admin: 08/06/18 13:09 Dose: Not Given Levofloxacin/Dextrose (Levaquin 750 Mg (Premix)) 150 mls @ 100 mls/hr IV EDNOW ONE PRN Reason: Protocol Stop: 08/06/18 10:27 Last Admin: 08/06/18 10:15 Dose: 150 mls Methylprednisolone Sodium Succinate (Solu-Medrol) 125 mg IVP EDNOW ONE Stop: 08/06/18 08:53 Last Admin: 08/06/18 09:07 Dose: 125 mg Point of Care Test Results: CBC CBC Collection Date 08/06/18 CBC Collection Time 08:40 WBC 4.27 RBC 3.17 HGB 9.6 HCT 31.0 PLT 169 Neut # 2.33 Neut 54.6 LYMPH # 1.25 LYMPH 29.3 MCV 97.8 Chemistry 08/06/18 08/06/18 08:52 08:51 POC Sodium 143 mEq/L mEq/L (135-145) POC Potassium 4.0 mEq/L mEq/L (3.3-5.0) POC Chloride 102.0 mEq/L mEq/L (97-110) POC Total CO2 28 mEq/L mEq/L (22-31) POC BUN 17 mg/dL mg/dL (7-23) POC Creatinine 0.8 mg/dL mg/dL (0.6-1.0) POC Glucose 196 mg/dL H mg/dL (70-100) POC Calcium 8.9 mg/dL mg/dL (8.5-10.4) POC Troponin I 0.01 ng/mL ng/mL (0.00-0.08) Blood Gas/Lactic Acid-Venous 08/06/18 08:51 POC Lactic Acid Eugenio 2.5 mmol/L H mmol/L (0.7-2.1) D-Dimer D-Dimer Collection Date 08/06/18 D-Dimer Collection Time 08:50 D-Dimer (ng/ml) 339 Departure - Departure Disposition: [facility] Inpatient Acute Clinical Impression: Chronic obstructive pulmonary disease with acute exacerbation, Respiratory distress Sepsis Qualifiers: Sepsis type: sepsis due to unspecified organism Qualified Code(s): A41.9 - Sepsis, unspecified organism Condition: Fair
[2018-08-06 11:05] LABS: INR 0.93 (0.83-1.16); PROTIME(PATIENT) 12.1 SEC (12.0-15.0)
[2018-08-06 15:14] LABS: PLATELET COUNT 172 10^3/uL (150-400)
[2018-08-06] MEDS ORDERED: ACETAMINOPHEN 325 MG TAB PO PRN (15:34)
[2018-08-06] MEDS ORDERED: HYDROCODONE/APAP 5/325 TAB PO PRN (15:34)
[2018-08-06] MEDS ORDERED: ONDANSETRON 4 MG/2 ML VIAL IVP PRN (15:34)
[2018-08-06] MEDS ORDERED: ONDANSETRON DISINTEGRATING 4 MG TAB PO PRN (15:34)
--- NOTE | 2018-08-06 15:41 | PDGENHP ---
History and Physical - Chief Complaint sob - History of Present Illness 68-year-old female with history of COPD, CHF, and diabetes presents reporting worsening dyspnea for the last 4 days with significant shortness of breath starting yesterday. Patient describes being unable to walk across her house from room to room without severe shortness of breath. She is O2 dependent at 2- 3 L and has been so since 2013. Reports low-grade fevers with a temperature max of 100.8. Describes significant cough with colored sputum on occasion. Denies any chest pain. Denies vomiting or diarrhea. Denies urinary complaints , headache, or lightheadedness. Reports she had taken an influenza vaccination this season but developed what she thought was the flu despite immunization. Denies history of DVTs or PEs. Met SIRS criteria in the ER and started on Sepsis protocol IVF currently on 3 L O2 PAST MEDICAL HISTORY: COPD, diabetes, CHF, Echocardiogram from 2018 demonstrates an ejection fraction of 65%. SOCIAL HISTORY: . Former smoker, quit 10 years ago. No recent travel. FMHX: NON CONTRIBUTORY Data: no cbc checked in the ER EKG: no acute CXR: no infiltrate. peribronchial thickening. chronic CHF History Information - Allergies/Home Medication List Allergies/Adverse Reactions: No Known Allergies Allergy (Verified 08/06/18 08:31) Home Medications: Albuterol Sulfate [Proair Hfa] 1 - 2 gm IH Q4H PRN 10/29/16 [Last Taken 12:30] Cholecalciferol Vit D3 [Vitamin D3 (*)] 1,000 units PO DAILY 10/29/16 [Last Taken 01/05/18 12:00] DULoxetine [Cymbalta 60 MG (*)] 60 mg PO DAILY 10/29/16 [Last Taken 01/06/18 10: 00] Ipratropium/Albuterol [Duoneb (*)] 3 ml IH QID PRN 10/29/16 [Last Taken 01/04/18 ] Lisinopril [Zestril 2.5 mg (*)] 2.5 mg PO DAILY 10/29/16 [Last Taken 01/06/18 10 :00] Multivitamins [Multivitamin (*)] 1 each PO DAILY 10/29/16 [Last Taken 01/05/18 12:00] Potassium Cl [Klor-Con 20 meq (*)] 10 meq PO HS 10/29/16 [Last Taken 01/05/18 11 :59] glipiZIDE [Glucotrol] 10 mg PO DAILY@12 10/29/16 [Last Taken 01/05/18 12:00] Melatonin [Melatonin 3 MG (*)] 3 mg PO HS PRN 05/13/17 [Last Taken 12/17/17] Acetaminophen [Tylenol ES 500 mg (*)] 500 - 1,000 mg PO Q6 PRN MDD TAKES WITH TRAMADOL AND OXY 05/26/17 [Last Taken 1 Week Ago ~12/30/17] Cetirizine [ZyrTEC 10 mg (*)] 10 mg PO DAILY 11/01/17 [Last Taken 01/06/18 10:00 ] Furosemide [Lasix 40 MG (*)] 40 mg PO TIDMEAL 11/01/17 [Last Taken 01/06/18 12: 00] Metformin HCl [Metformin 1000 mg] 1,000 mg PO BIDMEAL 11/01/17 [Last Taken 01/05 23:00] traMADol [Ultram 50 mg (*)] 50 - 100 mg PO Q6HRS PRN 11/01/17 [Last Taken 23:00] I have personally reviewed and updated: medical history, social history - Past Medical History COPD (With chronic hypoxic respiratory failure on 3 L nasal cannula at baseline) , diabetes type 2 Additional medical history: Upper GI bleed. Chronic lower extremity edema chronically on Lasix, recently reduced to 40 mg 3 times daily. Chronic pain with continuous opiate dependency. History of obesity, actively losing weight, reports she has lost 30 lb this year intentional. Cellulitis of left ankle in May of 2017. Chronic kidney disease stage 3 with baseline creatinine 1.1- 1.4 - Surgical History Additional surgical history: Bilateral knee surgery - Family History Additional family history: Mother with end-stage renal disease - Social History Smoking Status: Former smoker Additional social history: Patient is independent in her ADLs, she is actively working to lose weight Review of Systems Review of Systems: ROS: 10pt was reviewed & negative except for what was stated in HPI & below Physical Exam Physical Exam: Temp Pulse Resp BP Pulse Ox 37 C 105 H 18 118/62 99 08/06/18 10:50 08/06/18 11:25 08/06/18 11:25 08/06/18 11:25 08/06/18 11:25 O2 (L/minute) 3 Constitutional: no apparent distress Eyes: PERRL, EOMI Ears, Nose, Mouth, Throat: moist mucous membranes, hearing normal Cardiovascular: regular rate and rhythym, edema Respiratory: reduced air movement, expiratory wheeze Gastrointestinal: normoactive bowel sounds Skin: warm Neurologic: AAOx3 Psychiatric: interacting appropriately, not anxious, not encephalopathic Lymph, Heme, Immunologic: No petechiae Lab Data & Imaging Review 08/06/18 08:40 WBC 4.52 10^3/uL (3.80-9.50) 08/06/18 08:40 RBC 3.10 10^6/uL (4.18-5.33) L 08/06/18 08:40 Hgb 9.7 g/dL (12.6-16.3) L 08/06/18 08:40 Hct 31.0 % (38.0-47.0) L 08/06/18 08:40 MCV 100.0 fL (81.5-99.8) H 08/06/18 08:40 MCH 31.3 pg (27.9-34.1) 08/06/18 08:40 MCHC 31.3 g/dL (32.4-36.7) L 08/06/18 08:40 RDW 14.6 % (11.5-15.2) 08/06/18 08:40 Plt Count 172 10^3/uL (150-400) 08/06/18 08:40 MPV 11.3 fL (8.7-11.7) 08/06/18 08:40 Neut % (Auto) 53.4 % (39.3-74.2) 08/06/18 08:40 Lymph % (Auto) 29.6 % (15.0-45.0) 08/06/18 08:40 [place] % (Auto) 13.3 % (4.5-13.0) H 08/06/18 08:40 Eos % (Auto) 3.1 % (0.6-7.6) 08/06/18 08:40 Baso % (Auto) 0.4 % (0.3-1.7) 08/06/18 08:40 Nucleat RBC Rel Count 0.0 % (0.0-0.2) 08/06/18 08:40 Absolute Neuts (auto) 2.41 10^3/uL (1.70-6.50) 08/06/18 08:40 Absolute Lymphs (auto) 1.34 10^3/uL (1.00-3.00) 08/06/18 08:40 Absolute Monos (auto) 0.60 10^3/uL (0.30-0.80) 08/06/18 08:40 Absolute Eos (auto) 0.14 10^3/uL (0.03-0.40) 08/06/18 08:40 Absolute Basos (auto) 0.02 10^3/uL (0.02-0.10) 08/06/18 08:40 Absolute Nucleated RBC 0.00 10^3/uL (0-0.01) 08/06/18 08:40 Immature Gran % 0.2 % (0.0-1.1) 08/06/18 08:40 Immature Gran # 0.01 10^3/uL (0.00-0.10) 08/06/18 08:40 PT 12.1 SEC (12.0-15.0) 08/06/18 08:40 INR 0.93 (0.83-1.16) 08/06/18 08:40 APTT 28.7 SEC (23.0-38.0) 08/06/18 08:40 POC Sodium 143 mEq/L (135-145) 08/06/18 08:52 POC Potassium 4.0 mEq/L (3.3-5.0) 08/06/18 08:52 POC Chloride 102.0 mEq/L (97-110) 08/06/18 08:52 POC Total CO2 28 mEq/L (22-31) 08/06/18 08:52 POC BUN 17 mg/dL (7-23) 08/06/18 08:52 POC Creatinine 0.8 mg/dL (0.6-1.0) 08/06/18 08:52 POC Glucose 196 mg/dL (70-100) H 08/06/18 08:52 POC Lactic Acid Eugenio 3.5 mmol/L (0.7-2.1) H D 08/06/18 11:29 POC Calcium 8.9 mg/dL (8.5-10.4) 08/06/18 08:52 Total Bilirubin 0.3 mg/dL (0.1-1.4) 08/06/18 08:40 Conjugated Bilirubin 0.3 mg/dL (0.0-0.5) 08/06/18 08:40 Unconjugated Bilirubin 0.0 mg/dL (0.0-1.1) 08/06/18 08:40 AST 21 IU/L (14-46) 08/06/18 08:40 ALT 27 IU/L (9-52) 08/06/18 08:40 Alkaline Phosphatase 85 IU/L (38-126) 08/06/18 08:40 POC Troponin I 0.01 ng/mL (0.00-0.08) 08/06/18 08:51 NT-Pro-B Natriuret Pep 818 pg/mL (0-125) H 08/06/18 08:40 Total Protein 6.3 g/dL (6.3-8.2) 08/06/18 08:40 Albumin 3.7 g/dL (3.5-5.0) 08/06/18 08:40 Assessment & Plan Assessment: #COPD-Exacerbation triggered by Human Metapneumovirus #Acute Respiratory failure due to above #Hx of CHF, although pt denies. Takes Lasix 80mg PO BID at home #NIDDM: ISS #Obesity #SIRS criteria on admission #Elevated Lactic Acid Plan: I think the primary issue is respiratory. Will cont IV steroids and start scheduled/prn nebs Hemodynamically she is stable. no hypotension noted. Will hold off on additional IVF as already received 1.8 liters and she likely will become volume overloaded if given more check PC. For now I will not continue the Levaquin which was started in the ER She does not have any urinary sx's or complaints obtain TTE she may need a cardiac consult but would like her to improve from a resp standpoint prior to consultation appropriate home meds once a list is available Lovenox for DVT proph
[2018-08-06] MEDS ORDERED: D50W 25 GM/50 ML SYR IVP PRN (15:46)
[2018-08-06] MEDS ORDERED: IPRATROPIUM/ALBUTEROL 3 ML DEYVIAL IH SCH (16:00)
--- NOTE | 2018-08-06 16:47 | PDMN ---
Medical Necessity Medical [place] [facility] [place] A-3 days: 68 yo presents w/ dyspnea, sig SOB , unable to walk w/o severe SOB. Eval reveals acute resp fx, pt is tachycardic , lactic acid elevated 3.5, BNP elevated 818, meets SIRS criteria, sepsis protocol started w/ IVF, resp panel shows human metapneumovirus, urine and bld cx pending. Nebs, IV steroids. Anticipate>2MN for ongoing management and tx of sepsis. Poss cardiology consult once stable. Hx COPD on chronic O2 2-3L baseline, CHF, DM, UGIB, chronic LE edema, chronic pain, obesity, cellulitis, chronic kidey disease st3.
[2018-08-06] MEDS: INSULIN LISPRO 100 UNIT/ML SC SCH (17:27)
[2018-08-06] MEDS: methylPREDNISolone SOD SUCC 125 MG/2 ML VIAL IVP SCH (20:41)
[2018-08-06] MEDS: IPRATROPIUM BROMIDE 0.5 MG/2.5 ML DEYVIAL IH PRN (20:56)
[2018-08-06] MEDS: metFORMIN HCL 500 MG TAB PO SCH (21:40)
[2018-08-06] MEDS: GABAPENTIN 300 MG CAP PO SCH (21:40)
[2018-08-07 04:19] LABS: PLATELET COUNT 156 10^3/uL (150-400)
[2018-08-07] MEDS: IPRATROPIUM BROMIDE 0.5 MG/2.5 ML DEYVIAL IH PRN ×4 (04:41→22:22)
[2018-08-07] MEDS: INSULIN LISPRO 100 UNIT/ML SC SCH ×3 (08:20→18:25)
[2018-08-07] MEDS: methylPREDNISolone SOD SUCC 125 MG/2 ML VIAL IVP SCH (08:21)
[2018-08-07] MEDS: metFORMIN HCL 500 MG TAB PO SCH ×2 (08:21→18:25)
[2018-08-07] MEDS: GABAPENTIN 300 MG CAP PO SCH ×3 (08:22→20:05)
--- NOTE | 2018-08-07 09:20 | ECHO ---
[email or web address] [address] [address] Main: [phone] Echocardiography Examination Transthoracic Name: YOLA CHRISTIAN MR#: [id number] Study Date: 08/06/2018 Study Time: 02:29 PM Date of : 1950 Age: 68 year(s) Height: 147.3 cm (58 in.) Weight: 89.81 kg (198 lb.) BSA: 1.81 m2 Gender: Female Examination: Echo Contrast: Image Quality: Fair Rhythm: Tachycardia Heart Rate: 109 bpm BP: 102 mmHg/67 mmHg Indication: Cardiac: dyspnea, CHF, COPD Procedure Staff Referring Physician: Accounts Payable Professional: Riki Varghese RDCS Reading Physician: Sudheer Mcdonald MD Requesting Provider: Ordering Physician: Chuy Thornton Indication: Cardiac: dyspnea, CHF, COPD Measurements Chambers AV/MV Label Value Normal Value Label Value Normal Value LVOT Vmax 1.43 m/s (0.7m/s - 1.1m/s) AV PGmax 12 mmHg LVOTd 1.9 cm (1.8cm - 2cm) AV PGmean 7 mmHg LVOT PGmax 8 mmHg AV Vmax 1.75 m/s LVDd, 2D 4 cm (3.9cm - 5.3cm) TAYLOR (Vmax) 2.3 cm2 LVDs, 2D 2.3 cm (2.1cm - 4cm) TAYLOR (VTI) 2.5 cm2 IVSd, 2D 0.9 cm (0.6cm - 1.1cm) MV E Vmax 1.25 m/s LVPWd, 2D 0.9 cm MV A Vmax 1.16 m/s LVEF, 2D 74 % (54% - 74%) MV E/A 1.08 LVOT PGmean 4 mmHg MV E/E' lateral 14.4 LVOT Vmean 0.91 m/s MV E/E' septal 19.4 (0.45 - 1.25) RVDd, 2D 2 cm (1.9cm - 3.8cm) MV E' septal 0.06 m/s TAPSE 3.1 cm MV E' lateral 0.09 m/s LA Volume, BP 46 ml (22ml - 52ml) MV E/E' mean 16.67 LAESV index, BP 25.4 ml/m2 MV E' mean 0.08 m/s Additional Vessels TV/PV Label Value Normal Value Label Value Normal Value AoRoot, 2D 2.5 cm (1.4cm - 2.6cm) RA Pressure 5 mmHg AoRoot, MM 2.8 cm (2.2cm - 3.7cm) RVSP 35 mmHg TR Pmax 30 mmHg Patient: YOLA CHRISTIAN Study Date: 08/06/2018 Page 1 of 3 02:29 PM TR Vmax 2.76 m/s PV PGmax 2 mmHg PV Vmax, Caliper 0.79 m/s (0.6m/s - 0.9m/s) Conclusions (1) Left ventricular systolic ejection fraction was normal (70-75%) - normal wall motion - no LVH - Grade II diastolic dysfunction (2) Normal RV size and function (3) Normal atrial dimensions (4) Normal mitral valve (5) Trileaflet aortic valve without sclerosis or insufficiency (6) Grossly normal tricuspid and pulmonic valves (7) Normal aorta dimensions (8) No pericardial effusion Findings Left Ventricle: Left ventricle is normal in size. Normal global systolic left ventricular function. EF range is estimated at 70 % - 75 %. Left ventricle wall thickness is normal. There are no regional wall motion abnormalities. Grade II Diastolic Dysfunction. Right Ventricle: Normal size right ventricle. The RV function appears grossly normal. Left Atrium: The left atrium is normal in size. Right Atrium: The right atrium is normal in size. Mitral Valve: Mitral valve appears structurally normal. No mitral regurgitation. No mitral valve stenosis. Aortic Valve: Aortic leaflets are normal in appearance and function. No aortic valve regurgitation. There is no aortic stenosis. Tricuspid Valve: Tricuspid valve leaflets are normal in appearance and function. Trivial tricuspid regurgitation. Right Ventricular systolic pressure is measured at 35 mmHg. Pulmonic Valve: Pulmonic leaflets are normal in appearance and function. Aorta: The aorta is normal. The aortic root size in M-mode measures 2.8 cm. The aortic root size in 2D measures 2.5 cm. Aorta Measurements AoRoot, MM is 2.8 cm. AoRoot, 2D is 2.5 cm. Pericardium: A pericardial fat pad is present. No pericardial effusion. Exam Details Procedure Ordered: Echo Procedure Status: Routine study Image Quality: Fair Facility Location: Cardiac Echo 1 (No Signature Object) Patient: YOLA CHRISTIAN Study Date: 08/06/2018 Page 2 of 3 02:29 PM Patient: YOLA CHRISTIAN Study Date: 08/06/2018 Page 3 of 3 02:29 PM [id number]
[2018-08-07] MEDS ORDERED: IPRATROPIUM/ALBUTEROL 3 ML DEYVIAL IH PRN (09:32)
[2018-08-07] MEDS ORDERED: traMADol 50 MG TAB PO PRN (09:32)
--- NOTE | 2018-08-07 11:51 | ASMTCMCOM ---
CM Note CM Note Notes: 08/07/2018 Case Management Note Discussed pt during rounds this morning. Pt admitted for dyspnea, CHF, COPD. Pt is and has supportive family. D/C needs are unclear at this time. Therapy evals are pending. Case Management d/c poc: to be determined. Case Management to follow. Date Signed: 08/07/2018 11:50 AM Electronically Signed By:Dorothy Summers RN
[2018-08-07] MEDS: glipiZIDE 10 MG TAB PO SCH (12:04)
--- NOTE | 2018-08-07 13:41 | HOSPPROG ---
Hospitalist Progress Note Assessment/Plan: #COPD-Exacerbation triggered by Human Metapneumovirus #Acute Respiratory failure due to above #Hx of CHF, although pt denies. Takes Lasix 80mg PO BID at home. Home rec shows only 40mg BID but she says that is not correct. She is not in exacerbation #NIDDM: ISS #Obesity #SIRS criteria on admission #Elevated Lactic Acid Plan: Decrease steroids no indication for abx. Afebrile. echo shows mild diastolic dysfunction, no elevated RVSP. Unclear why she is on such his doses of diuretics. She does not look volume overloaded today. Will cont to hold. If restart, would start a lower dose initially Appears euvolemic today. appropriate home meds Lovenox for DVT proph Keep inpatient Subjective: still with sob, worse with exertion. no leg swelling. feels better overall Objective: Vital Signs Temp Pulse Resp BP Pulse Ox 36.6 C 111 H 21 H 140/72 H 99 08/07/18 11:30 08/07/18 11:30 08/07/18 11:30 08/07/18 11:30 08/07/18 11:30 Laboratory Results 08/07/18 04:04 08/07/18 04:04 08/06/18 08/07/18 08/08/18 05:59 05:59 05:59 Intake Total 2325 Output Total 820 600 Balance 1505 -600 PT 12.1 SEC (12.0-15.0) 08/06/18 08:40 INR 0.93 (0.83-1.16) 08/06/18 08:40 - Physical Exam Constitutional: chronically ill appearing Eyes: PERRL Ears, Nose, Mouth, Throat: moist mucous membranes, hearing normal Cardiovascular: regular rate and rhythym, No edema Respiratory: reduced air movement, expiratory wheeze Gastrointestinal: normoactive bowel sounds, soft, non-tender abdomen Skin: warm Musculoskeletal: generalized weakness Neurologic: AAOx3 Psychiatric: interacting appropriately, not anxious, not encephalopathic Lymph, Heme, Immunologic: No petechiae ICD10 Worksheet Patient Problems: Problems Problem Status Onset Chronic obstructive pulmonary disease with acute exacerbation Acute Respiratory distress Acute Sepsis Acute Anemia Acute Arthritis of right knee Acute Cellulitis Acute Cellulitis of left leg Acute Failure to thrive Acute Upper GI bleeding Acute
[2018-08-07] MEDS: BENZONATATE 100 MG CAP PO PRN ×2 (14:52→23:42)
[2018-08-07] MEDS: ASCORBIC ACID 500 MG TAB PO SCH (20:05)
[2018-08-07] MEDS: ENOXAPARIN 40 MG/0.4 ML SYR SC SCH (20:07)
[2018-08-08] MEDS: metFORMIN HCL 500 MG TAB PO SCH (08:45)
[2018-08-08] MEDS: DULoxetine 60 MG CAP PO SCH (08:45)
[2018-08-08] MEDS: ASCORBIC ACID 500 MG TAB PO SCH ×2 (08:46→21:27)
[2018-08-08] MEDS: GABAPENTIN 300 MG CAP PO SCH ×3 (08:46→21:28)
[2018-08-08] MEDS: MULTIVITAMINS 1 EACH TAB PO SCH (08:47)
[2018-08-08] MEDS: CHOLECALCIFEROL VIT D3 1,000 UNITS TAB PO SCH (08:47)
[2018-08-08] MEDS: ENOXAPARIN 40 MG/0.4 ML SYR SC SCH ×2 (08:48→21:29)
[2018-08-08] MEDS: LISINOPRIL 2.5 MG TAB PO SCH (08:50)
[2018-08-08] MEDS: INSULIN LISPRO 100 UNIT/ML SC SCH ×3 (08:53→18:05)
[2018-08-08] MEDS ORDERED: methylPREDNISolone SOD SUCC 125 MG/2 ML VIAL IVP SCH (09:00)
[2018-08-08] MEDS: IPRATROPIUM BROMIDE 0.5 MG/2.5 ML DEYVIAL IH PRN (09:30)
[2018-08-08] MEDS ORDERED: FUROSEMIDE 40 MG/4 ML VIAL IVP ONE (12:19)
--- NOTE | 2018-08-08 12:34 | HOSPPROG ---
Hospitalist Progress Note Assessment/Plan: #COPD-Exacerbation triggered by Human Metapneumovirus, increased wheezing and SOB today -increase solumedrol to 60 q6h -schedule duonebs (try xopenex instead of albuterol, which she doesn't tolerate well) #Acute on Chronic Hypoxemic Respiratory failure due to above, visibly wheezing and SOB today -on 3 LPM O2, which is her baseline #acute on chronic dHF - has held diuretics for 5 days, now appears volume up, orthopneic and with peripheral edema. BNP 3K from 800 -40 mg IV Lasix now -repeat CXR -monitor I&O's, daily weights -likely resume po Lasix tomorrow, will try lower dose 40 mg BID #NIDDM: SSI #Diarrhea: occurred once today, she thinks maybe from restarting MTF. No atbx exposure -hold metformin, monitor #Obesity #SIRS criteria on admission #Elevated Lactic Acid - downtrending #Full code #Dispo - cont inpt Subjective: Pt c/o increased SOB, dyspnea with activity and wheezing. She is very short of breath walking to the bathroom and also has hard time speaking in complete sentences, winded. No fevers. Coughing a bit. No CP. Feels LE swelling increasing. Objective: Vital Signs Temp Pulse Resp BP Pulse Ox 36.7 C 108 H 19 135/83 H 98 08/08/18 11:42 08/08/18 11:42 08/08/18 11:42 08/08/18 11:42 08/08/18 11:42 Laboratory Results 08/07/18 04:04 08/08/18 09:20 08/07/18 08/08/18 08/09/18 05:59 05:59 05:59 Intake Total 2325 Output Total 820 1500 Balance 1505 -1500 PT 12.1 SEC (12.0-15.0) 08/06/18 08:40 INR 0.93 (0.83-1.16) 08/06/18 08:40 - Physical Exam Constitutional: no apparent distress Eyes: PERRL Ears, Nose, Mouth, Throat: moist mucous membranes Cardiovascular: regular rate and rhythym, JVD Respiratory: no respiratory distress, expiratory wheeze, inspiratory crackles Gastrointestinal: normoactive bowel sounds, soft, non-tender abdomen Skin: warm Musculoskeletal: full muscle strength Neurologic: AAOx3 Psychiatric: interacting appropriately ICD10 Worksheet Patient Problems: Problems Problem Status Onset Chronic obstructive pulmonary disease with acute exacerbation Acute Respiratory distress Acute Sepsis Acute Anemia Acute Arthritis of right knee Acute Cellulitis Acute Cellulitis of left leg Acute Failure to thrive Acute Upper GI bleeding Acute
--- NOTE | 2018-08-08 12:48 | CPEKG ---
Test Reason : OPEN Blood Pressure : / mmHG Vent. Rate : 097 BPM Atrial Rate : 099 BPM P-R Int : 169 ms QRS Dur : 097 ms QT Int : 360 ms P-R-T Axes : 003 -46 062 degrees QTc Int : 458 ms Sinus rhythm LAD, consider left anterior fascicular block Low voltage, precordial leads Confirmed by Neyda Abreu ([id number]) on 08/08/2018 12:48:19 PM Referred By: Neyda Abreu Confirmed By:Neyda Abreu
[2018-08-08] MEDS: methylPREDNISolone SOD SUCC 125 MG/2 ML VIAL IVP SCH ×3 (13:30→23:30)
[2018-08-08] MEDS: glipiZIDE 10 MG TAB PO SCH (13:31)
[2018-08-08] MEDS: IPRATROPIUM BROMIDE 0.5 MG/2.5 ML DEYVIAL IH SCH ×2 (16:35→21:41)
[2018-08-08] MEDS: LEVALBUTEROL 0.63 MG/3 ML DEYVIAL IH SCH ×2 (16:35→21:41)
[2018-08-08] MEDS ORDERED: INSULIN LISPRO 100 UNIT/ML SC ONE (23:21)
[2018-08-08] MEDS: BENZONATATE 100 MG CAP PO PRN (23:30)
[2018-08-09] MEDS: LEVALBUTEROL 0.63 MG/3 ML DEYVIAL IH SCH (05:02)
[2018-08-09] MEDS: methylPREDNISolone SOD SUCC 125 MG/2 ML VIAL IVP SCH (05:55)
[2018-08-09] MEDS: IPRATROPIUM BROMIDE 0.5 MG/2.5 ML DEYVIAL IH SCH ×3 (06:13→16:47)
[2018-08-09] MEDS: INSULIN LISPRO 100 UNIT/ML SC SCH ×3 (08:43→18:07)
[2018-08-09] MEDS: MULTIVITAMINS 1 EACH TAB PO SCH (08:45)
[2018-08-09] MEDS: ENOXAPARIN 40 MG/0.4 ML SYR SC SCH ×2 (08:45→19:42)
[2018-08-09] MEDS: CHOLECALCIFEROL VIT D3 1,000 UNITS TAB PO SCH (08:45)
[2018-08-09] MEDS: ASCORBIC ACID 500 MG TAB PO SCH ×2 (08:45→19:44)
[2018-08-09] MEDS: LISINOPRIL 2.5 MG TAB PO SCH (08:46)
[2018-08-09] MEDS: GABAPENTIN 300 MG CAP PO SCH ×3 (08:46→22:24)
[2018-08-09] MEDS: DULoxetine 60 MG CAP PO SCH (08:48)
[2018-08-09] MEDS ORDERED: IPRATROPIUM BROMIDE 0.5 MG/2.5 ML DEYVIAL IH PRN (09:30)
[2018-08-09] MEDS ORDERED: LEVALBUTEROL 0.63 MG/3 ML DEYVIAL IH PRN (09:30)
--- NOTE | 2018-08-09 10:57 | HOSPPROG ---
Hospitalist Progress Note Assessment/Plan: #COPD-Exacerbation triggered by Human Metapneumovirus. Was very wheezy yesterday, better today -wean solumedrol to 60 mg IV BID, likely change to po tomorrow -cont scheduled atrovent nebs, defer albuterol/xopenex as she doesn't tolerate either -will try to get her an atrovent inhaler for home #Acute on Chronic Hypoxemic Respiratory failure due to above, improved today -on 3 LPM O2, which is her baseline #acute on chronic dHF - volume status improved today after IV lasix yest, note BNP up to 3K from 800 -resume oral lasix at half home dose (was on 80 mg bid, decrease to 40 mg bid ) -monitor I&O's, daily weights #NIDDM: bg's elevated 2/2 steroids -increase SSI, wean steroids #Diarrhea: occurred once today, she thinks maybe from restarting MTF. No atbx exposure -holding metformin, monitor #Obesity #SIRS criteria on admission #Elevated Lactic Acid - downtrending #Full code #Dispo - cont inpt, possible dc tomorrow if continues to improve Subjective: Pt feels better today, less wheezing and less SOB. Still dyspneic with activity, but improved. No fevers. LE edema slightly better after IV lasix yesterday. She is not sure who increased her Lasix to 80 mg BID or why. She is unsure about her h/o HF. Does not monitor her daily weights at home. Denies orthopnea or PND overnight. Objective: Vital Signs Temp Pulse Resp BP Pulse Ox 36.7 C 82 18 119/68 99 08/09/18 07:53 08/09/18 07:53 08/09/18 07:53 08/09/18 08:46 08/09/18 07:53 Laboratory Results 08/07/18 04:04 08/09/18 08:20 08/08/18 08/09/18 08/10/18 05:59 05:59 05:59 Intake Total 1840 Output Total 1500 1000 300 Balance -1500 840 -300 PT 12.1 SEC (12.0-15.0) 08/06/18 08:40 INR 0.93 (0.83-1.16) 08/06/18 08:40 - Physical Exam Constitutional: no apparent distress Eyes: PERRL Ears, Nose, Mouth, Throat: moist mucous membranes Cardiovascular: regular rate and rhythym Respiratory: no respiratory distress, reduced air movement, expiratory wheeze Skin: warm Musculoskeletal: full muscle strength, other (1+ b/l LE pitting edema) Neurologic: AAOx3 Psychiatric: interacting appropriately ICD10 Worksheet Patient Problems: Problems Problem Status Onset Chronic obstructive pulmonary disease with acute exacerbation Acute Respiratory distress Acute Sepsis Acute Anemia Acute Arthritis of right knee Acute Cellulitis Acute Cellulitis of left leg Acute Failure to thrive Acute Upper GI bleeding Acute
[2018-08-09] MEDS: glipiZIDE 10 MG TAB PO SCH (12:31)
[2018-08-09] MEDS: POTASSIUM CL 10 MEQ TAB PO SCH (12:32)
[2018-08-09] MEDS: FUROSEMIDE 40 MG TAB PO SCH ×2 (12:32→19:44)
[2018-08-09] MEDS: IPRATROPIUM HFA INHALER IH SCH ×2 (17:41→20:44)
[2018-08-09] MEDS ORDERED: methylPREDNISolone SOD SUCC 125 MG/2 ML VIAL IVP SCH (21:00)
[2018-08-09] MEDS: BENZONATATE 100 MG CAP PO PRN (22:24)
[2018-08-10] MEDS: IPRATROPIUM HFA INHALER IH SCH ×2 (05:32→10:31)
[2018-08-10] MEDS: INSULIN LISPRO 100 UNIT/ML SC SCH ×3 (07:54→17:35)
[2018-08-10] MEDS: CHOLECALCIFEROL VIT D3 1,000 UNITS TAB PO SCH (07:54)
[2018-08-10] MEDS: LISINOPRIL 2.5 MG TAB PO SCH (07:54)
[2018-08-10] MEDS: ENOXAPARIN 40 MG/0.4 ML SYR SC SCH ×2 (07:54→22:09)
[2018-08-10] MEDS: FUROSEMIDE 40 MG TAB PO SCH ×2 (07:55→15:42)
[2018-08-10] MEDS: predniSONE 20 MG TAB PO SCH (07:55)
[2018-08-10] MEDS: ASCORBIC ACID 500 MG TAB PO SCH ×2 (07:55→22:10)
[2018-08-10] MEDS: POTASSIUM CL 10 MEQ TAB PO SCH (07:55)
[2018-08-10] MEDS: DULoxetine 60 MG CAP PO SCH (07:55)
[2018-08-10] MEDS: MULTIVITAMINS 1 EACH TAB PO SCH (07:55)
[2018-08-10] MEDS: GABAPENTIN 300 MG CAP PO SCH ×3 (08:00→22:10)
--- NOTE | 2018-08-10 10:13 | HOSPPROG ---
Hospitalist Progress Note Assessment/Plan: #COPD-Exacerbation triggered by Human Metapneumovirus. Still rather wheezy. -cont steroids, change to po prednisone -cont scheduled atrovent, doesn't tolerate albuterol or xopenex nebs, but does tolerate albuterol MDI, will schedule this q4h -will try to get her an atrovent inhaler for home #Acute on Chronic Hypoxemic Respiratory failure due to above -on 3 LPM O2, which is her baseline #acute on chronic dHF - volume status improved -cont oral lasix at half home dose (was on 80 mg bid, decreased to 40 mg bid here) -monitor I&O's, daily weights #NIDDM: bg's elevated 2/2 steroids -cont increased SSI, wean steroids #Diarrhea: occurred once yest, she thinks maybe from restarting MTF. No atbx exposure -holding metformin, monitor #Obesity #SIRS criteria on admission #Elevated Lactic Acid - downtrending #Full code #Dispo - cont inpt, possible dc tomorrow if continues to improve Subjective: Pt still SOB and wheezy, poor activity tolerance. Denies orthopnea or PND. NO fevers. COughing less. Says she uses albuterol inhaler, but cannot tolerate nebs, gets shaky. Objective: Vital Signs Temp Pulse Resp BP Pulse Ox 36.7 C 89 15 125/90 H 100 08/10/18 07:23 08/10/18 07:23 08/10/18 07:23 08/10/18 07:23 08/10/18 07:23 Laboratory Results 08/07/18 04:04 08/09/18 08:20 08/09/18 08/10/18 08/11/18 05:59 05:59 05:59 Intake Total 1840 2900 Output Total 1000 1000 Balance 840 1900 PT 12.1 SEC (12.0-15.0) 08/06/18 08:40 INR 0.93 (0.83-1.16) 08/06/18 08:40 - Physical Exam Constitutional: no apparent distress Eyes: PERRL Ears, Nose, Mouth, Throat: moist mucous membranes Cardiovascular: regular rate and rhythym Respiratory: no respiratory distress, reduced air movement, expiratory wheeze Gastrointestinal: normoactive bowel sounds, soft, non-tender abdomen Skin: warm Musculoskeletal: full muscle strength Neurologic: AAOx3 Psychiatric: interacting appropriately ICD10 Worksheet Patient Problems: Problems Problem Status Onset Chronic obstructive pulmonary disease with acute exacerbation Acute Respiratory distress Acute Sepsis Acute Anemia Acute Arthritis of right knee Acute Cellulitis Acute Cellulitis of left leg Acute Failure to thrive Acute Upper GI bleeding Acute
[2018-08-10] MEDS: ALBUTEROL 60 PUFFS/8 GM MDI IH SCH ×4 (10:30→22:07)
[2018-08-10] MEDS: glipiZIDE 10 MG TAB PO SCH (11:44)
[2018-08-10] MEDS: IPRATROPIUM BROMIDE 0.5 MG/2.5 ML DEYVIAL IH SCH ×2 (15:33→22:07)
--- NOTE | 2018-08-10 16:23 | ASMTCMCOM ---
CM Note CM Note Notes: Pts case discussed in tx rounds. PT is recommending HC. Referral made to [facility]. Mary from [facility] stopped by and met w/ pt. Pt is in agreement to HC services. CM to follow. Plan: [facility]; PT w/ 25/11 supervision by family Date Signed: 08/10/2018 04:03 PM Electronically Signed By:PRASAD Ji
[2018-08-10] MEDS ORDERED: INSULIN GLARGINE 100 UNITS/ML UNIT SC SCH (21:00)
[2018-08-11] MEDS: ALBUTEROL 60 PUFFS/8 GM MDI IH SCH ×6 (02:46→21:26)
[2018-08-11] MEDS: IPRATROPIUM BROMIDE 0.5 MG/2.5 ML DEYVIAL IH SCH ×4 (05:33→21:26)
[2018-08-11] MEDS: INSULIN LISPRO 100 UNIT/ML SC SCH ×3 (08:20→17:53)
[2018-08-11] MEDS: predniSONE 20 MG TAB PO SCH (08:22)
[2018-08-11] MEDS: MULTIVITAMINS 1 EACH TAB PO SCH (08:23)
[2018-08-11] MEDS: LISINOPRIL 2.5 MG TAB PO SCH (08:23)
[2018-08-11] MEDS: DULoxetine 60 MG CAP PO SCH (08:23)
[2018-08-11] MEDS: FUROSEMIDE 40 MG TAB PO SCH ×2 (08:23→14:30)
[2018-08-11] MEDS: POTASSIUM CL 10 MEQ TAB PO SCH (08:23)
[2018-08-11] MEDS: ASCORBIC ACID 500 MG TAB PO SCH ×2 (08:23→21:06)
[2018-08-11] MEDS: ENOXAPARIN 40 MG/0.4 ML SYR SC SCH ×2 (08:24→21:06)
[2018-08-11] MEDS: CHOLECALCIFEROL VIT D3 1,000 UNITS TAB PO SCH (08:24)
[2018-08-11] MEDS: GABAPENTIN 300 MG CAP PO SCH ×3 (08:24→21:06)
[2018-08-11] MEDS: glipiZIDE 10 MG TAB PO SCH (12:27)
--- NOTE | 2018-08-11 13:36 | HOSPPROG ---
Hospitalist Progress Note Assessment/Plan: #acute exacerbation of COPD - triggered by Human Metapneumovirus. Still wheezing and SOB, but slight improvement over past couple of days. -cont steroids, changed to po prednisone -cont scheduled atrovent nebs, doesn't tolerate albuterol or xopenex nebs, but does tolerate albuterol MDI, will schedule this q4h -add guaifenesin -d/c with Atrovent inhaler #Acute on Chronic Hypoxemic Respiratory failure due to above -on 3 LPM O2, which is her baseline #acute on chronic dHF - she was off her diuretics for ~5 days, resumed yesterday , volume status improving, wt down 2.5 kg -cont oral lasix at half home dose (was on 80 mg bid, decreased to 40 mg bid here) -monitor I&O's, daily weights -discussed low salt diet #NIDDM: bg's elevated 2/2 steroids -added Lantus last night, increase from 10 to 12 units -cont increased SSI #Diarrhea: she thinks maybe from restarting MTF. No atbx exposure -holding metformin, monitor #Obesity #Elevated Lactic Acid - downtrending #Full code #Dispo - cont inpt, possible dc tomorrow if continues to improve. PT recommending home care. Subjective: Pt feels ok. Still very wheezy and dyspneic with any activity at all. Not near baseline as she can usually walk around the rao, now can only take a few steps before having to rest and catch her breath. Denies orthopnea. LE edema persists. No CP. No fevers. Objective: Vital Signs Temp Pulse Resp BP Pulse Ox 36.6 C 100 20 122/71 H 96 08/11/18 11:53 08/11/18 11:53 08/11/18 11:53 08/11/18 11:53 08/11/18 11:53 Laboratory Results 08/07/18 04:04 08/09/18 08:20 08/10/18 08/11/18 08/12/18 05:59 05:59 05:59 Intake Total 2900 650 685 Output Total 1000 1600 Balance 1900 -950 685 PT 12.1 SEC (12.0-15.0) 08/06/18 08:40 INR 0.93 (0.83-1.16) 08/06/18 08:40 - Physical Exam Constitutional: no apparent distress Eyes: PERRL Ears, Nose, Mouth, Throat: moist mucous membranes Cardiovascular: regular rate and rhythym Respiratory: no respiratory distress, reduced air movement, expiratory wheeze Gastrointestinal: normoactive bowel sounds, soft, non-tender abdomen Skin: warm Musculoskeletal: full muscle strength, other (1+ b/l LE edema) Neurologic: AAOx3 Psychiatric: interacting appropriately ICD10 Worksheet Patient Problems: Problems Problem Status Onset Chronic obstructive pulmonary disease with acute exacerbation Acute Respiratory distress Acute Sepsis Acute Anemia Acute Arthritis of right knee Acute Cellulitis Acute Cellulitis of left leg Acute Failure to thrive Acute Upper GI bleeding Acute
[2018-08-11] MEDS ORDERED: PROTOCOL POTASSIUM 1 DOSE MISC PRN (13:42)
[2018-08-11] MEDS: guaiFENesin 600 MG TAB.ER PO SCH ×2 (14:29→21:06)
[2018-08-11] MEDS: INSULIN GLARGINE 100 UNITS/ML UNIT SC SCH (21:06)
[2018-08-11] MEDS ORDERED: POTASSIUM CL 10 MEQ TAB PO ONE (22:24)
[2018-08-12] MEDS: ALBUTEROL 60 PUFFS/8 GM MDI IH SCH ×6 (01:57→22:29)
[2018-08-12] MEDS: IPRATROPIUM BROMIDE 0.5 MG/2.5 ML DEYVIAL IH SCH ×4 (05:30→22:29)
[2018-08-12] MEDS: CHOLECALCIFEROL VIT D3 1,000 UNITS TAB PO SCH (08:58)
[2018-08-12] MEDS: MULTIVITAMINS 1 EACH TAB PO SCH (08:58)
[2018-08-12] MEDS: INSULIN LISPRO 100 UNIT/ML SC SCH ×3 (08:58→17:57)
[2018-08-12] MEDS: ASCORBIC ACID 500 MG TAB PO SCH ×2 (08:58→22:31)
[2018-08-12] MEDS: ENOXAPARIN 40 MG/0.4 ML SYR SC SCH ×2 (09:01→22:32)
[2018-08-12] MEDS: DULoxetine 60 MG CAP PO SCH (09:01)
[2018-08-12] MEDS: guaiFENesin 600 MG TAB.ER PO SCH ×2 (09:01→22:32)
[2018-08-12] MEDS: FUROSEMIDE 40 MG TAB PO SCH ×2 (09:02→15:31)
[2018-08-12] MEDS: predniSONE 20 MG TAB PO SCH (09:02)
[2018-08-12] MEDS: LISINOPRIL 2.5 MG TAB PO SCH (09:02)
[2018-08-12] MEDS: GABAPENTIN 300 MG CAP PO SCH (09:07)
[2018-08-12] MEDS ORDERED: POTASSIUM CL 10 MEQ TAB PO ONE (09:55)
[2018-08-12] MEDS: POTASSIUM CL 10 MEQ TAB PO SCH (10:29)
[2018-08-12] MEDS: glipiZIDE 10 MG TAB PO SCH (13:16)
--- NOTE | 2018-08-12 17:14 | HOSPPROG ---
Hospitalist Progress Note Assessment/Plan: DIAGNOSES: * Acute hypoxemic respiratory failure * Acute COPD exacerbation * Acute human metapneumovirus infection * Acute on chronic diastolic congestive heart failure * Pre renal azotemia * Hyperglycemia in a diabetic patient receiving steroid for respiratory illness * Diarrhea, question side effect of metformin * Morbid obesity * Metabolic acidosis with increased lactate At this time she is not improved from yesterday in fact is stopping to catch her breath after walking very short distances in the hallway on oxygen, has very poor air movement on exam. Will need ongoing inpatient care at this time. She has been on long-acting steroid bronchodilator inhaler combination in the past but for some reason had gone off that and is not currently receiving any here since it was not on her home list PLANS: * Continue hospital care for her respiratory condition * Add Advair * Continue prednisone and inhaled short-acting bronchodilators * Increase activity as able * Continue to follow sugars closely Seen by me today on hospitalist rounds as well as multidisciplinary rounds SUBJECTIVE: Still getting quite short of breath with minimal activity, stopping to catch up on her breath after short distances of walking out into the hallway No chest pain Eating well Still significant cough OBJECTIVE Vitals reviewed: Stable without fever Stage Driver, my review: Sinus Exam: alert oriented skin warm dry color ok resps not labored lungs clear BSs heart regular abd soft nondistended nontender, bowel sounds present limbs warm, no edema iv site ok Lab data: BUN still elevated at 24 Sugars last night with fairly high up in the 290s to 320s, better today so far all under 200 Microbiology: Blood cultures are final and negative respiratory pathogen panel with human metapneumovirus Objective: Vital Signs Temp Pulse Resp BP Pulse Ox 36.8 C 92 18 116/85 H 97 08/12/18 12:00 08/12/18 12:00 08/12/18 12:00 08/12/18 12:00 08/12/18 12:00 Laboratory Results 08/07/18 04:04 08/12/18 08:55 08/11/18 08/12/18 08/13/18 06:59 06:59 06:59 Intake Total 650 7595 944 Output Total 1600 3150 900 Balance -950 -655 44 PT 12.1 SEC (12.0-15.0) 08/06/18 08:40 INR 0.93 (0.83-1.16) 08/06/18 08:40 - Time Spent With Patient Time Spent with Patient: greater than 35 minutes Time Spent with Patient: Greater than 35 minutes spent on this patients care, greater than 50% of time spent counseling, educating, and coordinating care regarding the above mentioned plan. ICD10 Worksheet Patient Problems: Problems Problem Status Onset Chronic obstructive pulmonary disease with acute exacerbation Acute Respiratory distress Acute Sepsis Acute Anemia Acute Arthritis of right knee Acute Cellulitis Acute Cellulitis of left leg Acute Failure to thrive Acute Upper GI bleeding Acute
[2018-08-12] MEDS ORDERED: GABAPENTIN 300 MG CAP PO SCH (21:00)
[2018-08-12] MEDS: INSULIN GLARGINE 100 UNITS/ML UNIT SC SCH (22:32)
[2018-08-12] MEDS: FLUTICASONE/SALMETER 250/50MCG DISKUS IH SCH (22:46)
[2018-08-13] MEDS: ALBUTEROL 60 PUFFS/8 GM MDI IH SCH ×3 (03:26→11:31)
[2018-08-13] MEDS: IPRATROPIUM BROMIDE 0.5 MG/2.5 ML DEYVIAL IH SCH (06:00)
[2018-08-13] MEDS: INSULIN LISPRO 100 UNIT/ML SC SCH ×2 (08:13→13:09)
[2018-08-13] MEDS: ENOXAPARIN 40 MG/0.4 ML SYR SC SCH (08:43)
[2018-08-13] MEDS: ASCORBIC ACID 500 MG TAB PO SCH (08:44)
[2018-08-13] MEDS: guaiFENesin 600 MG TAB.ER PO SCH (08:44)
[2018-08-13] MEDS: CHOLECALCIFEROL VIT D3 1,000 UNITS TAB PO SCH (08:44)
[2018-08-13] MEDS: MULTIVITAMINS 1 EACH TAB PO SCH (08:44)
[2018-08-13] MEDS: LISINOPRIL 2.5 MG TAB PO SCH (08:45)
[2018-08-13] MEDS: POTASSIUM CL 10 MEQ TAB PO SCH (08:48)
[2018-08-13] MEDS: DULoxetine 60 MG CAP PO SCH (08:48)
[2018-08-13] MEDS: predniSONE 20 MG TAB PO SCH (08:49)
[2018-08-13] MEDS ORDERED: POTASSIUM CL 10 MEQ TAB PO ONE (09:01)
[2018-08-13] MEDS: FUROSEMIDE 40 MG TAB PO SCH ×2 (10:12→15:19)
[2018-08-13] MEDS: IPRATROPIUM/ALBUTEROL 4GM MDI IH SCH ×2 (11:49→16:52)
[2018-08-13] MEDS: FLUTICASONE/SALMETER 250/50MCG DISKUS IH SCH (11:50)
[2018-08-13] MEDS: glipiZIDE 10 MG TAB PO SCH (13:09)
--- NOTE | 2018-08-13 13:42 | PDDCSUM ---
Discharge Summary Discharge Summary: DISCHARGE DIAGNOSES: * Acute hypoxemic respiratory failure * Acute COPD exacerbation * Acute human metapneumovirus infection * Acute on chronic diastolic congestive heart failure * Pre renal azotemia * Hyperglycemia due to steroids in a patient with diabetes * Diarrhea question if possibly due to metformin * Metabolic acidosis PROCEDURES: Echocardiogram with normal ejection fraction and wall motion, no significant valve abnormalities HOSPITAL COURSE SUMMARY: This patient with hx of both heart and lung disease comes in with SOB primarily from COPD exacerbation but also had some CHF decompensation. She was brought in and treated with diuresis, bronchodilators and steroids. She did not have signs of ischemia or bacteriiall infection. She responded slowly but well and by discharge day was walking much better in the hallway. She had no complications. In the past she was on long acting brochodilator/steroid but this had fallen off her home med list at some point. This was restarted during her hospital stay. She is stable for DC home but willl be in need of further PT and OT so home care has been set up. 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
[2018-08-13 15:22] VITALS: BP 91/60
--- NOTE | 2018-08-13 15:49 | PDIAF ---
- Diagnosis Diagnosis: copd, human mentapneumo virus,deconditioning, DM2 Code Status: Full Code - Medication Management Discharge Medications: electronically signed and located in the Home Medication List. - Orders Services needed: Home Care, Registered Nurse, Physical Therapy Home Care Face to Face: I certify that this patient was under my care and that I had the required [id number] encounter meeting the encounter requirements on the discharge day. My findings support the fact that the patient is homebound as defined in Home Care Face to Face Continued: CMS Chapter 7 Medicare Benefits Manual 30.1.1 , The condition of the patient is such that there exists a normal inability to leave home and consequently, leaving home would require a considerable and taxing effort. Isolation Type: Droplet Isolation Oxygen: 2-4 l/m NC Diet Recommendation: no restrictions on diet Diet Texture: Regular Texture Diet Equipment: oxygen - Follow Up Care Current Providers and Referrals: Julius Lynch DO [Primary Care Provider] -
--- NOTE | 2018-08-13 16:06 | ASMTLACE ---
LACE Length of stay for Answers: 7-13 days current admission Acuity / Level of Answers: Yes Care: Did the patient have an inpatient admission? Comorbidities - select Answers: Chronic pulmonary disease all that apply Diabetes (uncontrolled or controlled) Opioid dependence / Chronic pain # of Emergency department Answers: 1-2 visits in the last 6 months Score: 16 Date Signed: 08/13/2018 04:05 PM Electronically Signed By:Dorothy Summers RN
--- NOTE | 2018-08-13 16:09 | ASDISCHSUM ---
Discharge Information Plan Status:Home with Home Health Medically Cleared to Leave:08/13/2018 Discharge Date:08/13/2018 CM D/C Disposition:Home Health Service ADT D/C Disposition:Home, Routine, Self-Care Projected Discharge Date:08/11/2018 11:00 AM Transportation at D/C:Family Discharge Delay Reason: Follow-Up Date:08/11/2018 11:00 AM Discharge Slot: Final Diagnosis: Placement Information Referral Type:*Home Health Care Services Referral ID:[id number] Provider Name:[facility] (formerly [facility]) Address 1:[address] [facility] [address] Address 2: City:[place] Selection Factors: State:[place] Patient Contact Information Contact Name:PITO Relationship: Address:[address] City:[facility] Alternate Phone: State/Zip Code:[place] [address] Email: Financial Information Financial Class:Medicare Advantage Plans Primary Plan Desc:[facility] [employer] Primary Plan Number:[id number] Secondary Plan Desc: Secondary Plan Number: Assessment Information LACE LACE Length of stay for Answers: 7-13 days current admission Acuity / Level of Answers: Yes Care: Did the patient have an inpatient admission? Comorbidities - select Answers: Chronic pulmonary disease all that apply Diabetes (uncontrolled or controlled) Opioid dependence / Chronic pain # of Emergency department Answers: 1-2 visits in the last 6 months Score: 16 Date Signed: 08/13/2018 04:05 PM Electronically Signed By:Dorothy Summers RN [facility] CM Progress Note CM Note CM Note Notes: 08/07/2018 Case Management Note Discussed pt during rounds this morning. Pt admitted for dyspnea, CHF, COPD. Pt is and has supportive family. D/C needs are unclear at this time. Therapy evals are pending. Case Management d/c poc: to be determined. Case Management to follow. Date Signed: 08/07/2018 11:50 AM Electronically Signed By:Dorothy Summers RN [facility] CM Progress Note CM Note CM Note Notes: Pts case discussed in tx rounds. PT is recommending HC. Referral made to [facility]. Hernandez from [facility] stopped by and met w/ pt. Pt is in agreement to HC services. CM to follow. Plan: [facility]; PT w/ 25/11 supervision by family Date Signed: 08/10/2018 04:03 PM Electronically Signed By:PRASAD Ji Case Management Discharge Plan Note Case Management Discharge Discharge Order Complete? Answers: Yes Patient to Obtain Answers: via Family Medications Transportation Arranged Answers: Family/Friends Faxed Final Orders Answers: Yes Notes: to [facility] Agency/Facility Transfer Answers: Yes Notes: to [facility] Report Printed & Faxed to Receiving Agency Discharge Comments Notes: 08/13/2018 Case Management Note Faxed discharge orders to [facility] through [employer]. Family to transport home. Case Management d/c poc: [facility] RN PT Date Signed: 08/13/2018 04:07 PM Electronically Signed By:Dorothy Summers RN Intervention Information Intervention Type:*Incorrect Registration Date of Service:08/06/2018 03:56 PM Patient Type:Observation Staff Member:Mireya Washington Hours: Discipline: Severity: Comment: Intervention Type:*IM-Signed Date of Service:08/10/2018 10:26 AM Patient Type:Inpatient Staff Member:Christen Oglesby Hours: Discipline: Severity: Comment:
--- NOTE | 2018-08-18 15:36 | PQFORM ---
PHYSICIAN QUERY FORM Needs Your Response This query form is being sent to you to assure this patient record is coded properly. Please respond to the question below: PLASTIC STRAIGHTENING ROLL OPERATOR QUESTION: Dr Coulter Initial documentation indicates the presence of Sepsis/Severe Sepsis but this diagnosis seems to have been dropped in the rest of the documentation. Did this patient have either Sepsis/Severe Sepsis? __ Sepsis only __ Sepsis/Severe Sepsis __ Other (Please Specify ) __ Unable to Determine Thank You Madison JORDAN Biological Chemist INSTRUCTIONS FOR RESPONSE: Answer question by clicking on the "Edit Document" button. Move cursor to area below the stars. When complete, hit "Save." Click on the "Sign" button, then click "Sign" again. Type in your PIN and hit "Enter." No Sepsis MTDD
--- NOTE | 2018-08-18 15:39 | PQFORM ---
N PHYSICIAN QUERY FORM Needs Your Response This query form is being sent to you to assure this patient record is coded properly. Please respond to the question below: MANAGER MECHANICAL MAINTENANCE QUESTION: Dr Coulter Was this patients Acute Exacerbation of COPD due to Pneumonia ? __ Yes __ No __ Other (Please Specify ) __ Unable to determine Thank You Madison JORDAN Dental Floss Packer INSTRUCTIONS FOR RESPONSE: Answer question by clicking on the "Edit Document" button. Move cursor to area below the stars. When complete, hit "Save." Click on the "Sign" button, then click "Sign" again. Type in your PIN and hit "Enter." No pneumonia MTDD
== END 2018-08-13 18:09 | disposition home or self-care (01) | DRG 190 ==
LOC: CED 08:22 → OBSVTOIN 09:52 → F2W 12:10
PROVIDERS: ADMIT Family Medicine; ATTEND Family Medicine
DX: J44.1 Chronic obstructive pulmonary disease with (acute) exacerbation (principal); I50.33 Acute on chronic diastolic (congestive) heart failure; B97.81 Human metapneumovirus as the cause of diseases classified elsewhere; E11.9 Type 2 diabetes mellitus without complications; R73.9 Hyperglycemia, unspecified; T38.0X5A Adverse effect of glucocorticoids and synthetic analogues, initial encounter; N18.3 Chronic kidney disease, stage 3 (moderate); E66.01 Morbid (severe) obesity due to excess calories; Z68.41 Body mass index [BMI] 40.0-44.9, adult; E87.2 Acidosis; R19.7 Diarrhea, unspecified; T38.3X5A Adverse effect of insulin and oral hypoglycemic [antidiabetic] drugs, initial encounter; Z99.81 Dependence on supplemental oxygen; Z87.891 Personal history of nicotine dependence; Z98.1 Arthrodesis status; Z96.659 Presence of unspecified artificial knee joint
CPT/HCPCS: 71046-PO; 80048-ER; 83605-ER; 84484-ER; 85025-QW-ER; 85379-QW-ER; 87400-QW-ER; 96361-ER; 96365-ER; 96375-ER; 97110-GP; 97116-GP; 97161-GP; 97166-GO; 97530-GO; 97530-GP; 97535-GO; 99285-ER; J1650; J1815; J1940; J1956; J2930; J7512; J7613

== ENCOUNTER → 2018-08-28 | Outpatient (CLI) | payer OTHER | LOC: CIMAGING 12:40 | PROVIDERS: ATTEND Family Medicine | DX: J98.4 Other disorders of lung (principal); J81.1 Chronic pulmonary edema; I51.7 Cardiomegaly | CPT/HCPCS: 71046-PO ==

== ENCOUNTER 2018-09-08 13:31 | Inpatient (IN) | payer OTHER ==
[2018-09-08] MEDS ORDERED: IPRATROPIUM/ALBUTEROL 3 ML DEYVIAL IH ONE (13:56)
--- NOTE | 2018-09-08 13:58 | EDPHY ---
H & P Stated Complaint: feeling dyspnic, has had pneumonia recently, trouble breathing for 1 month Time Seen by Provider: 09/08/18 13:48 HPI/ROS: CHIEF COMPLAINT: Dyspnea for more than a month HISTORY OF PRESENT ILLNESS: Patient is a 68-year-old female history of COPD on 3 L at home as well as mild CHF on Lasix who comes to the emergency department complaining of dyspnea for over a month. She was admitted to the hospital 1 month ago diagnosed with COPD exacerbation as well as CHF. She was started on Lasix as well as a prednisone burst and albuterol. Her respiratory panel came back positive for metapneumo virus. She went home a few days later but states that she never felt any better. 2 weeks later she followed up with her primary Dr. Plaza who performed an x-ray and told her she had pneumonia and placed her on doxycycline. She states that she finished 2 weeks of doxycycline is still does not feel any better. She states that every few days she will spike a fever but then it will pass spontaneously. No leg pain or swelling. No chest pain. Severity: Moderate but constant Modifying factors: None REVIEW OF SYSTEMS: Constitutional: denies: chills, fever, recent illness, recent injury EENTM: denies: blurred vision, double vision, nose congestion Respiratory: See HPI Cardiac: denies: chest pain, irregular heart rate, lightheadedness, palpitations Gastrointestinal/Abdominal: denies: abdominal pain, diarrhea, nausea, vomiting, blood streaked stools Genitourinary: denies: dysuria, frequency, hematuria, pain Musculoskeletal: denies: joint pain, muscle pain Skin: denies: lesions, rash, jaundice, bruising Neurological: denies: headache, numbness, paresthesia, tingling, dizziness, weakness Hematologic/Lymphatic: denies: blood clots, easy bleeding, easy bruising Immunologic/allergic: denies: HIV/AIDS, transplant 10 systems reviewed and negative except as noted EXAM: GENERAL: Well-appearing, overweight and in no acute distress. HEAD: Atraumatic, normocephalic. EYES: Pupils equal round and reactive to light, extraocular movements intact, sclera anicteric, conjunctiva are normal. ENT: TMs normal, nares patent, oropharynx clear without exudates. Moist mucous membranes. NECK: Normal range of motion, supple without lymphadenopathy or JVD. LUNGS: Breath sounds clear to auscultation bilaterally and equal. No wheezes rales or rhonchi. HEART: Regular rate and rhythm without murmurs, rubs or gallops. ABDOMEN: Soft, nontender, normoactive bowel sounds. No guarding, no rebound. No masses appreciated. BACK: No CVA tenderness, no spinal tenderness, step-offs or deformities EXTREMITIES: Normal range of motion, no pitting or edema. No clubbing or cyanosis. NEUROLOGICAL: Cranial nerves II through XII grossly intact. Normal speech, normal gait. 5/5 strength, normal movement in all extremities, normal sensation , normal reflexes PSYCH: Normal mood, normal affect. SKIN: Warm, dry, normal turgor, no visible rashes or lesions. Source: Patient, Family, Old records Exam Limitations: No limitations - Personal History Current Tetanus/Diphtheria Vaccine: Yes Current Tetanus Diphtheria and Acellular Pertussis (TDAP): Yes Tetanus Vaccine Date: WITHIN 10 YEARS - Medical/Surgical History Hx Asthma: Yes Hx Chronic Respiratory Disease: Yes Hx Diabetes: Yes Hx Cardiac Disease: Yes Hx Renal Disease: Yes Hx Cirrhosis: No Hx Alcoholism: No Hx HIV/AIDS: No Hx Splenectomy or Spleen Trauma: No Other PMH: DM2, COPD, CHF, spine surgery, knee replacement KRYSTAL, c-seation, carpal tunnelx2, appy, UMBILICAL HERNIA, SPINAL FUSION. - Family History Significant Family History: No pertinent family hx - Social History Smoking Status: Former smoker Alcohol Use: Sober Drug Use: None Constitutional: Initial Vital Signs Temperature (C) 37.2 C 09/08/18 13:34 Heart Rate 86 09/08/18 13:34 Respiratory Rate 18 09/08/18 13:34 Blood Pressure 123/68 H 09/08/18 13:34 O2 Sat (%) 93 09/08/18 13:34 O2 Delivery Mode Nasal Cannula O2 (L/minute) 3 Allergies/Adverse Reactions: albuterol Allergy (Unknown, Verified 09/08/18 17:55) Home Medications: Medication Instructions Recorded Albuterol Sulfate [Proair Hfa] 1 - 2 puffs IH Q4H PRN 10/29/16 DULoxetine [Cymbalta 60 MG (*)] 60 mg PO DAILY 10/29/16 Lisinopril [Zestril 2.5 mg (*)] 2.5 mg PO DAILY 10/29/16 Multivitamins [Multivitamin (*)] 1 each PO DAILY 10/29/16 Potassium Cl [Klor-Con 20 meq (*)] 20 meq PO HS 10/29/16 glipiZIDE [Glucotrol] 10 mg PO DAILY@12 10/29/16 Furosemide [Lasix 40 MG (*)] 40 mg PO BID@07,13 11/01/17 Metformin HCl [Metformin 1000 mg] 1,000 mg PO BIDMEAL 11/01/17 traMADol [Ultram 50 mg (*)] 50 - 100 mg PO Q6HRS PRN 11/01/17 Ascorbic Acid [Vitamin C 500 mg 500 mg PO DAILY 08/06/18 (*)] Gabapentin [Neurontin 300 MG (*)] 300 mg PO HS 08/06/18 Fluticasone/Salmeter 250/50Mcg 1 puffs IH BID #1 disk 08/13/18 [Advair 250/50 (*)] Medical Decision Making - Diagnostics EKG Interpretation: An EKG obtained and was read and documented in trace view. Please see trace view for full reading and report. Sinus rhythm, Q-wave in lead 3 with T-wave flattening, unchanged from previous Imaging Results: Imaging Impressions Chest/Thorax CTA 09/08/18 13:55 Impression: 1. Negative for acute pulmonary embolus. 2. Patchy airspace opacity in the right upper lobe likely represents pneumonia. Recommend follow-up chest CT after treatment to ensure resolution. 3. There are also bilateral patchy groundglass opacities superimposed on emphysematous changes. Findings may represent infection by an atypical organism , inhalational/hypersensitivity/medication-induced pneumonitis, or a chronic interstitial disease such as RB ILD. 4. Mediastinal and hilar adenopathy, favored to be reactive. 5. Cholelithiasis. Findings and recommendations discussed with LANDEN RAY at 1613 hour, 2018. Imaging: Discussed imaging studies w/ patrol inspector Radiologist ED Course/Re-evaluation: 3:00 p.m. the patient declined the albuterol neb because it makes her feel extremely anxious and irritable. She is saturating 98% on her baseline [address] 4:30 P.M. the patient has a residual pneumonia. No PE. She continues to feel weak and short of breath. She is also quite anemic. Will type and screen. Discussed the case with Dr. Gillespie who will admit. Will hold off on antibiotics for now and obtain procalcitonin. Differential Diagnosis: Partial list of the Differential diagnosis considered include but were not limited to; pneumonia, PE, anxiety, COPD exacerbation and although unlikely based on the history and physical exam, I also considered acute coronary disease , dissection. - Data Points Laboratory Results: Laboratory Results 09/08/18 14:16 09/08/18 14:16 09/08/18 09/08/18 09/08/18 14:53 14:16 14:16 WBC RBC Hgb Hct MCV MCH MCHC RDW Plt Count MPV Neut % (Auto) Lymph % (Auto) [place] % (Auto) Eos % (Auto) Baso % (Auto) Nucleat RBC Rel Count Absolute Neuts (auto) Absolute Lymphs (auto) Absolute Monos (auto) Absolute Eos (auto) Absolute Basos (auto) Absolute Nucleated RBC Immature Gran % Immature Gran # PT INR APTT VBG Lactic Acid Sodium Potassium Chloride Carbon Dioxide Anion Gap BUN Creatinine Estimated GFR Glucose Calcium Iron 25.0 mcg/dL L mcg/dL (37.0-170.0) TIBC 230 ug/dL L ug/dL (260-490) Iron Saturation 11 % L % (20-55) Ferritin 278.0 ng/mL H ng/mL (6.2-264.0) Total Bilirubin Conjugated Bilirubin Unconjugated Bilirubin AST ALT Alkaline Phosphatase POC Troponin I 0.01 ng/mL ng/mL (0.00-0.08) NT-Pro-B Natriuret Pep 895 pg/mL H pg/mL (0-125) Total Protein Albumin Procalcitonin 0.04 ng/mL ng/mL (0.02-0.10) 09/08/18 09/08/18 09/08/18 14:16 14:16 14:16 WBC RBC Hgb Hct MCV MCH MCHC RDW Plt Count MPV Neut % (Auto) Lymph % (Auto) [place] % (Auto) Eos % (Auto) Baso % (Auto) Nucleat RBC Rel Count Absolute Neuts (auto) Absolute Lymphs (auto) Absolute Monos (auto) Absolute Eos (auto) Absolute Basos (auto) Absolute Nucleated RBC Immature Gran % Immature Gran # PT 13.8 SEC SEC (12.0-15.0) INR 1.10 (0.83-1.16) APTT 30.2 SEC SEC (23.0-38.0) VBG Lactic Acid 1.9 mmol/L mmol/L (0.7-2.1) Sodium 134 mEq/L L mEq/L (135-145) Potassium 4.6 mEq/L mEq/L (3.5-5.2) Chloride 98 mEq/L mEq/L (97-110) Carbon Dioxide 29 mEq/l mEq/l (22-31) Anion Gap 7 mEq/L mEq/L (6-14) BUN 9 mg/dL mg/dL (7-23) Creatinine 0.8 mg/dL mg/dL (0.6-1.0) Estimated GFR > 60 Glucose 218 mg/dL H mg/dL (70-100) Calcium 8.9 mg/dL mg/dL (8.5-10.4) Iron TIBC Iron Saturation Ferritin Total Bilirubin 0.1 mg/dL mg/dL (0.1-1.4) Conjugated Bilirubin 0.1 mg/dL mg/dL (0.0-0.5) Unconjugated Bilirubin 0.0 mg/dL mg/dL (0.0-1.1) AST 11 IU/L L IU/L (14-46) ALT 28 IU/L IU/L (9-52) Alkaline Phosphatase 84 IU/L IU/L (38-126) POC Troponin I NT-Pro-B Natriuret Pep Total Protein 5.6 g/dL L g/dL (6.3-8.2) Albumin 3.2 g/dL L g/dL (3.5-5.0) Procalcitonin 09/08/18 14:16 WBC 8.55 10^3/uL 10^3/uL (3.80-9.50) RBC 2.85 10^6/uL L 10^6/uL (4.18-5.33) Hgb 8.7 g/dL L g/dL (12.6-16.3) Hct 26.5 % L % (38.0-47.0) MCV 93.0 fL fL (81.5-99.8) MCH 30.5 pg pg (27.9-34.1) MCHC 32.8 g/dL g/dL (32.4-36.7) RDW 13.2 % % (11.5-15.2) Plt Count 341 10^3/uL 10^3/uL (150-400) MPV 9.9 fL fL (8.7-11.7) Neut % (Auto) 67.6 % % (39.3-74.2) Lymph % (Auto) 19.1 % % (15.0-45.0) [place] % (Auto) 9.9 % % (4.5-13.0) Eos % (Auto) 2.1 % % (0.6-7.6) Baso % (Auto) 0.4 % % (0.3-1.7) Nucleat RBC Rel Count 0.0 % % (0.0-0.2) Absolute Neuts (auto) 5.78 10^3/uL 10^3/uL (1.70-6.50) Absolute Lymphs (auto) 1.63 10^3/uL 10^3/uL (1.00-3.00) Absolute Monos (auto) 0.85 10^3/uL H 10^3/uL (0.30-0.80) Absolute Eos (auto) 0.18 10^3/uL 10^3/uL (0.03-0.40) Absolute Basos (auto) 0.03 10^3/uL 10^3/uL (0.02-0.10) Absolute Nucleated RBC 0.00 10^3/uL 10^3/uL (0-0.01) Immature Gran % 0.9 % % (0.0-1.1) Immature Gran # 0.08 10^3/uL 10^3/uL (0.00-0.10) PT INR APTT VBG Lactic Acid Sodium Potassium Chloride Carbon Dioxide Anion Gap BUN Creatinine Estimated GFR Glucose Calcium Iron TIBC Iron Saturation Ferritin Total Bilirubin Conjugated Bilirubin Unconjugated Bilirubin AST ALT Alkaline Phosphatase POC Troponin I NT-Pro-B Natriuret Pep Total Protein Albumin Procalcitonin Medications Given: Insulin Human Lispro (Humalog Lispro) 0 unit SC TIDMEAL ROSELIA PRN Reason: Protocol Stop: 03/07/19 19:29 Last Admin: 09/08/18 19:27 Dose: 4 units Discontinued Medications Albuterol/Ipratropium (Duoneb) 3 ml IH EDNOW ONE Stop: 09/08/18 13:57 Last Admin: 09/08/18 15:04 Dose: Not Given Prednisone (Prednisone) 60 mg PO EDNOW ONE Stop: 09/08/18 14:00 Last Admin: 09/08/18 14:53 Dose: 60 mg Point of Care Test Results: Chemistry 09/08/18 14:53 POC Troponin I 0.01 ng/mL ng/mL (0.00-0.08) Departure - Departure Disposition: [facility] Inpatient Acute Clinical Impression: Dyspnea Qualifiers: Dyspnea type: dyspnea on exertion Qualified Code(s): R06.09 - Other forms of dyspnea Anemia Qualifiers: Anemia type: unspecified type Qualified Code(s): D64.9 - Anemia, unspecified Condition: Fair
[2018-09-08] MEDS ORDERED: predniSONE 20 MG TAB PO ONE (13:59)
[2018-09-08 14:34] LABS: PLATELET COUNT 341 10^3/uL (150-400)
[2018-09-08 14:45] LABS: INR 1.1 (0.83-1.16); PROTIME(PATIENT) 13.8 SEC (12.0-15.0)
[2018-09-08] MEDS ORDERED: IOPAMIDOL (ISOVUE 370) 100 ML BTL IV ONE ×2 (15:09→15:36)
--- NOTE | 2018-09-08 15:51 | CPEKG ---
Test Reason : OPEN Blood Pressure : / mmHG Vent. Rate : 090 BPM Atrial Rate : 090 BPM P-R Int : 160 ms QRS Dur : 082 ms QT Int : 344 ms P-R-T Axes : -18 011 032 degrees QTc Int : 421 ms Sinus rhythm similar to previous Confirmed by Landen Ray ([id number]) on 09/08/2018 3:50:58 PM Referred By: LANDEN RAY Confirmed By:Landen Ray
[2018-09-08] MEDS ORDERED: IPRATROPIUM/ALBUTEROL 3 ML DEYVIAL IH PRN (17:29)
[2018-09-08] MEDS ORDERED: traMADol 50 MG TAB PO PRN (17:30)
--- NOTE | 2018-09-08 17:52 | GHP ---
[f rep st] HISTORY AND PHYSICAL DATE OF ADMISSION: 09/08/2018 CHIEF COMPLAINT: Shortness of breath. HPI: This is a 68-year-old female, discharged from [facility] on 08/13/2018, after being admitted and treated for acute hypoxemic respiratory failure, COPD exacerbation, and acute human metapneumovirus infection. Since being discharged from the hospital. The patient states that she has never really recovered. Two weeks ago, she was seen by her primary care provider, who obtained a chest x-ray on 08/28/2018, which showed a suspected right upper lobe alveolar opacity representing pneumonia. The patient was started on doxycycline, which she took twice daily for 1 week. She was also on prednisone. Today, the patient presents with chest tightness. She tells me she has had fevers off and on for the past few weeks. Currently, does not have a fever. She has a mild nonproductive cough. PAST MEDICAL HISTORY: COPD, diabetes, congestive heart failure with preserved left ejection fraction. Last echo done 08/22/2018 with EF 70% to 75% with grade 2 diastolic dysfunction. PAST SURGICAL HISTORY: Bilateral knee surgery. HOME MEDICATIONS: Reviewed. Refer to [facility] for details. ALLERGIES: Albuterol causes adverse reaction, which will need further investigation. FURTHER SOCIAL HISTORY: The patient is , lives in the [place] area with her , but travels to [place] for her medical care. She is a former smoker. She denies any alcohol or illicit drug use. FAMILY HISTORY: Reviewed and noncontributory. REVIEW OF SYSTEMS: A comprehensive 10-point review of systems was done and is negative, except for as mentioned in HPI. PHYSICAL EXAM: VITAL SIGNS: O2 saturation 93% on 3 L, temperature. 37.2, heart rate 86, blood pressure 123/68, respiratory rate 18. GENERAL: Well- appearing, no acute distress. HEAD: Normocephalic, atraumatic. EYES: PERRLA. Sclerae anicteric. MOUTH: Moist mucous membranes. NECK: Supple. No lymphadenopathy. CARDIOVASCULAR: S1 and S2, no JVD. Trace lower extremity edema. PULMONARY: Bilateral wheezing with diminished breath sounds in bilateral bases. No rales or rhonchi. ABDOMEN: Soft, nontender, nondistended. No guarding or rebound tenderness. There is a reducible umbilical hernia present. Normoactive bowel sounds. EXTREMITIES: No clubbing or cyanosis. NEURO: Cranial nerves 2-12 grossly intact. No focal motor or sensory deficits. SKIN: Clear, no rashes. DIAGNOSTICS: WBC is 8.5, hemoglobin 8.7, hematocrit 26.5, platelets 341 coags unremarkable. Venous lactic acid was 1.9 sodium 134, potassium 4.6, chloride 98 , BUN 9, creatinine 0.8. Glucose 218, calcium 8.9, total bilirubin 0.1, AST 11 , ALT 28. Troponin was negative. Stool occult blood from 05/16/2017, was positive. EKG, which I visualized and personally interpreted, shows sinus rhythm, rate 90 beats per minute. No acute ischemic changes. CT angio of the chest, which I reviewed, is negative for acute PE. There is patchy airspace opacity right upper lobe with bilateral patchy ground-glass opacities. There is mediastinal and hilar adenopathy, and cholelithiasis. ASSESSMENT/PLAN: 1. This is a 68-year-old female presenting with wheezing and shortness of breath, which I suspect is due to chronic obstructive pulmonary disease exacerbation. I suspect that the infiltrate seen on CT scan is related to a previously treated pneumonia with doxycycline, given the patient does not currently have a fever, elevated white blood cell count, or cough will defer restarting antibiotics at this time. Plan: Continue Duoneb treatments and Prednisone for now. Consult pulmonology for further guidance in the morning. The patient has had blood cultures drawn, and will start antibiotics if she develops fever or any evidence of an acute bacterial infection. I will add a procalcitonin test onto her labs. She wishes to minimize blood draws since she is known to be a difficult patient to obtain blood samples from. 2. Worsening normocytic anemia of unclear etiology. Plan: Her anemia is likely contributing to her overall malaise. We will obtain iron studies as well as a ferritin. We will check stool for occult blood. As mentioned above, the patient has had a Hemoccult-positive stool in the past and should have a GI workup for anemia either during this hospital stay or in the outpatient setting. 3. History of grade 2 diastolic dysfunction/congestive heart failure with preserved systolic function: The patient's symptoms could also be related to a mild CHF picture. We will also add on a BNP and consider diuresis as indicated. 4. History of diabetes mellitus 2. Plan: We will hold home dose of metformin (contrast ct done) and glipizide for now. We will check blood sugars AC and HS and cover with correctional insulin as indicated. The patient requests to be full code status. /[id number]/MODL MTDD
[2018-09-08] MEDS ORDERED: D50W 25 GM/50 ML SYR IVP PRN (18:11)
[2018-09-08] MEDS: INSULIN LISPRO 100 UNIT/ML SC SCH (19:27)
[2018-09-08] MEDS: POTASSIUM CL 20 MEQ TAB PO SCH (20:12)
[2018-09-08] MEDS: GABAPENTIN 300 MG CAP PO SCH (20:12)
[2018-09-08] MEDS: FLUTICASONE/SALMETER 250/50MCG DISKUS IH SCH (20:37)
[2018-09-08] MEDS ORDERED: INSULIN LISPRO 100 UNIT/ML SC ONE (21:00)
[2018-09-09] MEDS: FUROSEMIDE 40 MG TAB PO SCH ×2 (06:01→13:24)
[2018-09-09] MEDS: INSULIN LISPRO 100 UNIT/ML SC SCH ×4 (07:47→20:51)
[2018-09-09] MEDS: ENOXAPARIN 40 MG/0.4 ML SYR SC SCH (07:47)
[2018-09-09] MEDS: predniSONE 20 MG TAB PO SCH (07:48)
[2018-09-09] MEDS: LISINOPRIL 2.5 MG TAB PO SCH (07:48)
[2018-09-09] MEDS: DULoxetine 60 MG CAP PO SCH (07:48)
[2018-09-09] MEDS: ASCORBIC ACID 500 MG TAB PO SCH (07:48)
[2018-09-09] MEDS: MULTIVITAMINS 1 EACH TAB PO SCH (07:49)
[2018-09-09] MEDS: FLUTICASONE/SALMETER 250/50MCG DISKUS IH SCH ×2 (09:51→20:14)
[2018-09-09] MEDS: SODIUM FERRIC GLUCONAT/SUCROSE 125 MG in NS 100 ML IV SCH (11:46)
--- NOTE | 2018-09-09 12:27 | PDMN ---
Medical Necessity Medical necessity: [facility] M100 COPD, A-2 days: 68 yo w/ recent admit for acute hypoxemic resp fx, COPD and acute human metapneumovirus presents again to hospital w/ chest tightness. Post last d/c pt treated for PNA on po antibx on outpt basis. Eval reveals COPD exacerbation w/ wheezing, SOB requiring O2 to keep sats>90% Monitor for s/sx infection, start sched nebs, steroids, pulm consult, BC pending. Meets [facility] IP criteria for COPD indicated by severe underlying COPD with new or worsened signs or symptoms of COPD as above.
[2018-09-09] MEDS ORDERED: ALBUTEROL 60 PUFFS/8 GM MDI IH PRN (13:12)
--- NOTE | 2018-09-09 13:13 | HOSPPROG ---
Hospitalist Progress Note Assessment/Plan: 60-year-old female presents the emergency room from her primary care doctor's office secondary to shortness of breath and abnormal chest x-ray. 1st encounter. Chart reviewed. # shortness of breath -etiology unclear -CT chest read pneumonia -discussed with Dr. Lassiter who will consult on the patient -hold antibiotic therapy until seen by pulmonology -continue prednisone and breathing treatments # COPD -continue supportive care # diabetes mellitus -home metformin on hold in setting of IV contrast -continue sliding scale insulin, changed to high-dose and a.c. HS -blood glucose elevated in setting of steroid use # anemia -etiology unclear -labs pending -patient states she had a colonoscopy 3 years ago -informed her she needs to continue evaluation of her anemia -IV iron ordered -needs outpatient follow-up and evaluation # diastolic dysfunction -BNP only 895 # disposition -unclear -await pulmonology consult -continue home meds per patient's request Subjective: Up in the chair. Feels weak and ill. No coughing current. No other specific complaints. Objective: Vital Signs Temp Pulse Resp BP Pulse Ox 36.8 C 91 16 101/68 91 L 09/09/18 12:09 09/09/18 12:09 09/09/18 12:09 09/09/18 12:09 09/09/18 12:09 Microbiology 09/08/18 17:39 Respiratory Panel (PCR) - Final Nasal, Sinus - Swab No Organism Detected By Pcr 09/08/18 09/09/18 09/10/18 05:59 05:59 05:59 Intake Total 375 Balance 375 PT 13.8 SEC (12.0-15.0) 09/08/18 14:16 INR 1.10 (0.83-1.16) 09/08/18 14:16 - Physical Exam Constitutional: appears nourished, chronically ill appearing, obese Eyes: PERRL, anicteric sclera, EOMI Ears, Nose, Mouth, Throat: moist mucous membranes, hearing normal, ears appear normal Cardiovascular: regular rate and rhythym, No JVD, No edema Respiratory: no respiratory distress, no rales or rhonchi, reduced air movement Gastrointestinal: normoactive bowel sounds, No tenderness, No ascites Skin: warm, normal color, No mottled Musculoskeletal: normal joint ROM, no joint effusions, generalized weakness Neurologic: AAOx3 Psychiatric: not anxious, not encephalopathic, thought process linear ICD10 Worksheet Patient Problems: Problems Problem Status Onset Arthritis of right knee Acute Failure to thrive Acute Upper GI bleeding Acute Cellulitis of left leg Acute Sepsis Acute Anemia Acute Cellulitis Acute Chronic obstructive pulmonary disease with acute exacerbation Acute Respiratory distress Acute Dyspnea Acute
--- NOTE | 2018-09-09 14:51 | ASMTCMCOM ---
CM Note CM Note Notes: Pt admitted for dyspnea, she was released from [facility] recently on 08/13. She lives at home with her and has been cleared by PT/OT for home. CM available for any changes. DC Plan: Independent Date Signed: 09/09/2018 02:51 PM Electronically Signed By:Sharla Fink RN
--- NOTE | 2018-09-09 19:57 | GCON ---
[f rep st] CONSULTATION PULMONARY CONSULTATION DATE OF CONSULTATION: 09/09/2018 REFERRING PHYSICIAN: Park Lockhart NP REASON FOR CONSULTATION: Evaluation and management of pneumonia. HISTORY: Ms. Spencer is a 68-year-old woman with a history of moderately severe COPD, and diabetes, who was admitted to [facility] on August 06 with increased shortness of breath. She was felt to have some CHF decompensation, but also was found to have human metapneumovirus. She was treated w ith steroids and bronchodilators, as well as diuresis, and was discharged on August 13. She states shaheed t she really was not much better at the time of discharge, and then started having some intermittent fevers. She was seen by her primary care physician on August 28, at which time a chest x-ray revealed a right upper lobe pneumonia. She was treated with doxycycline, which she took for a week, in additio n to prednisone. She states that she really did not feel much better, although she has although she h as not had a fever in about the past 2 days. She continues to feel chest tightness with a sensation t hat it is difficult to take a deep breath. This symptom has changed minimally over the past few weeks . She has a mild nonproductive cough. PAST MEDICAL HISTORY: 1. COPD. This is moderate in severity. I saw the patient in 2017, and she was seen by Dr. Martini in 2018. 2. Diabetes. 3. Congestive heart failure with preserved left ejection fraction. An echocardiogram done last month showed an ejection fraction of 70% with diastolic dysfunction. MEDICATIONS: At the time of admission include: 1. Cymbalta. 2. Glucotrol. 3. Zestril. 4. Albuterol. 5. Metformin. 6. Lasix. 7. Tramadol. 8. Gabapentin. 9. Advair is listed, but the patient denies taking. 10. Here in the hospital she has also been on prednisone. ALLERGIES: Albuterol. SOCIAL HISTORY: The patient is . She is a former smoker. She denies alcohol use. FAMILY HISTORY: Unremarkable. REVIEW OF SYSTEMS: A 10-point review of systems adds nothing to the History of Present Illness. PHYSICAL EXAMINATION: GENERAL: The patient is awake and alert. She is in no acute distress. VITAL SI GNS: Blood pressure is 108/48 with a heart rate of 95. She is afebrile. Oxygen saturations are 90% on 1 L. HEENT: Normocephalic and atraumatic. No icterus. NECK: No JVD. Trachea is midline. CHEST: Clear to auscultation. CARDIAC: Regular rate and rhythm without murmur. ABDOMEN: Soft, nontender. Bowel so unds are present. EXTREMITIES: No clubbing or cyanosis. She has a trace of lower extremity edema. LABORATORY: Glucose is 379. A BNP was 895 yesterday. Hemoglobin is 8.7, white blood count is 8.5. IMAGING: A CT scan of the chest shows a patchy right upper lobe infiltrate suggestive of pneumonia. When compared to her prior chest x-ray from August 28, it looks like it is probably reduced in size co mpared to the prior chest x-ray, although direct comparison is somewhat difficult. Images reviewed by me. She also has diffuse mild ground-glass patchy opacities. There is no pulmonary embolism. ASSESSMENT: 1. Pneumonia. The patient likely had a right upper lobe bacterial pneumonia after having metapneumov irus earlier in August. She was appropriately treated with doxycycline, and seems to have had some cli nical response, with no white count or fever currently, and what appears to be an improving infiltrat e. 2. Dyspnea. Patient continues to report a sensation of shortness of breath, primarily a sensation th at she has difficulty taking a full breath. This is likely due to chronic obstructive pulmonary disea se with residual from her human metapneumovirus infection. The human metapneumovirus can cause prolon ged symptoms with very slow resolution. I do not think further antibiotics are warranted currently. S he is currently on steroids, but unfortunately those are causing her blood sugars to rise dramaticall y. RECOMMENDATIONS: 1. Continue Advair. The patient was not aware that she is taking it. 2. Check a chest x-ray to confirm that the infiltrate is improving compared to July 28. 3. Check bedside spirometry to determine whether or not her degree of obstruction is significantly w orse than prior outpatient spirometry. 4. Continue twice daily Lasix. Consider increased dose temporarily to see if removing some fluid arleen ht help with some mild pulmonary edema. /[id number]/MODL
[2018-09-09] MEDS: GABAPENTIN 300 MG CAP PO SCH (20:14)
[2018-09-09] MEDS: POTASSIUM CL 20 MEQ TAB PO SCH (20:14)
[2018-09-10] MEDS: FUROSEMIDE 40 MG TAB PO SCH ×2 (06:07→13:02)
[2018-09-10] MEDS: INSULIN LISPRO 100 UNIT/ML SC SCH ×4 (08:23→21:51)
[2018-09-10] MEDS: FLUTICASONE/SALMETER 250/50MCG DISKUS IH SCH ×2 (08:27→20:09)
[2018-09-10] MEDS: SODIUM FERRIC GLUCONAT/SUCROSE 125 MG in NS 100 ML IV SCH (08:33)
[2018-09-10] MEDS: ENOXAPARIN 40 MG/0.4 ML SYR SC SCH (08:33)
[2018-09-10] MEDS: LISINOPRIL 2.5 MG TAB PO SCH (08:34)
[2018-09-10] MEDS: ASCORBIC ACID 500 MG TAB PO SCH (08:34)
[2018-09-10] MEDS: MULTIVITAMINS 1 EACH TAB PO SCH (08:34)
[2018-09-10] MEDS: predniSONE 20 MG TAB PO SCH (08:34)
[2018-09-10] MEDS: DULoxetine 60 MG CAP PO SCH (08:34)
--- NOTE | 2018-09-10 09:01 | HOSPPROG ---
Hospitalist Progress Note Assessment/Plan: 68-year-old female presents the emergency room from her primary care doctor's office secondary to shortness of breath and abnormal chest x-ray. 1st encounter. Chart reviewed. # shortness of breath -likely secondary from recent pna, recent human pneumovirus -chext xray shows improvement # Moderate COPD -steroids + Advair # diabetes mellitus -home metformin on hold in setting of IV contrast -continue sliding scale insulin, changed to high-dose and a.c. HS -blood glucose elevated in setting of steroid use # anemia -hx of GI bleed due to a gastric ulcer in 2018 -colonoscopy 3 years ago -IV iron -OB screen negative x 3 # diastolic dysfunction -BNP 895 #plan: to get PFT prior to dc, will check an H & H prior. Dr Lassiter to see. Subjective: Rosalio is feeling better but concerned about going home and having symptoms return. Objective: Vital Signs Temp Pulse Resp BP Pulse Ox 36.8 C 87 18 103/68 96 09/10/18 07:21 09/10/18 08:28 09/10/18 08:28 09/10/18 07:21 09/10/18 08:28 09/09/18 09/10/18 09/11/18 05:59 05:59 05:59 Intake Total 375 Balance 375 PT 13.8 SEC (12.0-15.0) 09/08/18 14:16 INR 1.10 (0.83-1.16) 09/08/18 14:16 - Physical Exam Constitutional: appears nourished, chronically ill appearing Eyes: PERRL Ears, Nose, Mouth, Throat: hearing normal Cardiovascular: regular rate and rhythym Respiratory: no respiratory distress Gastrointestinal: normoactive bowel sounds Skin: warm, No normal color (pale) Neurologic: AAOx3 Psychiatric: interacting appropriately ICD10 Worksheet Patient Problems: Problems Problem Status Onset Anemia Acute Dyspnea Acute Arthritis of right knee Acute Cellulitis Acute Cellulitis of left leg Acute Chronic obstructive pulmonary disease with acute exacerbation Acute Failure to thrive Acute Respiratory distress Acute Sepsis Acute Upper GI bleeding Acute
[2018-09-10] MEDS: IPRATROPIUM HFA INHALER IH SCH ×3 (12:03→21:30)
[2018-09-10] MEDS: glipiZIDE 10 MG TAB PO SCH (13:02)
--- NOTE | 2018-09-10 15:31 | PDINTPN ---
Health Worker Progress Note Assessment/Plan: Assessment: Pneumonia : treated as an outpatient with doxycycline. Nearly resolved by CXR, some infiltrate persists on CT. Also has some diffuse pneumonitis, which cold be residua from viral pneumonia from metapneumovirus. CHF/pulmonary edema less likely. Dyspnea: Increased over her baseline WILLIAMSON from COPD. Her degree of obstruction is stable from 2 years ago. May still have some pneumonitis or, less likely, pulmonary edema. Likely will slowly improve. COPD: Stable per jeannie. Plan: OK to discharge on reduced prednisone dose, perhaps 20/day for a few more days. Continue Advair/Atrovent. Follow-up with me or Dr. Martini in 1-2 weeks. 09/10/18 15:31 Subjective: She feels a bit better, although her dyspnea fluctuates. Had some non- productive cough this morning, now resolved. Objective: Vital Signs Temp Pulse Resp BP Pulse Ox 36.8 C 89 14 104/63 98 09/10/18 11:47 09/10/18 12:04 09/10/18 12:04 09/10/18 11:47 09/10/18 12:04 Laboratory Results 09/10/18 13:57 09/09/18 09/10/18 09/11/18 05:59 05:59 05:59 Intake Total 375 Balance 375 PT 13.8 SEC (12.0-15.0) 09/08/18 14:16 INR 1.10 (0.83-1.16) 09/08/18 14:16 CXR: Nearly resolved RUL pneumonia. Images reviewed by me. [place]: Severe obstruction, FEV1 0.82, identical to outpatient from 09/11/16. FVC down a bit at 1.46 liters (was 1.61 liters). Physical Exam - Physical Exam General Appearance: alert, no apparent distress EENT: normal ENT inspection Neck: normal inspection Respiratory: lungs clear Cardiac/Chest: regular rate, rhythm, No edema Abdomen: normal bowel sounds, non-tender Skin: normal color, warm/dry Extremities: normal inspection Neuro/Psych: alert, normal mood/affect, oriented x 3 ICD10 Worksheet Patient Problems: Problems Problem Status Onset Anemia Acute Dyspnea Acute Arthritis of right knee Acute Cellulitis Acute Cellulitis of left leg Acute Chronic obstructive pulmonary disease with acute exacerbation Acute Failure to thrive Acute Respiratory distress Acute Sepsis Acute Upper GI bleeding Acute
[2018-09-10] MEDS: metFORMIN HCL 500 MG TAB PO SCH (19:30)
[2018-09-10] MEDS: GABAPENTIN 300 MG CAP PO SCH (20:09)
[2018-09-10] MEDS: POTASSIUM CL 20 MEQ TAB PO SCH (20:09)
[2018-09-11] MEDS: IPRATROPIUM HFA INHALER IH SCH ×2 (05:53→09:40)
[2018-09-11] MEDS: FUROSEMIDE 40 MG TAB PO SCH ×2 (06:01→13:57)
[2018-09-11] MEDS: INSULIN LISPRO 100 UNIT/ML SC SCH ×3 (08:08→13:58)
[2018-09-11] MEDS: ASCORBIC ACID 500 MG TAB PO SCH (08:15)
[2018-09-11] MEDS: MULTIVITAMINS 1 EACH TAB PO SCH (08:15)
[2018-09-11] MEDS: DULoxetine 60 MG CAP PO SCH (08:15)
[2018-09-11] MEDS: metFORMIN HCL 500 MG TAB PO SCH (08:15)
[2018-09-11] MEDS: predniSONE 20 MG TAB PO SCH (08:15)
[2018-09-11] MEDS: SODIUM FERRIC GLUCONAT/SUCROSE 125 MG in NS 100 ML IV SCH (08:16)
[2018-09-11] MEDS: ENOXAPARIN 40 MG/0.4 ML SYR SC SCH (08:16)
[2018-09-11] MEDS ORDERED: predniSONE 20 MG TAB PO SCH (08:25)
[2018-09-11] MEDS: FLUTICASONE/SALMETER 250/50MCG DISKUS IH SCH (09:40)
--- NOTE | 2018-09-11 12:43 | HOSPPROG ---
Hospitalist Progress Note Assessment/Plan: 68-year-old female presents the emergency room from her primary care doctor's office secondary to shortness of breath and abnormal chest x-ray. # shortness of breath -likely secondary from recent pna, recent human pneumovirus -chext xray shows improvement -could also be r/t her anemia # Moderate COPD -steroids + Advair # diabetes mellitus -metformin now resumed -continue sliding scale insulin, changed to high-dose and a.c. HS -blood glucose elevated in setting of steroid use # anemia, cont to drift down -hx of GI bleed due to a gastric ulcer in 2018 -colonoscopy 3 years ago which was stable per patient and her , Augusto -IV iron -she has had chronic anemia which per the patient has not had w/u -spoke w Dr Ayala to get his input carlie in the setting of negative OB screen x 3 # diastolic dysfunction -BNP 895 #plan: Dr Ayala to see Subjective: Rosalio is tired. Says this has been ongoing. Objective: Vital Signs Temp Pulse Resp BP Pulse Ox 36.9 C 88 14 91/58 L 93 09/11/18 11:22 09/11/18 11:22 09/11/18 11:22 09/11/18 11:22 09/11/18 11:22 Laboratory Results 09/11/18 05:03 PT 13.8 SEC (12.0-15.0) 09/08/18 14:16 INR 1.10 (0.83-1.16) 09/08/18 14:16 - Physical Exam Constitutional: appears nourished, not in pain, obese Eyes: PERRL Ears, Nose, Mouth, Throat: hearing normal Cardiovascular: regular rate and rhythym Respiratory: no respiratory distress, reduced air movement Gastrointestinal: normoactive bowel sounds Skin: warm, No normal color (pale) Musculoskeletal: generalized weakness Neurologic: AAOx3 Psychiatric: interacting appropriately ICD10 Worksheet Patient Problems: Problems Problem Status Onset Anemia Acute Dyspnea Acute Arthritis of right knee Acute Cellulitis Acute Cellulitis of left leg Acute Chronic obstructive pulmonary disease with acute exacerbation Acute Failure to thrive Acute Respiratory distress Acute Sepsis Acute Upper GI bleeding Acute
[2018-09-11] MEDS: glipiZIDE 10 MG TAB PO SCH (13:57)
[2018-09-11 15:23] LABS: PLATELET COUNT 413 10^3/uL (150-400)
--- NOTE | 2018-09-11 15:43 | GCON ---
[f rep st] CONSULTATION HEMATOLOGY CONSULT REFERRING PHYSICIAN: Carolee Littlejohn NP REASON FOR CONSULTATION: Persistent anemia. HISTORY OF PRESENT ILLNESS: The patient is a 68-year-old woman who was admitted to the hospital with shortness of breath and recent pneumonia. She had just been admitted and discharged after COPD exac erbation due to acute human metapneumovirus infection in August. Chest x-ray at the end of August, showed a suspected opacity representing pneumonia and she was starte d on doxycycline and prednisone. She presented to the ER with chest tightness and on and off fevers with mild chills. I was asked to see her because she has had a persistent anemia for a long time. S he thinks she has had anemia for "at least 10 years." She has also been having chronic fatigue, but no other constitutional symptoms. Even the fevers and sweats were only recently with the infection a nd they have resolved. She has tried oral iron in the past without much benefit. She has not seen a software computer specialist yet. She had a colonoscopy about 3 years ago, which was unremarkable. She had an epis ode of stomach ulcer in May 2017, with an upper endoscopy. She denies any other bleeding. ALLERGIES: She has a reported allergy to albuterol. HOME MEDICATIONS: Included ipratropium, albuterol, glipizide, gabapentin, furosemide, Advair, fluoxe rhonda, ascorbic acid, multivitamin, metformin, lisinopril, potassium, tramadol, and prednisone. PAST MEDICAL HISTORY: Chronic illnesses include: 1. COPD. 2. Type 2 diabetes. 3. Diastolic dysfunction with EF of 70% to 75%. She is being followed by Dr. Carrillo. 4. She had an episode of urosepsis after back surgery about 5 years ago. SURGICAL HISTORY: Includes spinal fusion with hardware placement, bilateral knee replacement, right wrist surgery for cyst. She had an appendectomy as a child. SOCIAL HISTORY: She has about a 30 pack-year history of smoking, but quit about 9 years ago. No sig nificant alcohol. No drug abuse. She is . 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 FAMILY HISTORY: Mother in her 80s, complications of age and diabetes. Father is really unknown , she thinks maybe heart, but she was not in contact with him. She was 3 times with 2 daugh ters, and 1 miscarriage. One daughter has Juan Diego-Danlos syndrome and the other is estranged. Rolando gupta has a bleeding disorder that she is aware of. REVIEW OF SYSTEMS: A 10-point review of systems performed. Pertinent positives as per HPI, otherwis e negative. PHYSICAL EXAM: VITAL SIGNS: Temperature is 36.9, pulse 88, blood pressure 91/58, saturating at 93% on 1.5 L. GENERAL: She is an elderly woman in no distress. Her is with her today. HEENT: Sclerae nonicteric. Extraocular muscles are intact. Oral mucosa is unremarkable. LUNGS: Decrease d, but no adventitious sounds or wheezing today. CARDIAC: Regular. ABDOMEN: Soft without hepatosp lenomegaly. NODES: No cervical, supraclavicular, axillary, or inguinal lymphadenopathy. MUSCULOSKE LETAL: Nontender over her spine. NEUROLOGICAL: Appeared to be grossly intact. LABORATORY DATA: Chest CT showed some patchy airspace disease and some lymphadenopathy that appeared to be reactive, and some gallstones, but otherwise unremarkable. She had an abdominal CT in 2016, t hat also showed gallstones. CBC a couple of days ago, white count, platelet count are normal with a normal differential. Hemoglo bin is 8.7 g/dL with a normal MCV and RDW. Going back, she has had anemia since at least January 2016. We have a CBC from October 2008, which wa s normal with a hemoglobin of 14.4. Her creatinine has ranged from now back to 2016, anywhere betwee n 0.8 and 1.8. She had a reticulocyte count performed a year ago, which was normal at 1.8%. Coags a re unremarkable. Other chemistries are only remarkable for cortisol at 3, which was a couple of year s ago. Iron saturation is 11% with a ferritin of 278. Total protein was 5.6 with an albumin of 3.2. Stool occult for blood was negative. IMPRESSION: 1. Normochromic normocytic anemia for at least the last 3 years. 2. Type 2 diabetes. 3. Chronic obstructive pulmonary disease. 4. Diastolic dysfunction. 5. Urosepsis about 5 years ago. Her iron is a pattern of anemia of chronic disease, although that may be difficult to interpret since she was having an acute infection. Most likely, her main problem is she has chronic erythropoietin deficiency, probably due to the underlying diabetes and perhaps due to the injury from the urosepsis several years ago. With otherwise normal blood counts, a bone marrow disorder is less likely. I rec ernied getting some blood tests today and then see her back in a couple of weeks to review the result s. If she does have erythropoietin deficiency and she is still anemic post hospitalization, she migh t benefit from replacement, which we can arrange in the outpatient setting. I appreciate seeing her in consultation. /[id number]/MODL
[2018-09-11 15:51] VITALS: BP 105/61
--- NOTE | 2018-09-11 16:08 | ASMTCMCOM ---
CM Note CM Note Notes: Pt discharged home today independent. is driving her home. Her daughter also lives with them and will assist with any care she may need. Pt uses oxygen at home and has her own equipment already, including concentrator for her trip home. No further needs at this time. Date Signed: 09/11/2018 04:07 PM Electronically Signed By:Geetha Pride
--- NOTE | 2018-09-11 16:10 | ASMTLACE ---
LACE Length of stay for Answers: 3 days current admission Acuity / Level of Answers: Yes Care: Did the patient have an inpatient admission? Comorbidities - select Answers: Chronic pulmonary disease all that apply Congestive heart failure Diabetes (uncontrolled or controlled) Opioid dependence / Chronic pain # of Emergency department Answers: 1-2 visits in the last 6 months Score: 16 Date Signed: 09/11/2018 04:08 PM Electronically Signed By:Geetha Pride
[2018-09-11 16:18] LABS: HEPATITIS B SURFACE ANTIGEN NEGATIVE (NEGATIVE)
[2018-09-11 18:26] LABS: HEPATITIS B CORE AB IGM NEGATIVE (NEGATIVE)
--- NOTE | 2018-09-11 18:39 | GDS ---
[f rep st] DISCHARGE SUMMARY DISCHARGE DIAGNOSES: 1. Shortness of breath. 2. Moderate chronic obstructive pulmonary disease. 3. Diabetes mellitus. 4. Anemia. 5. Diastolic dysfunction. CONSULTATION: 1. Dr. Lassiter. 2. Dr. Ayala. Briefly, Rosalio Spencer is a 68-year-old female who was discharged from [facility] on 03/2019. At that time, she was treated for acute hypoxemic respiratory failure, COPD exacerbation an d acute human metapneumovirus infection. She has never really recovered. She saw her primary care d juan, who obtained a chest x-ray, which showed a suspected right upper lobe opacity representing pne umonia. She was then treated with doxycycline. She returned to the ER, still feeling very short of breath. She was seen and evaluated by Dr. Lassiter. She had a repeat chest x-ray, which showed some in filtrate. She also has some diffuse pneumonitis. She will continue her Advair, as well as her Atrov ent and follow up with Dr. Martini or Dr. Lassiter in 1-2 weeks. Also, she has had chronic anemia. She was evaluated by Dr. Ayala. She will further follow up with him in the outpatient setting. HOSPITAL COURSE PER PROBLEM: 1. Shortness of breath. This is likely secondary to her recent pneumonia, as well as her recent vir al infection, as well as ongoing anemia. She is feeling markedly better. Further followup with Dr. Lassiter and with Dr. Ayala. 2. Moderate COPD. She will be on prednisone for a few more days and continue her Advair. 3. Diabetes mellitus. Metformin has been resumed. Glucoses were elevated in the setting of steroid use. 4. Anemia. She has drifted up and down. It looks like she has had chronic anemia. She will follow up with Dr. Ayala in the outpatient setting. 5. Diastolic dysfunction, stable. DISCHARGE CONDITION: Stable. Blood pressure is 123/67, heart rate of 84, respiratory rate of 16, O2 sat on 1.5 L is 95%, temperature 36.9 Celsius. MEDICATIONS AT DISCHARGE: Please see the EMR. DISCHARGE INSTRUCTIONS: 1. Follow up with Dr. Ayala. She has multiple labs pending. 2. Take her prednisone for the next 3 days with food. 3. To hold her lisinopril and diuretics for systolic blood pressure less than 110. 4. To check her blood pressure daily and keep a record to take with her to her doctor. Greater than 30 minutes discharging and coordinating the patient's care. Copy requested to: Maikol Guzman Lianet Guzman Jamie /[id number]/MODL
[2018-09-11 18:40] LABS: HEPATITIS C ANTIBODY TOTAL NEGATIVE (NEGATIVE)
== END 2018-09-11 16:23 | disposition home or self-care (01) | DRG 811 ==
LOC: OBSVTOIN 17:30 → F3E 17:48
PROVIDERS: ADMIT Family Medicine; ATTEND Internal Medicine
DX: D64.9 Anemia, unspecified (principal); J18.9 Pneumonia, unspecified organism; I50.30 Unspecified diastolic (congestive) heart failure; J44.9 Chronic obstructive pulmonary disease, unspecified; E11.9 Type 2 diabetes mellitus without complications; Z79.84 Long term (current) use of oral hypoglycemic drugs; Z98.1 Arthrodesis status; Z96.653 Presence of artificial knee joint, bilateral; Z86.19 Personal history of other infectious and parasitic diseases
CPT/HCPCS: 82607-90; 82668-90; 83921-90; 84484-ER; 86334-90; 86705-90; 97161-GP; 97165-GO; 97535-GO; G0472; J1650; J1815; J2916; J7512; Q9967

== ENCOUNTER 2018-10-02 09:52 | Day surgery (SDC) | payer OTHER ==
[2018-10-02] MEDS ORDERED: DIAZEPAM 5 MG TAB PO ONE (09:56)
[2018-10-02] MEDS ORDERED: ASPIRIN EC 325 MG TAB PO ONE (09:56)
[2018-10-02] MEDS ORDERED: diphenhydrAMINE 25 MG CAP PO ONE (09:56)
[2018-10-02] MEDS ORDERED: NS 1,000 ML IV ONE (09:56)
[2018-10-02] MEDS ORDERED: FAMOTIDINE 20 MG TAB PO ONE (09:56)
[2018-10-02 10:34] LABS: PLATELET COUNT 261 10^3/uL (150-400)
[2018-10-02 10:42] LABS: INR 1.02 (0.83-1.16)
[2018-10-02] MEDS ORDERED: MIDAZOLAM 2 MG/2 ML VIAL ONE ×2 (11:14)
[2018-10-02] MEDS ORDERED: fentaNYL 100 MCG/2 ML INJ ONE (11:14)
[2018-10-02] MEDS ORDERED: LIDOCAINE 1% 5 ML SDV ONE (11:15)
[2018-10-02] MEDS ORDERED: IOPAMIDOL (ISOVUE 370) 100 ML BTL IV ONE (11:15)
--- NOTE | 2018-10-02 11:41 | PDPROPOC ---
Sedation Plan of Care Sedation Plan of Care: vital signs stable, mental status noted, patient educated of risks, benefits, alternatives, patient can tolerate sedation ASA Classification: ASA 2 Planned drugs: fentanyl, midazolam Mallampati Score: Class 2 Mallampati Reference Image: Patient passed 3-3-2 rule?: Yes
[2018-10-02] MEDS ORDERED: NITROGLYCERIN 0.4 MG BTL SL PRN (12:30)
[2018-10-02] MEDS ORDERED: OXYCODONE/APAP 5/325 TAB PO PRN (12:30)
[2018-10-02] MEDS ORDERED: HYDROCODONE/APAP 5/325 TAB PO PRN (12:30)
[2018-10-02] MEDS ORDERED: ONDANSETRON 4 MG/2 ML VIAL IVP PRN (12:30)
[2018-10-02] MEDS ORDERED: ATROPINE SULFATE 1 MG/10 ML SYR IVP PRN (12:30)
--- NOTE | 2018-10-02 12:47 | CPIP ---
[f rep st] INVASIVE CARDIAC PROCEDURE DATE OF PROCEDURE: 10/02/2018 PROCEDURE: 1. Coronary angiography. 2. Left ventriculography. INDICATIONS: 1. Dyspnea on exertion, concerning for an anginal equivalent. 2. Abnormal nuclear stress test with mid to distal anterior ischemia. ACCESS: Patient was prepped and draped in sterile fashion. 1% lidocaine was used to anesthetize the right inguinal region. A 6-Bolivian introducer sheath was placed selectively into the right common fe moral artery via modified Seldinger technique. CORONARY ANGIOGRAPHY: A 6-Bolivian JL4 catheter was advanced through the left main coronary artery and images obtained. The left main coronary artery bifurcated into an LAD and circumflex coronary arter ies. The left main coronary artery appeared normal. The left anterior descending coronary artery ga ve rise to 1 prominent diagonal branch. The left anterior descending coronary artery and its diagona l branch appeared normal. The circumflex coronary artery was a large vessel, but was nondominant. C ircumflex coronary artery gave rise to 2 OM branches. The circumflex coronary artery and its OM bran ches appeared normal. A 6-Bolivian JR4 was advanced to the right coronary artery and images obtained. The right coronary art keegan was dominant. The right coronary artery appeared normal. LEFT VENTRICULOGRAPHY: A 6-Bolivian pigtail catheter was advanced in the left ventricle and images obt ained. Left ventricle was normal in size, had normal systolic function. Estimated ejection fraction of 65%. COMPLICATIONS: None. CONCLUSIONS: 1. Normal coronary arteries. 2. Normal left ventricular size and systolic function. /[id number]/MODL
--- NOTE | 2018-10-02 14:48 | CPEKG ---
Test Reason : OPEN Blood Pressure : / mmHG Vent. Rate : 111 BPM Atrial Rate : 110 BPM P-R Int : 160 ms QRS Dur : 087 ms QT Int : 329 ms P-R-T Axes : 028 001 050 degrees QTc Int : 447 ms Sinus tachycardia Confirmed by Sudheer Martins ([id number]) on 10/02/2018 2:48:47 PM Referred By: Sudheer Martins Confirmed By:Sudheer Martins
== END 2018-10-02 15:11 | disposition home or self-care (01) ==
LOC: FCATH 09:52
PROVIDERS: ATTEND Internal Medicine Cardiovascular Disease
PROC: B2111ZZ Fluoroscopy of Multiple Coronary Arteries using Low Osmolar Contrast (ICD-10-PCS; principal; 2018-10-02)
PROC: 4A023N7 Measurement of Cardiac Sampling and Pressure, Left Heart, Percutaneous Approach (ICD-10-PCS; principal; 2018-10-02)
PROC: B2151ZZ Fluoroscopy of Left Heart using Low Osmolar Contrast (ICD-10-PCS; principal; 2018-10-02)
DX: R06.02 Shortness of breath (principal); E11.9 Type 2 diabetes mellitus without complications; I10 Essential (primary) hypertension; Z96.651 Presence of right artificial knee joint
CPT/HCPCS: C1760; J1644; J2250; J3010; Q9967

== ENCOUNTER 2018-10-08 14:38 | Emergency (ER) | payer OTHER | END 2018-10-08 18:26 | disposition home or self-care (01) ==